=== PATIENT | female | born 1955 | race Caucasian/White ===

== ENCOUNTER → 2018-07-01 14:30 | Outpatient (CLI) | payer MEDICARE, MEDICAID, SELFPAY | PROVIDERS: PCP Nurse Practitioner; Visit Provider Student in an Organized Health Care Education/Training Program | DX: R07.89 Other chest pain (principal); I25.2 Old myocardial infarction; I10 Essential (primary) hypertension; R00.1 Bradycardia, unspecified; J44.9 Chronic obstructive pulmonary disease, unspecified; Z99.81 Dependence on supplemental oxygen; F17.210 Nicotine dependence, cigarettes, uncomplicated | CPT/HCPCS: 99214 ==

== ENCOUNTER → 2018-07-06 00:26 | Outpatient (CLI) | payer MEDICARE, MEDICAID, SELFPAY ==
--- NOTE | 2018-07-06 07:04 | MERGEMPI_ITS ---
*[facility]* *[facility]* [address] [place] [address] Myocardial Perfusion Imaging - SPECT Mathew protocol Date of study: 07/06/2018 *PATIENT PRESENTATION* Height: 154.9cm (61in) Blood Pressure: Weight: 100.5kg (221lb) BSA: 2.14m^2 Ordering physician: Eriberto West Impressions: Normal perfusion by Tc99m Sestamibi Imaging. Summary: 1. Myocardial perfusion imaging: Dense breast shadow on raw imaging; moderate size, moderate intensity anterior defect, predominantly fixed. Resolves with AC. C/w breast shadow. No myocardial perfusion defects noted. 2. The calculated left ventricular ejection fraction after stress: 54%. No left ventricular regional motion abnormality. 3. Stress: The target heart rate was not achieved. The heart rate response to stress is exaggerated. There is a hypertensive response to stress. Indication: R07.9. History: Patient's presenting symptoms: asymptomatic. REASON FOR VISIT: PATIENT REPORTS 5/10 CHEST PAIN FOR THE PAST MONTH. CHEST PAIN IS DULL, STERNAL AND LEFT STERNAL WITH OCCASIONAL RADIATION TO BACK. PAIN LASTS 1-3 MINUTES AND IS NOT RELATED TO EXERTION. PALPITATIONS PRESENT OFF AND ON THROUGHOUT THE DAY. PATIENT DOES NOT HAVE SHORTNESS OF BREATH LONG SHE IS USING HER OXYGEN. PAST MEDICAL HISTORY: HYPOTHYROIDISM, OBESITY, CHRONIC OBSTRUCTIVE PULMONARY DISEASE (OXYGEN DEPENDENT), OBSTRUCTIVE SLEEP APNEA, HYPERLIPIDEMIA, HYPERTENSION, CVA AND CEREBRAL ANEURYSM, MYOCARDIAL INFARCTION. FAMILY HISTORY: MOTHER AND FATHER FROM HEART ATTACK. SMOKING STATUS: CURRENT SMOKER. 54 PACK YEARS. EXERCISE ROUTINE: NONE. PMH: COPD. Risk factors: Family history of coronary artery disease. Current tobacco use. Hypertension. Obesity. Cholesterol: 144mg/dl. HDL: 61mg/dl. LDL: 67mg/dl. Triglycerides: 92mg/dl. ALLERGIES: SULFONAMIDE ANTIBIOTICS. MEDICATIONS: ALBUTEROL SULFATE 2 PUFF, PRN. ALBUTEROL/IPRATROPIUM 3ML INHALATION, PRN. ASPIRIN 325MG, DAILY. ESCITALOPRAM 20MG, DAILY. FLUTICASONE/UMECLIDIN/VILANTER 1 INHALATION, DAILY. GABAPENTIN 300MG, BID. LATANOPROST 1 DROP, HS. LEVOTHYROXINE SODIUM 25MG, DAILY. LORAZEPAM 0.5MG, PRN. MECLIZINE HCL 25MG, PRN. OMEPRAZOLE 20MG, DAILY. PRAVASTATIN SODIUM 20MG, HS. ROFLUMILAST 500MCG, Q48H. TRAZODONE HCL 200MG, HS. Imaging Technique: Protocol: Mathew protocol. Acquisition: Gated SPECT; 1 day - rest/stress. The patient was imaged in the supine position. Attenuation correction used. Isotope administration: - Rest. Tc[99m]-sestamibi. Dose: 9.9mCi. Injection time: 10:30 AM. Injection to stress time: 00:45. - Stress. Tc[99m]-sestamibi. Dose: 32mCi. Injection time: 12:20 PM. 1-2 min before end of exercise Baseline ECG: SINUS BRADYCARDIA WITH INCOMPLETE LEFT BUNDLE BRANCH BLOCK. HEART RATE 46 BPM. Stress protocol: + +---+ + + !Stage !HR !BP (mmHg) !Comments ! + +---+ + + !Baseline supine !46 !128/70 (89) ! ! + +---+ + + !Baseline standing!44 !112/70 (84) ! ! + +---+ + + !Recovery; 1 min !101!165/72 (103)! ! + +---+ + + !1 min !65 !158/68 (98) !Inject Regadenoson.! + +---+ + + !3 min !51 !144/74 (97) ! ! + +---+ + + !6 min !50 !130/78 (95) ! ! + +---+ + + * Stress results: Maximal heart rate during stress was 111bpm (70% of maximal predicted heart rate). The maximal predicted heart rate was 158bpm. The target heart rate was not achieved. The heart rate response to stress is exaggerated. There is a hypertensive response to stress. The rate-pressure product for the peak heart rate and blood pressure was 43005uc Hg/min. Stress ECG: TREADMILL PORTION OF EXERCISE STRESS TEST ENDED IN 2MIN 20SEC DUE TO PATIENT FATIGUE. EXAGGERATED HEART RATE AND BLOOD PRESSURE RESPONSE TO EXERCISE. MAX HEART RATE 111 BPM, 70% OF TARGET HEART RATE. APPROXIMATE METS ACHIEVED 4.64. NO ANGINA REPORTED. BIGEMINY NOTED PRIOR TO CESSATION OF EXERCISE. FREQUENT PVCS DURING RECOVERY PERIOD. NO SIGNIFICANT ST SEGMENT CHANGES. MODERATELY DIMINISHED FUNCTIONAL CAPACITY. EXERCISE STRESS TEST PROTOCOL TRANSITIONED FROM MATHEW TO LEXISCAN. STRESS TEST ENDED IN 6MIN WHEN ALL SYMPTOMS OF REGADENOSON INJECTION SUBSIDED. APPROPRIATE HEART RATE AND BLOOD PRESSURE RESPONSE TO REGADENOSON INJECTION. FREQUENT PVCS NOTED, LESSENING TO OCCASIONAL PVCS TOWARDS END OF REGADENOSON PORTION OF TEST. PALPITATIONS REPORTED AT BEGINNING OF INJECTION BUT RESOLVED WITHIN SECONDS. NO ANGINA REPORTED. Myocardial perfusion: Imaging information: gated. Dense breast shadow on raw imaging; moderate size, moderate intensity anterior defect, predominantly fixed. Resolves with AC. C/w breast shadow. No myocardial perfusion defects noted. Ventricular Function (Wall Motion): The calculated left ventricular ejection fraction after stress: 54%. No left ventricular regional motion abnormality. Study data: Edgardo Boswell MD supervised and was readily available during the procedure. This study was interpreted by [facility]. Study status: Routine. Consent: The risks, benefits, and alternatives to the procedure were explained to the patient and informed consent was obtained. Procedure: Initial setup. A baseline ECG was recorded. Surface ECG leads and manual cuff blood pressure measurements were monitored. Heart sounds: Normal. Lung sounds: Abnormal. Supplemental oxygen. Oxygen, 3L/min was administered throughout the procedure. Treadmill exercise testing was performed using the Mathew protocol. Study completion: All catheters inserted during the procedure were removed. The patient tolerated the procedure well and was discharged from the lab. Discharge: The patient left the laboratory in stable condition. Birthdate: Patient birthdate: 1955. Sex: Gender: female. Study date: Study date: 07/06/2018. Study time: 07:04 AM. Electronically signed by Edgardo Boswell MD 07/06/2018 17:37
[2018-07-06] MEDS: Regadenoson 0.4 MG/5 ML SYR IVP (12:38)
== END ==
PROVIDERS: PCP Nurse Practitioner; Visit Provider Student in an Organized Health Care Education/Training Program
DX: R07.9 Chest pain, unspecified (principal); R00.2 Palpitations; E03.9 Hypothyroidism, unspecified; J44.9 Chronic obstructive pulmonary disease, unspecified; Z99.81 Dependence on supplemental oxygen; I10 Essential (primary) hypertension; E78.5 Hyperlipidemia, unspecified; Z82.49 Family history of ischemic heart disease and other diseases of the circulatory system
CPT/HCPCS: 78452; 93017; J2785; 93016; 93018

== ENCOUNTER → 2018-07-21 02:52 | Outpatient (CLI) | payer MEDICARE, MEDICAID, SELFPAY ==
[2018-07-21 12:14] LABS: Absolute Eosinophil Count 0.01 k/cumm (0.0-0.7); Absolute Lymphocyte Count 0.99 k/cumm (1.2-3.4); Absolute Monocyte Count 0.17 k/cumm (0.11-0.7); Absolute Neutrophil Count 2.48 k/cumm (1.2-6.7); Eosinophils % 0.3; HCT 36.8 % (36.0-46.0); Lymphocytes % 27.1; Mean Corp. HGB Concentration 32.6 g/dL (32.0-36.0); Mean Corpuscular Hemoglobin 31.4 pg (27.0-33.0); Mean Corpuscular Volume 96.3 fL (80-95); Mean Platelet Volume 8.8 fL (8.0-11.0); Monocytes % 4.7; Neutrophils % 67.9; RBC 3.82 m/cumm (4.00-5.20); RBC Distribution Width 12.7 % (11.7-14.6); White Blood Cell Count 3.65 k/cumm (4.4-10.8)
[2018-07-21 12:52] LABS: Platelet Count 70 x1000/uL (130-400)
[2018-07-21 14:23] LABS: ALT 21 U/L (12-78); AST 15 U/L (15-37); Albumin 3.6 g/dL (3.4-5.0); Alkaline Phosphatase 115 U/L (46-116); Anion Gap 9.5 mmol/L (3-11); BUN 10 mg/dL (7-18); Bilirubin, Total 0.2 mg/dL (0.2-1.0); CO2 29.5 mmol/L (21.0-32.0); CREATININE 1.29 mg/dL (0.55-1.02); Calcium 9.1 mg/dL (8.5-10.1); Chloride 105 mmol/L (98-107); Cholesterol 146 mg/dL (50-200); Estimated GFR 41.88 (mL/min/1.73m2); Glucose 97 mg/dL (70-100); HDL Cholesterol 60 mg/dL (40-60); LDL CHOLESTEROL 69 mg/dL (<100); Potassium 4.7 mmol/L (3.5-5.1); Sodium 144 mmol/L (136-145); TSH (W/Ref FT4) 1.47 uIU/mL (0.358-3.74); Triglyceride 95 mg/dL (30-150)
== END ==
PROVIDERS: PCP Nurse Practitioner; Visit Provider Nurse Practitioner
DX: E78.5 Hyperlipidemia, unspecified (principal); I10 Essential (primary) hypertension; J44.9 Chronic obstructive pulmonary disease, unspecified; E03.9 Hypothyroidism, unspecified
CPT/HCPCS: 36415; 80053; 80061; 83721; 84443; 85025

== ENCOUNTER → 2018-07-30 01:36 | Outpatient (CLI) | payer MEDICARE, MEDICAID, SELFPAY ==
--- NOTE | 2018-07-30 12:54 | DI.REPORT_ITS ---
SYMPTOMS/DIAGNOSIS: CHRONIC LT SHOULDER PAIN FOR 5 MONTHS, M25.512 LEFT SHOULDER: The glenohumeral joint is well maintained. There are moderate degenerative changes involving the AC joint. No soft tissue calcifications are seen. 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
== END ==
PROVIDERS: PCP Nurse Practitioner; Visit Provider Nurse Practitioner
DX: M25.512 Pain in left shoulder (principal); M19.012 Primary osteoarthritis, left shoulder; G89.29 Other chronic pain
CPT/HCPCS: 73030

== ENCOUNTER 2018-11-09 13:35 | Outpatient (CLI) | payer MEDICARE, MEDICAID, SELFPAY ==
--- NOTE | 2018-11-09 13:39 | DI.RAD_ITS ---
SYMPTOM/DIAGNOSIS: CHRONIC OBSTRUCTIVE LUNG DISEASE, J44.9, COUGH PA AND LATERAL CHEST: The heart is enlarged, unchanged. There is now noted to be left apical pleural thickening. This was not seen on previous chest CT of 04/08/18 nor on left shoulder films of 07/30/18. The lungs are otherwise clear. IMPRESSION: New left apical pleural thickening. A chest CT could be performed for further evaluation.
== END 2018-11-09 13:55 ==
PROVIDERS: PCP Nurse Practitioner; Visit Provider Internal Medicine
DX: J44.9 Chronic obstructive pulmonary disease, unspecified (principal); R05 Cough; J92.9 Pleural plaque without asbestos; I51.7 Cardiomegaly
CPT/HCPCS: 71046

== ENCOUNTER → 2018-11-19 12:27 | Outpatient (BNVA) | payer MEDICARE, MEDICAID, SELFPAY | PROVIDERS: PCP Nurse Practitioner; Visit Provider Psychiatry & Neurology Neurology | DX: I67.1 Cerebral aneurysm, nonruptured (principal); I63.9 Cerebral infarction, unspecified; G60.9 Hereditary and idiopathic neuropathy, unspecified; I10 Essential (primary) hypertension; J44.9 Chronic obstructive pulmonary disease, unspecified; F17.210 Nicotine dependence, cigarettes, uncomplicated | CPT/HCPCS: 99213 ==

== ENCOUNTER 2018-11-25 00:15 | Outpatient (CLI) | payer MEDICARE, MEDICAID, SELFPAY ==
--- NOTE | 2018-11-25 14:14 | DI.MRI_ITS ---
SYMPTOMS/DIAGNOSIS: CEREBRAL ANEURYSM S/P COILING, I67.1 MR ANGIOGRAM, [place] REGION: MR angiogram of the region of the [place] was performed according to the usual protocol. The findings are of suboptimal technical quality. The patient reportedly has a history of a previously noted cerebral aneurysm treated with intravascular coiling. Intracranial portions of the internal carotid arteries are grossly unremarkable. No aneurysm seen involving the internal carotid arteries, middle cerebral arteries, anterior cerebral arteries or anterior communicating arteries. There is contour deformity of the tip of the basilar artery, artifact versus post embolization changes. Clinical history requested regarding the site of reported embolization. Posterior cerebral arteries are patent bilaterally. CONCLUSION: Indeterminate findings of the distal basilar artery. Clinical correlation requested and previous examinations requested regarding clinical history of embolization at this site. I would note that the posterior cerebral arteries show normal appearance bilaterally with no evidence of aneurysm or stenosis.
== END 2018-11-25 00:35 ==
PROVIDERS: PCP Nurse Practitioner; Visit Provider Psychiatry & Neurology Neurology
DX: I67.1 Cerebral aneurysm, nonruptured (principal)
CPT/HCPCS: 70544

== ENCOUNTER 2018-11-25 11:25 | Outpatient (CLI) | payer MEDICARE, MEDICAID, SELFPAY ==
--- NOTE | 2018-11-25 14:53 | DI.CT_ITS ---
SYMPTOMS/DIAGNOSIS: COPD, J44.9, EVALUATE LEFT APICAL DENSITY ON CXR CHEST CT: Noncontrast CT of the chest was performed. Examination is compared with a previous chest CT of 04/08/18. A recent radiograph showed left apical radiodensity. Previous CT showed unremarkable appearance of the left lung apex. On today's CT, there is an area of apparent posterior apical consolidation in the left upper lobe. This contains air bronchograms. This may represent an infectious process, but the possibility of underlying neoplastic disease is not excluded. No additional new findings in the lungs, 3 mm right middle lobe pulmonary nodule again noted. No gross mediastinal or hilar adenopathy. Tracheobronchial tree appears intact. No pleural effusions seen. Images obtained through the upper abdomen show unremarkable appearance of visualized portions of liver, spleen, pancreas, adrenals and kidneys. Previous cholecystectomy and gas in the biliary tract is noted. CONCLUSION: New area of apparent posterior left apical consolidation as described above. Underlying mass not excluded. Please correlate clinically and appropriate follow-up examinations are requested following treatment to document the resolution of these findings.
== END 2018-11-25 11:45 ==
PROVIDERS: PCP Nurse Practitioner; Visit Provider Internal Medicine
DX: J44.9 Chronic obstructive pulmonary disease, unspecified (principal); R91.1 Solitary pulmonary nodule; R91.8 Other nonspecific abnormal finding of lung field
CPT/HCPCS: 70544; 71250

== ENCOUNTER 2018-12-17 13:41 | Outpatient (CLI) | payer MEDICARE, MEDICAID, SELFPAY ==
--- NOTE | 2018-12-17 13:30 | DI.RAD_ITS ---
SYMPTOMS/DIAGNOSIS: F/U PNEUMONIA CHEST X-RAY, PA AND LATERAL: Comparison chest x-ray is 11/09/18. Comparison CT scan is 11/25/18. There has been significant decrease in size of the left apical opacity with minimal thickening seen in the left apex. The lungs are otherwise clear. The heart size and pulmonary vasculature are stable. No effusions or pneumothoraces are identified. The bones are intact. IMPRESSION: Significant improvement in the left upper lobe infiltrate with possible small residual infiltrate present. A follow-up chest x-ray should be considered in one month to document complete resolution of the infiltrate.
== END 2018-12-17 14:01 ==
PROVIDERS: PCP Nurse Practitioner; Visit Provider Nurse Practitioner
DX: J18.9 Pneumonia, unspecified organism (principal); Z09 Encounter for follow-up examination after completed treatment for conditions other than malignant neoplasm
CPT/HCPCS: 71046

== ENCOUNTER 2019-01-18 00:30 | Outpatient (CLI) | payer MEDICARE, MEDICAID, SELFPAY ==
--- NOTE | 2019-01-18 13:00 | DI.RAD_ITS ---
SYMPTOM/DIAGNOSIS: F/U KELLY PNEUMONIA, J18.1 FRONTAL AND LATERAL CHEST: Comparison is made with 11/09/18 and 12/17/18. Heart size and pulmonary vasculature are stable. The heart appears mildly enlarged. The lungs are clear. There has been resolution of the left upper lobe infiltrates. No effusions or pneumothoraces are identified. Degenerative changes are seen in the spine. IMPRESSION: No acute pulmonary process.
== END 2019-01-18 00:50 ==
PROVIDERS: PCP Nurse Practitioner; Visit Provider Nurse Practitioner
DX: J18.1 Lobar pneumonia, unspecified organism (principal); I51.7 Cardiomegaly
CPT/HCPCS: 71046

== ENCOUNTER 2019-02-12 02:17 | Outpatient (CLI) | payer MEDICARE, MEDICAID, SELFPAY ==
[2019-02-12 18:58] LABS: ALT 16 U/L (12-78); AST 19 U/L (15-37); Albumin 3.7 g/dL (3.4-5.0); Alkaline Phosphatase 137 U/L (46-116); Bilirubin, Direct 0.05 mg/dL (0.00-0.20); Bilirubin, Total 0.2 mg/dL (0.2-1.0); Total Protein 7.1 g/dL (6.4-8.2)
== END 2019-02-12 02:37 ==
PROVIDERS: PCP Nurse Practitioner; Visit Provider Internal Medicine
DX: J44.9 Chronic obstructive pulmonary disease, unspecified (principal)
CPT/HCPCS: 36415; 80076

== ENCOUNTER → 2019-05-26 13:42 | Outpatient (BNVA) | payer MEDICARE, MEDICAID, SELFPAY | PROVIDERS: PCP Nurse Practitioner; Visit Provider Psychiatry & Neurology Neurology | DX: I67.1 Cerebral aneurysm, nonruptured (principal); I63.9 Cerebral infarction, unspecified; G60.9 Hereditary and idiopathic neuropathy, unspecified; I10 Essential (primary) hypertension; J44.9 Chronic obstructive pulmonary disease, unspecified; Z99.81 Dependence on supplemental oxygen; F17.210 Nicotine dependence, cigarettes, uncomplicated | CPT/HCPCS: 99214 ==

== ENCOUNTER 2019-06-02 00:51 | Outpatient (CLI) | payer MEDICARE, MEDICAID, SELFPAY ==
--- NOTE | 2019-06-02 09:43 | DI.MRI_ITS ---
SYMPTOM/DIAGNOSIS: NUMBNESS, TINGLING FACE, LEFT ARM; CEREBRAL ANEURYSM, NONRUPTURED, I67.1, S/P CLAMPING; CEREBRAL INFARCTION, I63.9; H/O CIRCULATORY SYSTEM DISEASES, Z86.79; POSTPROCEDURAL STATES, Z98.890 [place] MRIS: Comparison is made with the prior examination of 11/25/18. The patient reportedly has a history of intravascular coiling of a cerebral aneurysm. The visualized portions of the internal carotid arteries are unremarkable. The anterior, middle and posterior cerebral arteries appear intact and the anterior communicating arteries are well maintained. Again suggested is a contour deformity at the tip of the basilar artery which is of questionable significance. Again requested is clinical history regarding the site of the reported embolization. SUMMARY: No interval change when compared with the 11/25/18 exam. There is again suggested the possibility of a small aneurysm at the tip of the basilar artery. The examination is otherwise unremarkable. BRAIN MRI: Sagittal T2, axial T2, axial diffusion weighted, axial FLAIR, axial GRE and axial T1 pulse sequences were performed. There are several small regions of increased signal in the subcortical frontoparietal white matter bilaterally, consistent with small vessel disease. There is no evidence of a hemorrhage or mass. There are no regions of restricted diffusion and nothing to suggest an infarct. The ventricles are intact. SUMMARY: Unremarkable brain MRI save for findings consistent with small vessel disease.
[2019-06-02 11:10] LABS: HCT 34.4 % (36.0-46.0); HGB 11.1 g/dL (12.0-15.5); Mean Corp. HGB Concentration 32.3 g/dL (32.0-36.0); Mean Corpuscular Hemoglobin 32.5 pg (27.0-33.0); Mean Corpuscular Volume 100.6 fL (80-95); Mean Platelet Volume 8.5 fL (8.0-11.0); RBC 3.42 m/cumm (4.00-5.20); RBC Distribution Width 13.7 % (11.7-14.6); White Blood Cell Count 3.16 k/cumm (4.4-10.8)
[2019-06-02 11:54] LABS: Platelet Count 43 x1000/uL (130-400)
[2019-06-02 12:33] LABS: ALT 17 U/L (12-78); AST 19 U/L (15-37); Albumin 3.7 g/dL (3.4-5.0); Alkaline Phosphatase 131 U/L (46-116); Anion Gap 9.5 mmol/L (3-11); BUN 16 mg/dL (7-18); Bilirubin, Total 0.2 mg/dL (0.2-1.0); CO2 28.5 mmol/L (21.0-32.0); CREATININE 1.13 mg/dL (0.55-1.02); Calcium 9.2 mg/dL (8.5-10.1); Calculated LDL 71 mg/dL; Chloride 106 mmol/L (98-107); Cholesterol 154 mg/dL (50-200); Estimated GFR 48.63 (mL/min/1.73m2); Glucose 103 mg/dL (70-100); HDL Cholesterol 64 mg/dL (40-60); Potassium 4.7 mmol/L (3.5-5.1); Sodium 144 mmol/L (136-145); TSH (W/Ref FT4) 1.32 uIU/mL (0.358-3.74); Total Protein 7.2 g/dL (6.4-8.2); Triglyceride 99 mg/dL (30-150)
== END 2019-06-02 01:11 ==
PROVIDERS: PCP Nurse Practitioner; Referring Provider Internal Medicine; Visit Provider Nurse Practitioner
DX: I63.9 Cerebral infarction, unspecified (principal); I67.1 Cerebral aneurysm, nonruptured; Z86.79 Personal history of other diseases of the circulatory system; Z98.890 Other specified postprocedural states; E03.9 Hypothyroidism, unspecified; E78.5 Hyperlipidemia, unspecified; I10 Essential (primary) hypertension; J44.9 Chronic obstructive pulmonary disease, unspecified; I67.9 Cerebrovascular disease, unspecified
CPT/HCPCS: 36415; 70544; 80053; 80061; 83721; 85027; 70551; 84443

== ENCOUNTER 2019-06-07 00:52 | Outpatient (CLI) | payer MEDICARE, MEDICAID, SELFPAY ==
--- NOTE | 2019-06-07 13:38 | DI.CTLCSR_ITS ---
SYMPTOM/DIAGNOSIS: F17.210, NICOTINE DEPENDENCE, CURRENT SMOKER LUNG SCREENING CHEST CT: CT examination of the chest was performed without contrast material utilizing low dose lung cancer screening protocol. The examination is compared with multiple previous chest CT's. There is an irregular area of increased radiodensity in the left lung apex which is multi focal and predominantly linear but with nodular components measuring up to about 13 by 8 mm. in diameter. The patient had an area of consolidation in this site on previous CT of 11/25/18. Chest CT on 04/08/18 showed this area to be clear. This finding may represent areas of scarring or recurrent pneumonia however the possibility of underlying neoplasm is not excluded. 3-4 mm. right middle lobe nodule again noted as seen on previous examinations. Tracheobronchial tree appears intact. No mediastinal or hilar adenopathy. Images obtained through the upper abdomen show unremarkable appearance of visualized portions of the liver, spleen, pancreas, adrenals and kidneys. CONCLUSION: Findings in left lung apex as described which may represent post infectious scarring. An additional [address] up chest CT is recommended. Alternatively, PET CT could be considered to evaluate the possibility of neoplastic disease. Category 4 A. Lung-RAD Category: Lung RADS Category 4A- Suspicious
[2019-06-07 14:13] LABS: HCT 33.4 % (36.0-46.0); HGB 10.8 g/dL (12.0-15.5); Mean Corp. HGB Concentration 32.3 g/dL (32.0-36.0); Mean Corpuscular Hemoglobin 31.9 pg (27.0-33.0); Mean Corpuscular Volume 98.5 fL (80-95); Mean Platelet Volume 9.2 fL (8.0-11.0); RBC 3.39 m/cumm (4.00-5.20); RBC Distribution Width 13.3 % (11.7-14.6); White Blood Cell Count 3.84 k/cumm (4.4-10.8)
[2019-06-07 14:35] LABS: Platelet Count 56 x1000/uL (130-400)
[2019-06-07 15:49] LABS: Folate 17.6 ng/mL (8.6-20.0); Vitamin B12 506 pg/mL (193-986)
[2019-06-08 11:20] LABS: Hepatitis C Ab w Rflx HCV PCR Negative (NEGAT)
[2019-06-08 11:40] LABS: HIV-1/2 Ag & Ab Screen Negative (NEGAT)
== END 2019-06-07 01:12 ==
PROVIDERS: PCP Nurse Practitioner; Visit Provider Internal Medicine
DX: D69.6 Thrombocytopenia, unspecified (principal); Z11.4 Encounter for screening for human immunodeficiency virus [HIV]; Z11.59 Encounter for screening for other viral diseases; F17.210 Nicotine dependence, cigarettes, uncomplicated; Z12.2 Encounter for screening for malignant neoplasm of respiratory organs; R91.8 Other nonspecific abnormal finding of lung field
CPT/HCPCS: 36415; 85027; 86803; 87389; G0297; 82607; 82746

== ENCOUNTER 2019-06-08 21:45 | Emergency (ER) | payer MEDICARE, MEDICAID, SELFPAY ==
[2019-06-08] VITALS (16 sets, daily range): BP systolic 117–153; BP diastolic 51–66; PULSE 58–82; RESP 15–22; TEMP 37.4; O2SAT 95–99
--- NOTE | 2019-06-08 21:58 | NUR.NOTE ---
over the past 4 days PT has had increasing dispnyia pt believes this to be a result of her COPD
[2019-06-08] MEDS: methylPREDNISolone SUCC 125 MG VIAL IVP (22:00)
[2019-06-08] MEDS: Albuterol/Ipratropium 3 ML UPD VIAL 9 ML UPD (22:00)
--- NOTE | 2019-06-08 22:09 | W.ED.GENAD ---
Discharge Plan Disposition Patient Disposition: HOME Condition: Good Discharge Details Chief Complaint: SOB Clinical Impression: COPD exacerbation, Cough Primary Care Provider: Rebeca Dupree ED Provider: Lukasz Noel Home Meds and New Rx's Prescriptions: New prednisone 50 MG tablet 50 mg PO DAILY Qty: 5 RF: 0 No Action lisinopril 10 mg tablet 10 mg PO DAILY Qty: 90 RF: 3 zolpidem 10 mg tablet 10 mg PO QHS PRN (Reason: sleep) Qty: 30 RF: 3 albuterol sulfate [ProAir HFA] 8.5 GM HFA aerosol inhaler 2 puff Inhalation Q4H PRN Qty: 3 RF: 3 nystatin 15 GM cream 1 gm Topical TID PRNQty: 15 RF: 6 latanoprost 2.5 ML drops 1 drp Ophthalmic HS RF: 0 aspirin 325 MG tablet 325 mg PO DAILY RF: 0 Hospital Bed EACH Miscellaneous ONCE Qty: 1 RF: 0 Fluticasone/Umeclidin/Vilanter [Trelegy Ellipta 100-62.5-25] 1 EACH BLST.W.DEV 1 ea Inhalation DAILY RF: 0 levothyroxine [Synthroid] 25 MCG tablet 25 mcg PO DAILY Qty: 90 RF: 3 omeprazole 20 MG capsule,delayed release(DR/EC) 20 mg PO DAILY Qty: 90 RF: 3 escitalopram oxalate [Lexapro] 20 MG tablet 20 mg PO DAILY Qty: 90 RF: 3 Oxygen EACH continuous Qty: 3 RF: 0 diaper,brief,infant-tulio,disp [Diapers Ultrafits 3] 1 EACH misc 1 ea Miscellaneous Q4H PRN PRNQty: 300 RF: 6 ipratropium-albuterol 0.5 mg-3 mg(2.5 mg base)/3 mL solution for nebulization 3 ml Inhalation Q4H PRN Qty: 180 RF: 6 pravastatin [Pravachol] 20 mg tablet 20 mg PO HS Qty: 90 RF: 3 Daliresp 500 mcg tablet 500 mcg PO DAILY RF: 0 Discharge Instructions Instructions: COPD (Chronic Obstructive Pulmonary Disease) (ED) Additional Instructions: At this time your signs and symptoms appear consistent with a COPD exacerbation. Please take the steroid as directed. Please take your DuoNeb solutions in your nebulizer every 4-6 hours for the next 2 days. If you notice any worsening of your symptoms, or any new symptoms such as vomiting, diarrhea, fever, chills, shortness of breath, chest pain, numbness, weakness, or fainting , please return immediately to the emergency department for reevaluation. Please follow up with your primary care provider as soon as possible for reassessment and reevaluation. As always, it was a pleasure participating in your medical care today. Please follow-up tomorrow for your ultrasound of your leg. He will be contacted for this appointment. Please follow-up in the emergency department after your ultrasound. Referrals: Rebeca Dupree NP [Primary Care Provider] - Medical Decision Making This is a 63-year-old female who presents today for evaluation of shortness of breath for the last 1 to 2 days with associated cough, productive green-yellow sputum, as well as a mild pleuritic chest pain. She is taken her 3 breathing treatments at home but these have not improved her symptoms. Exam demonstrates crackles primarily wheezes in the lower lung cervantes, she does demonstrate a tender right calf, as well as mildly tender superficial varicose veins. Oxygenation appears to be good with oxygen saturations in the high 90s on 4 L. She is normally on 3 L baseline. With the patient's cough, and wheezes I suspect reactive airway disease of her with the pleuritic chest pain, the notable right lower calf tenderness PE is certainly on the differential. We will give duo nebs, steroids, and treat for COPD exacerbation, we will get further imaging based on d-dimer studies. As precaution ACS work-up will also be performed for atypical and less likely cardiac etiology. 12:08 AM Patient's laboratory work-up has returned, no white count, no leukocytosis or bandemia. Hemoglobin is stable. Platelets are 54 but this appears to be her more normal baseline over the last few months. No acute change. Renal function at baseline, troponin less than 0.05, proBNP normal. D-dimer was positive, CT angios demonstrates no acute process, there is minimal atelectasis over the left upper lobe postinflammatory residual changes, but no evidence of pneumonia or significant consolidation. No evidence of significant infectious etiology, PE or dissection per virtual radiology. On reassessment the patient states that she has near complete resolution of her symptoms and feels much better and would like to go home. At this time signs and symptoms appear consistent with a COPD exacerbation. Her lung sounds are notably improved. Will recommend continued steroids at home for the next 5 days, duo nebs every 4 to 6 hours for the next 2 days, and close reassessment with her PCP. Because of the mild swelling and tenderness in her right calf, we will schedule an outpatient ultrasound of the right lower extremity. We did discuss Eliquis versus subcu Lovenox, and the patient is requesting Lovenox at this time. We will give her 1.5 mix per kick for 24-hour treatment while she waits for the ultrasound tomorrow morning. We discussed the importance of close follow-up in the ER after the ultrasound, and red flags which to return. I have extensively reviewed the treatment plan and discharge instructions with the patient. I have addressed all patient concerns at this time. The patient was made aware of what symptoms to monitor for that would warrant a return to the emergency department. Discussed the plan with the patient, they demonstrate verbal understanding and agreement with our assessment and plan at this time. EKG 22: 38 Rate 70, intervals normal, sinus rhythm, no significant ST elevations or depressions, no T wave inversions. No Q waves. EKG on 10/01/2017 demonstrates consistent findings. FINDINGS: Pulmonary arteries: Unremarkable. No obvious pulmonary emboli. Aorta: Unremarkable. No aortic aneurysm. No aortic dissection. Lungs: Small amount of dependent atelectasis. Small amount of postinflammatory change in the left apex. Mild to moderate emphysematous changes. Pleural space: Unremarkable. No pneumothorax. No pleural effusion. Heart: Unremarkable. No pericardial effusion. No obvious heart strain. Lymph nodes: Unremarkable. No enlarged lymph nodes. Bones/joints: Unremarkable. No acute fracture. Soft tissues: Unremarkable. MPRESSION: Minimal dependent atelectasis. Left upper lobe has a small amount of postinflammatory change residual from a consolidation seen in October of last year. Mild to moderate emphysematous changes. Thank you for allowing us to participate in the care of your patient. Dictated and Authenticated by: Arpan Preciado MD [facility] General Date/Time Provider Initiated Documentation: 06/08/19 21:50. HPI Narrative: This is a 63-year-old female with a past medical history of COPD, GERD, cerebral aneurysm x2 with coiling, who is on 3 L of normal saline, who presents today for evaluation of shortness of breath for last 1 to 2 days with associated cough with productive yellow sputum. She denies any fever or chills. She did take 3 breathing treatments earlier today and this is not improved her symptoms. She does admit to a mild pleuritic chest pain but denies any chest heaviness, chest tightness. Denies PE risk factors such as recent long car rides, immobilization, recent surgery, prior history of DVT or PE, family history of PE or DVT, morbid obesity, exogenous estrogen and smoking, hemoptysis, history of cancer. She denies any history of cardiac disease. No other complaints at this time. She does arrive via EMS, per EMS O2 saturations have remained in the high 90s, with no evidence of vital sign abnormality aside from minimal tachypnea 23. Of note the patient also has a history of stroke in the past, for which she has chronic left-sided hemiparesis. She does take a daily aspirin. Related Data Home Medications Medication Instructions Recorded Confirmed albuterol sulfate [ProAir HFA] 2 puff INHALATION Q4H PRN #3 05/30/17 06/08/19 inhaler nystatin 1 gm TOPICAL TID PRN #15 gm 07/01/17 06/08/19 latanoprost 1 drp OPHTHALMIC HS drp 07/08/17 06/08/19 aspirin 325 mg PO DAILY tab-cap 11/06/17 06/08/19 Fluticasone/Umeclidin/Vilanter 1 ea INHALATION DAILY 04/24/18 05/26/19 [Trelegy Ellipta 100-62.5-25] escitalopram oxalate [Lexapro] 20 mg PO DAILY #90 tab-cap 04/28/18 06/08/19 levothyroxine [Synthroid] 25 mcg PO DAILY #90 tab-cap 04/28/18 06/08/19 omeprazole 20 mg PO DAILY #90 cap 04/28/18 06/08/19 Oxygen l continuous #3 07/03/18 05/26/19 diaper,brief,infant-tulio,disp #300 ea 07/29/18 06/08/19 [Diapers] ipratropium-albuterol 0.5 mg-3 3 ml INHALATION Q4H PRN #180 ml 10/07/18 06/08/19 mg(2.5 mg base)/3 mL nebulization soln lisinopril 10 mg tablet 10 mg PO DAILY #90 tab-cap 12/17/18 06/08/19 pravastatin 20 mg tablet 20 mg PO HS #90 tab-cap 05/24/19 06/08/19 roflumilast 500 mcg tablet 500 mcg PO DAILY tab-cap 05/25/19 06/08/19 zolpidem 10 mg tablet 10 mg PO QHS PRN #30 tab 05/25/19 06/08/19 prednisone 50 mg PO DAILY #5 tab 06/08/19 Previous Rx's Medication Instructions Recorded escitalopram oxalate [Lexapro] 20 mg PO DAILY #90 tab-cap 04/28/18 levothyroxine [Synthroid] 25 mcg PO DAILY #90 tab-cap 04/28/18 omeprazole 20 mg PO DAILY #90 cap 04/28/18 ipratropium-albuterol 0.5 mg-3 3 ml INHALATION Q4H PRN #180 ml 10/07/18 mg(2.5 mg base)/3 mL nebulization soln lisinopril 10 mg tablet 10 mg PO DAILY #90 tab-cap 12/17/18 pravastatin 20 mg tablet 20 mg PO HS #90 tab-cap 05/24/19 zolpidem 10 mg tablet 10 mg PO QHS PRN #30 tab 05/25/19 prednisone 50 mg PO DAILY #5 tab 06/08/19 Allergies Allergy/AdvReac Type Severity Reaction Status Date / Time Sulfa (Sulfonamide Allergy Severe Pruritis, Verified 06/08/19 22:03 Antibiotics) rash General Stated Complaint: SOB MARANDA: 3 Review of Systems Review of Systems All systems reviewed & are unremarkable except as noted in HPI and below PFSH Social History Smoking/Tobacco Use Status: Current every day Tobacco Type: cigarettes Years smoked: 55 Alcohol Intake: former Drug use: Never Substance use type: does not use Household members: family Seatbelt use: always Do you feel safe at home: Yes Do you feel safe in your relationship?: Yes Exam Narrative Exam Narrative: 1.Const: Well-nourished, Well-developed, appearing stated age 2.Eyes: PERRL, no conjunctival injection, and symmetrical lids. 3.ENT: Atraumatic external nose and ears. Moist MM. Neck: Symmetric, trachea midline, No thyromegaly. 4.CVS: +S1/S2, No murmurs or gallops. Peripheral pulses 2+ and equal in all extremities. Brisk capillary refill in all extremities. 5.RESP: Decreased breath sounds throughout, wheezes in the bases bilaterally. No significant crackles or rhonchi. 6.GI: Soft, Nontender/Nondistended, No hepatosplenomegaly. No guarding or rebound. 7.MSK: Normocephalic/Atraumatic, Extremities w/o deformity or ttp No cyanosis or clubbing, Normal movement of all extremities. Mild tenderness in the right calf, mild bruising as well with firm superficial veins. No pitting edema. 8.Skin: Warm, Dry. No rashes or lesions. 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 Sensation grossly intact, chronic left-sided hemiparesis. 10.Psych: (AAO) x3. Appropriate mood and affect Course Vital Signs Temperature 37.4 C 06/08/19 22:00 Pulse 58 L 06/08/19 22:00 Respiratory Rate 22 06/08/19 22:00 Blood Pressure 117/65 06/08/19 22:00 Pulse Oximetry 99 06/08/19 22:00 Temperature 37.4 C 06/08/19 22:00 Temperature Source Tympanic 06/08/19 22:00 Pulse 58 L 06/08/19 22:00 Respiratory Rate 22 06/08/19 22:00 Blood Pressure 117/65 06/08/19 22:00 Blood Pressure Position Sitting 06/08/19 22:00 Pulse Oximetry 99 06/08/19 22:00 Oxygen Delivery Method Nasal Cannula 06/08/19 22:00 Oxygen Flow Rate 3 06/08/19 22:00 Pain Level 0 06/08/19 22:00
[2019-06-08 22:38] LABS: Abs Immature Grans 0.01 k/cumm (0.0-0.09); Absolute Eosinophil Count 0.03 k/cumm (0.0-0.7); Absolute Lymphocyte Count 1.44 k/cumm (1.2-3.4); Absolute Monocyte Count 0.29 k/cumm (0.11-0.7); Absolute Neutrophil Count 2.08 k/cumm (1.2-6.7); BE (Venous) 4.1 mmol/L (-3-3); Eosinophils % 0.8; HCO3 (Venous) 29 mmol/L (22-28); HCT 33.8 % (36.0-46.0); HGB 10.9 g/dL (12.0-15.5); Immature Grans % 0.3; Lymphocytes % 37.4; Mean Corp. HGB Concentration 32.2 g/dL (32.0-36.0); Mean Corpuscular Volume 99.1 fL (80-95); Mean Platelet Volume 8.6 fL (8.0-11.0); Monocytes % 7.5; O2 Sat (Venous) 88 % (70-80); RBC 3.41 m/cumm (4.00-5.20); RBC Distribution Width 13.6 % (11.7-14.6); TCO2 (Venous) 28 mmol/L (22-29); White Blood Cell Count 3.85 k/cumm (4.4-10.8); pCO2 (Venous) 51 mm/Hg (34-47); pH (Venous) 7.37 (7.32-7.43); pO2 (Venous) 52 mm/Hg (28-44)
[2019-06-08 22:42] LABS: Platelet Count 54 x1000/uL (130-400)
[2019-06-08 23:12] LABS: ALT 17 U/L (12-78); AST 20 U/L (15-37); Albumin 3.9 g/dL (3.4-5.0); Alkaline Phosphatase 126 U/L (46-116); Anion Gap 9.3 mmol/L (3-11); BUN 16 mg/dL (7-18); Bilirubin, Total 0.2 mg/dL (0.2-1.0); CO2 27.7 mmol/L (21.0-32.0); CREATININE 1.25 mg/dL (0.55-1.02); Calcium 9.4 mg/dL (8.5-10.1); Chloride 105 mmol/L (98-107); Estimated GFR 43.29 (mL/min/1.73m2); Glucose 110 mg/dL (70-100); NT-proBNP 292 pg/mL; Potassium 3.4 mmol/L (3.5-5.1); Sodium 142 mmol/L (136-145); Total Protein 7.8 g/dL (6.4-8.2)
[2019-06-08 23:14] LABS: D-Dimer 712 ng/mlFEU (<500)
[2019-06-08 23:16] LABS: Troponin I < 0.05 ng/mL (0.00-0.06)
--- NOTE | 2019-06-08 23:16 | DI.CT_ITS ---
SYMPTOM/DIAGNOSIS: COUGH, SOB, ELEVATED D DIMER, CHEST PAIN PE CHEST CT: CT angiography of the chest was performed with a bolus infusion of 100 cc's of Omnipaque 350. Images obtained through the upper abdomen show unremarkable appearance of visualized portions of liver and spleen. No mediastinal or hilar adenopathy. Tracheobronchial tree appears intact. There is mild cardiomegaly. There appear to be centrilobular pulmonary emphysematous changes. Previously described irregular lesion of the left lung apex grossly unchanged or slightly more prominent in comparison with previous examination of 06/07. No new intrapulmonary consolidation. No pleural effusion. There is no evidence of pulmonary embolic disease or other major vascular abnormality in the chest. CONCLUSION: No evidence of pulmonary embolic disease. Irregular left apical lung lesion again noted, please see recent CT report and multiple previous CT's, the findings may represent scarring but underlying neoplastic disease is not excluded and a follow up chest CT is recommended in [address] may be considered for further evaluation.
[2019-06-08] MEDS: Omnipaque 350 MG/ML 100 ML BTL IV (23:29)
[2019-06-08 23:44] LABS: INR 0.9 (0.9-1.1); PTT Activated 22.3 sec (21.0-31.4); Prothrombin Time 9.4 sec (9.3-11.0)
[2019-06-09] VITALS: O2SAT 97
--- NOTE | 2019-06-09 | DI.VRAD_ITS ---
EXAM: CT Angiography Chest Without And With Contrast EXAM DATE/TIME: 06/08/2019 11:16 PM CLINICAL HISTORY: 63 years old, female; Other: Cough, SOB, elevated dimer TECHNIQUE: Imaging protocol: Axial computed tomographic angiography images of the chest without and with intravenous contrast using CT angiography protocol. Coronal and sagittal reformatted images were created and reviewed. 3D rendering: MIP reconstructed images were created and reviewed. Radiation optimization: All CT scans at this facility use at least one of these dose optimization techniques: automated exposure control; mA and/or kV adjustment per patient size (includes targeted exams where dose is matched to clinical indication); or iterative reconstruction. Contrast material: OMNIPAQUE 350; Contrast volume: 100 ml; Contrast route: IV; COMPARISON: CT CHEST LUNG CANCER SCREEN 06/07/[address] from 11/25/2018 FINDINGS: Pulmonary arteries: Unremarkable. No obvious pulmonary emboli. Aorta: Unremarkable. No aortic aneurysm. No aortic dissection. Lungs: Small amount of dependent atelectasis. Small amount of postinflammatory change in the left apex. Mild to moderate emphysematous changes. Pleural space: Unremarkable. No pneumothorax. No pleural effusion. Heart: Unremarkable. No pericardial effusion. No obvious heart strain. Lymph nodes: Unremarkable. No enlarged lymph nodes. Bones/joints: Unremarkable. No acute fracture. Soft tissues: Unremarkable. IMPRESSION: Minimal dependent atelectasis. Left upper lobe has a small amount of postinflammatory change residual from a consolidation seen in October of last year. Mild to moderate emphysematous changes. Dictated and Authenticated by: Arpan Preciado MD. Ordering:SU Lal MD
[2019-06-09 00:29] VITALS: BP 126/55; PULSE 77; RESP 16; TEMP 37.4; O2SAT 97
== END 2019-06-09 00:49 | disposition home or self-care (01) ==
PROVIDERS: Emergency Provider Student in an Organized Health Care Education/Training Program; PCP Nurse Practitioner
DX: J44.1 Chronic obstructive pulmonary disease with (acute) exacerbation (principal); I10 Essential (primary) hypertension; F17.210 Nicotine dependence, cigarettes, uncomplicated
CPT/HCPCS: 36415; 71275; 80053; 82805; 93005; 96372; 96374; 99285; 83880; 84484; 85025; 85379; 85610; 85730; 93010; J1650; J2930; J3490; J7620

== ENCOUNTER 2019-06-10 00:52 | Outpatient (CLI) | payer MEDICARE, MEDICAID, SELFPAY ==
--- NOTE | 2019-06-10 10:10 | DI.US_ITS ---
SYMPTOM/DIAGNOSIS: SWELLING AND PAIN OF CALF, R22.42 RIGHT LOWER EXTREMITY ULTRASOUND: The deep veins of the right lower extremity show normal compression, augmentation and color flow. There is no evidence of a deep venous thrombus present. The saphenofemoral junction appears well maintained. There is a heterogeneous subcutaneous area in the right calf anteriorly corresponding to the swelling. The area measures 1.9 by 0.7 by 1.7 cm. No internal blood flow is seen. This may represent a subcutaneous hematoma. IMPRESSION: No evidence of a right lower extremity deep venous thrombus.
== END 2019-06-10 01:12 ==
PROVIDERS: PCP Nurse Practitioner; Visit Provider Student in an Organized Health Care Education/Training Program
DX: R22.42 Localized swelling, mass and lump, left lower limb (principal); M79.661 Pain in right lower leg
CPT/HCPCS: 93971

== ENCOUNTER 2019-07-27 13:41 | Outpatient (CLI) | payer MEDICARE, MEDICAID, SELFPAY ==
--- NOTE | 2019-07-27 13:52 | DI.RAD_ITS ---
SYMPTOM/DIAGNOSIS: 50.9, FEVERS IN EVENING, COUGH, R05 PA AND LATERAL CHEST: Comparison is made with 01/18/19. The heart is enlarged, unchanged. The lungs appear clear. No infiltrate, effusion or mass is seen. IMPRESSION: Cardiomegaly. No acute abnormality.
== END 2019-07-27 14:01 ==
PROVIDERS: PCP Nurse Practitioner; Visit Provider Nurse Practitioner
DX: R05 Cough (principal); R50.9 Fever, unspecified; I51.7 Cardiomegaly
CPT/HCPCS: 71046

== ENCOUNTER 2019-08-04 00:35 | Outpatient (CLI) | payer MEDICARE, MEDICAID, SELFPAY ==
--- NOTE | 2019-08-04 08:25 | DI.US_ITS ---
SYMPTOMS/DIAGNOSIS: ANEMIA, ELEVATED ALK PHOS, D64.9, R74.8 ABDOMEN ULTRASOUND: The liver appears mildly enlarged but shows normal echogenicity. There are no focal liver lesions or biliary dilatation. The patient is status post cholecystectomy. The kidneys, spleen, pancreas and aorta are unremarkable. There is no right upper quadrant fluid. IMPRESSION: Mildly enlarged liver, otherwise negative.
--- NOTE | 2019-08-04 09:03 | DI.CT_ITS ---
SYMPTOMS/DIAGNOSIS: PAIN SACRUM FOR 2 WKS, S/P BONE MARROW BIOPSY, M89.8X9, Z98.890 CT OF THE PELVIS: Images were performed from the iliac crests through the ischial tuberosities without IV or oral contrast. The lower portions of the kidneys are unremarkable. The appendix appears normal. The uterus, ovaries and bladder are unremarkable. The lower abdominal aorta and iliac arteries are normal in diameter. There is no free air or free fluid. The patient has undergone a sacral bone biopsy. No lytic or blastic bony lesion or fracture is seen. There is no hematoma. IMPRESSION: Negative pelvic CT.
== END 2019-08-04 00:55 ==
PROVIDERS: PCP Nurse Practitioner; Visit Provider Nurse Practitioner
DX: M89.8X9 Other specified disorders of bone, unspecified site (principal); Z98.890 Other specified postprocedural states; D64.9 Anemia, unspecified; R74.8 Abnormal levels of other serum enzymes; R16.0 Hepatomegaly, not elsewhere classified
CPT/HCPCS: 72192; 76700

== ENCOUNTER 2019-08-23 12:13 | Outpatient (CLI) | payer MEDICARE, MEDICAID, SELFPAY ==
[2019-08-23 13:25] LABS: HCT 35.4 % (36.0-46.0); HGB 11.5 g/dL (12.0-15.5); Mean Corp. HGB Concentration 32.5 g/dL (32.0-36.0); Mean Corpuscular Hemoglobin 31.7 pg (27.0-33.0); Mean Corpuscular Volume 97.5 fL (80-95); Mean Platelet Volume 9.2 fL (8.0-11.0); RBC 3.63 m/cumm (4.00-5.20); RBC Distribution Width 13.6 % (11.7-14.6); White Blood Cell Count 3.72 k/cumm (4.4-10.8)
[2019-08-23 14:01] LABS: Platelet Count 52 x1000/uL (130-400)
[2019-08-23 14:41] LABS: Anion Gap 10.8 mmol/L (3-11); BUN 17 mg/dL (7-18); CO2 25.2 mmol/L (21.0-32.0); CREATININE 1.13 mg/dL (0.55-1.02); Calcium 8.9 mg/dL (8.5-10.1); Chloride 105 mmol/L (98-107); Estimated GFR 48.63 (mL/min/1.73m2); Glucose 96 mg/dL (70-100); Potassium 4.4 mmol/L (3.5-5.1); Sodium 141 mmol/L (136-145)
== END 2019-08-23 12:33 ==
PROVIDERS: PCP Nurse Practitioner; Visit Provider Nurse Practitioner
DX: D69.6 Thrombocytopenia, unspecified (principal); M25.50 Pain in unspecified joint
CPT/HCPCS: 36415; 80048; 85027

== ENCOUNTER 2019-12-29 00:59 | Outpatient (CLI) | payer MEDICARE, MEDICAID, SELFPAY ==
--- NOTE | 2019-12-29 10:58 | DI.MAMMO_ITS ---
EXAM: MG MAMMO SCREENING CLINICAL HISTORY: screening. TECHNIQUE: Full field digital CC and MLO mammographic images were obtained with 3D tomosynthesis and utilizing computer aided detection (CAD). COMPARISON: . 2012 to 2016. FINDINGS: Breast Density - Category B - Scattered areas of fibroglandular density Masses/Architectural Distortion: None seen. Microcalcifications: No suspicious pleomorphic-type calcifications are seen. Skin Thickening/Nipple Retraction: None. Axilla: Unremarkable. IMPRESSION: 1. BI-RADS category 1, negative. No significant interval change with no specific features of maligna ncy noted. 2. Unless there is more urgent need, screening mammography is recommended, as per [place] [employer] guidelines. A negative radiographic report should not delay biopsy if a dominant or clinically suspicious mass is present. Up to ten percent of cancers are not identified on mammography. A negative report may reinforce clinical impression. Adenosis and dense breasts may obscure an underlying neoplasm. False positive reports average 6 to 10%. Patient will receive a letter notifying them of these results.
[2019-12-29 12:26] LABS: HCT 36.1 % (36.0-46.0); HGB 11.7 g/dL (12.0-15.5); Mean Corp. HGB Concentration 32.4 g/dL (32.0-36.0); Mean Corpuscular Hemoglobin 32.3 pg (27.0-33.0); Mean Corpuscular Volume 99.7 fL (80-95); Mean Platelet Volume 9.9 fL (8.0-11.0); RBC 3.62 m/cumm (4.00-5.20); RBC Distribution Width 13.6 % (11.7-14.6); White Blood Cell Count 3.39 k/cumm (4.4-10.8)
[2019-12-29 13:14] LABS: Platelet Count 57 x1000/uL (130-400)
== END 2019-12-29 01:19 ==
PROVIDERS: PCP Nurse Practitioner; Visit Provider Nurse Practitioner
DX: Z12.31 Encounter for screening mammogram for malignant neoplasm of breast (principal); D61.818 Other pancytopenia; D69.6 Thrombocytopenia, unspecified
CPT/HCPCS: 36415; 77063; 77067; 85027

== ENCOUNTER 2020-06-09 02:23 | Outpatient (CLI) | payer MEDICARE, MEDICAID, SELFPAY ==
--- NOTE | 2020-06-09 13:00 | DI.CTLCSR_ITS ---
EXAM: CT CHEST LUNG CANCER SCREEN CLINICAL HISTORY: The patient reportedly has a History of Smoking 30 pack years and presently smokes or has quit the past 15 years. TECHNIQUE: Imaging Protocol: Axial computed tomography images with coronal and sagittal reformatted images were created and reviewed COMPARISON: CT CHEST FOR PULMONARY EMBOLUS from 08/11/2017 CT CHEST - LUNG CANCER SCREENING from 01/14/2018 CT CHEST WITHOUT CONTRAST from 04/08/[address] CHEST PE CTA from 06/08/2019 FINDINGS: Tracheobronchial tree: Patent where visualized. Mediastinum and Adriana: No dominant adenopathy or fluid collection. Pulmonary parenchyma: No consolidation or dominant measurable mass. Moderate centrilobular emphysema. Scarring in the left upper lobe. Lung Nodules: 3 millimeter right middle lobe nodule, stable. Pleura: No effusion or pneumothorax. Heart: The heart is not dilated. No coronary artery calcifications are seen. Aorta: Thoracic aorta non-dilated. Mild calcification. Upper abdomen: Unremarkable. Status post cholecystectomy. Bones: Within normal limits. Soft Tissues: Unremarkable. IMPRESSION: Lung RADS Cat 2 - Benign Appearance / Behavior: Nodules with a very low likelihood of becoming a clin ically active cancer due to size or lack of growth Lung-RADS 1.0 CATEGORIES: Category 0 - Prior chest CT exam(s) being located for comparison. Category 1 - Annual screening in 12 months. No nodules or definitely benign nodules. Category 2 - Annual screening in 12 months. Benign appearance. Nodules with low likelihood of becomin g active cancer. Category 3 - 6-month follow-up. Probably benign. Short-term follow-up suggested. Nodules with low lik elihood of becoming active cancer. Category 4A - 3-month follow-up and CT/PET if >8 mm in size. Suspicious finding. Findings which requi re additional testing. Category 4B - Findings which require additional testing and tissue sampling. Suspicious finding. C Added to Any of the Above - History of prior lung cancer screening. S Added to Any of the Above - Significant unexpected other finding. RADIATION DOSE DELIVERED: 96.6mGy.cm Total DLP DATA REPOSITORY: All CT scans at this facility are submitted to the National Radiology Data Registry (NRDR) Dose Index Registry (DIR) with the [employer] (A[employer]). RADIATION OPTIMIZATION: All CT scans at this facility use at least one of these dose optimization te chniques: automated exposure control; mA and/or kV adjustment per patient size (includes targeted exa ms where dose is matched to clinical indication); or iterative reconstruction.
== END 2020-06-09 02:43 ==
PROVIDERS: PCP Nurse Practitioner; Visit Provider Internal Medicine
DX: Z12.2 Encounter for screening for malignant neoplasm of respiratory organs (principal); F17.210 Nicotine dependence, cigarettes, uncomplicated; J43.8 Other emphysema; R91.1 Solitary pulmonary nodule
CPT/HCPCS: G0297

== ENCOUNTER 2020-06-09 03:23 | Outpatient (CLI) | payer MEDICARE, MEDICAID, SELFPAY ==
[2020-06-09 12:48] LABS: HCT 33.5 % (36.0-46.0); HGB 10.8 g/dL (12.0-15.5); Mean Corp. HGB Concentration 32.2 g/dL (32.0-36.0); Mean Corpuscular Hemoglobin 32.7 pg (27.0-33.0); Mean Corpuscular Volume 101.5 fL (80-95); Mean Platelet Volume 9.6 fL (8.0-11.0); White Blood Cell Count 3.71 k/cumm (4.4-10.8)
[2020-06-09 13:13] LABS: Platelet Count 40 x1000/uL (130-400)
[2020-06-09 13:51] LABS: ALT 24 U/L (14-59); AST 19 U/L (15-37); Albumin 3.6 g/dL (3.4-5.0); Alkaline Phosphatase 126 U/L (46-116); Anion Gap 7.5 mmol/L (3-11); BUN 16 mg/dL (7-18); Bilirubin, Total 0.3 mg/dL (0.2-1.0); CO2 28.5 mmol/L (21.0-32.0); CREATININE 1.02 mg/dL (0.55-1.02); Calcium 9.2 mg/dL (8.5-10.1); Calculated LDL 72 mg/dL (<100); Chloride 104 mmol/L (98-107); Cholesterol 149 mg/dL (<200); Estimated GFR 54.56 (mL/min/1.73m2); Glucose 106 mg/dL (74-106); HDL Cholesterol 58 mg/dL (40-60); Potassium 4.9 mmol/L (3.5-5.1); Sodium 140 mmol/L (136-145); TSH (W/Ref FT4) 1.37 uIU/mL (0.36-3.74); Total Protein 6.9 g/dL (6.4-8.2); Triglyceride 95 mg/dL (<150)
== END 2020-06-09 03:43 ==
PROVIDERS: PCP Nurse Practitioner; Visit Provider Nurse Practitioner
DX: E03.9 Hypothyroidism, unspecified (principal); E78.5 Hyperlipidemia, unspecified; G47.30 Sleep apnea, unspecified; I10 Essential (primary) hypertension; J44.9 Chronic obstructive pulmonary disease, unspecified; M25.50 Pain in unspecified joint; Z12.2 Encounter for screening for malignant neoplasm of respiratory organs; F17.210 Nicotine dependence, cigarettes, uncomplicated; R91.1 Solitary pulmonary nodule
CPT/HCPCS: 36415; 80053; 80061; 85027; G0297; 84443

== ENCOUNTER 2020-10-22 14:02 | Emergency (ER) | payer MEDICARE, MEDICAID, SELFPAY ==
[2020-10-22 14:12] VITALS: BP 198/59; PULSE 52; RESP 24; TEMP 37.1; O2SAT 98
--- NOTE | 2020-10-22 14:15 | RT.EKG_ITS ---
APPROVED REPORT Exam: Resting ECG Patient Location: E HR:45 bpm ECG Measurements Heart Rate 45 AXIS IA 131 P 49 QRSd 104 QRS 65 QT 454 T 34 QTc 395 Conclusion Bradycardia with irregular rate Similar to 08/06/17
[2020-10-22 14:27] VITALS: BP 198/59; PULSE 45; PULSE 47; RESP 20
[2020-10-22 14:28] VITALS: PULSE 45; RESP 19
[2020-10-22 14:30] VITALS: PULSE 45; RESP 20
--- NOTE | 2020-10-22 14:40 | W.ED.GENAD ---
Discharge Plan Disposition Patient Disposition: HOME Condition: Improving Discharge Details Clinical Impression: Acute viral syndrome Primary Care Provider: Rebeca Dupree ED Provider: Floyd Plunkett Home Meds and New Rx's Prescriptions: Continued aspirin 81 mg tablet,delayed release (DR/EC) 81 mg PO DAILY RF: 0 ipratropium-albuterol 0.5 mg-3 mg(2.5 mg base)/3 mL solution for nebulization 3 ml Inhalation Q4H PRN Qty: 180 RF: 6 Trelegy Ellipta 100-62.5-25 mcg blister with device 1 inh IH DAILY RF: 0 (DME) Oxygen Tank See Rx Instructions .ROUTE .MEDSUPPLY Qty: 1 RF: 0 omeprazole 20 mg capsule,delayed release(DR/EC) 20 mg PO DAILY Qty: 90 RF: 3 eszopiclone [Lunesta] 3 mg tablet 3 mg PO QHS Qty: 90 RF: 1 mupirocin 2 % ointment 1 applic TP BID PRN (Reason: Intermittent skin lesions arms) Qty: 22 RF: 3 albuterol sulfate [ProAir HFA] 8.5 GM HFA aerosol inhaler 2 puff Inhalation Q4H PRN Qty: 3 RF: 3 nystatin 15 GM cream 1 gm Topical TID PRNQty: 15 RF: 6 Hospital Bed EACH Miscellaneous ONCE Qty: 1 RF: 0 (DME) diaper,brief,-tulio,disp [Diapers Ultrafits 3] 1 EACH misc 1 ea Miscellaneous Q4H PRN Qty: 300 RF: 6 Daliresp 500 mcg tablet 500 mcg PO DAILY RF: 0 lisinopril 10 mg tablet 10 mg PO DAILY Qty: 90 RF: 3 escitalopram oxalate [Lexapro] 20 mg tablet 20 mg PO DAILY Qty: 90 RF: 3 levothyroxine [Synthroid] 25 mcg tablet 25 mcg PO DAILY Qty: 90 RF: 3 pravastatin [Pravachol] 20 mg tablet 20 mg PO HS Qty: 90 RF: 3 No Action cephalexin [Keflex] 500 mg capsule 500 mg PO TID Qty: 21 RF: 0 Discharge Instructions Instructions: Viral Syndrome (ED) Additional Instructions: Your COVID-19 test is pending and our charge nurse makes daily phone calls to patients with the results. Home to rest today. Small, frequent sips of fluids to maintain hydration. Continue your prescribed medications. Tylenol and/or ibuprofen as needed for aches, pains, fever. Return if you develop difficulty breathing, vomiting, or any other acute concerns. Your work-up today included laboratory testing, COVID-19 testing, chest x-ray and EKG. Stand Alone Forms: PENDING COVID-19 TESTING Medical Decision Making 64-year-old female presents from home with 2 days of dry cough, fever, chills, body ache, malaise and weakness. She was noted to have temp of 101 at home today and family was worried given sick contacts with her granddaughter and recommended evaluation in the ED. Patient states that she otherwise feels well. She has 2 to 4 L of home oxygen. She has no new dyspnea or shortness of breath. She arrives slightly hypertensive, pulse in the 50s, afebrile with 98% oxygenation on home level of O2. Review of records reveals previous note of asymptomatic bradycardia while on telemetry monitoring, previous documented sinus bradycardia on EKG. Also noted is question of wandering atrial pacemaker and previous atrial fibrillation. Patient does not take AV toby blocking medications. Additionally, she has known chronic thrombocytopenia. Today's presentation is concerning for viral syndrome. Patient states she had her flu shot. COVID-19 test obtained, screening laboratories obtained, patient referred for chest x-ray and was given fluids and acetaminophen. Labs reveal a white count of 3.2, hematocrit 31.7, platelets 38 with most recent comparison 40 in May. Sodium 139, potassium 4.4, chloride 103, bicarb 29, BUN 14, creatinine 1.0. AST 21, ALT 17. Chest x-ray without acute findings. Patient improved following fluids and Tylenol. As above, her bradycardia and thrombocytopenia are known previous issues. We discussed ongoing careful surveillance for new developing symptoms at home, we discussed the approximate timing to result the Covid test, as well as need to return should she develop shortness of breath or any other new discomfort. She is stable and appropriate for discharge home at this time. HPI General Mode of arrival: ambulatory. Date/Time Provider Initiated Documentation: 10/22/20 14:17. Limitations to Documentation: no limitations. Information obtained by: patient. History of Present Illness 64 year old F presents to the emergency department with the chief complaint of Fever to 101, cough, body aches., described as moderate, Quality is described as dull, and is localized to the chest. Patient reports no radiation. Patient started experiencing this day(s) and it has been constant. No exacerbating factors reported . Patient notes cough, fever/chills, headaches, malaise, weakness and other (Loose stool). Patient did receive the following treatments prior to arrival, none Related Data Home Medications Medication Instructions Recorded Confirmed albuterol sulfate [ProAir HFA] 2 puff INHALATION Q4H PRN #3 05/30/17 06/05/20 inhaler nystatin 1 gm TOPICAL TID PRN #15 gm 07/01/17 06/05/20 diaper,brief,-tulio,disp #300 ea 07/29/18 06/05/20 [Diapers Ultrafits 3] roflumilast 500 mcg tablet 500 mcg PO DAILY tab-cap 05/25/19 06/05/20 aspirin 81 mg tablet,delayed 81 mg PO DAILY 08/23/19 06/05/20 release lisinopril 10 mg tablet 10 mg PO DAILY #90 tab-cap 12/20/19 06/05/20 escitalopram oxalate 20 mg tablet 20 mg PO DAILY #90 tab-cap 03/15/20 06/05/20 ipratropium 0.5 mg-albuterol 3 mg 3 ml INHALATION Q4H PRN #180 ml 03/15/20 03/15/20 (2.5 mg base)/3 mL nebulization soln levothyroxine 25 mcg tablet 25 mcg PO DAILY #90 tab-cap 03/15/20 06/05/20 pravastatin 20 mg tablet 20 mg PO HS #90 tab-cap 03/15/20 06/05/20 Oxygen #1 each 06/05/20 06/05/20 cephalexin 500 mg capsule 500 mg PO TID #21 cap 06/05/20 06/05/20 eszopiclone 3 mg tablet 3 mg PO QHS #90 tab 06/05/20 06/05/20 fluticasone fur. 100 mcg-umeclid 1 inh IH DAILY 06/05/20 06/05/20 62.5 mcg-vilant 25 mcg inhalat.powder mupirocin 2 % topical ointment 1 applic TP BID PRN #22 gm 06/05/20 06/05/20 omeprazole 20 mg capsule,delayed 20 mg PO DAILY #90 cap 06/05/20 06/05/20 release Previous Rx's Medication Instructions Recorded lisinopril 10 mg tablet 10 mg PO DAILY #90 tab-cap 12/20/19 escitalopram oxalate 20 mg tablet 20 mg PO DAILY #90 tab-cap 03/15/20 ipratropium 0.5 mg-albuterol 3 mg 3 ml INHALATION Q4H PRN #180 ml 03/15/20 (2.5 mg base)/3 mL nebulization soln levothyroxine 25 mcg tablet 25 mcg PO DAILY #90 tab-cap 03/15/20 pravastatin 20 mg tablet 20 mg PO HS #90 tab-cap 03/15/20 cephalexin 500 mg capsule 500 mg PO TID #21 cap 06/05/20 eszopiclone 3 mg tablet 3 mg PO QHS #90 tab 06/05/20 mupirocin 2 % topical ointment 1 applic TP BID PRN #22 gm 06/05/20 omeprazole 20 mg capsule,delayed 20 mg PO DAILY #90 cap 06/05/20 release Allergies Allergy/AdvReac Type Severity Reaction Status Date / Time Sulfa (Sulfonamide Allergy Severe Pruritis, Verified 06/05/20 14:35 Antibiotics) rash adhesive tape AdvReac Unknown some cause Verified 06/05/20 14:35 Rash General Stated Complaint: RespSymp MARANDA: 3 Review of Systems Narrative: 2 to 4 L home oxygen. Positive sick contacts with her granddaughter. No recent travel. Loose stool. Body aches, joint ache, dry cough. 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 CAD (coronary artery disease) COPD (chronic obstructive pulmonary disease) Father , Heart Attack at age 72. CAD (coronary artery disease) COPD (chronic obstructive pulmonary disease) Brother Neoplasm Cell Sister Neoplasm Ovarain Social History Smoking/Tobacco Use Status: Current every day Tobacco Type: cigarettes Smoking packs per day: 1 Smoking cigarettes per day: 20.0 Years smoked: 55 Smoking pack-years: 55.00 Smoking risk assessment performed?: Yes Alcohol Intake: former Drug use: Never Substance use type: does not use Household members: family Seatbelt use: always Do you feel safe at home: Yes Do you feel safe in your relationship?: Yes Exam Narrative Exam Narrative: GEN: awake, alert, oriented 3. Pleasant, well groomed, interactive. HEAD: Normocephalic, atraumatic ENT: Mucous membranes moist, oropharynx unremarkable, External ear exam unremarkable EYES: PERRL, EOMI NECK: Full ROM, no SUKHI, no menigismus CHEST/RESP: Nontender, clear to auscultation bilateral, no wheeze/rhonchi/rales CARDIOVASCULAR: Regular and bradycardic, no murmur, rub dm. 2+ Rad pulse bilateral ABDOMEN: Soft, nontender, no mass. +Bowel sounds EXT: Full ROM, no edema, no rash Neuro: Grossly normal neurologic exam, conversant, interactive. Psych: Speech fluent, thoughts congruent, affect normal Course Vital Signs Vital signs: Vital Signs Temperature 37.1 C 10/22/20 14:12 Pulse 52 L 10/22/20 14:12 Respiratory Rate 24 10/22/20 14:12 Blood Pressure 198/59 H 10/22/20 14:12 Pulse Oximetry 98 10/22/20 14:12 Temperature 37.1 C 10/22/20 14:12 Temperature Source Temporal Artery Scan 10/22/20 14:12 Pulse 45 L 10/22/20 14:27 Pulse 45 L 10/22/20 14:30 Respiratory Rate 20 10/22/20 14:30 Blood Pressure 198/59 H 10/22/20 14:27 Blood Pressure Mean 94 10/22/20 14:27 Blood Pressure Position Supine 10/22/20 14:12 Pulse Oximetry 98 10/22/20 14:12 Oxygen Delivery Method Nasal Cannula 10/22/20 14:12 Oxygen Flow Rate 2 10/22/20 14:12 Pain Level 0 10/22/20 14:12
[2020-10-22 14:49] LABS: Abs Immature Grans 0.01 10^3/uL (0.0-0.06); Absolute Basophil Count 0.01 10^3/uL (0.0-0.2); Absolute Eosinophil Count 0.06 10^3/uL (0.0-0.7); Absolute Lymphocyte Count 0.98 10^3/uL (1.2-3.4); Absolute Monocyte Count 0.21 10^3/uL (0.1-0.8); Absolute Neutrophil Count 2.01 10^3/uL (1.2-6.7); Basophils % 0.3; Eosinophils % 1.8; HCT 31.7 % (36.0-46.0); HGB 10.4 g/dL (11.2-15.7); Immature Grans % 0.3; Lymphocytes % 29.9; MCH 33.8 pg (27.0-33.0); MCHC 32.8 % (32.0-36.0); MCV 102.9 fL (80-95); MPV 9.6 fL (8.0-11.0); Monocytes % 6.4; Neutrophils % 61.3; Nucleated RBC 0 %; RBC 3.08 10^6/uL (3.93-5.22); RDW 13.2 % (11.7-14.6); RDW-SD 49.3 fL; WBC 3.28 10^3/uL (4.4-10.8)
[2020-10-22 15:03] LABS: Platelet Count 38 10^3/uL (130-400)
[2020-10-22 15:04] LABS: Diff Comment PLT Morph Reviewed; Macrocytosis 1+
[2020-10-22] MEDS: Acetaminophen 500 MG TAB 1000 MG PO (15:04)
[2020-10-22] MEDS: Normal Saline 1,000 ML 1000 ML IV (15:04)
[2020-10-22 15:07] VITALS: BP 193/59; PULSE 44; RESP 18
[2020-10-22 15:08] LABS: ALT 17 U/L (14-59); AST 21 U/L (15-37); Albumin 3.6 g/dL (3.4-5.0); Alkaline Phosphatase 113 U/L (46-116); Anion Gap 6.4 mmol/L (3-11); BUN 14 mg/dL (7-18); Bilirubin, Total 0.2 mg/dL (0.2-1.0); CO2 29.6 mmol/L (21.0-32.0); CREATININE 1.08 mg/dL (0.55-1.02); Calcium 9.2 mg/dL (8.5-10.1); Chloride 103 mmol/L (98-107); Estimated GFR 51.08 (mL/min/1.73m2); Glucose 92 mg/dL (74-106); Potassium 4.4 mmol/L (3.5-5.1); Sodium 139 mmol/L (136-145); Total Protein 7.6 g/dL (6.4-8.2)
--- NOTE | 2020-10-22 15:18 | DI.RAD_ITS ---
EXAM: XR PORTABLE CHEST AP CLINICAL HISTORY: Cough, fever TECHNIQUE: 2D digital imaging was performed. COMPARISON: CR XR CHEST 2V PA LATERAL from 07/27/[address] CHEST LUNG CANCER SCREEN from 06/09/2020 FINDINGS: LUNGS: Clear. No pleural abnormality seen. HEART: The heart is enlarged, unchanged. MEDIASTINUM: Aorta mildly ectatic. OTHER FINDINGS: Leads overlie the chest. IMPRESSION: Cardiomegaly. No acute pulmonary findings. DATA REPOSITORY: RADIATION DOSE DELIVERED:
--- NOTE | 2020-10-22 15:27 | DI.VRAD_ITS ---
PROCEDURE INFORMATION: Exam: XR Chest, 1 View Exam date and time: 10/22/2020 2:40 PM Age: 64 years old Clinical indication: Other: Cough and fever TECHNIQUE: Imaging protocol: XR of the chest Views: 1 view. COMPARISON: CT CHEST LUNG CANCER SCREEN 06/09/2020 1:18 PM FINDINGS: Lungs: Unremarkable. No consolidation. Pleural space: Unremarkable. No pleural effusion. No pneumothorax. Heart/Mediastinum: Unremarkable. No cardiomegaly. Bones/joints: Unremarkable. IMPRESSION: No acute findings. Dictated and Authenticated by: Shemar Quiroga MD. Ordering:JAN Barrientos MD
--- NOTE | 2020-10-22 16:12 | NUR.NOTE ---
Referral faxed to [facility], Rebeca Dupree.Nursing Note:
[2020-10-22 16:31] VITALS: BP 168/58; PULSE 53; RESP 16; O2SAT 100
[2020-10-24 20:28] LABS: SARS-CoV-2 RNA Undetected (Undetected); SARS-CoV-2 Specimen Source Nasopharynx
--- NOTE | 2020-10-25 08:21 | NUR.NOTE ---
@ 814 - left message to return call to ed for test results.
--- NOTE | 2020-10-27 08:45 | NUR.NOTE ---
Nursing Note: Attempted to contact patient via phone number on file to notify of negative covid results. Received answering machine- message left that results would be mailed to pt. Results letter and results mailed to address on file.
== END 2020-10-22 17:10 | disposition home or self-care (01) ==
PROVIDERS: Emergency Provider Emergency Medicine; PCP Nurse Practitioner
DX: R05 Cough (principal); R50.9 Fever, unspecified; M79.10 Myalgia, unspecified site; R53.81 Other malaise; B34.9 Viral infection, unspecified; Z11.59 Encounter for screening for other viral diseases; R00.1 Bradycardia, unspecified
CPT/HCPCS: 36415; 80053; 93005; 96360; 99285; U0003; 71045; 85025; 93010

== ENCOUNTER 2021-01-09 01:05 | Outpatient (CLI) | payer MEDICARE, MEDICAID, SELFPAY ==
--- NOTE | 2021-01-09 | DI.US_ITS ---
EXAM: US ABDOMEN CLINICAL HISTORY: PANCYTOPENIA, D61.818,EVALUATE FOR CIRRHOSIS AND SPLENOMEGALY TECHNIQUE: Ultrasound abdomen performed using standard protocol. COMPARISON: CT CHEST FOR PULMONARY EMBOLUS from 08/11/[address] CHEST PE CTA from 06/08/2019 US US ABDOMEN from 08/04/2019 FINDINGS: ABDOMINAL AORTA AND IVC: Visualized portions normal caliber. PANCREAS: Normal where visualized. LIVER: Diffuse increased echogenicity of the liver consistent with fatty infiltration. Hepatopedal f low in the Portal Vein. The liver measures 17 cm in length. GALLBLADDER: Status post cholecystectomy. BILIARY SYSTEM: Common bile duct measures < 7 mm. No intrahepatic biliary ductal dilation. KIDNEYS: Kidneys are symmetric in size. No evidence of renal calculi. No evidence of hydronephrosis. There is a 0.6 x 0.6 x 0.9 cm simple cyst in the midpole of the right kidney. SPLEEN: The liver measures 9.8 cm in length. ASCITES: None seen. IMPRESSION: 1. Hepatic steatosis and mild hepatomegaly. 2. No evidence of splenomegaly. 3. Status post cholecystectomy. DATA REPOSITORY:
== END 2021-01-09 01:06 ==
LOC: DI 01:05
PROVIDERS: PCP Nurse Practitioner; Visit Provider Internal Medicine Hematology
DX: K76.0 Fatty (change of) liver, not elsewhere classified (principal); D61.818 Other pancytopenia; Z90.49 Acquired absence of other specified parts of digestive tract
CPT/HCPCS: 76700

== ENCOUNTER → 2021-02-02 11:37 | Outpatient (BNVA) | payer MEDICARE, MEDICAID, SELFPAY ==
--- NOTE | 2021-02-22 09:13 | W.ZIOMONITOR ---
Date of service: 02/22/21 Time of Service: 09:13 14 Day Relocation Director Referring Provider:: wilmer Indications:: bradycardia Note: This is a 14-day monitor order for indication of bradycardia. ?Patient was in sinus bradycardia for the majority of the recording with an average heart rate of 39 bpm (28 bpm - 137 bpm). As expected the patient's heart rate was most active during daytime hours. ?There were 33 episodes of supraventricular tachycardia with the longest lasting 11 beats. ?There were rare PACs and rare PVCs. ?There were no episodes of atrial fibrillation, no pauses greater than 3 seconds and no evidence of high degree heart block. ?There were no patient triggered events.
== END ==
PROVIDERS: PCP Nurse Practitioner; Referring Provider Nurse Practitioner; Visit Provider Internal Medicine Cardiovascular Disease
DX: R00.1 Bradycardia, unspecified (principal); F41.9 Anxiety disorder, unspecified; I48.0 Paroxysmal atrial fibrillation; R06.00 Dyspnea, unspecified; J44.9 Chronic obstructive pulmonary disease, unspecified; R60.9 Edema, unspecified; Z99.81 Dependence on supplemental oxygen; F17.210 Nicotine dependence, cigarettes, uncomplicated
CPT/HCPCS: 93246; 99204; 99213

== ENCOUNTER 2021-02-02 12:45 | Outpatient (CLI) | payer MEDICARE, MEDICAID, SELFPAY | END 2021-02-02 12:46 | disposition home or self-care (01) | LOC: RT 12:48 | PROVIDERS: PCP Nurse Practitioner; Visit Provider Internal Medicine Cardiovascular Disease | DX: R00.1 Bradycardia, unspecified (principal) | CPT/HCPCS: 93246 ==

== ENCOUNTER 2021-02-22 09:13 | Outpatient (CLI) | payer MEDICARE, MEDICAID, SELFPAY | END 2021-02-22 09:14 | LOC: CARDO 03-07 15:33 | PROVIDERS: PCP Nurse Practitioner; Referring Provider Internal Medicine Cardiovascular Disease; Visit Provider Internal Medicine Cardiovascular Disease | DX: R00.1 Bradycardia, unspecified (principal); I47.1 Supraventricular tachycardia | CPT/HCPCS: 93248 ==

== ENCOUNTER 2021-02-28 01:29 | Outpatient (CLI) | payer MEDICARE, MEDICAID, SELFPAY ==
--- NOTE | 2021-02-28 10:14 | DI.US_ITS ---
APPROVED REPORT EXAM: Comprehensive 2D, Doppler, and color-flow Echocardiogram Patient Location: Out-Patient Feather Boner: Shweta Greco RDCS (AE) Indications: SOB,CURRAN Other Information Study Quality: Fair. Technically limited study due to body habitus. Conclusion This is a technically limited study. Left Ventricle : The left ventricle is normal size. The left ventricular systolic function is normal. The left ventricular ejection fraction is within the normal range. There is normal left ventricular wall thickness. There is normal LV segmental wall motion. The left ventricular diastolic function is normal. LVEF is 60%. Right Ventricle : The right ventricle is normal size. The right ventricular systolic function is norm al. The RVSP is 29.5mmHg. Atria : The left atrium size is normal. The right atrium size is normal. Mitral Valve : The mitral valve is normal in structure. Mild mitral regurgitation. No evidence of mandeep ral valve stenosis. Great Vessels : The aortic root is normal in size. The ascending aorta is mildly dilated (3.7cm). Aor tic arch is not well visualized. IVC is normal in size and collapses >50% with inspiration. Wall motion Left Ventricle The left ventricle is normal size. The left ventricular systolic function is normal. The left ventric ular ejection fraction is within the normal range. There is normal left ventricular wall thickness. T here is normal LV segmental wall motion. The left ventricular diastolic function is normal. There is no ventricular septal defect visualized. LVEF is 60%. Right Ventricle The right ventricle is normal size. The right ventricular systolic function is normal. The RVSP is 29 .5mmHg. Atria The left atrium size is normal. The right atrium size is normal. The interatrial septum is intact wit h no evidence for an atrial septal defect. Aortic Valve The aortic valve is normal in structure. Aortic valve is trileaflet. No hemodynamically significant v alvular aortic stenosis. No aortic regurgitation is present. Mitral Valve The mitral valve is normal in structure. No evidence of mitral valve stenosis. Mild mitral regurgitat ion. Tricuspid Valve The tricuspid valve is normal in structure. There is no tricuspid valve stenosis. Trace tricuspid reg urgitation. Pulmonic Valve The pulmonary valve is normal in structure. There is no pulmonic valvular stenosis. Trace pulmonic re gurgitation. Great Vessels The aortic root is normal in size. The ascending aorta is mildly dilated (3.7cm). Aortic arch is not well visualized. IVC is normal in size and collapses >50% with inspiration. Pericardium There is no pericardial effusion. 2D Dimensions IVSD d PLAX 1.00 cm F: 0.6-1.0 LV Vol A2C d MOD 87.9 mL LVPW d PLAX 1.02 cm F: 0.6 - 1.0 LV Vol A4C d MOD 116.4 mL LVID d PLAX 4.90 cm F: 3.8 - 5.2 LA vol/ BSA A4C s A-L 29.0 mL/m2 LVDs 3.25 cm F: 2.2 - 3.5 LA Area A4C s MOD 19.42 cm2 Ao Root d 2.68 cm F: 2.7 - 3.3 LV EF A4C MOD 63.0 % RA Area A4C 17.05 cm2 LV EF A2C MOD 58.1 % RA Vol/ BSA A4C s A-L 25.9 mL/m2 LV EF Biplane MOD 60.8 % Ao Asc Diam d 3.73 cm F: 2.3 - 3.1 SV 61.68 mL LV EF Teichholz 61.0 % SV Index 32.77 mL/m2 LVEF (Brenner's) 60.76 % F: 54 - 74 LV Volume 77.72 mL F: 46 - 106 LV Volume Index 41.34 mL/m2 F: 29 - 61 LV Vol Biplane MOD 101.5 mL FS 32.70 % M-Mode TAPSE 3.50 cm (M/F) >1.7 LV Diastology MV E' medial 0.143 (>0.07 m/s) E/A Ratio 1.1 LV E/e MED 5.75 (<14) MV E Vmax 0.82 (0.4-1.3 m/s) MV E' lateral 0.121 (>0.1 m/s) MV A Vmax 0.75 (0.4-1.3 m/s) LV E/e LAT 6.75 (<14) MV E/A Ratio 1.04 MV E/E' medial 5.76 MV E/E' lateral 6.78 Aortic Valve LVOT Area 2.88 cm2 AoV Area Vmax 2.35 cm2 LVOT Vmax 1.69 m/s AoV Area/ BSA (Vmax) 1.25 cm2/m2 LVOT Mean Jamarcus. 1.06 m/s KYLER Mean Jamarcus. 2.34 cm2 LVOT Peak Grad 11.4 mmHg KYLER Mean Jamarcus. Index 1.24 cm2/m2 LVOT Mean Grad 5.3 mmHg LVOT VTI 0.387 m LVOT Diam s 1.90 cm AoV Vmax 2.07 m/s Velocity Ratio 0.81 AoV Mean Jamarcus. 1.30 m/s AoV Peak Grad 17.2 mmHg LVOT SV 111.45 mL AoV Mean Grad 8.1 mmHg AoV VTI 0.470 m AoV Area VTI 2.37 cm2 AoV Area/ BSA (VTI) 1.26 cm/m2 Mitral Valve MV DT 176 (160-240 msec) MR Vmax 4.94 m/s MV PHT 51 msec MR VTI 2.060 m MV Area PHT 4.31 cm2 MR Peak Grad 97.5 mmHg MV VTI 0.218 m MR Mean Grad 70.9 mmHg MV VTI Annulus 0.211 m MV Area VTI 4.96 (4.0-6.0 cm2) Pulmonary Valve PV Vmax 1.19 (0.5-1.5 m/s) RVOT Peak Gr. 3.77 mmHg PV Peak Grad 5.7 mmHg RVOT Mean Gr. 2.65 mmHg PV Mean Grad 3.6 mmHg RVOT VTI 0.280 m PV VTI 0.331 m RVOT Vmax 0.97 m/s Tricuspid Valve TR Peak Grad 26.5 mmHg TR Vmax 2.57 m/s RA Pressure 3.00 mmHg RVSP (TR) 29.5 mmHg
== END 2021-02-28 01:49 ==
PROVIDERS: PCP Nurse Practitioner; Visit Provider Internal Medicine Cardiovascular Disease
DX: R06.00 Dyspnea, unspecified (principal); R06.02 Shortness of breath; R93.9 Diagnostic imaging inconclusive due to excess body fat of patient; I34.0 Nonrheumatic mitral (valve) insufficiency; I77.810 Thoracic aortic ectasia
CPT/HCPCS: 36415; 80053; 82306; 85027; 93306; 82607; 82728; 83036; 83550; 83880; 84443

== ENCOUNTER 2021-02-28 10:21 | Outpatient (CLI) | payer MEDICARE, MEDICAID, SELFPAY ==
[2021-02-28 10:33] LABS: HCT 32.4 % (36.0-46.0); HGB 10.5 g/dL (11.2-15.7); MCH 33.1 pg (27.0-33.0); MCHC 32.4 % (32.0-36.0); MCV 102.2 fL (80-95); MPV 8.8 fL (8.0-11.0); RBC 3.17 10^6/uL (3.93-5.22); RDW 12.5 % (11.7-14.6); RDW-SD 47.2 fL; WBC 3.32 10^3/uL (4.4-10.8)
[2021-02-28 10:49] LABS: Hemoglobin A1C 5.5 % (<5.7)
[2021-02-28 11:23] LABS: Platelet Count 47 10^3/uL (130-400)
[2021-02-28 12:02] LABS: Total Iron Binding Capacity 317 ug/dL (250-450)
[2021-02-28 12:14] LABS: Ferritin 93 ng/mL (8-252)
[2021-02-28 12:28] LABS: ALT 18 U/L (14-59); AST 18 U/L (15-37); Albumin 3.6 g/dL (3.4-5.0); Alkaline Phosphatase 111 U/L (46-116); Anion Gap 1.1 mmol/L (3-11); BUN 14 mg/dL (7-18); Bilirubin, Total 0.3 mg/dL (0.2-1.0); CO2 31.9 mmol/L (21.0-32.0); CREATININE 1.2 mg/dL (0.55-1.02); Chloride 104 mmol/L (98-107); Estimated GFR 45.09 (mL/min/1.73m2); Glucose 80 mg/dL (74-106); Potassium 4.1 mmol/L (3.5-5.1); Sodium 137 mmol/L (136-145); TSH (W/Ref FT4) 3.63 uIU/mL (0.36-3.74); Total Protein 6.9 g/dL (6.4-8.2); Vitamin B12 604 pg/mL (193-986)
[2021-02-28 12:34] LABS: NT-proBNP 179 pg/mL (<300)
[2021-03-01 04:41] LABS: Vitamin D 25 Total 17.7 ng/mL (30-100)
== END 2021-02-28 10:22 | disposition home or self-care (01) ==
LOC: LBO 03-01 10:26
PROVIDERS: PCP Nurse Practitioner; Visit Provider Internal Medicine Cardiovascular Disease
DX: E11.9 Type 2 diabetes mellitus without complications (principal); E03.9 Hypothyroidism, unspecified; E55.9 Vitamin D deficiency, unspecified; I10 Essential (primary) hypertension; R06.09 Other forms of dyspnea; D61.818 Other pancytopenia; F41.9 Anxiety disorder, unspecified; E66.9 Obesity, unspecified; R06.02 Shortness of breath; R93.9 Diagnostic imaging inconclusive due to excess body fat of patient; I34.0 Nonrheumatic mitral (valve) insufficiency; I77.810 Thoracic aortic ectasia
CPT/HCPCS: 36415; 80053; 82306; 85027; 93306; 82607; 82728; 83036; 83550; 83880; 84443

== ENCOUNTER 2021-03-01 17:51 | Emergency (ER) | payer MEDICARE, MEDICAID, SELFPAY ==
[2021-03-01] VITALS (22 sets, daily range): BP systolic 151–186; BP diastolic 42–68; PULSE 32–65; RESP 13–22; TEMP 36.5; O2SAT 98–100
--- NOTE | 2021-03-01 17:54 | W.ED.GENAD ---
Discharge Plan Disposition Patient Disposition: HOME Condition: Stable Discharge Details Clinical Impression: Dizziness, Bradycardia, Frequent falls, Memory changes Primary Care Provider: Rebeca Dupree ED Provider: Gayle Cabrera Home Meds and New Rx's Prescriptions: Continued ipratropium-albuterol 0.5 mg-3 mg(2.5 mg base)/3 mL solution for nebulization 3 ml Inhalation Q4H PRN Qty: 180 RF: 6 Trelegy Ellipta 100-62.5-25 mcg blister with device 1 inh IH DAILY RF: 0 (DME) Oxygen Tank See Rx Instructions .ROUTE .MEDSUPPLY Qty: 1 RF: 0 omeprazole 20 mg capsule,delayed release(DR/EC) 20 mg PO DAILY Qty: 90 RF: 3 mupirocin 2 % ointment 1 applic TP BID PRN (Reason: Intermittent skin lesions arms) Qty: 22 RF: 3 lisinopril 40 mg tablet 40 mg PO DAILY Qty: 90 RF: 3 alprazolam 1 mg tablet 1 mg PO BID PRN (Reason: anxiety) Qty: 60 RF: 3 albuterol sulfate [ProAir HFA] 8.5 GM HFA aerosol inhaler 2 puff Inhalation Q4H PRN Qty: 3 RF: 3 nystatin 15 GM cream 1 gm Topical TID PRNQty: 15 RF: 6 Hospital Bed EACH Miscellaneous ONCE Qty: 1 RF: 0 (DME) diaper,brief,infant-tulio,disp [Diapers Ultrafits 3] 1 EACH misc 1 ea Miscellaneous Q4H PRN Qty: 300 RF: 6 Daliresp 500 mcg tablet 500 mcg PO DAILY RF: 0 escitalopram oxalate [Lexapro] 20 mg tablet 20 mg PO DAILY Qty: 90 RF: 3 levothyroxine [Synthroid] 25 mcg tablet 25 mcg PO DAILY Qty: 90 RF: 3 pravastatin [Pravachol] 20 mg tablet 20 mg PO HS Qty: 90 RF: 3 aspirin 81 mg tablet,delayed release (DR/EC) 81 mg PO DAILY RF: 0 Promacta 25 mg tablet 25 mg PO DAILY RF: 0 Discharge Instructions Instructions: Bradycardia (ED), Dizziness (ED), Fall Prevention (ED) Additional Instructions: Continue to take your regular medications as directed. Drink plenty of fluids and get plenty of rest. Call your biochemist and motor generator set operator tomorrow to schedule a follow-up appointment for reevaluation. Return immediately to the emergency department if you develop any worsening or new concerning symptoms. Discharge Data Discharge Physician: Gayle Cabrera Medical Decision Making 65-year-old female with with a history of COPD chronically on 2 L nasal cannula oxygen and chronic pancytopenia and thrombocytopenia presents for frequent falls, dizziness and difficulty with her memory over the past month. Heart rate on arrival 42. Heart rate dropped to as low as 36. Review of records note that patient's heart rate has been as low as 43 over the past 4 years. Blood pressure 152/68. She is afebrile. She denies dizziness, chest pain at present. EKG on arrival noted a rate of 40, sinus, non-STEMI. Pacer pads placed. She has no obvious focal deficits. No orthopedic deformities. As patient has no signs of shock, will hold on atropine at this time. Case discussed with [facility] cardiology who agreed with plan for continued cardiac monitoring, zio patch placement and f/u with cardiology. Will check screening labs, CTA head and neck considering patient's history of brain aneurysm and chest x-ray. Will give IV fluids and continue to monitor. Review of records note that patient has been seen by [facility] cardiology Dr. Arce earlier last month for her bradycardia. His note indicates that she has had ongoing bradycardia for some time. He referred her for a 14-day Zio patch which noted an average heart rate of 39 with a range of 28-137. She also had an echocardiogram yesterday which noted normal LV systolic wall motion and an EF of 60%. She also had a normal BNP and TSH. 02/22/21 Zio patch monitor noted: ?Patient was in sinus bradycardia for the majority of the recording with an average heart rate of 39 bpm (28 bpm - 137 bpm). As expected the patient's heart rate was most active during daytime hours. ?There were 33 episodes of supraventricular tachycardia with the longest lasting 11 beats. ?There were rare PACs and rare PVCs. ?There were no episodes of atrial fibrillation, no pauses greater than 3 seconds and no evidence of high degree heart block. ?There were no patient triggered events. Discussed with [facility] hematology and they do not feel that her symptoms of memory issues, dizziness and falls are related to her Promacta and recommend that she continue this as directed. Patient is agreeable with this plan. Discussed again with [facility] cardiology and they do not see indication for admission as she has had ongoing bradycardia without any other acute complaints. They do not see an indication for repeat rn cardiac at this time. Advised that patient follow-up with [facility] cardiology for reevaluation. Urinalysis notes 3-5 WBCs but negative nitrate and leukocyte esterase. Patient states she would rather hold for urine culture results rather than start antibiotics at this time. She denies any urinary symptoms. Medical Records Medical records reviewed: Yes I reviewed the patient's medical records. Imaging Data Radiologic Study: Radiologist's impression: XR Chest Exam date and time: 03/01/2021 8:02 PM Age: 65 years old Clinical indication: Other: Bradycardia TECHNIQUE: Imaging protocol: XR of the chest Views: 2 views. COMPARISON: CR XR PORTABLE CHEST AP 10/22/2020 3:02 PM FINDINGS: Lungs: Unremarkable. No consolidation. Pleural spaces: Unremarkable. No pleural effusion. No pneumothorax. Heart/Mediastinum: Moderate cardiomegaly. Bones/joints: [id number] bilateral acromioclavicular joint degenerative disease. Soft tissues: Defibrillation pads superimposed on the left hemithorax. IMPRESSION: 1. No acute abnormality. 2. Moderate cardiomegaly. CT Angiography Head With Contrast, Arteries Exam date and time: 03/01/2021 6:49 PM Age: 65 years old Clinical indication: Dizziness and giddiness and weakness TECHNIQUE: Imaging protocol: Computed tomography angiography of the head with intravenous contrast. 3D rendering (Not supervised by radiologist): MIP and/or 3D reconstructed images were created by the technologist. Contrast material: OMNIPAQUE 350; Contrast volume: 85 ml; Contrast route: INTRAVENOUS (IV); COMPARISON: No relevant prior studies available. FINDINGS: ANTERIOR CIRCULATION: Right internal carotid artery: Unremarkable. Intracranial segment is patent with no significant stenosis. No aneurysm. Right middle cerebral artery: Embolization material near the origin of the right MCA and along the course of the right MIXER SLAGMAN. Right anterior cerebral artery: Unremarkable. No occlusion or significant stenosis. No aneurysm. Left internal carotid artery: Unremarkable. Intracranial segment is patent with no significant stenosis. No aneurysm. Left middle cerebral artery: Unremarkable. No occlusion or significant stenosis. No aneurysm. Left anterior cerebral artery: Unremarkable. No occlusion or significant stenosis. No aneurysm. POSTERIOR CIRCULATION: Right vertebral artery: Unremarkable. No occlusion or significant stenosis. No aneurysm. Left vertebral artery: Unremarkable. No occlusion or significant stenosis. No aneurysm. Basilar artery: Unremarkable. No occlusion or significant stenosis. No aneurysm. Right posterior cerebral artery: Unremarkable. No occlusion or significant stenosis. No aneurysm. Left posterior cerebral artery: Unremarkable. No occlusion or significant stenosis. No aneurysm. Brain: Right-sided suprasellar embolization coil. A 2nd similar structure in the right ambient cistern. No intracranial hemorrhage, midline shift, or mass effect. Cerebral ventricles: No ventriculomegaly. Bones/joints: Unremarkable. No acute fracture. Soft tissues: Unremarkable. IMPRESSION: 1. No significant stenosis or aneurysm. 2. 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 CT Angiography Neck With Contrast Exam date and time: 03/01/2021 6:49 PM Age: 65 years old Clinical indication: Dizziness and giddiness and weakness TECHNIQUE: Imaging protocol: Computed tomography angiography of the neck with intravenous contrast. 3D rendering (Not supervised by radiologist): MIP and/or 3D reconstructed images were created by the technologist. Contrast material: OMNIPAQUE 350; Contrast volume: 85 ml; Contrast route: INTRAVENOUS (IV); COMPARISON: No relevant prior studies available. FINDINGS: Right common carotid artery: No stenosis. No dissection or occlusion. Right internal carotid artery: Mild calcified atherosclerotic disease at the origin of the right internal carotid artery, resulting in mild stenosis. Right external carotid artery: No occlusion or stenosis of the origin. Right vertebral artery: No stenosis. No dissection or occlusion. Left common carotid artery: No stenosis. No dissection or occlusion. Left internal carotid artery: Mild calcified atherosclerotic disease at the origin of the left internal carotid artery, resulting in mild stenosis. Left external carotid artery: No occlusion or stenosis of the origin. Left vertebral artery: No stenosis. No dissection or occlusion. Bones/joints: [id number] degenerative disc disease at C3-C4 and C6-C7. Soft tissues: Normal. No significant soft tissue swelling. Lungs: Moderate centrilobular and paraseptal emphysema changes. IMPRESSION: 1. Mild calcified atherosclerotic disease resulting in mild stenosis of the right and left internal carotid artery origins. 2. Moderate emphysematous change in the upper lobes. Lab Data Lab results reviewed: Yes I reviewed the patient's lab results. Labs: Laboratory Tests Range/Units 03/01/21 03/01/21 03/01/21 18:20 18:20 20:15 WBC (4.4-10.8) 10^3/uL 3.13 L RBC (3.93-5.22) 10^6/uL 3.16 L Hgb (11.2-15.7) g/dL 10.3 L Hct (36.0-46.0) % 32.4 L MCV (80-95) fL 102.5 H MCH (27.0-33.0) pg 32.6 MCHC (32.0-36.0) % 31.8 L RDW (11.7-14.6) % 12.6 Plt Count (130-400) 10^3/uL 46 L MPV (8.0-11.0) fL 10.2 Immature Gran % 0.0 Neutrophils % 58.8 Lymphocytes % 33.9 Monocytes % 5.1 Eosinophils % 1.9 Basophils % 0.3 Nucleated RBC % % 0 Absolute Neutrophils (1.2-6.7) 10^3/uL 1.84 Absolute Lymphocytes (1.2-3.4) 10^3/uL 1.06 L Absolute Monocytes (0.1-0.8) 10^3/uL 0.16 Absolute Eosinophils (0.0-0.7) 10^3/uL 0.06 Absolute Basophils (0.0-0.2) 10^3/uL 0.01 RBC Morphology See below Macrocytosis 2+ Sodium (136-145) mmol/L 140 Potassium (3.5-5.1) mmol/L 4.4 Chloride (98-107) mmol/L 103 Carbon Dioxide (21.0-32.0) mmol/L 30.9 Anion Gap (3-11) mmol/L 6.1 BUN (7-18) mg/dL 13 Creatinine (0.55-1.02) mg/dL 1.1 H Estimated GFR/1.73 m2 (mL/min/1.73m2) 49.85 Glucose (74-106) mg/dL 80 Calcium (8.5-10.1) mg/dL 9.1 Magnesium (1.8-2.4) mg/dL 2.0 Total Bilirubin (0.2-1.0) mg/dL 0.4 AST (15-37) U/L 18 ALT (14-59) U/L 18 Alkaline Phosphatase (46-116) U/L 107 Troponin I (<0.06) ng/mL < 0.05 Total Protein (6.4-8.2) g/dL 7.4 Albumin (3.4-5.0) g/dL 3.4 Urine Color (Yellow) Yellow Urine Clarity (Clear) Clear Urine pH (5-8) 6.0 Ur Specific [place] (1.005-1.025) 1.010 Urine Protein (Negative) mg/dL 30 H Urine Ketones (Negative) mg/dL Negative Urine Blood (Negative) Negative Urine Nitrite (Negative) Negative Urine Bilirubin (Negative) Negative Urine Urobilinogen (Up TO 0.2) EU/dL 0.2 Ur Leukocyte Esterase (Negative) Negative Urine Glucose (Negative) mg/dL Negative ECG Data Attestation: I personally reviewed and interpreted this ECG (s) as follows: Interpretation: rate of 40, sinus, no acute ST elevation or depression. OR 151. QRS 104. QTc 388. HPI General Mode of arrival: ambulatory. Date/Time Provider Initiated Documentation: 03/01/21 17:52. Limitations to Documentation: no limitations. Information obtained by: patient. HPI Narrative: Patient is a 60-year-old female with a history of COPD chronically on 2 L of nasal cannula oxygen, pancytopenia, thrombocytopenia followed by hematology at [facility] and recently started on a medication for thrombocytopenia called Promacta just over 1 month ago presents for dizziness, off balance, falls and memory problems for the past month. Patient states her daughter called her biochemist at [facility] regarding the symptoms today and she advised her to come to the ER for further evaluation. Patient denies any headache, blurry vision, chest pain, shortness of breath, abdominal pain, vomiting, diarrhea. She states that she has fallen on both of her shoulders during these falls but denies any significant pain in these areas. Related Data Home Medications Medication Instructions Recorded Confirmed albuterol sulfate [ProAir HFA] 2 puff INHALATION Q4H PRN #3 05/30/17 03/01/21 inhaler nystatin 1 gm TOPICAL TID PRN #15 gm 07/01/17 03/01/21 diaper,brief,infant-tulio,disp #300 ea 07/29/18 02/14/21 [Diapers Ultrafits 3] roflumilast 500 mcg tablet 500 mcg PO DAILY tab-cap 05/25/19 03/01/21 escitalopram oxalate 20 mg tablet 20 mg PO DAILY #90 tab-cap 03/15/20 03/01/21 ipratropium 0.5 mg-albuterol 3 mg 3 ml INHALATION Q4H PRN #180 ml 03/15/20 03/01/21 (2.5 mg base)/3 mL nebulization soln levothyroxine 25 mcg tablet 25 mcg PO DAILY #90 tab-cap 03/15/20 03/01/21 pravastatin 20 mg tablet 20 mg PO HS #90 tab-cap 03/15/20 03/01/21 Oxygen #1 each 06/05/20 02/14/21 fluticasone fur. 100 mcg-umeclid 1 inh IH DAILY 06/05/20 03/01/21 62.5 mcg-vilant 25 mcg inhalat.powder mupirocin 2 % topical ointment 1 applic TP BID PRN #22 gm 06/05/20 03/01/21 omeprazole 20 mg capsule,delayed 20 mg PO DAILY #90 cap 06/05/20 03/01/21 release aspirin 81 mg tablet,delayed 81 mg PO DAILY 01/31/21 02/14/21 release alprazolam 1 mg tablet 1 mg PO BID PRN #60 tab 02/08/21 03/01/21 lisinopril 40 mg tablet 40 mg PO DAILY #90 tab 02/08/21 03/01/21 eltrombopag 25 mg tablet 25 mg PO DAILY 02/14/21 03/01/21 Previous Rx's Medication Instructions Recorded escitalopram oxalate 20 mg tablet 20 mg PO DAILY #90 tab-cap 03/15/20 ipratropium 0.5 mg-albuterol 3 mg 3 ml INHALATION Q4H PRN #180 ml 03/15/20 (2.5 mg base)/3 mL nebulization soln levothyroxine 25 mcg tablet 25 mcg PO DAILY #90 tab-cap 03/15/20 pravastatin 20 mg tablet 20 mg PO HS #90 tab-cap 03/15/20 mupirocin 2 % topical ointment 1 applic TP BID PRN #22 gm 06/05/20 omeprazole 20 mg capsule,delayed 20 mg PO DAILY #90 cap 06/05/20 release alprazolam 1 mg tablet 1 mg PO BID PRN #60 tab 02/08/21 lisinopril 40 mg tablet 40 mg PO DAILY #90 tab 02/08/21 Allergies Allergy/AdvReac Type Severity Reaction Status Date / Time Sulfa (Sulfonamide Allergy Severe Pruritis, Verified 03/01/21 18:10 Antibiotics) rash adhesive tape AdvReac Unknown some cause Verified 03/01/21 18:10 Rash General MARANDA: 3 Review of Systems All systems reviewed & are unremarkable except as noted in HPI and below Constitutional Constitutional: Reports as per HPI, Denies chills and Denies fever(s) Eyes Eyes: Denies blurry vision ENT Ears, Nose, Mouth, and Throat: Reports dizziness, Denies sore throat and Denies throat swelling Cardiovascular Cardiovascular: Denies chest pain and Denies dyspnea Respiratory Respiratory: Denies cough and Denies dyspnea Gastrointestinal Gastrointestinal: Denies abdominal pain, Denies diarrhea and Denies vomiting Genitourinary Genitourinary: Denies hematuria and Denies dysuria Musculoskeletal Musculoskeletal: Denies back pain and Denies numbness Integumentary/Breasts Skin/Breast: Denies lesions and Denies rash Neurologic Neurologic: Reports dizziness, Denies localized weakness and Denies numbness Allergic/Immunologic Allergic/Immunologic: Denies throat swelling [facility] Medical History BP (high blood pressure) (05/08/17) w/o Hypertension Bradycardia Cataract Cellulitis and abscess of trunk (05/08/17) Pancytopenia Thrombocytopenia Surgical History Cerebral angiogram (11/03/17) Cholecystectomy (~1979) 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 CAD (coronary artery disease) COPD (chronic obstructive pulmonary disease) Father , Heart Attack at age 72. CAD (coronary artery disease) COPD (chronic obstructive pulmonary disease) Brother Neoplasm Cell Sister Neoplasm Ovarain Social History Smoking/Tobacco Use Status: Current every day Tobacco Type: cigarettes Smoking packs per day: 1 Smoking cigarettes per day: 20.0 Years smoked: 55 Smoking pack-years: 55.00 Smoking risk assessment performed?: Yes Alcohol Intake: former Drug use: Never Substance use type: does not use Household members: family Seatbelt use: always Do you feel safe at home: Yes Do you feel safe in your relationship?: Yes Exam Const General: cooperative and no acute distress Nutritional Appearance: obese centrally obese HENMT Head: normal to inspection Face and sinus: normal facial exam Eyes General: appearance normal, both eyes and all related structures EOM: EOM intact bilaterally Neck Neck: normal visual inspection and No submandibular swelling Lymphatic: no lymphadenopathy noted Chest Chest: normal inspection of the chest and no tenderness Resp Effort & Inspection: normal respiratory effort and able to speak in complete sentences Auscultation: clear to auscultation bilaterally Cardio Rate: bradycardic Rhythm: regular rhythm GI Inspection: normal to inspection Palpation: soft, not firm, not rigid and nontender Auscultation: normal bowel sounds Back/Spine/Pelvis Pelvis: no pain with anterior-posterior compression Skin General skin exam: no rashes or lesions noted Neuro General: patient alert, patient awake and patient oriented x3 Cognition: normal cognition Speech: speech normal Motor: muscle tone normal throughout Sensory Exam: no sensory deficits noted Extrem General: normal to inspection, full ROM, capillary refill normal, no calf tenderness bilaterally and no edema Other: Ecchymosis noted to right posterior shoulder. No pain with range of motion of bilateral shoulders. No deformity. Distal pulses intact. Psych Appearance: grossly normal Mental Status: mental status grossly normal Speech and Movement: speech and movement normal Affect: normal affect
--- NOTE | 2021-03-01 18:00 | RT.EKG_ITS ---
APPROVED REPORT Exam: Resting ECG Patient Location: E HR:40 bpm ECG Measurements Heart Rate 40 AXIS HI 151 P 48 QRSd 104 QRS 66 QT 485 T 31 QTc 388 Conclusion Sinus bradycardia...rate< 60 Atrial premature complex...SV complex w/ short R-R interval Low voltage, precordial leads...precordial leads <1.0mV I have reviewed and interpreted ECG and agree with software generated interpretation.
[2021-03-01 18:36] LABS: Absolute Basophil Count 0.01 10^3/uL (0.0-0.2); Absolute Eosinophil Count 0.06 10^3/uL (0.0-0.7); Absolute Lymphocyte Count 1.06 10^3/uL (1.2-3.4); Absolute Monocyte Count 0.16 10^3/uL (0.1-0.8); Absolute Neutrophil Count 1.84 10^3/uL (1.2-6.7); Basophils % 0.3; Eosinophils % 1.9; HCT 32.4 % (36.0-46.0); HGB 10.3 g/dL (11.2-15.7); Lymphocytes % 33.9; MCH 32.6 pg (27.0-33.0); MCHC 31.8 % (32.0-36.0); MCV 102.5 fL (80-95); MPV 10.2 fL (8.0-11.0); Monocytes % 5.1; Neutrophils % 58.8; Nucleated RBC 0 %; RBC 3.16 10^6/uL (3.93-5.22); RDW 12.6 % (11.7-14.6); RDW-SD 46.9 fL; WBC 3.13 10^3/uL (4.4-10.8)
--- NOTE | 2021-03-01 18:45 | DI.CT_ITS ---
EXAM: CT BRAIN NECK CTA CLINICAL HISTORY: dizziness, frequent falls, r/o acute cva. TECHNIQUE: Imaging Protocol: Axial CT angiography was performed with multi-slice acquisition and mu lti-planar and/or 3D reconstructions. CONTRAST MATERIAL: Intravenous: Omnipaque 350 Contrast volume:structured data in ml COMPARISON: No exams were available for comparison FINDINGS: CT angiography of the cervical cranial region was performed according to the usual protocol with intr avenous infusion of 85 cc of Omnipaque 350. Initial noncontrast scanning of the head is unremarkable. Visualized lung apices are clear except for mild predominantly pleural based scarring. There are emp hysematous changes.. Visualized portions of thoracic aorta and pulmonary arterial circulation are un remarkable. There is no evidence of a cervical mass or adenopathy. The tracheal laryngeal structures appear intact. The common carotid arteries appear intact bilaterally with no evidence of aneurysm, stenosis, or diss ection. There is mild luminal narrowing of the proximal internal carotid arteries bilaterally, less than 50 percent luminal diameter stenosis, secondary to calcified atheromatous plaque. The vertebral arteries are unremarkable in appearance in the cervical region with no evidence of aneu rysm, stenosis, or dissection. Intracranial portions of the internal carotid arteries appear normal with no evidence of aneurysm, st enosis, or dissection. Intracranial vertebral arteries and basilar artery appear normal with no evidence of aneurysm, stenos is or dissection. No aneurysm identified in the region of the [id number]. There is evidence of prior aneurysm cl ip and/or embolic material adjacent to proximal right middle cerebral artery and right posterior cere bral artery period no evidence of recurrent aneurysm, dissection, or stenosis. No evidence enhancing lesion on 5 minutes delayed images.. IMPRESSION: No evidence of hemodynamically significant carotid stenosis or other significant vascular lesion.. P rior embolic material noted, please correlate with clinical history. RADIATION DOSE DELIVERED: 2,029.22mGy.cmTotal DLP 2,029.22mGy.cm Total DLP DATA REPOSITORY: All CT scans at this facility are submitted to the National Radiology Data Registry (NRDR) Dose Index Registry (DIR) with the [employer] ([employer]). RADIATION OPTIMIZATION: All CT scans at this facility use at least one of these dose optimization te chniques: automated exposure control; mA and/or kV adjustment per patient size (includes targeted exa ms where dose is matched to clinical indication); or iterative reconstruction.
--- NOTE | 2021-03-01 18:45 | DI.RAD_ITS ---
EXAM: XR CHEST 2V PA LATERAL CLINICAL HISTORY: bradycardia, dizziness, r/o acute disease TECHNIQUE: COMPARISON: CR,XR XR PORTABLE CHEST AP from 10/22/2020 FINDINGS: The heart is enlarged. Lungs are clear and well expanded. No pleural effusion seen. IMPRESSION: Cardiomegaly with no evidence of acute change. RADIATION DOSE DELIVERED: Total DLP
[2021-03-01 18:54] LABS: ALT 18 U/L (14-59); AST 18 U/L (15-37); Albumin 3.4 g/dL (3.4-5.0); Alkaline Phosphatase 107 U/L (46-116); Anion Gap 6.1 mmol/L (3-11); BUN 13 mg/dL (7-18); Bilirubin, Total 0.4 mg/dL (0.2-1.0); CO2 30.9 mmol/L (21.0-32.0); CREATININE 1.1 mg/dL (0.55-1.02); Calcium 9.1 mg/dL (8.5-10.1); Chloride 103 mmol/L (98-107); Estimated GFR 49.85 (mL/min/1.73m2); Glucose 80 mg/dL (74-106); Potassium 4.4 mmol/L (3.5-5.1); Sodium 140 mmol/L (136-145); Total Protein 7.4 g/dL (6.4-8.2)
[2021-03-01 18:55] LABS: Troponin I < 0.05 ng/mL (<0.06)
[2021-03-01 19:31] LABS: Diff Comment PLT Morph Reviewed; Platelet Count 46 10^3/uL (130-400)
[2021-03-01 19:32] LABS: Macrocytosis 2+
[2021-03-01] MEDS: Omnipaque 350 MG/ML 100 ML BTL IJ (19:55)
[2021-03-01] MEDS: Normal Saline Flush 10 ML SYR IVP (19:56)
[2021-03-01] MEDS: Normal Saline - Diluent 50 ML VIAL IV (19:56)
--- NOTE | 2021-03-01 20:15 | DI.VRAD_ITS ---
PROCEDURE INFORMATION: Exam: CT Angiography Head With Contrast, Arteries Exam date and time: 03/01/2021 6:49 PM Age: 65 years old Clinical indication: Dizziness and giddiness and weakness TECHNIQUE: Imaging protocol: Computed tomography angiography of the head with intravenous contrast. 3D rendering (Not supervised by radiologist): MIP and/or 3D reconstructed images were created by the technologist. Contrast material: OMNIPAQUE 350; Contrast volume: 85 ml; Contrast route: INTRAVENOUS (IV); COMPARISON: No relevant prior studies available. FINDINGS: ANTERIOR CIRCULATION: Right internal carotid artery: Unremarkable. Intracranial segment is patent with no significant stenosis. No aneurysm. Right middle cerebral artery: Embolization material near the origin of the right MCA and along the course of the right AUTOCUTTER. Right anterior cerebral artery: Unremarkable. No occlusion or significant stenosis. No aneurysm. Left internal carotid artery: Unremarkable. Intracranial segment is patent with no significant stenosis. No aneurysm. Left middle cerebral artery: Unremarkable. No occlusion or significant stenosis. No aneurysm. Left anterior cerebral artery: Unremarkable. No occlusion or significant stenosis. No aneurysm. POSTERIOR CIRCULATION: Right vertebral artery: Unremarkable. No occlusion or significant stenosis. No aneurysm. Left vertebral artery: Unremarkable. No occlusion or significant stenosis. No aneurysm. Basilar artery: Unremarkable. No occlusion or significant stenosis. No aneurysm. Right posterior cerebral artery: Unremarkable. No occlusion or significant stenosis. No aneurysm. Left posterior cerebral artery: Unremarkable. No occlusion or significant stenosis. No aneurysm. Brain: Right-sided suprasellar embolization coil. A 2nd similar structure in the right ambient cistern. No intracranial hemorrhage, midline shift, or mass effect. Cerebral ventricles: No ventriculomegaly. Bones/joints: Unremarkable. No acute fracture. Soft tissues: Unremarkable. IMPRESSION: 1. No significant stenosis or aneurysm. 2. Prior right MCA and AUTOCUTTER aneurysm embolization. PROCEDURE INFORMATION: Exam: CT Angiography Neck With Contrast Exam date and time: 03/01/2021 6:49 PM Age: 65 years old Clinical indication: Dizziness and giddiness and weakness TECHNIQUE: Imaging protocol: Computed tomography angiography of the neck with intravenous contrast. 3D rendering (Not supervised by radiologist): MIP and/or 3D reconstructed images were created by the technologist. Contrast material: OMNIPAQUE 350; Contrast volume: 85 ml; Contrast route: INTRAVENOUS (IV); COMPARISON: No relevant prior studies available. FINDINGS: Right common carotid artery: No stenosis. No dissection or occlusion. Right internal carotid artery: Mild calcified atherosclerotic disease at the origin of the right internal carotid artery, resulting in mild stenosis. Right external carotid artery: No occlusion or stenosis of the origin. Right vertebral artery: No stenosis. No dissection or occlusion. Left common carotid artery: No stenosis. No dissection or occlusion. Left internal carotid artery: Mild calcified atherosclerotic disease at the origin of the left internal carotid artery, resulting in mild stenosis. Left external carotid artery: No occlusion or stenosis of the origin. Left vertebral artery: No stenosis. No dissection or occlusion. Bones/joints: [id number] degenerative disc disease at C3-C4 and C6-C7. Soft tissues: Normal. No significant soft tissue swelling. Lungs: Moderate centrilobular and paraseptal emphysema changes. IMPRESSION: 1. Mild calcified atherosclerotic disease resulting in mild stenosis of the right and left internal carotid artery origins. 2. Moderate emphysematous change in the upper lobes. REFERENCES: NASCET CRITERIA. The degree of internal carotid artery stenosis is based on NASCET criteria. Normal is no stenosis. Mild is less than 50% stenosis. Moderate is 50-69% stenosis. Severe is 70% to 99% stenosis. Total occlusion is no detectable patent lumen. Dictated and Authenticated by: Shemar Church MD. Ordering:LYN Araujo MD
--- NOTE | 2021-03-01 20:16 | DI.VRAD_ITS ---
PROCEDURE INFORMATION: Exam: XR Chest Exam date and time: 03/01/2021 8:02 PM Age: 65 years old Clinical indication: Other: Bradycardia TECHNIQUE: Imaging protocol: XR of the chest Views: 2 views. COMPARISON: CR XR PORTABLE CHEST AP 10/22/2020 3:02 PM FINDINGS: Lungs: Unremarkable. No consolidation. Pleural spaces: Unremarkable. No pleural effusion. No pneumothorax. Heart/Mediastinum: Moderate cardiomegaly. Bones/joints: [id number] bilateral acromioclavicular joint degenerative disease. Soft tissues: Defibrillation pads superimposed on the left hemithorax. IMPRESSION: 1. No acute abnormality. 2. Moderate cardiomegaly. Dictated and Authenticated by: Shemar Church MD. Ordering:LYN Araujo MD
[2021-03-01 20:23] LABS: Bilirubin Negative (Negative); Blood Negative (Negative); Clarity Clear (Clear); Glucose Negative (Negative); Ketones Negative (Negative); Leukocyte Esterase Negative (Negative); Nitrite Negative (Negative); Urobilinogen 0.2 EU/dL (Up TO 0.2)
[2021-03-01 20:55] LABS: Bacteria Many HPF (Negative); C & S Indicated? Yes; Casts Negative LPF (Negative); Crystals Negative HPF (Negative); Epithelial Cells Negative HPF (Negative); Mucus Negative (Negative); Other Cells Negative (Negative); RBC Negative HPF (0-2)
== END 2021-03-01 21:29 | disposition home or self-care (01) ==
PROVIDERS: Emergency Provider Physician Assistant; PCP Nurse Practitioner
DX: R00.1 Bradycardia, unspecified (principal); R42 Dizziness and giddiness; R41.3 Other amnesia; R29.6 Repeated falls
CPT/HCPCS: 36415; 70496; 70498; 80053; 93005; 99285; 71046; 81003; 81015; 83735; 84484; 85025; 87086; 93010; J3490

== ENCOUNTER 2021-03-22 04:06 | Outpatient (CLI) | payer MEDICARE, MEDICAID, SELFPAY ==
[2021-03-22 15:02] LABS: Abs Immature Grans 0.01 10^3/uL (0.0-0.06); Absolute Basophil Count 0.01 10^3/uL (0.0-0.2); Absolute Eosinophil Count 0.06 10^3/uL (0.0-0.7); Absolute Lymphocyte Count 0.72 10^3/uL (1.2-3.4); Absolute Monocyte Count 0.17 10^3/uL (0.1-0.8); Absolute Neutrophil Count 1.42 10^3/uL (1.2-6.7); Basophils % 0.4; Eosinophils % 2.5; HCT 32.2 % (36.0-46.0); HGB 10.3 g/dL (11.2-15.7); Immature Grans % 0.4; Lymphocytes % 30.1; MCH 32.8 pg (27.0-33.0); MCV 102.5 fL (80-95); MPV 10.7 fL (8.0-11.0); Monocytes % 7.1; Neutrophils % 59.5; Nucleated RBC 0 %; RBC 3.14 10^6/uL (3.93-5.22); RDW 12.7 % (11.7-14.6); RDW-SD 47.3 fL; WBC 2.39 10^3/uL (4.4-10.8)
[2021-03-22 15:21] LABS: Platelet Count 46 10^3/uL (130-400)
[2021-03-22 16:15] LABS: ALT 19 U/L (14-59); AST 20 U/L (15-37); Albumin 3.7 g/dL (3.4-5.0); Alkaline Phosphatase 109 U/L (46-116); Anion Gap 5.3 mmol/L (3-11); BUN 11 mg/dL (7-18); Bilirubin, Total 0.4 mg/dL (0.2-1.0); CO2 31.7 mmol/L (21.0-32.0); CREATININE 1.1 mg/dL (0.55-1.02); Chloride 104 mmol/L (98-107); Estimated GFR 49.85 (mL/min/1.73m2); Glucose 83 mg/dL (74-106); Potassium 4.2 mmol/L (3.5-5.1); Sodium 141 mmol/L (136-145)
== END 2021-03-22 04:07 | disposition home or self-care (01) ==
PROVIDERS: PCP Nurse Practitioner; Visit Provider Internal Medicine Hematology
DX: D61.818 Other pancytopenia (principal)
CPT/HCPCS: 36415; 80053; 85025

== ENCOUNTER 2021-04-05 03:32 | Outpatient (CLI) | payer MEDICARE, MEDICAID, SELFPAY ==
[2021-04-05 10:55] LABS: Abs Immature Grans 0.01 10^3/uL (0.0-0.06); Absolute Basophil Count 0.01 10^3/uL (0.0-0.2); Absolute Eosinophil Count 0.07 10^3/uL (0.0-0.7); Absolute Lymphocyte Count 1.11 10^3/uL (1.2-3.4); Absolute Monocyte Count 0.22 10^3/uL (0.1-0.8); Absolute Neutrophil Count 1.65 10^3/uL (1.2-6.7); Basophils % 0.3; Eosinophils % 2.3; HCT 30.4 % (36.0-46.0); HGB 9.6 g/dL (11.2-15.7); Immature Grans % 0.3; Lymphocytes % 36.2; MCH 32.8 pg (27.0-33.0); MCHC 31.6 % (32.0-36.0); MCV 103.8 fL (80-95); Monocytes % 7.2; Neutrophils % 53.7; Nucleated RBC 0 %; Platelet Count 40 10^3/uL (130-400); RBC 2.93 10^6/uL (3.93-5.22); RDW 12.7 % (11.7-14.6); RDW-SD 48.5 fL; WBC 3.07 10^3/uL (4.4-10.8)
[2021-04-05 11:55] LABS: ALT 21 U/L (14-59); AST 18 U/L (15-37); Albumin 3.5 g/dL (3.4-5.0); Alkaline Phosphatase 110 U/L (46-116); Anion Gap 6.1 mmol/L (3-11); BUN 12 mg/dL (7-18); Bilirubin, Total 0.4 mg/dL (0.2-1.0); CO2 32.9 mmol/L (21.0-32.0); CREATININE 1.1 mg/dL (0.55-1.02); Calcium 8.9 mg/dL (8.5-10.1); Chloride 104 mmol/L (98-107); Estimated GFR 49.85 (mL/min/1.73m2); Glucose 87 mg/dL (74-106); Potassium 4.1 mmol/L (3.5-5.1); Sodium 143 mmol/L (136-145); Total Protein 6.8 g/dL (6.4-8.2)
[2021-04-05 12:13] LABS: Vitamin D 25 Total 36.1 ng/mL (30-100)
[2021-04-05 15:01] LABS: Calculated LDL 90 mg/dL (<100); Cholesterol 172 mg/dL (<200); HDL Cholesterol 59 mg/dL (40-60); Triglyceride 119 mg/dL (<150)
== END 2021-04-05 03:33 | disposition home or self-care (01) ==
LOC: LBO 03:33
PROVIDERS: PCP Nurse Practitioner; Visit Provider Internal Medicine Hematology
DX: E78.5 Hyperlipidemia, unspecified (principal); E55.9 Vitamin D deficiency, unspecified; D61.818 Other pancytopenia
CPT/HCPCS: 36415; 80053; 80061; 82306; 85025

== ENCOUNTER → 2021-04-16 10:53 | Outpatient (BNVA) | payer MEDICARE, MEDICAID, SELFPAY | PROVIDERS: PCP Nurse Practitioner; Referring Provider Nurse Practitioner; Visit Provider Internal Medicine Cardiovascular Disease | DX: R00.1 Bradycardia, unspecified (principal); R29.6 Repeated falls; I25.2 Old myocardial infarction; J44.9 Chronic obstructive pulmonary disease, unspecified; Z99.81 Dependence on supplemental oxygen | CPT/HCPCS: 99214; 99213 ==

== ENCOUNTER 2021-05-04 01:09 | Outpatient (CLI) | payer MEDICARE, MEDICAID, SELFPAY ==
[2021-05-04 11:58] LABS: Abs Immature Grans 0.01 10^3/uL (0.0-0.06); Absolute Basophil Count 0.01 10^3/uL (0.0-0.2); Absolute Eosinophil Count 0.09 10^3/uL (0.0-0.7); Absolute Lymphocyte Count 0.85 10^3/uL (1.2-3.4); Absolute Monocyte Count 0.16 10^3/uL (0.1-0.8); Absolute Neutrophil Count 1.41 10^3/uL (1.2-6.7); Basophils % 0.4; Eosinophils % 3.6; Immature Grans % 0.4; Lymphocytes % 33.6; MCH 32.6 pg (27.0-33.0); MCHC 32.3 % (32.0-36.0); Monocytes % 6.3; Neutrophils % 55.7; Nucleated RBC 0 %; RBC 3.07 10^6/uL (3.93-5.22); RDW 12.7 % (11.7-14.6); WBC 2.53 10^3/uL (4.4-10.8)
[2021-05-04 12:10] LABS: ALT 20 U/L (14-59); AST 19 U/L (15-37); Albumin 3.5 g/dL (3.4-5.0); Alkaline Phosphatase 109 U/L (46-116); Anion Gap 5.6 mmol/L (3-11); BUN 14 mg/dL (7-18); Bilirubin, Total 0.4 mg/dL (0.2-1.0); CO2 33.4 mmol/L (21.0-32.0); CREATININE 1.1 mg/dL (0.55-1.02); Calcium 9.9 mg/dL (8.5-10.1); Chloride 102 mmol/L (98-107); Estimated GFR 49.85 (mL/min/1.73m2); Glucose 105 mg/dL (74-106); Potassium 4.5 mmol/L (3.5-5.1); Sodium 141 mmol/L (136-145); Total Protein 7.3 g/dL (6.4-8.2)
[2021-05-04 12:19] LABS: Platelet Count 48 10^3/uL (130-400)
[2021-05-04 12:20] LABS: Basophilic Stippling Present; Diff Comment Diff Reviewed; Polychromasia Present
== END 2021-05-04 01:10 | disposition home or self-care (01) ==
PROVIDERS: PCP Nurse Practitioner; Visit Provider Internal Medicine Hematology
DX: D61.818 Other pancytopenia (principal)
CPT/HCPCS: 36415; 80053; 85025

== ENCOUNTER 2021-05-16 19:33 | Outpatient (CLI) | payer MEDICARE, MEDICAID, SELFPAY ==
[2021-05-16 14:36] LABS: TSH (W/Ref FT4) 1.26 uIU/mL (0.36-3.74)
[2021-05-17 14:00] LABS: ANA Interpretation Positive (Negative); ANA Titer Pattern 1:320 Homogeneous
== END 2021-05-16 19:34 | disposition home or self-care (01) ==
LOC: LBO 19:34
PROVIDERS: PCP Nurse Practitioner; Visit Provider Nurse Practitioner
DX: E03.9 Hypothyroidism, unspecified (principal); I10 Essential (primary) hypertension; R76.0 Raised antibody titer
CPT/HCPCS: 36415; 84443; 86038

== ENCOUNTER 2021-05-30 12:01 | Emergency (ER) | payer MEDICARE, MEDICAID, SELFPAY ==
[2021-05-30 12:09] VITALS: BP 131/64; PULSE 41; RESP 18; TEMP 37.4; O2SAT 97
--- NOTE | 2021-05-30 12:17 | ED.GENADUL_ITS ---
Discharge Plan Disposition Patient Disposition: HOME Condition: Stable Discharge Details Clinical Impression: Right wrist sprain Primary Care Provider: Rebeca Dupree ED Provider: Agnes Lundberg Home Meds and New Rx's Prescriptions: No Action ipratropium-albuterol 0.5 mg-3 mg(2.5 mg base)/3 mL solution for nebulization 3 ml Inhalation Q4H PRN Qty: 180 RF: 6 (DME) Oxygen Tank See Rx Instructions .ROUTE .MEDSUPPLY Qty: 1 RF: 0 mupirocin 2 % ointment 1 applic TP BID PRN (Reason: Intermittent skin lesions arms) Qty: 22 RF: 3 lisinopril 40 mg tablet 40 mg PO DAILY Qty: 90 RF: 3 alprazolam 1 mg tablet 1 mg PO BID PRN (Reason: anxiety) Qty: 60 RF: 3 albuterol sulfate [ProAir HFA] 90 mcg/actuation HFA aerosol inhaler 2 puff Inhalation Q4H PRN Qty: 8.5 RF: 12 cholecalciferol (vitamin D3) [D3-50 Cholecalciferol] 1,250 mcg (50,000 unit) capsule 1,250 mcg PO QWEEK Qty: 4 RF: 6 nystatin 15 GM cream 1 gm Topical TID PRNQty: 15 RF: 6 Hospital Bed EACH Miscellaneous ONCE Qty: 1 RF: 0 (DME) diaper,brief,-tulio,disp [Diapers Ultrafits 3] 1 EACH misc 1 ea Miscellaneous Q4H PRN Qty: 300 RF: 6 Daliresp 500 mcg tablet 500 mcg PO DAILY RF: 0 eltrombopag 75 mg tablet 75 mg PO DAILY RF: 0 escitalopram oxalate [Lexapro] 20 mg tablet 20 mg PO DAILY Qty: 90 RF: 3 Trelegy Ellipta 100-62.5-25 mcg blister with device 1 inh IH DAILY Qty: 60 RF: 6 levothyroxine [Synthroid] 25 mcg tablet 25 mcg PO DAILY Qty: 90 RF: 3 omeprazole 20 mg capsule,delayed release(DR/EC) 20 mg PO DAILY Qty: 90 RF: 3 pravastatin 20 mg tablet 20 mg PO HS Qty: 90 RF: 3 aspirin 81 mg tablet,delayed release (DR/EC) 81 mg PO DAILY RF: 0 Discharge Instructions Instructions: Wrist Sprain (ED) Additional Instructions: X-rays that show no evidence for fracture. Rest, ice, compression, elevation. Wear splint as needed for comfort. Please take Tylenol or Ibuprofen with food every 4-6 hours as needed for pain and swelling. Referrals: Rebeca Dupree NP [Primary Care Provider] - Discharge Data Discharge Date/Time-TO BE ENTERED AT DEPARTURE: 05/30/21 13:25 Medical Decision Making 65-year-old female presents to the ER with chief complaint of right wrist pain and swelling status post mechanical fall after stepping into a hole. FOOSH type injury. Denies hitting her head no loss consciousness denies any neck or back pain. No other injuries noted. There is some swelling noted to the wrist, no obvious deformity, distal CMS intact no tenderness deformity to the elbow or shoulder. Patient has been taking Tylenol and ibuprofen and icing it with little to no relief. She has a past medical history of hypothyroidism hyperlipidemia COPD she is on oxygen which she wears continuously at home, cerebral aneurysm, sleep apnea, hypertension. EXAM: XR WRIST RT COMPLETE CLINICAL HISTORY: Fall, R/O Fracture. TECHNIQUE: 2D digital imaging was performed. COMPARISON: No exams were available for comparison FINDINGS: There is no fracture or dislocation. No significant ulnar variance. Bone density is. No osseous lesions. No erosions. IMPRESSION: No fracture evident Discussed x-ray results with patient was given a universal wrist splint instruct ed on RICE procedures, verbalized understanding. HPI General Mode of arrival: ambulatory . Date/Time Provider Initiated Documentation: 05/30/21 12:16 . Limitations to Documentation: no limitations . Information obtained by: patient and RN notes reviewed . HPI Narrative: 65-year-old female presents to the ER with chief complaint of right wrist pain and swelling status post mechanical fall after stepping into a hole. FOOSH type injury. Denies hitting her head no loss consciousness denies any neck or back pain. No other injuries noted. There is some swelling noted to the wrist, no obvious deformity, distal CMS intact no tenderness deformity to the elbow or shoulder. Patient has been taking Tylenol and ibuprofen and icing it with little to no relief. She has a past medical history of hypothyroidism hyperlipidemia COPD she is on oxygen which she wears continuously at home, cerebral aneurysm, sleep apnea, hypertension. Related Data Home Medications Medication Instructions Recorded Confirmed nystatin 1 gm TOPICAL TID PRN #15 gm 07/01/17 05/30/21 diaper,brief,-tulio,disp #300 ea 07/29/18 04/04/21 [Diapers Ultrafits 3] roflumilast 500 mcg tablet 500 mcg PO DAILY tab-cap 05/25/19 05/30/21 ipratropium 0.5 mg-albuterol 3 mg 3 ml INHALATION Q4H PRN #180 ml 03/15/20 05/30/21 (2.5 mg base)/3 mL nebulization soln Oxygen #1 each 06/05/20 04/04/21 mupirocin 2 % topical ointment 1 applic TP BID PRN #22 gm 06/05/20 05/30/21 alprazolam 1 mg tablet 1 mg PO BID PRN #60 tab 02/08/21 05/30/21 lisinopril 40 mg tablet 40 mg PO DAILY #90 tab 02/08/21 05/30/21 cholecalciferol (vitamin D3) 1,250 1,250 mcg PO QWEEK #4 cap 03/08/21 05/30/21 mcg (50,000 unit) capsule eltrombopag 75 mg tablet 75 mg PO DAILY 04/11/21 05/30/21 albuterol sulfate 90 mcg/actuation 2 puff INHALATION Q4H PRN #8.5 g 04/18/21 05/30/21 aerosol inhaler escitalopram oxalate 20 mg tablet 20 mg PO DAILY #90 tab-cap 05/07/21 05/30/21 fluticasone fur. 100 mcg-umeclid 1 inh IH DAILY #60 ea 05/07/21 05/30/21 62.5 mcg-vilant 25 mcg inhalat.powder levothyroxine 25 mcg tablet 25 mcg PO DAILY #90 tab-cap 05/07/21 05/30/21 omeprazole 20 mg capsule,delayed 20 mg PO DAILY #90 cap 05/07/21 05/30/21 release pravastatin 20 mg tablet 20 mg PO HS #90 tab-cap 05/07/21 05/30/21 aspirin 81 mg tablet,delayed 81 mg PO DAILY 05/18/21 05/30/21 release Previous Rx's Medication Instructions Recorded ipratropium 0.5 mg-albuterol 3 mg 3 ml INHALATION Q4H PRN #180 ml 03/15/20 (2.5 mg base)/3 mL nebulization soln mupirocin 2 % topical ointment 1 applic TP BID PRN #22 gm 06/05/20 alprazolam 1 mg tablet 1 mg PO BID PRN #60 tab 02/08/21 lisinopril 40 mg tablet 40 mg PO DAILY #90 tab 02/08/21 cholecalciferol (vitamin D3) 1,250 1,250 mcg PO QWEEK #4 cap 03/08/21 mcg (50,000 unit) capsule albuterol sulfate 90 mcg/actuation 2 puff INHALATION Q4H PRN #8.5 g 04/18/21 aerosol inhaler escitalopram oxalate 20 mg tablet 20 mg PO DAILY #90 tab-cap 05/07/21 fluticasone fur. 100 mcg-umeclid 1 inh IH DAILY #60 ea 05/07/21 62.5 mcg-vilant 25 mcg inhalat.powder levothyroxine 25 mcg tablet 25 mcg PO DAILY #90 tab-cap 05/07/21 omeprazole 20 mg capsule,delayed 20 mg PO DAILY #90 cap 05/07/21 release pravastatin 20 mg tablet 20 mg PO HS #90 tab-cap 05/07/21 Allergies Allergy/AdvReac Type Severity Reaction Status Date / Time Sulfa (Sulfonamide Allergy Severe Pruritis, Verified 05/30/21 12:15 Antibiotics) rash adhesive tape AdvReac Unknown some cause Verified 05/30/21 12:15 Rash General Stated Complaint: Orthopedic MARANDA: 3 Review of Systems All systems reviewed & are unremarkable except as noted in HPI and below Musculoskeletal Musculoskeletal: Reports arthralgias (Right wrist) and Reports joint swelling [facility] Medical History BP (high blood pressure) (05/08/17) w/o Hypertension Bradycardia Cataract Cellulitis and abscess of trunk (05/08/17) Pancytopenia Thrombocytopenia Vitamin D deficiency Surgical History Cerebral angiogram (11/03/17) Cholecystectomy (~1979) Coiling [employer] aneurysm (11/03/17) History of bone marrow biopsy Family History Mother , Heart Attack at age 83. CAD (coronary artery disease) COPD (chronic obstructive pulmonary disease) Father , Heart Attack at age 72. CAD (coronary artery disease) COPD (chronic obstructive pulmonary disease) Brother Neoplasm Cell Sister Neoplasm Ovarain Social History Smoking/Tobacco Use Status: Current every day Tobacco Type: cigarettes Smoking packs per day: 1 Smoking cigarettes per day: 20.0 Years smoked: 55 Smoking pack- years: 55.00 Smoking risk assessment performed?: Yes Alcohol Intake: former Drug use: Never Substance use type: does not use Household members: family Seatbelt use: always Do you feel safe at home: Yes Do you feel safe in your relationship?: Yes Exam Extrem Right upper extremity: normal capillary refill and wrist Details: tenderness Location: of the distal radius and of the distal ulna, swelling Location: of the dorsal wrist and deformity; no lacerations Course Vital Signs Vital signs: Vital Signs Temperature 37.4 C 05/30/21 12:09 Pulse 41 L 05/30/21 12:09 Respiratory Rate 18 05/30/21 12:09 Blood Pressure 131/64 05/30/21 12:09 Pulse Oximetry 97 05/30/21 12:09 Temperature 37.4 C 05/30/21 12:09 Temperature Source Tympanic 05/30/21 12:09 Pulse 41 L 05/30/21 12:09 Respiratory Rate 18 05/30/21 12:09 Respiratory Effort Non-Labored 05/30/21 12:14 Blood Pressure 131/64 05/30/21 12:09 Blood Pressure Position Sitting 05/30/21 12:09 Pulse Oximetry 97 05/30/21 12:09 Oxygen Delivery Method Nasal Cannula 05/30/21 12:09 Oxygen Flow Rate 2 05/30/21 12:09 Pain Level 9 05/30/21 12:09
--- NOTE | 2021-05-30 12:49 | DI.RAD_ITS ---
Exam(s) XR WRIST RT COMPLETE EXAM: XR WRIST RT COMPLETE CLINICAL HISTORY: Fall, R/O Fracture. TECHNIQUE: 2D digital imaging was performed. COMPARISON: No exams were available for comparison FINDINGS: There is no fracture or dislocation. No significant ulnar variance. Bone density is. No osseous le sions. No erosions. IMPRESSION: No fracture evident DATA REPOSITORY: RADIATION DOSE DELIVERED:
== END 2021-05-30 13:25 | disposition home or self-care (01) ==
LOC: ER 13:09
PROVIDERS: Emergency Provider Registered Nurse Emergency; PCP Nurse Practitioner
DX: S63.591A Other specified sprain of right wrist, initial encounter (principal); W01.0XXA Fall on same level from slipping, tripping and stumbling without subsequent striking against object, initial encounter
CPT/HCPCS: 29125; 99283; 73110

== ENCOUNTER 2021-06-07 03:00 | Outpatient (CLI) | payer MEDICARE, MEDICAID, SELFPAY ==
[2021-06-07 10:25] LABS: Abs Immature Grans 0.01 10^3/uL (0.0-0.06); Absolute Basophil Count 0.01 10^3/uL (0.0-0.2); Absolute Eosinophil Count 0.08 10^3/uL (0.0-0.7); Absolute Lymphocyte Count 0.82 10^3/uL (1.2-3.4); Absolute Monocyte Count 0.24 10^3/uL (0.1-0.8); Absolute Neutrophil Count 1.63 10^3/uL (1.2-6.7); Basophils % 0.4; Eosinophils % 2.9; HCT 30.8 % (36.0-46.0); HGB 9.9 g/dL (11.2-15.7); Immature Grans % 0.4; Lymphocytes % 29.4; MCH 33.3 pg (27.0-33.0); MCHC 32.1 % (32.0-36.0); MCV 103.7 fL (80-95); MPV 9.9 fL (8.0-11.0); Monocytes % 8.6; Neutrophils % 58.3; Nucleated RBC 0 %; RBC 2.97 10^6/uL (3.93-5.22); RDW 12.8 % (11.7-14.6); RDW-SD 48.5 fL; WBC 2.79 10^3/uL (4.4-10.8)
[2021-06-07 10:45] LABS: Diff Comment Diff Reviewed; Platelet Count 52 10^3/uL (130-400); RBC Morphology Normal
== END 2021-06-07 03:01 | disposition home or self-care (01) ==
LOC: LBO 03:00
PROVIDERS: PCP Nurse Practitioner; Visit Provider Internal Medicine Hematology
DX: D61.818 Other pancytopenia (principal)
CPT/HCPCS: 36415; 85025

== ENCOUNTER 2021-06-22 04:47 | Outpatient (CLI) | payer MEDICARE, MEDICAID, SELFPAY ==
--- NOTE | 2021-06-22 07:00 | DI.CTLCSR_ITS ---
Exam(s) CT CHEST LUNG CANCER SCREEN EXAM: CT CHEST LUNG CANCER SCREEN CLINICAL HISTORY: Screening for lung cancer,CURRENT SMOKER, F17.210 TECHNIQUE: Imaging Protocol: Axial computed tomography images with coronal and sagittal reformatted images were created and reviewed COMPARISON: CT CT CHEST LUNG CANCER SCREEN from 06/09/2020 FINDINGS: Tracheobronchial tree: Patent where visualized. Mediastinum and Adriana: No dominant adenopathy or fluid collection. Pulmonary parenchyma: No consolidation or dominant measurable mass. Emphysematous changes, mild-to-mo derate both upper and lower lobes. Lung Nodules: Stable 3 millimeter right middle lobe nodule. No new nodules. Pleura: No effusion or pneumothorax. Heart: The heart is mildly dilated. Minimal coronary artery calcifications are seen. Aorta: Thoracic aorta non-dilated. Upper abdomen: Status post cholecystectomy. Bones: Degenerative disc changes. Soft Tissues: Unremarkable. IMPRESSION: Stable 3 millimeter nodule right middle lobe. No new nodules. Lung RADS Cat 2 - Benign Appearance / Behavior: Nodules with a very low likelihood of becoming a clin ically active cancer due to size or lack of growth Lung-RADS 1.0 CATEGORIES: Category 0 - Prior chest CT exam(s) being located for comparison. Category 1 - Annual screening in 12 months. No nodules or definitely benign nodules. Category 2 - Annual screening in 12 months. Benign appearance. Nodules with low likelihood of becomin g active cancer. Category 3 - 6-month follow-up. Probably benign. Short-term follow-up suggested. Nodules with low lik elihood of becoming active cancer. Category 4A - 3-month follow-up and CT/PET if >8 mm in size. Suspicious finding. Findings which requi re additional testing. Category 4B - Findings which require additional testing and tissue sampling. Modifier S- Potentially clinically significant findings (non lung cancer) RADIATION DOSE DELIVERED: 91.47mGy.cm Total DLP 2.21mGy CTDIvol DATA REPOSITORY: All CT scans at this facility are submitted to the National Radiology Data Registry (NRDR) Dose Index Registry (DIR) with the [employer] ([employer]). RADIATION OPTIMIZATION: All CT scans at this facility use at least one of these dose optimization te chniques: automated exposure control; mA and/or kV adjustment per patient size (includes targeted exa ms where dose is matched to clinical indication); or iterative reconstruction.
== END 2021-06-22 05:07 ==
PROVIDERS: PCP Nurse Practitioner; Visit Provider Student in an Organized Health Care Education/Training Program
DX: Z12.2 Encounter for screening for malignant neoplasm of respiratory organs (principal); F17.210 Nicotine dependence, cigarettes, uncomplicated; R91.1 Solitary pulmonary nodule; F41.9 Anxiety disorder, unspecified
CPT/HCPCS: 71271

== ENCOUNTER 2021-09-05 02:53 | Outpatient (CLI) | payer MEDICARE, MEDICAID, SELFPAY ==
[2021-09-05 12:04] LABS: Abs Immature Grans 0.01 10^3/uL (0.0-0.06); Absolute Basophil Count 0.01 10^3/uL (0.0-0.2); Absolute Eosinophil Count 0.08 10^3/uL (0.0-0.7); Absolute Lymphocyte Count 1.05 10^3/uL (1.2-3.4); Absolute Monocyte Count 0.31 10^3/uL (0.1-0.8); Absolute Neutrophil Count 2.06 10^3/uL (1.2-6.7); Basophils % 0.3; Eosinophils % 2.3; HCT 34.7 % (36.0-46.0); HGB 10.8 g/dL (11.2-15.7); Immature Grans % 0.3; Lymphocytes % 29.8; MCH 32.5 pg (27.0-33.0); MCHC 31.1 % (32.0-36.0); MCV 104.5 fL (80-95); MPV 10.2 fL (8.0-11.0); Monocytes % 8.8; Neutrophils % 58.5; Nucleated RBC 0 %; Platelet Count 76 10^3/uL (130-400); RBC 3.32 10^6/uL (3.93-5.22); RDW 12.8 % (11.7-14.6); RDW-SD 49.4 fL; WBC 3.52 10^3/uL (4.4-10.8)
[2021-09-06 01:28] LABS: Vitamin D 25 Total 94.3 ng/mL (30-100)
== END 2021-09-05 02:54 | disposition home or self-care (01) ==
PROVIDERS: PCP Nurse Practitioner; Visit Provider Internal Medicine Hematology
DX: D61.818 Other pancytopenia (principal); E55.9 Vitamin D deficiency, unspecified
CPT/HCPCS: 36415; 82306; 85025

== ENCOUNTER 2021-12-28 04:28 | Outpatient (CLI) | payer MEDICARE, MEDICAID, SELFPAY ==
[2021-12-28 11:26] LABS: HCT 34.6 % (36.0-46.0); HGB 11.1 g/dL (11.2-15.7); MCH 32.6 pg (27.0-33.0); MCHC 32.1 % (32.0-36.0); MCV 101.5 fL (80-95); MPV 9.3 fL (8.0-11.0); RBC 3.41 10^6/uL (3.93-5.22); RDW 12.7 % (11.7-14.6); RDW-SD 47.7 fL
[2021-12-28 11:39] LABS: Platelet Count 90 10^3/uL (130-400)
[2021-12-28 12:57] LABS: ALT 19 U/L (14-59); AST 14 U/L (15-37); Albumin 3.5 g/dL (3.4-5.0); Alkaline Phosphatase 99 U/L (46-116); Anion Gap 9.7 mmol/L (3-11); BUN 12 mg/dL (7-18); Bilirubin, Total 0.4 mg/dL (0.2-1.0); CO2 28.3 mmol/L (21.0-32.0); CREATININE 1.6 mg/dL (0.55-1.02); Calcium 8.7 mg/dL (8.5-10.1); Calculated LDL 80 mg/dL (<100); Chloride 105 mmol/L (98-107); Cholesterol 166 mg/dL (<200); Estimated GFR 32.25 (mL/min/1.73m2); Glucose 137 mg/dL (74-106); HDL Cholesterol 63 mg/dL (40-60); Potassium 3.8 mmol/L (3.5-5.1); Sodium 143 mmol/L (136-145); Triglyceride 118 mg/dL (<150)
[2021-12-31 01:38] LABS: Vitamin D 25 Total 70.7 ng/mL (30-100)
== END 2021-12-28 04:29 | disposition home or self-care (01) ==
LOC: LBO 04:28
PROVIDERS: PCP Nurse Practitioner; Visit Provider Nurse Practitioner
DX: D53.9 Nutritional anemia, unspecified (principal); E03.9 Hypothyroidism, unspecified; E78.5 Hyperlipidemia, unspecified; I10 Essential (primary) hypertension; J44.9 Chronic obstructive pulmonary disease, unspecified; Z68.42 Body mass index [BMI] 45.0-49.9, adult; M25.59 Pain in other specified joint
CPT/HCPCS: 36415; 80053; 80061; 82306; 85027; 84443

== ENCOUNTER 2022-01-04 01:49 | Outpatient (CLI) | payer MEDICARE, MEDICAID, SELFPAY ==
[2022-01-04 15:18] LABS: Anion Gap 7.5 mmol/L (3-11); BUN 19 mg/dL (7-18); CO2 29.5 mmol/L (21.0-32.0); CREATININE 1.2 mg/dL (0.55-1.02); Calcium 9.2 mg/dL (8.5-10.1); Chloride 104 mmol/L (98-107); Estimated GFR 44.95 (mL/min/1.73m2); Glucose 93 mg/dL (74-106); Potassium 4.3 mmol/L (3.5-5.1); Sodium 141 mmol/L (136-145)
== END 2022-01-04 01:50 | disposition home or self-care (01) ==
LOC: LBO 01:50
PROVIDERS: PCP Nurse Practitioner; Visit Provider Nurse Practitioner
DX: R79.9 Abnormal finding of blood chemistry, unspecified (principal)
CPT/HCPCS: 36415; 80048

== ENCOUNTER 2022-01-17 14:19 | Outpatient (REF) | payer MEDICARE, MEDICAID, SELFPAY ==
[2022-01-17 21:05] LABS: C Diff PCR Negative (Negative)
[2022-01-18 21:17] LABS: Campylobacter PCR Negative (Negative); Salmonella PCR Negative (Negative); Shiga Toxin PCR Negative (Negative); Shigella/Enteroinvasive Ecoli Negative (Negative)
== END 2022-01-17 14:20 | disposition home or self-care (01) ==
LOC: LBN 14:19
PROVIDERS: PCP Nurse Practitioner; Visit Provider Nurse Practitioner
DX: R19.7 Diarrhea, unspecified (principal)
CPT/HCPCS: 87493; 87505; 87177

== ENCOUNTER 2022-01-25 15:17 | Inpatient (IN) | payer MEDICARE, MEDICAID, SELFPAY ==
[2022-01-25] VITALS (38 sets, daily range): BP systolic 76–100; BP diastolic 46–59; PULSE 53–101; RESP 4–27; TEMP 36.6–36.8; O2SAT 93–100
--- NOTE | 2022-01-25 15:15 | RT.EKG_ITS ---
APPROVED REPORT Exam: Resting ECG Reason for Exam: SOB Patient Location: E HR:92 bpm ECG Measurements Heart Rate 92 AXIS CA 135 P 54 QRSd 90 QRS 70 QT 356 T 54 QTc 440 Conclusion Sinus rhythm...normal P axis, V-rate 60- 99. Sinus. Normal axis. No STEMI. I have reviewed and interpreted ECG and agree with software generated interpretation.
--- NOTE | 2022-01-25 15:16 | W.ED.GENAD ---
Discharge Plan Disposition Patient Disposition: [facility] INPATIENT Condition: Stable Discharge Details Clinical Impression: Pneumonia, Sepsis, Acute exacerbation of chronic obstructive pulmonary disease, Acute kidney injury superimposed on chronic kidney disease Admit Date/Time: 01/25/22 18:07 Admit Provider: Jim Kiran Attending Provider: Jim Kiran Primary Care Provider: Rebeca Dupree ED Provider: Gayle Cabrera Discharge Data Discharge Date/Time-TO BE ENTERED AT DEPARTURE: 01/25/22 19:42 Medical Decision Making 66-year-old female with a history of COPD chronically on 3 L nasal cannula oxygen, obstructive sleep apnea, chronic smoker, chronic thrombocytopenia, GERD, hypertension, hyperlipidemia presents from home for cough with chest congestion, chest tightness, shortness of breath, fever, body aches and diarrhea for the past week. Oxygen saturation 92% on 3 L, she states she is normally at 98% on 3 L. Blood pressure 99/52. Heart rate within normal limits. She is speaking in full sentences, mostly with expiratory wheezing and diminished breath sounds throughout. No lower extremity edema. She has a junky cough on exam. Differential diagnosis includes COVID, COPD exacerbation, pneumonia, URI, etc. Will place an IV, bolus IV fluids, screening labs, portable chest x-ray, albuterol, Solu-Medrol and reassess. EKG notes a rate of 92, sinus, normal axis, no STEMI nondiagnostic. Labs and imaging reviewed. White blood cell 19. Creatinine 1.8, elevated compared to recent baseline of 1.2. Troponin negative. TSH within normal limits. Covid/flu/RSV negative. Chest x-ray notes bilateral lower lobe infiltrates. She presents from home and denies any recent hospitalizations so presentation appears consistent with community-acquired pneumonia and will treat with Rocephin and doxycycline IV. Patient reassessed and her oxygen saturation is 97% on 3 L. She states she feels that she is breathing better and overall feels better. Patient states he does not feel comfortable going home as she feels very weak. Case discussed with hospitalist who accepts patient for admission. Patient has had a few soft blood pressures, mostly 80s/50s. This has been fluid responsive and BP now 100/56. Medical Records Medical records reviewed: Yes I reviewed the patient's medical records. Imaging Data Radiologic Study: Radiologist's impression: ?XR PORTABLE CHEST AP CLINICAL HISTORY: ? cough, sob, r/o pneumonia. ? TECHNIQUE:? 2D digital imaging was performed. COMPARISON:? CR,XR XR CHEST 2V PA ? LATERAL from 03/01/2021 FINDINGS: Heart size is upper normal.? The mediastinum is not widened. There is infiltrate in both lung bases.? No obvious pleural effusions. IMPRESSION: Bi lateral lower lobe infiltrates.? This involves the posterior basal segments of both lower lobes. Lab Data Lab results reviewed: Yes I reviewed the patient's lab results. Labs: Laboratory Tests Range/Units 01/25/22 01/25/22 01/25/22 15:35 15:35 15:35 WBC (4.4-10.8) 10^3/uL 19.37 H RBC (3.93-5.22) 10^6/uL 3.73 L Hgb (11.2-15.7) g/dL 11.8 Hct (36.0-46.0) % 37.3 MCV (80-95) fL 100.0 H MCH (27.0-33.0) pg 31.6 MCHC (32.0-36.0) % 31.6 L RDW (11.7-14.6) % 12.6 Plt Count (130-400) 10^3/uL 103 L MPV (8.0-11.0) fL 9.9 Immature Gran % 1.5 Neutrophils % 89.9 Lymphocytes % 4.3 Monocytes % 2.7 Eosinophils % 1.4 Basophils % 0.2 Nucleated RBC % % 0 Absolute Neutrophils (1.2-6.7) 10^3/uL 17.41 H Absolute Lymphocytes (1.2-3.4) 10^3/uL 0.83 L Absolute Monocytes (0.1-0.8) 10^3/uL 0.52 Absolute Eosinophils (0.0-0.7) 10^3/uL 0.27 Absolute Basophils (0.0-0.2) 10^3/uL 0.04 Sodium (136-145) mmol/L 135 L Potassium (3.5-5.1) mmol/L 3.7 Chloride (98-107) mmol/L 98 Carbon Dioxide (21.0-32.0) mmol/L 26.1 Anion Gap (3-11) mmol/L 10.9 BUN (7-18) mg/dL 20 H Creatinine (0.55-1.02) mg/dL 1.8 H Estimated GFR/1.73 m2 (mL/min/1.73m2) 28.15 Glucose (74-106) mg/dL 129 H Calcium (8.5-10.1) mg/dL 9.5 Magnesium (1.8-2.4) mg/dL 1.9 Total Bilirubin (0.2-1.0) mg/dL 0.6 AST (15-37) U/L 16 ALT (14-59) U/L 12 L Alkaline Phosphatase (46-116) U/L 99 Troponin I (<or=60) ng/L < 50 Total Protein (6.4-8.2) g/dL 7.9 Albumin (3.4-5.0) g/dL 2.9 L Procalcitonin ng/mL TSH (0.36-3.74) uIU/mL 0.59 COVID-19 Source SARS-CoV-2 (PCR) (Negative) Influenza Type A (PCR) (Negative) Influenza Type B (PCR) (Negative) RSV (PCR) (Negative) Range/Units 01/25/22 01/25/22 15:35 15:45 WBC (4.4-10.8) 10^3/uL RBC (3.93-5.22) 10^6/uL Hgb (11.2-15.7) g/dL Hct (36.0-46.0) % MCV (80-95) fL MCH (27.0-33.0) pg MCHC (32.0-36.0) % RDW (11.7-14.6) % Plt Count (130-400) 10^3/uL MPV (8.0-11.0) fL Immature Gran % Neutrophils % Lymphocytes % Monocytes % Eosinophils % Basophils % Nucleated RBC % % Absolute Neutrophils (1.2-6.7) 10^3/uL Absolute Lymphocytes (1.2-3.4) 10^3/uL Absolute Monocytes (0.1-0.8) 10^3/uL Absolute Eosinophils (0.0-0.7) 10^3/uL Absolute Basophils (0.0-0.2) 10^3/uL Sodium (136-145) mmol/L Potassium (3.5-5.1) mmol/L Chloride (98-107) mmol/L Carbon Dioxide (21.0-32.0) mmol/L Anion Gap (3-11) mmol/L BUN (7-18) mg/dL Creatinine (0.55-1.02) mg/dL Estimated GFR/1.73 m2 (mL/min/1.73m2) Glucose (74-106) mg/dL Calcium (8.5-10.1) mg/dL Magnesium (1.8-2.4) mg/dL Total Bilirubin (0.2-1.0) mg/dL AST (15-37) U/L ALT (14-59) U/L Alkaline Phosphatase (46-116) U/L Troponin I (<or=60) ng/L Total Protein (6.4-8.2) g/dL Albumin (3.4-5.0) g/dL Procalcitonin ng/mL 4.3 TSH (0.36-3.74) uIU/mL COVID-19 Source Not Applicable SARS-CoV-2 (PCR) (Negative) Negative Influenza Type A (PCR) (Negative) Negative Influenza Type B (PCR) (Negative) Negative RSV (PCR) (Negative) Negative ECG Data Attestation: I personally reviewed and interpreted this ECG (s) as follows: Interpretation: Rate of 92, sinus, normal axis, no STEMI. HPI General Mode of arrival: EMS. Date/Time Provider Initiated Documentation: 01/25/22 15:25. Limitations to Documentation: no limitations. Information obtained by: patient. HPI Narrative: Patient is a 66-year-old female with a history of COPD chronically on 3 L nasal cannula oxygen, obstructive sleep apnea, current smoker, hypertension, hyperlipidemia, GERD, thrombocytopenia presents from home for cough with chest congestion chest tightness, shortness of breath, diarrhea, body aches and fever the past week. Patient states her cough is junky but mainly congested in her chest and she is not producing much sputum. She states she saw her PCP on Friday for the symptoms and diagnosed with URI and has prescriptions for doxycycline and steroids called into her pharmacy but states the pharmacy was closed and she was unable to start these. She states since then her symptoms have worsened and she feels more chest tightness, fatigue and fever. She states her temperature today was 101 and associated with hot and cold chills. She states she has been on 3 L nasal cannula oxygen for several years and her normal oxygen saturation on supplemental oxygen is 98%. She states she is fully vaccinated for COVID including a booster and denies any known exposure to coronavirus. Related Data Home Medications Medication Instructions Recorded Confirmed roflumilast 500 mcg tablet 500 mcg PO DAILY tab-cap 05/25/19 01/25/22 (Daliresp) lisinopril 40 mg tablet 40 mg PO DAILY #90 tab 02/08/21 01/25/22 eltrombopag 75 mg tablet 75 mg PO DAILY 04/11/21 01/25/22 albuterol sulfate 90 mcg/actuation 2 puff INHALATION Q4H PRN #8.5 g 04/18/21 01/25/22 aerosol inhaler (ProAir HFA) escitalopram oxalate 20 mg tablet 20 mg PO DAILY #90 tab-cap 05/07/21 01/25/22 (Lexapro) levothyroxine 25 mcg tablet 25 mcg PO DAILY #90 tab-cap 05/07/21 01/25/22 (Synthroid) pravastatin 20 mg tablet 20 mg PO HS #90 tab-cap 05/07/21 01/25/22 aspirin 81 mg tablet,delayed 81 mg PO DAILY 05/18/21 01/25/22 release Oxygen #1 ea 06/07/21 01/24/22 fluticasone fur. 100 mcg-umeclid 1 inh IH DAILY #60 ea 11/05/21 01/25/22 62.5 mcg-vilant 25 mcg inhalat.powder (Trelegy Ellipta) omeprazole 20 mg capsule,delayed 20 mg PO DAILY #90 cap 01/17/22 01/25/22 release ipratropium 0.5 mg-albuterol 3 mg 3 ml INHALATION BID #180 ml 01/23/22 01/25/22 (2.5 mg base)/3 mL nebulization soln Previous Rx's Medication Instructions Recorded lisinopril 40 mg tablet 40 mg PO DAILY #90 tab 02/08/21 albuterol sulfate 90 mcg/actuation 2 puff INHALATION Q4H PRN #8.5 g 04/18/21 aerosol inhaler (ProAir HFA) escitalopram oxalate 20 mg tablet 20 mg PO DAILY #90 tab-cap 05/07/21 (Lexapro) levothyroxine 25 mcg tablet 25 mcg PO DAILY #90 tab-cap 05/07/21 (Synthroid) pravastatin 20 mg tablet 20 mg PO HS #90 tab-cap 05/07/21 fluticasone fur. 100 mcg-umeclid 1 inh IH DAILY #60 ea 11/05/21 62.5 mcg-vilant 25 mcg inhalat.powder (Trelegy Ellipta) omeprazole 20 mg capsule,delayed 20 mg PO DAILY #90 cap 01/17/22 release ipratropium 0.5 mg-albuterol 3 mg 3 ml INHALATION BID #180 ml 01/23/22 (2.5 mg base)/3 mL nebulization soln Allergies Allergy/AdvReac Type Severity Reaction Status Date / Time Sulfa (Sulfonamide Allergy Severe Pruritis, Verified 01/25/22 15:22 Antibiotics) rash adhesive tape AdvReac Unknown some cause Verified 01/25/22 15:22 Rash mirtazapine AdvReac Diarrhea Verified 01/25/22 15:22 General Stated Complaint: GenMedical MARANDA: 3 Review of Systems All systems reviewed & are unremarkable except as noted in HPI and below Constitutional Constitutional: Reports as per HPI, Denies chills and Denies fever(s) Eyes Eyes: Denies blurry vision ENT Ears, Nose, Mouth, and Throat: Denies dizziness, Denies sore throat and Denies throat swelling Cardiovascular Cardiovascular: Denies chest pain and Reports dyspnea Respiratory Respiratory: Reports cough and Reports dyspnea Gastrointestinal Gastrointestinal: Denies abdominal pain, Reports diarrhea and Denies vomiting Genitourinary Genitourinary: Denies hematuria and Denies dysuria Musculoskeletal Musculoskeletal: Denies back pain and Denies numbness Integumentary/Breasts Skin/Breast: Denies lesions and Denies rash Neurologic Neurologic: Denies dizziness, Denies localized weakness and Denies numbness Allergic/Immunologic Allergic/Immunologic: Denies throat swelling PFSH All Active Problems (Updated 01/27/22 @ 09:20 by Gayle Cabrera DO) Acute exacerbation of chronic obstructive pulmonary disease (Acute) Pneumonia (Acute) Acute kidney injury superimposed on chronic kidney disease (Acute) Sepsis (Acute) Sepsis (Acute) Community acquired pneumonia (Acute) Anemia, macrocytic (Chronic) If hgb <9.5 consistently, discuss Erythropoietin stimulalting agents to avoid RBC tranfusions [place] [facility] [place] Cigarette nicotine dependence (Acute) Chronic obstructive pulmonary disease (Chronic 05/08/17) O2 Dependent, Emphysematous per CT Chest (2018). New development of nodules noted on CT (01/2018) Right wrist sprain (Acute) Vitamin D deficiency (Acute) Frequent falls (Acute) Memory changes (Acute) Leukopenia (Acute) mild with normal ANC per Dr. Lopez Bradycardia (Acute) declined pacer Hypertension (Chronic) Cellulitis of toe of left foot (Acute) Cataract (Chronic) Otitis media (Acute) Pancytopenia (Acute) Thrombocytopenia (Chronic) Anemia (Chronic) Bone pain (Acute) Atypical chest pain (Acute 05/08/17) Idiopathic peripheral neuropathy (Acute) Thrombotic stroke (Acute) Cerebral aneurysm (Acute) Urinary incontinence (Acute 05/08/17) Sleep apnea (Chronic 05/08/17) Bi-PAP w/02 Situational depression (Acute 05/08/17) Positive CÉSAR (antinuclear antibody) (Acute 05/08/17) Supplemental oxygen dependent (Acute 05/30/17) Osteopenia (Acute 05/08/17) Insomnia (Acute 05/08/17) Idiopathic neuropathy (Acute 08/18/17) Hypothyroidism (Acute 05/08/17) Hyperlipidemia (Acute 05/08/17) Gastroesophageal reflux disease (Acute 05/08/17) Episodic atrial fibrillation (Acute 05/08/17) Adult BMI 45.0-49.9 kg/sq m (Acute 11/06/17) Arthralgia (Acute 05/08/17) Anxiety (Acute 05/08/17) Medical History (Updated 01/27/22 @ 09:20 by Gayle Cabrera DO) BP (high blood pressure) (05/08/17) w/o Hypertension Cellulitis and abscess of trunk (05/08/17) History of rheumatic fever (05/08/17) Surgical History (Updated 01/25/22 @ 21:22 by Jim Kiran) Cerebral angiogram (11/03/17) Cholecystectomy (~1979) Coiling [employer] aneurysm (11/03/17) History of bone marrow biopsy Family History Mother , Heart Attack at age 83. CAD (coronary artery disease) COPD (chronic obstructive pulmonary disease) Father , Heart Attack at age 72. CAD (coronary artery disease) COPD (chronic obstructive pulmonary disease) Brother Neoplasm Cell Sister Neoplasm Ovarain Social History Smoking/Tobacco Use Status: Current every day Tobacco Type: cigarettes Smoking packs per day: 1 Smoking cigarettes per day: 20.0 Years smoked: 55 Smoking pack-years: 55.00 Smoking risk assessment performed?: Yes Alcohol Intake: former Drug use: Never Substance use type: does not use Household members: family Communication Needs: Corrective Lenses Pets and animals: Yes (3 cats and 4 dogs) Seatbelt use: always Do you feel safe at home: Yes Do you feel safe in your relationship?: Yes Exam Const General: cooperative and ill appearing chronically Orientation: alert, awake and oriented x3 HENMT Head: normal to inspection Mouth: mucous membranes dry Eyes General: appearance normal, both eyes and all related structures Neck Neck: normal visual inspection Resp Effort & Inspection: normal respiratory effort and able to speak in complete sentences Auscultation: diminished lung sounds bilaterally throughout and wheezes expiratory wheezes Cardio Rate: regular rate Rhythm: regular rhythm GI Palpation: soft, not firm, no guarding, not rigid and nontender Skin General skin exam: no rashes or lesions noted Neuro General: patient alert, patient awake and patient oriented x3 Motor: muscle tone normal throughout Extrem General: normal to inspection, full ROM and no edema Psych Appearance: grossly normal Affect: normal affect
--- NOTE | 2022-01-25 15:30 | DI.RAD_ITS ---
Exam(s) XR PORTABLE CHEST AP EXAM: XR PORTABLE CHEST AP CLINICAL HISTORY: cough, sob, r/o pneumonia. TECHNIQUE: 2D digital imaging was performed. COMPARISON: CR,XR XR CHEST 2V PA LATERAL from 03/01/2021 FINDINGS: Heart size is upper normal. The mediastinum is not widened. There is infiltrate in both lung bases. No obvious pleural effusions. IMPRESSION: Bi lateral lower lobe infiltrates. This involves the posterior basal segments of both lower lobes. DATA REPOSITORY: RADIATION DOSE DELIVERED: All CT scans at this facility use at least one of these dose optimization techniques: automated exposure control; mA and/or kV adjustment per patient size (includes targeted e xams where dose is matched to clinical indication); or iterative reconstruction.
[2022-01-25 15:44] LABS: Abs Immature Grans 0.29 10^3/uL (0.0-0.06); Absolute Eosinophil Count 0.27 10^3/uL (0.0-0.7); Absolute Monocyte Count 0.52 10^3/uL (0.1-0.8); Basophils % 0.2; Eosinophils % 1.4; HCT 37.3 % (36.0-46.0); HGB 11.8 g/dL (11.2-15.7); Immature Grans % 1.5; Lymphocytes % 4.3; MCH 31.6 pg (27.0-33.0); MCHC 31.6 % (32.0-36.0); MPV 9.9 fL (8.0-11.0); Monocytes % 2.7; Neutrophils % 89.9; Nucleated RBC 0 %; Platelet Count 103 10^3/uL (130-400); RBC 3.73 10^6/uL (3.93-5.22); RDW 12.6 % (11.7-14.6); RDW-SD 46.8 fL; WBC 19.37 10^3/uL (4.4-10.8)
[2022-01-25 15:46] LABS: Absolute Basophil Count 0.04 10^3/uL (0.0-0.2); Absolute Lymphocyte Count 0.83 10^3/uL (1.2-3.4); Absolute Neutrophil Count 17.41 10^3/uL (1.2-6.7)
[2022-01-25] MEDS: Albuterol/Ipratropium 3 ML UPD VIAL UPD ×2 (15:53→21:20)
[2022-01-25] MEDS: Normal Saline 500 ML IV ×2 (15:57→17:26)
[2022-01-25] MEDS: methylPREDNISolone SUCC 125 MG VIAL IVP (16:04)
[2022-01-25] MEDS: Ketorolac 30 MG/ML VIAL IVP (16:08)
[2022-01-25 16:09] LABS: ALT 12 U/L (14-59); AST 16 U/L (15-37); Albumin 2.9 g/dL (3.4-5.0); Alkaline Phosphatase 99 U/L (46-116); Anion Gap 10.9 mmol/L (3-11); BUN 20 mg/dL (7-18); Bilirubin, Total 0.6 mg/dL (0.2-1.0); CO2 26.1 mmol/L (21.0-32.0); CREATININE 1.8 mg/dL (0.55-1.02); Calcium 9.5 mg/dL (8.5-10.1); Chloride 98 mmol/L (98-107); Estimated GFR 28.15 (mL/min/1.73m2); Glucose 129 mg/dL (74-106); Magnesium 1.9 mg/dL (1.8-2.4); Potassium 3.7 mmol/L (3.5-5.1); Sodium 135 mmol/L (136-145); Total Protein 7.9 g/dL (6.4-8.2); Troponin I < 50 ng/L (<or=60)
[2022-01-25 16:19] LABS: TSH (W/Ref FT4) 0.59 uIU/mL (0.36-3.74)
[2022-01-25 16:34] LABS: COVID-19 PCR Negative (Negative); Influenza A PCR Negative (Negative); Influenza B PCR Negative (Negative); RSV PCR Negative (Negative)
[2022-01-25] MEDS: cefTRIAXone 1 GM/50 ML BAG IVPB (17:31)
[2022-01-25] MEDS: DOXYCYCLINE 100 MG in Normal Saline 100 ML IVPB (18:18)
[2022-01-25 18:49] LABS: Procalcitonin 4.3 ng/mL
[2022-01-25] MEDS: Normal Saline 1,000 ML 1000 ML IV (18:53)
--- NOTE | 2022-01-25 20:38 | HPE_ITS ---
Date of service: 01/25/22 Time of Service: 20:39 Assessment and Plan Assessment and plan (1) Community acquired pneumonia: Status: Acute Assessment and plan: Rocephin 2 gm daily, doxycycline 100 mg q12h, IS, acapella, aerosolized bronchodilators, check sputum cultures, blood cultures (unfortunately blood cultures were not obtained in the ER) (2) Sepsis: Status: Deleted Assessment and plan: cont. Rocephin but increase the dose to 2 gm daily, cont. doxycycline 100 mg iv q12h; encourage cough and deep breathing and use of I.S. and acapella; attempt to get sputum cultures, check urine for Strep antigen and Legionella and obtain mycoplasma studies but suspect this is a Strep pneumonia. She reportedly was vaccinated w/ pneumovax as well as her influenza vaccine as well as for COVID. (3) Chronic obstructive pulmonary disease: Status: Chronic Assessment and plan: as above. (4) Hyperlipidemia: Status: Acute Assessment and plan: cont. home dose of pravastatin (5) Hypertension: Status: Chronic Assessment and plan: hold her lisinopril. continue iv fluids overnight; closely monitor her vitals for any deterioration from sepsis (6) Hypothyroidism: Status: Acute Assessment and plan: cont. home dose of levothyroxine (7) Cigarette nicotine dependence: Status: Acute Assessment and plan: nicotine patch (8) Sleep apnea: Status: Chronic Assessment and plan: she did not bring in her BIPAP from home. However, will have family bring in tomorrow or have RT set her up tomorrow. If she deteriorates tonight then she will go to ICU and be put on NIPPV tonight. History of Present Illness History of Present Illness Chief Complaint: cough, fever, chest congestion Narrative: 66-year-old female with a history of COPD maintained on oxygen at 3 L/min at home and has MARCIA and wears BiPAP at night presented to the emergency department with progressive shortness of breath, cough, fevers and rigors (reportedly fever 101 at home) and is found to have pneumonia with bilateral lower lobe infiltrates on chest x-ray and an elevated white count of 19,000. Patient started out with URI symptoms with nasal congestion and drainage that began about a week ago. She saw her PCP via telehealth on 01/24/2022 and was pr escribed prednisone and doxycycline. 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 2 days ago she began having fever and chills including rigors. Her other comorbidities include essential hypertension, hyperlipidemia, hypothyroidism, peripheral neuropathy and pancytopenia, chronic bradycardia, GERD,, posterior cerebral artery aneurysm, chronic tobacco dependence for which she still smokes 6 to 8 cigarettes/day. Patient is being admitted for parenteral antibiotics, bronchodilators, pulmonary toiletry for community-acquired pneumonia, r/o early sepsis. She has had no recent hospitalizations. She is fully vaccinated and boosted against COVID-19 and tested negative for SARS-CoV-2 via nasal PCR swab in the emergency department. Note while in the emergency dept. she had some hypotension and was bolused w/ iv fluids. Given her hx of pneumonia, rigors, fever and elevated procalcitonin 4.3, she likely has early sepsis. she is stable now. she was admitted to med/surg floor but will have staff keep close eye on her vital signs. Review of Systems All systems reviewed & are unremarkable except as noted in HPI and below Cardiovascular Comments: Negative for chest pain palpitations or syncope or peripheral edema. Negative for orthopnea. Positive for exertional dyspnea cough. Respiratory Comments: See HPI. Gastrointestinal Comments: Positive for loose stools no melena or hematochezia PFSH All Active Problems Palliative care encounter (Acute) DNR (do not resuscitate) (Acute) Respiratory failure with hypoxia (Acute) Acute exacerbation of chronic obstructive pulmonary disease (Acute) Acute kidney injury superimposed on chronic kidney disease (Acute) Sepsis (Acute) Community acquired pneumonia (Acute) Anemia, macrocytic (Chronic) If hgb <9.5 consistently, discuss Erythropoietin stimulalting agents to avoid RBC tranfusions per note [facility] [place] 10/19/22 Cigarette nicotine dependence (Acute) Chronic obstructive pulmonary disease (Chronic 05/08/17) O2 Dependent, Emphysematous per CT Chest (2018). New development of nodules noted on CT (01/2018) Right wrist sprain (Acute) Vitamin D deficiency (Acute) Frequent falls (Acute) Memory changes (Acute) Leukopenia (Acute) mild with normal ANC per Dr. Lopez Bradycardia (Acute) declined pacer Hypertension (Chronic) Cellulitis of toe of left foot (Acute) Cataract (Chronic) Otitis media (Acute) Pancytopenia (Acute) Thrombocytopenia (Chronic) Anemia (Chronic) Bone pain (Acute) Atypical chest pain (Acute 05/08/17) Idiopathic peripheral neuropathy (Acute) Thrombotic stroke (Acute) Cerebral aneurysm (Acute) Urinary incontinence (Acute 05/08/17) Sleep apnea (Chronic 05/08/17) Bi-PAP w/02 Situational depression (Acute 05/08/17) Positive CÉSAR (antinuclear antibody) (Acute 05/08/17) Supplemental oxygen dependent (Acute 05/30/17) Osteopenia (Acute 05/08/17) Insomnia (Acute 05/08/17) Idiopathic neuropathy (Acute 08/18/17) Hypothyroidism (Acute 05/08/17) Hyperlipidemia (Acute 05/08/17) Gastroesophageal reflux disease (Acute 05/08/17) Episodic atrial fibrillation (Acute 05/08/17) Adult BMI 45.0-49.9 kg/sq m (Acute 11/06/17) Arthralgia (Acute 05/08/17) Anxiety (Acute 05/08/17) Medical History BP (high blood pressure) (05/08/17) w/o Hypertension Cellulitis and abscess of trunk (05/08/17) History of rheumatic fever (05/08/17) Surgical History Cerebral angiogram (11/03/17) Cholecystectomy (~1979) 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 CAD (coronary artery disease) COPD (chronic obstructive pulmonary disease) Father , Heart Attack at age 72. CAD (coronary artery disease) COPD (chronic obstructive pulmonary disease) Brother Neoplasm Cell Sister Neoplasm Ovarain Social History Smoking/Tobacco Use Status: Current every day Tobacco Type: cigarettes Smoking packs per day: 1 Smoking cigarettes per day: 20.0 Years smoked: 55 Smoking pack- years: 55.00 Smoking risk assessment performed?: Yes Alcohol Intake: former Drug use: Never Substance use type: does not use Household members: family Communication Needs: Corrective Lenses Pets and animals: Yes (3 cats and 4 dogs) Seatbelt use: always Do you feel safe at home: Yes Do you feel safe in your relationship?: Yes Meds Allergies and Home Medications Allergies Allergy/AdvReac Type Severity Reaction Status Date / Time Sulfa (Sulfonamide Allergy Severe Pruritis, Verified 01/25/22 15:22 Antibiotics) rash adhesive tape AdvReac Unknown some cause Verified 01/25/22 15:22 Rash mirtazapine AdvReac Diarrhea Verified 01/25/22 15:22 Home Medications Medication Instructions Recorded Confirmed Type Hospital Bed ea MISCELLANEOUS ONCE #1 02/19/18 07/27/19 Clinic roflumilast 500 mcg tablet 500 mcg PO DAILY tab-cap 05/25/19 01/25/22 History (Daliresp) lisinopril 40 mg tablet 40 mg PO DAILY #90 tab 02/08/21 01/25/22 Rx eltrombopag 75 mg tablet 75 mg PO DAILY 04/11/21 01/25/22 History albuterol sulfate 90 mcg/actuation 2 puff INHALATION Q4H PRN #8.5 g 04/18/21 01/25/22 Rx aerosol inhaler (ProAir HFA) escitalopram oxalate 20 mg tablet 20 mg PO DAILY #90 tab-cap 05/07/21 01/25/22 Rx (Lexapro) levothyroxine 25 mcg tablet 25 mcg PO DAILY #90 tab-cap 05/07/21 01/25/22 Rx (Synthroid) pravastatin 20 mg tablet 20 mg PO HS #90 tab-cap 05/07/21 01/25/22 Rx aspirin 81 mg tablet,delayed 81 mg PO DAILY 05/18/21 01/25/22 History release Oxygen #1 ea 06/07/21 01/24/22 History omeprazole 20 mg capsule,delayed 20 mg PO DAILY #90 cap 01/17/22 01/25/22 Rx release ipratropium 0.5 mg-albuterol 3 mg 3 ml INHALATION BID #180 ml 01/23/22 01/25/22 Rx (2.5 mg base)/3 mL nebulization soln fluticasone fur. 100 mcg-umeclid 1 inh IH DAILY #60 ea 01/28/22 01/28/22 Rx 62.5 mcg-vilant 25 mcg inhalat.powder (Trelegy Ellipta) Patient's Own Medication 0 ea INHALATION DAILY #0 01/29/22 Rx guaifenesin 400 mg tablet (Tussin) 400 mg PO QID #30 tab 01/29/22 Rx levofloxacin 500 mg tablet 500 mg PO HS #6 tab 01/29/22 Rx loperamide 2 mg capsule 2 mg PO Q4H PRN PRN #0 cap 01/29/22 Rx prednisone 10 mg tablet 30 mg PO DAILY #9 tab 01/29/22 Rx psyllium husk (aspartame) 3.4 1 ea PO BID #0 g 01/29/22 Rx gram/5.8 gram oral powder (Metamucil Sugar-Free (aspartame)) sodium chloride 0.65 % nasal spray 0 ml NS QID PRN PRN #0 ml 01/29/22 Rx aerosol (Deep Sea Nasal) Exam Narrative Exam Narrative: Patient is alert/oriented x 3, no acute respiratory distress, not using accessory respiratory muscles. HEENT: EOMI, PERRLA, nares moist boggy small amount of blood left nares, oropharynx noninjected, upper denture in place, no exudate, TMs intact without erythema or bulging Neck supple no JVD normal carotid pulses no bruits Lungs scattered diffuse expiratory wheezes bibasilar rales Heart regular rhythm slightly bradycardic without murmur rub or gallop Abdomen obese soft and nontender Extremities without peripheral edema or cyanosis, intact pedal pulses, skin is cool and not diaphoretic Neuro exam grossly intact no focal motor or sensory deficits. Results Labs Result diagrams: 01/29/22 06:23 01/29/22 06:23 Labs: Laboratory Results - last 24 hr 01/25/22 01/25/22 01/25/22 15:35 15:35 15:35 WBC 19.37 H RBC 3.73 L Hgb 11.8 Hct 37.3 MCV 100.0 H MCH 31.6 MCHC 31.6 L RDW 12.6 Plt Count 103 L MPV 9.9 Immature Gran % 1.5 Neutrophils % 89.9 Lymphocytes % 4.3 Monocytes % 2.7 Eosinophils % 1.4 Basophils % 0.2 Nucleated RBC % 0 Absolute Neutrophils 17.41 H Absolute Lymphocytes 0.83 L Absolute Monocytes 0.52 Absolute Eosinophils 0.27 Absolute Basophils 0.04 Sodium 135 L Potassium 3.7 Chloride 98 Carbon Dioxide 26.1 Anion Gap 10.9 BUN 20 H Creatinine 1.8 H Estimated GFR/1.73 m2 28.15 Glucose 129 H Calcium 9.5 Magnesium 1.9 Total Bilirubin 0.6 AST 16 ALT 12 L Alkaline Phosphatase 99 Troponin I < 50 Total Protein 7.9 Albumin 2.9 L Procalcitonin TSH 0.59 COVID-19 Source SARS-CoV-2 (PCR) Influenza Type A (PCR) Influenza Type B (PCR) RSV (PCR) 01/25/22 01/25/22 15:35 15:45 WBC RBC Hgb Hct MCV MCH MCHC RDW Plt Count MPV Immature Gran % Neutrophils % Lymphocytes % Monocytes % Eosinophils % Basophils % Nucleated RBC % Absolute Neutrophils Absolute Lymphocytes Absolute Monocytes Absolute Eosinophils Absolute Basophils Sodium Potassium Chloride Carbon Dioxide Anion Gap BUN Creatinine Estimated GFR/1.73 m2 Glucose Calcium Magnesium Total Bilirubin AST ALT Alkaline Phosphatase Troponin I Total Protein Albumin Procalcitonin 4.3 TSH COVID-19 Source Not Applicable SARS-CoV-2 (PCR) Negative Influenza Type A (PCR) Negative Influenza Type B (PCR) Negative RSV (PCR) Negative Last Vital Signs Temp 36.8 C 01/25/22 20:00 Pulse 77 01/25/22 20:00 Resp 18 01/25/22 20:00 BP 93/59 L 01/25/22 20:00 Pulse Ox 99 01/25/22 20:00
[2022-01-25] MEDS: Pravastatin 20 MG TAB PO (21:20)
[2022-01-25] MEDS: Lactated Ringers 1,000 ML 85 ML IV (21:21)
[2022-01-25] MEDS: cefTRIAXone 1,000 MG in Normal Saline 50 ML 100 MG IVPB (21:39)
[2022-01-25] MEDS: guaiFENesin 600 MG TABCR PO (22:21)
[2022-01-25] MEDS: Normal Saline Flush 10 ML SYR (22:43)
[2022-01-25 23:49] LABS: C Diff PCR Negative (Negative)
[2022-01-26] VITALS (15 sets, daily range): BP systolic 95–175; BP diastolic 57–78; PULSE 51–104; RESP 2–18; TEMP 35.6–36.6; O2SAT 90–99
--- NOTE | 2022-01-26 | DI.CT_ITS ---
Exam(s) CT CHEST PE CTA EXAM: CT CHEST PE CTA CLINICAL HISTORY: hemoptysis. TECHNIQUE: Imaging Protocol: Axial CT angiography was performed with multi-slice acquisition and mu lti-planar and/or 3D reconstructions. CONTRAST MATERIAL: Intravenous: Omnipaque 350 Contrast volume:75 mL COMPARISON: CT CT CHEST WO from 01/26/2022 FINDINGS: The examination is limited due to patient motion artifact. Tracheobronchial tree: Patent where visualized. Pulmonary parenchyma: There are stable bilateral lower lobe areas of consolidation. Moderate emphyse matous changes are again seen. The right upper lobe and right middle lobe pulmonary nodules appears stable. Pulmonary Arteries: No evidence of filling defect to suggest pulmonary emboli. Mediastinum and Adriana: No dominant adenopathy or fluid collection. The esophagus is unremarkable. Visualized thyroid gland: Unremarkable. Pleura: No effusion or pneumothorax. Heart: Mild cardiomegaly. Coronary artery calcifications are present. No pericardial effusion. Aorta: Thoracic aorta non-dilated. No evidence of dissection. Atherosclerosis is present. Upper abdomen: Status post cholecystectomy. Soft tissues: Unremarkable. Bones: Within normal limits for the patient's age. IMPRESSION: 1. No evidence of pulmonary embolism, thoracic aortic dissection or aneurysm. 2. Bilateral lower lobe consolidations which would be consistent with pneumonia. Please correlate cl inically. RADIATION DOSE DELIVERED: 512.75mGy.cm Total DLP DATA REPOSITORY: All CT scans at this facility are submitted to the National Radiology Data Registry (NRDR) Dose Index Registry (DIR) with the [employer] (ACR). RADIATION OPTIMIZATION: All CT scans at this facility use at least one of these dose optimization te chniques: automated exposure control; mA and/or kV adjustment per patient size (includes targeted exa ms where dose is matched to clinical indication); or iterative reconstruction.
--- NOTE | 2022-01-26 | DI.CT_ITS ---
Exam(s) CT CHEST WO EXAM: CT CHEST WO CLINICAL HISTORY: hemoptysis. TECHNIQUE: Imaging protocol: Axial computed tomography images were obtained and coronal and sagittal reformatted images were created and reviewed. COMPARISON: CT CT CHEST LUNG CANCER SCREEN from 06/22/2021 FINDINGS: The examination is limited due to patient motion artifact. Tracheobronchial tree: Patent where visualized. Pulmonary parenchyma: There are areas of consolidation in the lower lobes bilaterally. Bronchiectati c changes are seen in the lower lobes bilaterally. There is a stable 3 mm nodule associated with the right minor fissure. There is a stable 3 mm nodule in the posterior aspect of the right upper lobe. Moderate emphysematous changes are present in the lungs. Mediastinum and Adriana: No dominant adenopathy or fluid collection. The esophagus is unremarkable. Thyroid gland: Unremarkable. Pleura: No effusion or pneumothorax. Heart: The heart is not dilated. Coronary artery calcifications are present. No pericardial effusion . Aorta: Thoracic aorta non-dilated. Atherosclerosis. Upper abdomen: Status post cholecystectomy. Lymph nodes: Within normal limits. Soft tissues: Unremarkable. Bones:Within normal limits for the patient's age. IMPRESSION: Bilateral lower lobe infiltrate suspicious for pneumonia. RADIATION DOSE DELIVERED: 662.52mGy.cm Total DLP 662.52mGy.cm Total DLP DATA REPOSITORY: All CT scans at this facility are submitted to the National Radiology Data Registry (NRDR) Dose Index Registry (DIR) with the [employer] (ACR). RADIATION OPTIMIZATION: All CT scans at this facility use at least one of these dose optimization te chniques: automated exposure control; mA and/or kV adjustment per patient size (includes targeted exa ms where dose is matched to clinical indication); or iterative reconstruction.
[2022-01-26 00:43] LABS: HCT 32.5 % (36.0-46.0); HGB 10.2 g/dL (11.2-15.7); MCH 32.1 pg (27.0-33.0); MCHC 31.4 % (32.0-36.0); MCV 102.2 fL (80-95); MPV 9.9 fL (8.0-11.0); RBC 3.18 10^6/uL (3.93-5.22); RDW 12.6 % (11.7-14.6); RDW-SD 47.1 fL; WBC 19.45 10^3/uL (4.4-10.8)
[2022-01-26 00:54] LABS: Platelet Count 94 10^3/uL (130-400)
[2022-01-26] MEDS: DOXYCYCLINE 100 MG in Normal Saline 100 ML IVPB ×2 (04:45→15:57)
[2022-01-26] MEDS: Levothyroxine 25 MCG TAB PO (06:25)
[2022-01-26 07:58] LABS: Abs Immature Grans 0.14 10^3/uL (0.0-0.06); Absolute Lymphocyte Count 0.97 10^3/uL (1.2-3.4); Absolute Monocyte Count 0.38 10^3/uL (0.1-0.8); Basophils % 0.1; HCT 33.1 % (36.0-46.0); HGB 10.5 g/dL (11.2-15.7); Immature Grans % 0.7; Lymphocytes % 4.6; MCH 31.9 pg (27.0-33.0); MCHC 31.7 % (32.0-36.0); MCV 100.6 fL (80-95); MPV 10.4 fL (8.0-11.0); Monocytes % 1.8; Neutrophils % 92.8; Nucleated RBC 0 %; Platelet Count 101 10^3/uL (130-400); RBC 3.29 10^6/uL (3.93-5.22); RDW 12.8 % (11.7-14.6); RDW-SD 47.8 fL
[2022-01-26 08:01] LABS: Absolute Basophil Count 0.02 10^3/uL (0.0-0.2); Absolute Neutrophil Count 19.49 10^3/uL (1.2-6.7)
[2022-01-26] MEDS: Albuterol/Ipratropium 3 ML UPD VIAL UPD ×3 (08:01→20:39)
--- NOTE | 2022-01-26 08:05 | RESPIRATORY ---
Addendum entered by Dank Acosta 01/27/22 07:42: Pt's own [employer] [id number] BiPAP IPAP: 17 cmH2O EPEP: 13 cmH2O 3L O2 bleed in. Face Mask: Small DME: [employer] Original Note: Pt stated that her baseline O2 use is 3 Lpm 24/7 at home via nasal cannula. DME: [employer].
[2022-01-26 08:19] LABS: ALT 11 U/L (14-59); AST 16 U/L (15-37); Albumin 2.5 g/dL (3.4-5.0); Alkaline Phosphatase 95 U/L (46-116); Anion Gap 10.7 mmol/L (3-11); BUN 31 mg/dL (7-18); Bilirubin, Total 0.3 mg/dL (0.2-1.0); CO2 23.3 mmol/L (21.0-32.0); CREATININE 1.9 mg/dL (0.55-1.02); Calcium 8.9 mg/dL (8.5-10.1); Chloride 104 mmol/L (98-107); Estimated GFR 26.45 (mL/min/1.73m2); Glucose 146 mg/dL (74-106); Potassium 3.4 mmol/L (3.5-5.1); Sodium 138 mmol/L (136-145); Total Protein 7.4 g/dL (6.4-8.2)
[2022-01-26] MEDS: Aspirin E.C. 81 MG TABEC PO (08:22)
[2022-01-26] MEDS: guaiFENesin 600 MG TABCR PO ×2 (08:23→20:38)
[2022-01-26] MEDS: Escitalopram 20 MG TAB PO (08:23)
[2022-01-26] MEDS: Enoxaparin 30 MG/0.3 ML SYR SC (08:23)
[2022-01-26] MEDS: Omeprazole 20 MG CAPCR PO (08:23)
[2022-01-26] MEDS: Roflumilast 500 MCG TAB PO (08:24)
[2022-01-26] MEDS: Psyllium PKT 1 EACH PO ×2 (08:24→21:26)
[2022-01-26] MEDS: predniSONE 20 MG TAB 60 MG PO (08:24)
[2022-01-26] MEDS: Loperamide 2 MG CAP PO ×2 (08:25→13:35)
--- NOTE | 2022-01-26 08:59 | PDOC.CMIN ---
- If Service Date Differs Date of service: 01/26/22 Time of Service: 08:59 Care Management Initial Assess REASON FOR HOSPITALIZATION:: Community acquired pneumonia PAST MEDICAL HISTORY/PAST SURGICAL HISTORY:: All Active Problems (Updated 01/25/22 @ 21:22 by Jim Kiran). Sepsis (Acute). Community acquired pneumonia (Acute). Anemia, macrocytic (Chronic). If hgb <9.5 consistently, discuss Erythropoietin stimulalting agents to avoid RBC tranfusions [place] [facility] [place] Cigarette nicotine dependence (Acute). Chronic obstructive pulmonary disease (Chronic 05/08/17). O2 Dependent, Emphysematous per CT Chest (2018). New development of nodules noted on CT (01/2018). Right wrist sprain (Acute). Vitamin D deficiency (Acute). Frequent falls (Acute). Memory changes (Acute). Leukopenia (Acute). mild with normal ANC per Dr. Lopez. Bradycardia (Acute). declined pacer. Hypertension (Chronic). Cellulitis of toe of left foot (Acute). Cataract (Chronic). Otitis media (Acute). Pancytopenia (Acute). Thrombocytopenia (Chronic). Anemia (Chronic). Bone pain (Acute). Atypical chest pain (Acute 05/08/17). Idiopathic peripheral neuropathy (Acute). Thrombotic stroke (Acute). Cerebral aneurysm (Acute). Urinary incontinence (Acute 05/08/17). Sleep apnea (Chronic 05/08/17). Bi-PAP w/02. Situational depression (Acute 05/08/17). Positive CÉSAR (antinuclear antibody) (Acute 05/08/17). Supplemental oxygen dependent (Acute 05/30/17). Osteopenia (Acute 05/08/17). Insomnia (Acute 05/08/17). Idiopathic neuropathy (Acute 08/18/17). Hypothyroidism (Acute 05/08/17). Hyperlipidemia (Acute 05/08/17). Gastroesophageal reflux disease (Acute 05/08/17). Episodic atrial fibrillation (Acute 05/08/17). Adult BMI 45.0-49.9 kg/sq m (Acute 11/06/17). Arthralgia (Acute 05/08/17). Anxiety (Acute 05/08/17). Medical History (Updated 01/25/22 @ 21:22 by Jim Kiran). BP (high blood pressure) (05/08/17). w/o Hypertension. Cellulitis and abscess of trunk (05/08/17). History of rheumatic fever (05/08/17). Surgical History (Updated 01/25/22 @ 21:22 by Jim Kiran). Cerebral angiogram (11/03/17). Cholecystectomy (~1979). 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 History of bone marrow biopsy PREVIOUS FUNCTIONAL STATUS/SOCIAL/FAMILY SUPPORTS:: Marissa lives in a single family home in [facility] with her daughter Britni and her . Marissa also has a son who lives in [place] and one grandchild. 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 Marissa uses a walkker and cane at times for ambulatory assistance. She is independent with ADLs and receives no services except for home oxygen. CURRENT FUNCTIONAL STATUS:: Marissa was sitting up in bed when CM met with her. She was agreeable to conversation and engaged easily with CM. Marissa shared that she has been really sick for some time. She has had diarrhea for months and now has pneumonia. She is unable to do much she stated due to difficulty breathing. ADVANCE DIRECTIVES:: none on file. Marissa was provided with a blank copy by CM who offered to assist with completion if marissa so chooses. Has patient been provided with info about the portal/API?: Yes Did the patient sign up for the portal?: Yes (previously) CODE STATUS:: Full Code INSURANCE COVERAGE / FINANCIAL ISSUES:: [employer] medicare Advantage CURRENT HOME/COMMUNITY SERVICES/EQUIPMENT:: home oxygen at 3L continuous provided by [facility] PH[facility]IAN:: Rebeca Dupree POTENTIAL DISCHARGE NEEDS:: follow up with PCP and plan of care PATIENT/FAMILY EDUCATION NEEDS:: Review of discharge instructions, medications, limitations, activity, follow up plan and discuss [employer] TRANSPORTATION:: via private vehicle with daughter PLAN:: Marissa will likely be discharged home, possibly with new home health services if indicated. She will follow up with her PCP and plan of care and transport with family. CM will continue to support Marissa and her discharge planning needs.
--- NOTE | 2022-01-26 11:16 | W.PM.PROGNOT ---
Date of Service Date of service: 01/26/22 Time of Service: 11:16 Assessment and Plan Assessment and plan (1) Community acquired pneumonia: Status: Acute Assessment and plan: Rocephin 2 gm daily, doxycycline 100 mg q12h, IS, acapella, aerosolized bronchodilators. Sputum culture pending; gram stain with many WBCs and moderate gram + cocci and gram - cocci. blood cultures pending; drawn after initial antibiotic doses. Procal 4.3 on day of admission; recheck tomorrow. (2) Sepsis: Status: Acute Assessment and plan: Cont Rocephin: 2 gm daily, cont. doxycycline 100 mg iv q12h; encourage cough and deep breathing and use of I.S. and acapella. Urine Strep antigen and Legionella ag, mycoplasma studies pending. She reportedly was vaccinated w/ pneumovax as well as her influenza vaccine and for COVID. Afebraile. WBC count not necessarily indicative of infectious statis d/t steroids being administered. (3) Chronic obstructive pulmonary disease: Status: Chronic Assessment and plan: as above. (4) Hyperlipidemia: Status: Acute Assessment and plan: cont. home dose of pravastatin (5) Hypertension: Status: Chronic Assessment and plan: hold her lisinopril. continue iv fluids; closely monitor her vitals for any deterioration from sepsis (6) Hypothyroidism: Status: Acute Assessment and plan: cont. home dose of levothyroxine (7) Cigarette nicotine dependence: Status: Acute Assessment and plan: nicotine patch (8) Sleep apnea: Status: Chronic Assessment and plan: she did not bring in her BIPAP from home. She has called family to bring it in. (9) Thrombocytopenia: Status: Chronic Assessment and plan: Pt having family bringing in her home medication eltrombopag. Subjective Subjective Patient reports: no new complaints, tolerating a regular diet (appetite has improved ), shortness of breath and afebrile; denies nausea or vomiting Exam Const General: cooperative and no acute distress Nutritional Appearance: obese Orientation: alert and oriented x3 Neck Neck: normal visual inspection and no JVD Resp Effort & Inspection: normal respiratory effort Auscultation: clear to auscultation bilaterally and diminished lung sounds Cardio Rate: regular rate Rhythm: regular rhythm Heart Sounds: S1 normal and S2 normal GI Palpation: soft and nontender Extrem General: no pedal edema and no calf tenderness Psych Appearance: grossly normal Mental Status: mental status grossly normal Affect: blunted Objective Last Vital Signs Temp 35.9 C L 01/26/22 07:00 Pulse 104 H 01/26/22 08:04 Resp 18 01/26/22 08:04 BP 95/60 L 01/26/22 07:00 Pulse Ox 93 01/26/22 08:06 Laboratory Results - last 24 hr 01/25/22 01/25/22 01/25/22 15:35 15:35 15:35 WBC 19.37 H RBC 3.73 L Hgb 11.8 Hct 37.3 MCV 100.0 H MCH 31.6 MCHC 31.6 L RDW 12.6 Plt Count 103 L MPV 9.9 Immature Gran % 1.5 Neutrophils % 89.9 Lymphocytes % 4.3 Monocytes % 2.7 Eosinophils % 1.4 Basophils % 0.2 Nucleated RBC % 0 Absolute Neutrophils 17.41 H Absolute Lymphocytes 0.83 L Absolute Monocytes 0.52 Absolute Eosinophils 0.27 Absolute Basophils 0.04 Sodium 135 L Potassium 3.7 Chloride 98 Carbon Dioxide 26.1 Anion Gap 10.9 BUN 20 H Creatinine 1.8 H Estimated GFR/1.73 m2 28.15 Glucose 129 H Calcium 9.5 Magnesium 1.9 Total Bilirubin 0.6 AST 16 ALT 12 L Alkaline Phosphatase 99 Troponin I < 50 Total Protein 7.9 Albumin 2.9 L Procalcitonin TSH 0.59 Stl C.difficile Tox PCR COVID-19 Source SARS-CoV-2 (PCR) Influenza Type A (PCR) Influenza Type B (PCR) RSV (PCR) 01/25/22 01/25/22 01/25/22 15:35 15:45 21:57 WBC RBC Hgb Hct MCV MCH MCHC RDW Plt Count MPV Immature Gran % Neutrophils % Lymphocytes % Monocytes % Eosinophils % Basophils % Nucleated RBC % Absolute Neutrophils Absolute Lymphocytes Absolute Monocytes Absolute Eosinophils Absolute Basophils Sodium Potassium Chloride Carbon Dioxide Anion Gap BUN Creatinine Estimated GFR/1.73 m2 Glucose Calcium Magnesium Total Bilirubin AST ALT Alkaline Phosphatase Troponin I Total Protein Albumin Procalcitonin 4.3 TSH Stl C.difficile Tox PCR Negative COVID-19 Source Not Applicable SARS-CoV-2 (PCR) Negative Influenza Type A (PCR) Negative Influenza Type B (PCR) Negative RSV (PCR) Negative 01/26/22 01/26/22 01/26/22 00:30 07:15 07:15 WBC 19.45 H 21.00 H RBC 3.18 L 3.29 L Hgb 10.2 L 10.5 L Hct 32.5 L 33.1 L MCV 102.2 H 100.6 H MCH 32.1 31.9 MCHC 31.4 L 31.7 L RDW 12.6 12.8 Plt Count 94 L 101 L MPV 9.9 10.4 Immature Gran % 0.7 Neutrophils % 92.8 Lymphocytes % 4.6 Monocytes % 1.8 Eosinophils % 0.0 Basophils % 0.1 Nucleated RBC % 0 Absolute Neutrophils 19.49 H Absolute Lymphocytes 0.97 L Absolute Monocytes 0.38 Absolute Eosinophils 0.00 Absolute Basophils 0.02 Sodium 138 Potassium 3.4 L Chloride 104 Carbon Dioxide 23.3 Anion Gap 10.7 BUN 31 H D Creatinine 1.9 H Estimated GFR/1.73 m2 26.45 Glucose 146 H Calcium 8.9 Magnesium Total Bilirubin 0.3 AST 16 ALT 11 L Alkaline Phosphatase 95 Troponin I Total Protein 7.4 Albumin 2.5 L Procalcitonin TSH Stl C.difficile Tox PCR COVID-19 Source SARS-CoV-2 (PCR) Influenza Type A (PCR) Influenza Type B (PCR) RSV (PCR)
[2022-01-26] MEDS: Normal Saline Flush 10 ML SYR IVP (15:57)
[2022-01-26] MEDS: cefTRIAXone 2 GM/50 ML BAG IVPB (18:38)
--- NOTE | 2022-01-26 19:50 | SUR.PHASEI ---
On change of shift, Pt noted to be coughing up more bloody sputum. Pt has coughed up about 3 quarter sized sputum. The sputum was red and mucous in texture. VSS. Charge nurse and Dr Kerns made aware. Plan for a stat non contrast Chest CT scan. Stat Coag studies ordered and obtained. Lovenox discontinued. Aspirin on hold. Nasal spray ordered for nasal dryness.
[2022-01-26 20:46] LABS: D-Dimer 987 ng/mlFEU (<500)
[2022-01-26] MEDS: Acetaminophen 325 MG TAB PO (20:48)
--- NOTE | 2022-01-26 20:48 | DI.VRAD_ITS ---
PROCEDURE INFORMATION: Exam: CT Chest Without Contrast; Diagnostic Exam date and time: 01/26/2022 7:39 PM Age: 66 years old Clinical indication: Other: Hemoptysis TECHNIQUE: Imaging protocol: Diagnostic computed tomography of the chest without contrast. 3D rendering (Not supervised by radiologist): MIP and/or 3D reconstructed images were created by the technologist. COMPARISON: CT CHEST LUNG CANCER SCREEN 06/22/2021 8:57 AM FINDINGS: Lungs: Bilateral lower lobe posterior segmental airspace consolidation consistent with infiltrate. These features were not present 06/22/2021. Findings are consistent with a bilateral lower lobe pneumonia. Severe bilateral emphysema. Pleural spaces: Unremarkable. No pneumothorax. No pleural effusion. Heart: Moderate cardiac enlargement. No pericardial effusion. Aorta: Thoracic aortic atherosclerosis. No aneurysmal features. Lymph nodes: Unremarkable. No enlarged lymph nodes. Gallbladder and bile ducts: Previous cholecystectomy. Bones/joints: Unremarkable. No acute fracture. Soft tissues: Unremarkable. IMPRESSION: 1. Severe emphysema. 2. Bilateral posterior lower lobe infiltrates, slightly greater on left than right. Dictated and Authenticated by: Suman Alexander MD. Ordering:GARRETT So MD
[2022-01-26 21:19] LABS: Lab Add On Test DONE
[2022-01-26] MEDS: Pravastatin 20 MG TAB PO (21:25)
[2022-01-26 21:38] LABS: NT-proBNP 1916 pg/mL (<300)
[2022-01-26] MEDS: Omnipaque 350 MG/ML 100 ML BTL IJ (21:53)
--- NOTE | 2022-01-26 22:05 | DI.VRAD_ITS ---
PROCEDURE INFORMATION: Exam: CTA Chest With Contrast Exam date and time: 01/26/2022 9:05 PM Age: 66 years old Clinical indication: Other: Hemoptysis TECHNIQUE: Imaging protocol: Computed tomographic angiography of the chest with contrast. 3D rendering (Not supervised by radiologist): MIP and/or 3D reconstructed images were created by the technologist. Contrast material: 350; Contrast volume: 75 ml; Contrast route: INTRAVENOUS (IV); COMPARISON: CT CHEST PE CTA 06/08/2019 11:30 PM FINDINGS: Pulmonary arteries: Pulmonary arteries well opacified. No embolism. Aorta: Thoracic aorta is normal in course and caliber. Lungs: Emphysematous lung disease of moderate to severe nature. Bilateral posterior lower lobe segmental consolidation which may represent infiltrates or atelectasis. Tracheobronchial tree is unremarkable. No focal lesions or intrinsic debris evident. Pleural spaces: Unremarkable. No pneumothorax. No pleural effusion. Heart: Moderate cardiac enlargement. No pericardial effusion. Lymph nodes: Unremarkable. No enlarged lymph nodes. Gallbladder and bile ducts: Previous cholecystectomy. Bones/joints: Unremarkable. No acute fracture. Soft tissues: Unremarkable. IMPRESSION: 1. No pulmonary arterial embolism. 2. Emphysematous lung disease. 3. Posterior bilateral lung base segmental airspace consolidation suggesting infiltrates or atelectasis. 4. Moderate cardiac enlargement. No acute findings. Dictated and Authenticated by: Suman Alexander MD. Ordering:GARRETT So MD
[2022-01-27] VITALS (15 sets, daily range): BP systolic 120–165; BP diastolic 73–86; PULSE 50–73; RESP 4–18; TEMP 35.7–36.6; O2SAT 90–98
[2022-01-27] MEDS: DOXYCYCLINE 100 MG in Normal Saline 100 ML IVPB ×2 (04:16→16:27)
[2022-01-27] MEDS: Levothyroxine 25 MCG TAB PO (05:38)
[2022-01-27 06:55] LABS: Legionella Ag Detection Urine Negative (Negative)
[2022-01-27] MEDS: Albuterol/Ipratropium 3 ML UPD VIAL UPD ×4 (07:33→21:48)
[2022-01-27 07:48] LABS: Abs Immature Grans 0.24 10^3/uL (0.0-0.06); Absolute Basophil Count 0.02 10^3/uL (0.0-0.2); Absolute Lymphocyte Count 0.78 10^3/uL (1.2-3.4); Basophils % 0.1; Immature Grans % 1.3; Lymphocytes % 4.1; MCH 32.5 pg (27.0-33.0); MCHC 32.1 % (32.0-36.0); MCV 101.1 fL (80-95); Neutrophils % 91.5; Nucleated RBC 0 %; Platelet Count 108 10^3/uL (130-400); RBC 2.77 10^6/uL (3.93-5.22); RDW 12.8 % (11.7-14.6); RDW-SD 47.6 fL; WBC 18.93 10^3/uL (4.4-10.8)
[2022-01-27 07:51] LABS: Absolute Monocyte Count 0.57 10^3/uL (0.1-0.8)
[2022-01-27 07:52] LABS: Absolute Neutrophil Count 17.32 10^3/uL (1.2-6.7)
[2022-01-27 08:10] LABS: PTT Activated 28.5 sec (21.0-27.5); Prothrombin Time 9.6 sec (9.3-11.0)
[2022-01-27 08:12] LABS: ALT 19 U/L (14-59); AST 29 U/L (15-37); Albumin 2.4 g/dL (3.4-5.0); Alkaline Phosphatase 87 U/L (46-116); Bilirubin, Total 0.2 mg/dL (0.2-1.0); Total Protein 6.8 g/dL (6.4-8.2)
[2022-01-27 08:16] LABS: Anion Gap 11.6 mmol/L (3-11); BUN 42 mg/dL (7-18); Bilirubin, Direct < 0.1 mg/dL (0.0-0.2); CO2 21.4 mmol/L (21.0-32.0); CREATININE 1.8 mg/dL (0.55-1.02); Chloride 104 mmol/L (98-107); Estimated GFR 28.15 (mL/min/1.73m2); Glucose 134 mg/dL (74-106); NT-proBNP 1069 pg/mL (<300); Sodium 137 mmol/L (136-145)
[2022-01-27] MEDS: predniSONE 20 MG TAB 60 MG PO (08:27)
[2022-01-27] MEDS: Roflumilast 500 MCG TAB PO (08:27)
[2022-01-27] MEDS: guaiFENesin 600 MG TABCR PO ×2 (08:27→21:48)
[2022-01-27] MEDS: Escitalopram 20 MG TAB PO (08:27)
[2022-01-27] MEDS: Omeprazole 20 MG CAPCR PO (08:27)
[2022-01-27 08:29] LABS: Procalcitonin 4.2 ng/mL
[2022-01-27] MEDS: Fluticasone-Umeclidin-Vilanter [Trelegy Ellipta] IH (10:21)
--- NOTE | 2022-01-27 11:06 | W.PM.PROGNOT ---
Date of Service Date of service: 01/27/22 Time of Service: 11:07 Assessment and Plan Assessment and plan (1) Community acquired pneumonia: Status: Acute Assessment and plan: WBC count 18.93; was 20 yeserday. Procal 4.3 on 01/25, now 4.2. Elevation likely effected by her CKD. Cont. Rocephin 2 gm daily, doxycycline 100 mg q12h, IS, acapella, Trelegy, Daliresp, aerosolized bronchodilators. Sputum culture preliminary results; strep PNeumoniae and galo albicans growing. blood cultures w/o growth in 24 hours; drawn after initial antibiotic doses. Add oral diflucan. Consult pulmonary medicine, Dr Alex in the AM. Blood sputum likely from epistaxis but not clear. Aspirin held. Eltrombopag hold placed last PM. Monitor platelets (2) Sepsis: Status: Acute Assessment and plan: See above. . (3) Chronic obstructive pulmonary disease: Status: Chronic Assessment and plan: as above. (4) Hyperlipidemia: Status: Acute Assessment and plan: cont. home dose of pravastatin (5) Hypertension: Status: Chronic Assessment and plan: hold her lisinopril. continue iv fluids; closely monitor her vitals for any deterioration from sepsis (6) Hypothyroidism: Status: Acute Assessment and plan: cont. home dose of levothyroxine (7) Cigarette nicotine dependence: Status: Acute Assessment and plan: nicotine patch (8) Sleep apnea: Status: Chronic Assessment and plan: she did not bring in her BIPAP from home. She has called family to bring it in. (9) Thrombocytopenia: Status: Chronic Assessment and plan: Pt having family bringing in her home medication eltrombopag. Subjective Subjective Patient reports: no new complaints, feels better, tolerating a regular diet (Appetite still not to baseline but better.) and afebrile; denies diarrhea, nausea, vomiting or shortness of breath Interval history since last seen: Blood in sputum last PM. Also, later, noted blood in nasal drainage. Exam Narrative Exam Narrative: A quarter sized area of bright red blood in sputum that is in a tissue is noted. Const General: cooperative and no acute distress Nutritional Appearance: obese Orientation: alert and oriented x3 Neck Neck: normal visual inspection and no JVD Resp Effort & Inspection: normal respiratory effort Auscultation: diminished lung sounds and rhonchi lower bilaterally Cardio Rate: regular rate Rhythm: regular rhythm Heart Sounds: S1 normal and S2 normal GI Palpation: soft and nontender Extrem General: no pedal edema and no calf tenderness Psych Appearance: grossly normal Mental Status: mental status grossly normal Affect: blunted Objective Last Vital Signs Temp 36.1 C L 01/27/22 07:40 Pulse 50 L 01/27/22 07:40 Resp 17 01/27/22 07:40 BP 149/78 H 01/27/22 07:40 Pulse Ox 97 01/27/22 07:40 Laboratory Results - last 24 hr 01/26/22 01/26/22 01/26/22 07:15 19:55 Unknown WBC RBC Hgb Hct MCV MCH MCHC RDW Plt Count MPV Immature Gran % Neutrophils % Lymphocytes % Monocytes % Eosinophils % Basophils % Nucleated RBC % Absolute Neutrophils Absolute Lymphocytes Absolute Monocytes Absolute Eosinophils Absolute Basophils PT INR APTT D-Dimer 987 H Sodium Potassium Chloride Carbon Dioxide Anion Gap BUN Creatinine Estimated GFR/1.73 m2 Glucose Calcium Total Bilirubin Conjugated Bilirubin AST ALT Alkaline Phosphatase NT-Pro-B Natriuret Pep 1916 H Total Protein Albumin Procalcitonin Add-On Test Request DONE 01/27/22 01/27/22 01/27/22 07:15 07:15 07:15 WBC 18.93 H RBC 2.77 L Hgb 9.0 L Hct 28.0 L MCV 101.1 H MCH 32.5 MCHC 32.1 RDW 12.8 Plt Count 108 L MPV 10.0 Immature Gran % 1.3 Neutrophils % 91.5 Lymphocytes % 4.1 Monocytes % 3.0 Eosinophils % 0.0 Basophils % 0.1 Nucleated RBC % 0 Absolute Neutrophils 17.32 H Absolute Lymphocytes 0.78 L Absolute Monocytes 0.57 Absolute Eosinophils 0.00 Absolute Basophils 0.02 PT INR APTT D-Dimer Sodium 137 Potassium 4.0 Chloride 104 Carbon Dioxide 21.4 Anion Gap 11.6 H BUN 42 H D Creatinine 1.8 H Estimated GFR/1.73 m2 28.15 Glucose 134 H Calcium 9.0 Total Bilirubin Conjugated Bilirubin AST ALT Alkaline Phosphatase NT-Pro-B Natriuret Pep 1069 H Total Protein Albumin Procalcitonin 4.2 Add-On Test Request 01/27/22 01/27/22 07:15 07:15 WBC RBC Hgb Hct MCV MCH MCHC RDW Plt Count MPV Immature Gran % Neutrophils % Lymphocytes % Monocytes % Eosinophils % Basophils % Nucleated RBC % Absolute Neutrophils Absolute Lymphocytes Absolute Monocytes Absolute Eosinophils Absolute Basophils PT 9.6 INR 1.0 APTT 28.5 H D-Dimer Sodium Potassium Chloride Carbon Dioxide Anion Gap BUN Creatinine Estimated GFR/1.73 m2 Glucose Calcium Total Bilirubin 0.2 Conjugated Bilirubin < 0.1 AST 29 ALT 19 Alkaline Phosphatase 87 NT-Pro-B Natriuret Pep Total Protein 6.8 Albumin 2.4 L Procalcitonin Add-On Test Request
[2022-01-27 14:26] LABS: Campylobacter PCR Negative (Negative); Salmonella PCR Negative (Negative); Shiga Toxin PCR Negative (Negative); Shigella/Enteroinvasive Ecoli Negative (Negative)
[2022-01-27] MEDS: Normal Saline Flush 10 ML SYR IVP ×2 (16:27→17:41)
[2022-01-27] MEDS: Acetaminophen 325 MG TAB PO (16:58)
[2022-01-27] MEDS: cefTRIAXone 2 GM/50 ML BAG IVPB (17:41)
[2022-01-27] MEDS: Pravastatin 20 MG TAB PO (22:22)
[2022-01-28] VITALS (9 sets, daily range): BP systolic 158–188; BP diastolic 72–91; PULSE 56–72; RESP 4–18; TEMP 36.3–36.7; O2SAT 96–98
[2022-01-28] MEDS: DOXYCYCLINE 100 MG in Normal Saline 100 ML IVPB ×2 (04:16→16:30)
[2022-01-28] MEDS: Levothyroxine 25 MCG TAB PO (06:17)
[2022-01-28] MEDS: Albuterol/Ipratropium 3 ML UPD VIAL UPD (07:51)
--- NOTE | 2022-01-28 07:59 | W.PALLCONSUL ---
Date of service: 01/28/22 Time of Service: 08:00 History of Present Illness History of Present Illness Chief Complaint: SOB Narrative: I came in to see Marissa. She agrees to a visit from me/Palliative care later today. PFSH All Active Problems (Updated 01/27/22 @ 09:20 by Gayle Cabrera DO) Acute exacerbation of chronic obstructive pulmonary disease (Acute) Pneumonia (Acute) Acute kidney injury superimposed on chronic kidney disease (Acute) Sepsis (Acute) Sepsis (Acute) Community acquired pneumonia (Acute) Anemia, macrocytic (Chronic) If hgb <9.5 consistently, discuss Erythropoietin stimulalting agents to avoid RBC tranfusions per note [facility] [place] 10/19/22 Cigarette nicotine dependence (Acute) Chronic obstructive pulmonary disease (Chronic 05/08/17) O2 Dependent, Emphysematous per CT Chest (2018). New development of nodules noted on CT (01/2018) Right wrist sprain (Acute) Vitamin D deficiency (Acute) Frequent falls (Acute) Memory changes (Acute) Leukopenia (Acute) mild with normal ANC per Dr. Lopez Bradycardia (Acute) declined pacer Hypertension (Chronic) Cellulitis of toe of left foot (Acute) Cataract (Chronic) Otitis media (Acute) Pancytopenia (Acute) Thrombocytopenia (Chronic) Anemia (Chronic) Bone pain (Acute) Atypical chest pain (Acute 05/08/17) Idiopathic peripheral neuropathy (Acute) Thrombotic stroke (Acute) Cerebral aneurysm (Acute) Urinary incontinence (Acute 05/08/17) Sleep apnea (Chronic 05/08/17) Bi-PAP Situational depression (Acute 05/08/17) Positive CÉSAR (antinuclear antibody) (Acute 05/08/17) Supplemental oxygen dependent (Acute 05/30/17) Osteopenia (Acute 05/08/17) Insomnia (Acute 05/08/17) Idiopathic neuropathy (Acute 08/18/17) Hypothyroidism (Acute 05/08/17) Hyperlipidemia (Acute 05/08/17) Gastroesophageal reflux disease (Acute 05/08/17) Episodic atrial fibrillation (Acute 05/08/17) Adult BMI 45.0-49.9 kg/sq m (Acute 11/06/17) Arthralgia (Acute 05/08/17) Anxiety (Acute 05/08/17) Medical History (Updated 01/27/22 @ 09:20 by Gayle Cabrera DO) BP (high blood pressure) (05/08/17) w/o Hypertension Cellulitis and abscess of trunk (05/08/17) History of rheumatic fever (05/08/17) Surgical History (Updated 01/25/22 @ 21:22 by Jim Kiran) Cerebral angiogram (11/03/17) Cholecystectomy (~1979) 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 CAD (coronary artery disease) COPD (chronic obstructive pulmonary disease) Father , Heart Attack at age 72. CAD (coronary artery disease) COPD (chronic obstructive pulmonary disease) Brother Neoplasm Cell Sister Neoplasm Ovarain Social History Smoking/Tobacco Use Status: Current every day Tobacco Type: cigarettes Smoking packs per day: 1 Smoking cigarettes per day: 20.0 Years smoked: 55 Smoking pack-years: 55.00 Smoking risk assessment performed?: Yes Alcohol Intake: former Drug use: Never Substance use type: does not use Household members: family Communication Needs: Corrective Lenses Pets and animals: Yes (3 cats and 4 dogs) Seatbelt use: always Do you feel safe at home: Yes Do you feel safe in your relationship?: Yes Results Last Vital Signs Temp 97.3 F L 01/28/22 07:46 Pulse 59 L 01/28/22 07:46 Resp 14 01/28/22 07:51 BP 158/88 H 01/28/22 07:46 Pulse Ox 96 01/28/22 07:51 Labs Result diagrams: 01/27/22 07:15 01/27/22 07:15 Labs: Laboratory Results - last 24 hr 01/25/22 01/26/22 01/27/22 21:57 07:00 07:15 PT INR APTT Sodium 137 Potassium 4.0 Chloride 104 Carbon Dioxide 21.4 Anion Gap 11.6 H BUN 42 H D Creatinine 1.8 H Estimated GFR/1.73 m2 28.15 Glucose 134 H Calcium 9.0 Total Bilirubin Conjugated Bilirubin AST ALT Alkaline Phosphatase NT-Pro-B Natriuret Pep 1069 H Total Protein Albumin Procalcitonin Stool Campylobacter PCR Negative Stool Salmonella PCR Negative Stool Shigella PCR Negative Urine Legionella Ag Negative Shiga Toxin (PCR) Negative 01/27/22 01/27/22 01/27/22 07:15 07:15 07:15 PT 9.6 INR 1.0 APTT 28.5 H Sodium Potassium Chloride Carbon Dioxide Anion Gap BUN Creatinine Estimated GFR/1.73 m2 Glucose Calcium Total Bilirubin 0.2 Conjugated Bilirubin < 0.1 AST 29 ALT 19 Alkaline Phosphatase 87 NT-Pro-B Natriuret Pep Total Protein 6.8 Albumin 2.4 L Procalcitonin 4.2 Stool Campylobacter PCR Stool Salmonella PCR Stool Shigella PCR Urine Legionella Ag Shiga Toxin (PCR)
[2022-01-28] MEDS: Budesonide/Formoterol 80/4.5 6.9 GM 60 PUFF INH IH (08:24)
--- NOTE | 2022-01-28 08:25 | RESPIRATORY ---
HOME CPAP/BIPAP PT STATES SHE WORE IT LAST NIGHT
--- NOTE | 2022-01-28 08:40 | PUCON_ITS ---
General Date Of Service Date of service: 01/28/22 Time of Service: 08:41 Reason for Consult: Pneumonia Assessment and Plan Assessment and plan (1) Acute exacerbation of chronic obstructive pulmonary disease: Status: Acute (2) Community acquired pneumonia: Status: Acute (3) Sepsis: Status: Acute (4) Sleep apnea: Status: Chronic (5) Respiratory failure with hypoxia: Status: Acute Assessment and plan: This is a 66 yo female with advanced COPD, who continues to smoke and is oxygen dependant (3LPM). She was admitted for respiratory failure and found to have Streptococcus pneumoniae bibasilar pneumonia. She is on ceftriaxone and doxycycline for this and clinically improving. Her strep is sensitive to penicillin, so I do not have concerns about resistances. I think she will benefit from one more night in the hospital but then is likely safe for discharge tomorrow. Although she has been fully vaccinated for pneumonia, her Pn eumovax shot was 10 years ago and so it is reasonable to give her a booster for this now. Strep Pneumoniae Multilobar Pneumonia - continue ceftriaxone and doxycycline while admitted - can discharge on Levaquin to have a total 10 days of antibiotics - I will perform follow up imaging as an outpatient - I will give a Pneumovax booster as an outpatient - I have an appointment set up to see her on 02/05/22 already Advanced COPD with exacerbation - Duonebs and albuterol HFA prn - I adjusted orders - continue home Trelegy - continue roflumilast - antibiotics as above - prednisone 40mg for 7 days total - I decreased from 60mg Hypoxic respiratory failure - continue home O2 of 2-3 LPM MARCIA - continue home BiPAP History of Present Illness Narrative: This is a 66 yo woman with COPD (GOLD 3, category D) who I have seen in clinic once, but who cancelled our appointment for December. She is maintained on Trelegy, roflumilast, albuterol and Duonebs at home. She began feeling ill last week and was prescribed prednisone and doxycycline but due to hours of operation issues at [facility] she was unable to get this Rx. She then reported to the ED. She had a chest CT done which found a bibasilar pneumonia. She was started on ceftriaxone and doxycycline. Her sputum culture has returned positive for Strep pneumoniae. She is up to date on her pneumonia vaccinations, but her last Pneumovax was 10 years ago so should get a booster of this. Today, she feels as though she is doing better, although not to her baseline. She is on her home O2 at the moment but still feels quite weak and more dyspneic than usual. Review of Systems All systems reviewed & are unremarkable except as noted in HPI and below PFSH All Active Problems (Updated 01/28/22 @ 11:34 by Susan Alex MD) Respiratory failure with hypoxia (Acute) Acute exacerbation of chronic obstructive pulmonary disease (Acute) Acute kidney injury superimposed on chronic kidney disease (Acute) Sepsis (Acute) Sepsis (Acute) Community acquired pneumonia (Acute) Anemia, macrocytic (Chronic) If hgb <9.5 consistently, discuss Erythropoietin stimulalting agents to avoid RBC tranfusions per note [facility] [place] Cigarette nicotine dependence (Acute) Chronic obstructive pulmonary disease (Chronic 05/08/17) O2 Dependent, Emphysematous per CT Chest (2018). New development of nodules noted on CT (01/2018) Right wrist sprain (Acute) Vitamin D deficiency (Acute) Frequent falls (Acute) Memory changes (Acute) Leukopenia (Acute) mild with normal ANC per Dr. Lopez Bradycardia (Acute) declined pacer Hypertension (Chronic) Cellulitis of toe of left foot (Acute) Cataract (Chronic) Otitis media (Acute) Pancytopenia (Acute) Thrombocytopenia (Chronic) Anemia (Chronic) Bone pain (Acute) Atypical chest pain (Acute 05/08/17) Idiopathic peripheral neuropathy (Acute) Thrombotic stroke (Acute) Cerebral aneurysm (Acute) Urinary incontinence (Acute 05/08/17) Sleep apnea (Chronic 05/08/17) Bi-PAP w/ Situational depression (Acute 05/08/17) Positive CÉSAR (antinuclear antibody) (Acute 05/08/17) Supplemental oxygen dependent (Acute 05/30/17) Osteopenia (Acute 05/08/17) Insomnia (Acute 05/08/17) Idiopathic neuropathy (Acute 08/18/17) Hypothyroidism (Acute 05/08/17) Hyperlipidemia (Acute 05/08/17) Gastroesophageal reflux disease (Acute 05/08/17) Episodic atrial fibrillation (Acute 05/08/17) Adult BMI 45.0-49.9 kg/sq m (Acute 11/06/17) Arthralgia (Acute 05/08/17) Anxiety (Acute 05/08/17) Medical History (Updated 01/28/22 @ 11:34 by Susan Alex MD) BP (high blood pressure) (05/08/17) w/o Hypertension Cellulitis and abscess of trunk (05/08/17) History of rheumatic fever (05/08/17) Surgical History (Updated 01/25/22 @ 21:22 by Jim Kiran) Cerebral angiogram (11/03/17) Cholecystectomy (~1979) 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 CAD (coronary artery disease) COPD (chronic obstructive pulmonary disease) Father , Heart Attack at age 72. CAD (coronary artery disease) COPD (chronic obstructive pulmonary disease) Brother Neoplasm Cell Sister Neoplasm Ovarain Social History Smoking/Tobacco Use Status: Current every day Tobacco Type: cigarettes Smoking packs per day: 1 Smoking cigarettes per day: 20.0 Years smoked: 55 Smoking pack- years: 55.00 Smoking risk assessment performed?: Yes Alcohol Intake: former Drug use: Never Substance use type: does not use Household members: family Communication Needs: Corrective Lenses Pets and animals: Yes (3 cats and 4 dogs) Seatbelt use: always Do you feel safe at home: Yes Do you feel safe in your relationship?: Yes Visit Medication and Allergies Active Medications Generic Name Dose Route Start Last Admin Trade Name Freq PRN Reason Stop Dose Admin Acetaminophen 0 mg 01/25/22 18:55 01/27/22 16:58 Acetaminophen 325 Mg Tab PO 650 mg Q4H PRN PRN Administration Al Hydrox/Mg Hydrox/Simethicone 30 ml 01/25/22 18:55 Mylanta Suspension 30 Ml Cup PO Q2H PRN PRN Albuterol Sulfate 2.5 mg 01/25/22 18:49 Albuterol 2.5 Mg/3 Ml Inh Soln Vial UPD Q2H PRN PRN Albuterol/Ipratropium 3 ml 01/25/22 20:00 01/28/22 07:51 Albuterol/Ipratropium 3 Ml Upd Vial UPD 3 ml QID PAVAN Administration Aspirin 81 mg 01/26/22 08:30 01/26/22 08:22 Aspirin E.C. 81 Mg Tabec PO 81 mg DAILY PAVAN Administration Budesonide/Formoterol Fumarate 2 puff 01/28/22 08:30 01/28/22 08:24 Budesonide/Formoterol 80/4.5 6.9 Gm 60 Puff Inh IH 1 puff BID PAVAN Administration Device 1 each 01/28/22 08:00 Inhaler, Assist Device DIRECTED [facility] Dimethicone/Zinc Oxide 0 gm 01/25/22 18:49 Hunter Protect Cream 142 Gm Tube TP PRN PRN Docusate Sodium 100 mg 01/25/22 20:57 Docusate Sodium 100 Mg Cap PO BID PRN Constipation Escitalopram Oxalate 20 mg 01/26/22 08:30 01/27/22 08:27 Escitalopram 20 Mg Tab PO 20 mg DAILY [facility] Administration Guaifenesin 600 mg 01/25/22 21:40 01/27/22 21:48 Guaifenesin 600 Mg Tabcr PO 600 mg BID [facility] Administration Doxycycline Hyclate 100 mg/ 100 mls @ 100 mls/hr 01/26/22 04:00 01/28/22 04:16 Sodium Chloride IVPB 100 mls/hr Q12H [facility] Administration Ceftriaxone Sodium/Dextrose 1 gm in 50 mls @ 100 mls/hr 01/28/22 18:00 Rocephin IVPB Q24H [facility] Levothyroxine Sodium 25 mcg 01/26/22 06:00 01/28/22 06:17 Levothyroxine 25 Mcg Tab PO 25 mcg 0600 [facility] Administration Loperamide HCl 2 mg 01/26/22 07:11 01/26/22 13:35 Loperamide 2 Mg Cap PO 2 mg Q4H PRN PRN Administration Magnesium Hydroxide 30 ml 01/25/22 18:55 Milk Of Magnesia 30 Ml Cup PO DAILY PRN PRN Omeprazole 20 mg 01/26/22 08:30 01/27/22 08:27 Omeprazole 20 Mg Capcr PO 20 mg DAILY [facility] Administration Fluticasone- 0 each 01/27/22 08:30 01/27/22 10:21 Umeclidin-Vilanter [ IH 1 each Trelegy Ellipta] DAILY [facility] Administration Polyethylene Glycol 17 gm 01/25/22 18:55 Polyethylene Glycol 3350 17 Gm Packet PO DAILY PRN PRN Constipation Pravastatin Sodium 20 mg 01/25/22 22:00 01/27/22 22:22 Pravastatin 20 Mg Tab PO 20 mg HS PAVAN Administration Prednisone 40 mg 01/28/22 08:30 Prednisone 20 Mg Tab PO DAILY PAVAN Psyllium Hydrophilic Mucilloid 1 each 01/26/22 08:30 01/27/22 21:49 Psyllium Pkt PO Not Given BID PAVAN Roflumilast 500 mcg 01/26/22 08:30 01/27/22 08:27 Roflumilast 500 Mcg Tab PO 500 mcg DAILY PAVAN Administration Sodium Chloride 0 ml 01/26/22 15:46 01/27/22 17:41 Normal Saline Flush 10 Ml Syr IVP 10 ml PRN PRN Administration Sodium Chloride 0 ml 01/27/22 06:45 Sodium Chloride-Nasal [place]-Pedi 30ml Btl NS QID PRN PRN Tiotropium [place] 2 puff 01/28/22 08:30 Tiotropium [place]-Respimat 10 Puff Inh IH DAILY PAVAN Allergies Sulfa (Sulfonamide Antibiotics) Allergy (Severe, Verified 01/25/22 15:22) Pruritis, rash adhesive tape Adverse Reaction (Unknown, Verified 01/25/22 15:22) some cause Rash mirtazapine Adverse Reaction (Verified 01/25/22 15:22) Diarrhea Exam Narrative Exam Narrative: Gen: NAD, normal respiratory effort, well-nourished HENT: PERRL, nasal turbinates normal without erythema or inflammation, moist oral mucosa, Mallampati 2, No LAD or JVD Chest: No respiratory distress, normal appearance of chest, clear to auscultation bilaterally, bibasilar crackles, normal inspiratory effort Heart: regular rate and rhythym, no murmurs, rubs or gallops Abdomen: Non-distended, soft, non tender Extremities: No clubbing, edema, cyanosis, rashes Neuro: AAOx3 , non focal Psych: cooperative, appropriate mental affect Results Last Vital Signs Temp 36.3 C L 01/28/22 07:46 Pulse 59 L 01/28/22 07:46 Resp 14 01/28/22 07:51 BP 158/88 H 01/28/22 07:46 Pulse Ox 96 01/28/22 08:25 Labs Result diagrams: 01/27/22 07:15 01/27/22 07:15 Labs: Laboratory Results - last 24 hr 01/25/22 01/26/22 21:57 07:00 Stool Campylobacter PCR Negative Stool Salmonella PCR Negative Stool Shigella PCR Negative Urine Legionella Ag Negative Shiga Toxin (PCR) Negative
[2022-01-28] MEDS: guaiFENesin 600 MG TABCR PO ×2 (08:53→19:42)
[2022-01-28] MEDS: Escitalopram 20 MG TAB PO (08:53)
[2022-01-28] MEDS: Roflumilast 500 MCG TAB PO (08:54)
[2022-01-28] MEDS: Omeprazole 20 MG CAPCR PO (08:54)
[2022-01-28] MEDS: Psyllium PKT 1 EACH PO ×2 (08:54→19:42)
[2022-01-28] MEDS: predniSONE 20 MG TAB 40 MG PO (08:54)
--- NOTE | 2022-01-28 09:02 | PDOC.CMPRO ---
- If Service Date Differs Date of service: 01/28/22 Time of Service: 09:02 Care Management Progress Note S/O:Marissa was sitting up in bed when CM met with her. She appeared to be in good spirits and engaged easily with CM. Marissa shared that she feels that she is getting better but that she is concerned that her blood pressure is so high. She has been taking Lisinopril 40 mg daily at home but has not been getting it here because her blood pressure was low when she was admitted. She stated that her nurse was aware and would discuss it with the provider. Marissa had a Palliative Care consult today and it went well. She had already determined her code status however a COLST form was also completed today. A PT consult has also been requested. A: Marissa is a 66 year old woman admitted on 01/25/22 with pneumonia P:Marissa will likely be discharged home, possibly with new home health services if indicated. She will follow up with her PCP and plan of care and transport with family. CM will continue to support Marissa and her discharge planning needs.
--- NOTE | 2022-01-28 09:20 | W.NUTRFU ---
Date of service: 01/28/22 Time of Service: 09:20 Nutrition Note NOTE: Marissa was admitted with COPD, PNA with hx of class 2 obesity. Following regular meal plan with meeting macronutrient needs at this time. Will continue to follow and support. Time Spent in Nutritional Counseling and Treatment: 0
[2022-01-28] MEDS: Tiotropium Bromide-Respimat 10 PUFF INH 2 PUFF IH (11:23)
--- NOTE | 2022-01-28 12:30 | W.PALLCONSUL ---
Date of service: 01/28/22 Time of Service: 11:00 History of Present Illness Narrative: Ms. Ann is a 66 y/o new [facility] pt currently inpatient at [facility] 01/02 PNA: [facility] dx of COPD; PMHx sig for COPD, lung nodules, positive CÉSAR, h/o CVA, MD 2013, MARCIA, episodic A fib, hypothyroid, HTN, anxiety, depression; - presented to ED 01/25/22 w/ cough w/chest congestion/tightness, SOB, fever, body aches and diarrhea x1 wk; CXR notes bilateral lower lobe infiltrates, elevated white count of 19,000; started on Rocephin and doxycycline IV; hypotension improved w/hydration, oxygen saturation improved to 97%; discharge scheduled for tomorrow pt reports feeling general better compared to ED presentation, however yesterday afternoon and a bit this morning did feel worse, w/blah feeling, denies SOB, fever, dyspnea, pain; reports does continue to have a productive wet cough w/new coughing up blood which had never experienced before, staff aware and monitoring; endorses some cramping a/w breathing, occassionaly, Dr. Alex aware; reports is comfortable remaining in hospital at the moment while not feeling completely back to baseline, but would like to return home as soon as possible; uses 3L continuous O2 at home, typically fairs well, uses all meds as Rx'd; needs RF on [facility], f/b Dr. 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; denies need for home health services at this time; other supports: Didi (2nd granddaughter) and her daughter Kathy (great grand, 7 mo); has son whom lives in [place], w/AUD which increases pts stress, has been able to set boundaries to limit stress; prior to hospitalization had several issues w/pharmacy and med bulk picker, is now transferring all meds to [facility] 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 Alex; has upcoming cardiology apt in March to consider pacemaker 2/2 bradycardia Assessment and Plan Assessment and plan (1) Respiratory failure with hypoxia: Status: Acute Assessment and plan: hypoxemia improved, O2 typically greater than 95%, continue continuous 3L (2) Acute exacerbation of chronic obstructive pulmonary disease: Status: Acute Assessment and plan: needs RF of Trelegy, preferred pharmacy [facility], managed by Dr. Alex per pulmonology: - Duonebs and albuterol HFA prn - I adjusted orders - continue home Trelegy - continue roflumilast - antibiotics as above - prednisone 40mg for 7 days total - I decreased from 60mg (3) Community acquired pneumonia: Status: Acute Assessment and plan: per pulmonology - continue ceftriaxone and doxycycline while admitted - can discharge on Levaquin to? have a total 10 days of antibiotics - I will perform follow up imaging as an outpatient - I will give a Pneumovax booster as an outpatient f/u 02/05/22 w/pulm (4) Bradycardia: Status: Acute Assessment and plan: f/u w/cardiology in March (5) Hypertension: Status: Chronic Assessment and plan: lisinopril on hold 2/2 hypotensive episodes, will continue IVF, monintor vitals; (6) DNR (do not resuscitate): Status: Acute (7) Palliative care encounter: Status: Acute Assessment and plan: continue to follow outpatient, f/u 1 mo, OV COLST completed today, pt given original, HCA on file Britni (daughter) Review of Systems Constitutional Constitutional: Reports as per HPI, Denies fever(s) and Denies poor appetite ENT Ears, Nose, Mouth, and Throat: Denies dysphagia Cardiovascular Cardiovascular: Denies chest pain and Denies syncope Respiratory Respiratory: Reports as per HPI Gastrointestinal Gastrointestinal: Denies dysphagia, Denies nausea and Denies vomiting Neurologic Neurologic: Denies syncope Psychiatric Psychiatric: Denies depression, Denies hopelessness and Denies irritability PFSH All Active Problems (Updated 01/28/22 @ 12:50 by Jaclyn Frank NP) Palliative care encounter (Acute) DNR (do not resuscitate) (Acute) Respiratory failure with hypoxia (Acute) Acute exacerbation of chronic obstructive pulmonary disease (Acute) Acute kidney injury superimposed on chronic kidney disease (Acute) Sepsis (Acute) Community acquired pneumonia (Acute) Anemia, macrocytic (Chronic) If hgb <9.5 consistently, discuss Erythropoietin stimulalting agents to avoid RBC tranfusions per note [facility] [place] 10/19/22 Cigarette nicotine dependence (Acute) Chronic obstructive pulmonary disease (Chronic 05/08/17) O2 Dependent, Emphysematous per CT Chest (2018). New development of nodules noted on CT (01/2018) Right wrist sprain (Acute) Vitamin D deficiency (Acute) Frequent falls (Acute) Memory changes (Acute) Leukopenia (Acute) mild with normal ANC per Dr. Lopez Bradycardia (Acute) declined pacer Hypertension (Chronic) Cellulitis of toe of left foot (Acute) Cataract (Chronic) Otitis media (Acute) Pancytopenia (Acute) Thrombocytopenia (Chronic) Anemia (Chronic) Bone pain (Acute) Atypical chest pain (Acute 05/08/17) Idiopathic peripheral neuropathy (Acute) Thrombotic stroke (Acute) Cerebral aneurysm (Acute) Urinary incontinence (Acute 05/08/17) Sleep apnea (Chronic 05/08/17) Bi-PAP w/02 Situational depression (Acute 05/08/17) Positive CÉSAR (antinuclear antibody) (Acute 05/08/17) Supplemental oxygen dependent (Acute 05/30/17) Osteopenia (Acute 05/08/17) Insomnia (Acute 05/08/17) Idiopathic neuropathy (Acute 08/18/17) Hypothyroidism (Acute 05/08/17) Hyperlipidemia (Acute 05/08/17) Gastroesophageal reflux disease (Acute 05/08/17) Episodic atrial fibrillation (Acute 05/08/17) Adult BMI 45.0-49.9 kg/sq m (Acute 11/06/17) Arthralgia (Acute 05/08/17) Anxiety (Acute 05/08/17) Medical History BP (high blood pressure) (05/08/17) w/o Hypertension Cellulitis and abscess of trunk (05/08/17) History of rheumatic fever (05/08/17) Surgical History Cerebral angiogram (11/03/17) Cholecystectomy (~1979) 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 CAD (coronary artery disease) COPD (chronic obstructive pulmonary disease) Father , Heart Attack at age 72. CAD (coronary artery disease) COPD (chronic obstructive pulmonary disease) Brother Neoplasm Cell Sister Neoplasm Ovarain Social History Smoking/Tobacco Use Status: Current every day Tobacco Type: cigarettes Smoking packs per day: 1 Smoking cigarettes per day: 20.0 Years smoked: 55 Smoking pack-years: 55.00 Smoking risk assessment performed?: Yes Alcohol Intake: former Drug use: Never Substance use type: does not use Household members: family Communication Needs: Corrective Lenses Pets and animals: Yes (3 cats and 4 dogs) Seatbelt use: always Do you feel safe at home: Yes Do you feel safe in your relationship?: Yes Exam Narrative Exam Narrative: pt awake, sitting upright in bed upon arrival Const General: cooperative, comfortable and no acute distress Nutritional Appearance: overweight Orientation: alert, awake and oriented x3 HENMT Head: normocephalic and atraumatic Ears: hearing grossly normal bilaterally Resp Effort & Inspection: normal respiratory effort, able to speak in complete sentences and cough Quality of cough: productive Skin General skin exam: no rashes or lesions noted Psych Mental Status: mental status grossly normal Speech and Movement: speech clear Mood: congruent mood Affect: normal affect Attitude: cooperative Thought Process: normal Thought Content: normal Insight: insight good Judgment: judgment good Results Last Vital Signs Temp 97.9 F 01/28/22 11:08 Pulse 59 L 01/28/22 11:08 Resp 18 01/28/22 11:08 BP 170/91 H 01/28/22 11:08 Pulse Ox 98 01/28/22 11:08 Labs Result diagrams: 01/27/22 07:15 01/27/22 07:15 Labs: Laboratory Results - last 24 hr 01/25/22 21:57 Stool Campylobacter PCR Negative Stool Salmonella PCR Negative Stool Shigella PCR Negative Shiga Toxin (PCR) Negative
--- NOTE | 2022-01-28 14:12 | PGE_ITS ---
Date of Service Date of service: 01/28/22 Time of Service: 14:31 Assessment and Plan Assessment and plan (1) Community acquired pneumonia: Status: Acute Assessment and plan: + strep pneumoniae WBC count 18.93; was 20 yeserday. Procal 4.3 on 01/25, now 4.2. Elevation likely effected by her CKD. Cont. Rocephin 2 gm daily, doxycycline 100 mg q12h, IS, acapella, Trelegy, Kalpana resp, aerosolized bronchodilators. Sputum culture preliminary results; strep PNeumoniae and galo albicans growing. blood cultures w/o growth date Pulmonary consult appreciated. Planning d/c on Levaquin for 10 day total antibiotics. Blood sputum likely from epistaxis but not clear. Aspirin held. Eltrombopag hold placed last PM. Monitor platelets (2) Chronic obstructive pulmonary disease: Status: Chronic Assessment and plan: as above. Now on prednisone 40mg daily for 7 days total. (3) Hyperlipidemia: Status: Acute Assessment and plan: cont. home dose of pravastatin (4) Hypertension: Status: Chronic Assessment and plan: hold her lisinopril. continue iv fluids; closely monitor her vitals for any deterioration from sepsis (5) Hypothyroidism: Status: Acute Assessment and plan: cont. home dose of levothyroxine (6) Cigarette nicotine dependence: Status: Acute Assessment and plan: nicotine patch (7) Sleep apnea: Status: Chronic Assessment and plan: she did not bring in her BIPAP from home. She has called family to bring it in. (8) Thrombocytopenia: Status: Chronic Assessment and plan: Pt having family bringing in her home medication eltrombopag. Subjective Subjective Patient reports: no new complaints, feels better, tolerating a regular diet (Appetite still not to baseline but better.) and afebrile; denies diarrhea, nausea, vomiting or shortness of breath Exam Narrative Exam Narrative: A quarter sized area of bright red blood in sputum that is in a tissue is noted. Const General: cooperative and no acute distress Nutritional Appearance: obese Orientation: alert and oriented x3 Neck Neck: normal visual inspection and no JVD Resp Effort & Inspection: normal respiratory effort Auscultation: clear to auscultation bilaterally, crackles and diminished lung sounds Cardio Rate: regular rate Rhythm: regular rhythm Heart Sounds: S1 normal and S2 normal GI Palpation: soft and nontender Extrem General: no pedal edema and no calf tenderness Psych Appearance: grossly normal Mental Status: mental status grossly normal Affect: blunted Objective Last Vital Signs Temp 36.6 C 01/28/22 11:08 Pulse 59 L 01/28/22 11:08 Resp 18 01/28/22 11:08 BP 170/91 H 01/28/22 11:08 Pulse Ox 98 01/28/22 11:08 Laboratory Results - last 24 hr 01/25/22 21:57 Stool Campylobacter PCR Negative Stool Salmonella PCR Negative Stool Shigella PCR Negative Shiga Toxin (PCR) Negative
--- NOTE | 2022-01-28 15:55 | PT.INIE ---
Date of service: 01/28/22 Time of Service: 15:55 PT Notes Visit Reasons: Pneumonia Physical Therapy Inpatient Initial Evaluation Date: 01/28/2022 Referring Doctor: Christopher Plunkett MD PT Orders: PT CONSULT: Eval/treat Precautions: Standard. Activity as tolerated. Patient Profile/Admitting Diagnosis: Marissa is a 66-year-old female who presented to the ED on 01/25/2022 due to a week long worsening of cough with chest congestion, chest tightness, shortness of breath, fever, body aches, and diarrhea. Patient is diagnosed with community-acquired pneumonia, chronic obstructive pulmonary disease exacerbation, hyperlipidemia, hypertension, hypothyroidism and cigarette nicotine dependence. PMHX: All Active Problems?(Updated 01/25/22 @ 21:22 by Jim Kiran) Sepsis (Acute) Community acquired pneumonia (Acute) Anemia, macrocytic (Chronic) If hgb <9.5 consistently, discuss Erythropoietin stimulalting agents to avoid RBC tranfusions per note [facility] 10/19/22Cigarette nicotine dependence (Acute) Chronic obstructive pulmonary disease (Chronic 05/08/17) O2 Dependent, Emphysematous per CT Chest (2018). New development of nodules noted on CT (01/2018) Right wrist sprain (Acute) Vitamin D deficiency (Acute) Frequent falls (Acute) Memory changes (Acute) Leukopenia (Acute) mild with normal ANC per Dr. LopezBradycardia (Acute) declined pacerHypertension (Chronic) Cellulitis of toe of left foot (Acute) Cataract (Chronic) Otitis media (Acute) Pancytopenia (Acute) Thrombocytopenia (Chronic) Anemia (Chronic) Bone pain (Acute) Atypical chest pain (Acute 05/08/17) Idiopathic peripheral neuropathy (Acute) Thrombotic stroke (Acute) Cerebral aneurysm (Acute) Urinary incontinence (Acute 05/08/17) Sleep apnea (Chronic 05/08/17) Bi-PAP w/02Situational depression (Acute 05/08/17) Positive CÉSAR (antinuclear antibody) (Acute 05/08/17) Supplemental oxygen dependent (Acute 05/30/17) Osteopenia (Acute 05/08/17) Insomnia (Acute 05/08/17) Idiopathic neuropathy (Acute 08/18/17) Hypothyroidism (Acute 05/08/17) Hyperlipidemia (Acute 05/08/17) Gastroesophageal reflux disease (Acute 05/08/17) Episodic atrial fibrillation (Acute 05/08/17) Adult BMI 45.0-49.9 kg/sq m (Acute 11/06/17) Arthralgia (Acute 05/08/17) Anxiety (Acute 05/08/17) Medical History?(Updated 01/25/22 @ 21:22 by Jim Kiran) BP (high blood pressure) (05/08/17) w/o Hypertension Cellulitis and abscess of trunk (05/08/17) History of rheumatic fever (05/08/17) Surgical History?(Updated 01/25/22 @ 21:22 by Jim Kiran) Cerebral angiogram (11/03/17) Cholecystectomy (~1979) 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 States that she is working with a community coin dealer regarding having a bathroom in her own room with a walk-in shower. Equipment Owned/DME: [facility], [facility] Subjective: Agreeable to PT consult. Reports that her blood pressure medication has not been ordered back by MD but she is hoping that her blood pressure can hopefully go down within normal by tomorrow morning. Agreeable to PT suggestion about assessing long distance ambulation skills once blood pressure stabilizes. Objective: General Observation: Seated at edge of chair. IV access in left UE. Mental Status: Alert and oriented as to person, place, time, and purpose. Able to pay attention, focus, and respond appropriately. Pain: Denies Vital Signs: Per patient and nurse, blood pressure has been 189/79 mmHg ROM: Right Upper Extremity: Shoulder Flexion WFL. Shoulder abduction WFL. Elbow flexion WFL. Wrist flexion WFL. Functional opening and closing of hand WFL. Left Upper Extremity: Shoulder Flexion WFL. Shoulder abduction WFL. Elbow flexion WFL. Wrist flexion WFL. Functional opening and closing of hand WFL. Right Lower Extremity: Hip flexion WFL. Hip abduction WFL. Knee flexion WFL. Ankle dorsiflexion WFL. Ankle plantarflexion WFL. Left Lower Extremity: Hip flexion WFL. Hip abduction WFL. Knee flexion WFL. Ankle dorsiflexion WFL. Ankle plantarflexion WFL. Strength: Right Upper Extremity: Shoulder flexors 4/5. Shoulder abductors 45. Elbow flexors 5/5. Elbow extensors 4/5. Paddock Judge strong. Left Upper Extremity: Shoulder flexors 4/5. Shoulder abductors 4/5. Elbow flexors 5/5. Elbow extensors 4/5. Paddock Judge strong. Right Lower Extremity: Hip flexors 4/5. Hip abductors 5/5. Knee flexors 5/5. Knee extensors 4/5. Ankle dorsiflexors 4-/5. Ankle plantarflexors 4/5. Left Lower Extremity: Hip flexors 4/5. Hip abductors 5/5. Knee flexors 5/5. Knee extensors 4/5. Ankle dorsiflexors 4-/5. Ankle plantarflexors 4/5. Bed Mobility/Transfers: Rolling independent Supine to sit independent Sit to supine independent Sit to stand independent Stand to sit independent Bed to reclining chair independent Gait: Instructed patient with level surface ambulation of 10feet requiring standby assist. Gait pattern unremarkable. Denies chest tightness and shortness of breath throughout session. Balance: Static Sitting: Normal Dynamic Sitting: Normal Static Standing: Normal Dynamic Standing: Good Special Tests: Mobility Limitations Standardized Measure [facility] AM-PAC 6 clicks Basic Mobility Inpatient Short Form: Raw Score: 23 CMS Score: 11% deficit Informed Consent/Education: Patient was instructed in purpose of PT consult and plan of care. Agreeable to proceed with established PT POC to achieve personal goals. Assessment: Deferred long distance ambulation assessment today due to high systolic blood pressure. Hospitalist updated about plan to reassess tomorrow morning once blood pressure is much more stabilized. Patient presents with clinical signs and symptoms consistent with current/admitting diagnoses that have resulted to mobility limitations, gait instability, generalized weakness, and overall ADL decline as demonstrated by the following impairment level findings: 1. Impaired activity tolerance Impairments are contributing to the following functional limitations: 1. Increased completion time for mobility ADL performance Patient is assessed as a 65279 moderate complexity based on the following: History: 66-year-old female with past medical history as indicated above Examination: Demonstrable impairment in strength, balance, and mobility level with underlying impairments and functional limitations as exhibited above as well as deficit score of 11% utilizing the [facility] Mobility Inpatient Short Form Presentation: Evolving Decision Makin moderate complexity Goals: Goals X1 week 1. Supine-Sit independent 2. Sit-Supine independent 3. Sit-Stand independent 4. Stand-Sit independent with no AD 5. Bed-Chair independent with no AD 6. Chair-Bed independent with no AD 7. Independent gait on level surface with use of no AD for at least 300feet without report of pain nor dyspnea 8. Independent stair negotiation while holding onto B rails for at least 5 steps without report of pain nor dyspnea 9. Independent with home exercise program 10. Good static and dynamic standing balance/tolerance Plan of Care/Treatment Plan: 1-2x/day, 7 days/week x 1 week. Plan of care has been reviewed with the PLANT AND EQUIPMENT WORKER providing the service under Physical Therapy direction. Initiate Physical Therapy intervention for pain management as needed, strengthening, bed mobility, transfers, gait, stairs, balance training, and use of assistive device. DISCHARGE RECOMMENDATIONS: [] Home with no services [] [X] Home with services. Home when medically cleared by hospitalist. Will await results off long distance ambulation assessment tomorrow morning once blood pressure stabilizes with her home health PT will benefit patient. [] Home with outpatient PT [] [] SNF for continued rehabilitation [] [] [facility] [] [] SNF versus LTC based on ability to participate and progress [] TREATMENT CODE/TIME: 35440 x 21 minutes beginning at 15:55 PM. Thank you for the opportunity to participate in the care of this patient. Helen Ellis PT, DPT, CLT [facility] [place], [place]
[2022-01-28] MEDS: amLODIPine 5 MG TAB PO (16:30)
[2022-01-28] MEDS: Normal Saline Flush 10 ML SYR IVP (16:54)
[2022-01-28] MEDS: hydrALAZINE 25 MG TAB PO (17:24)
[2022-01-28] MEDS: cefTRIAXone 1 GM/50 ML BAG IVPB (18:11)
[2022-01-28] MEDS: Normal Saline 1,000 ML 80 ML IV (19:44)
--- NOTE | 2022-01-28 20:00 | INDS_ITS ---
Date of service: 01/28/22 PT Notes Visit Reasons: Pneumonia Physical Therapy Inpatient Discharge Summary Date: 01/28/2022 Date of service: 01/28/2022 only This is a clinical summary of care provided for the duration of dates listed above. No charge was made in the completion of this documentation. Referring Doctor: Christopher Plunkett MD PT Orders: PT CONSULT: Eval/treat Precautions: Standard. Activity as tolerated. Subjective: NT. See most recent MIDWIFE notes. Objective: General Observation: NT. See most recent MIDWIFE notes. Mental Status: NT. See most recent MIDWIFE notes. Pain: NT. See most recent MIDWIFE notes. Vital Signs: NT. See most recent MIDWIFE notes. ROM: Right Upper Extremity: ? Shoulder Flexion WFL. Shoulder abduction WFL. Elbow flexion WFL. Wrist flexion WFL. Functional opening and closing of hand WFL. Left Upper Extremity:? Shoulder Flexion WFL. Shoulder abduction WFL. Elbow flexion WFL. Wrist flexion WFL. Functional opening and closing of hand WFL. Right Lower Extremity: Hip flexion WFL. Hip abduction WFL. Knee flexion WFL. Ankle dorsiflexion WFL. Ankle plantarflexion WFL. Left Lower Extremity: Hip flexion WFL. Hip abduction WFL. Knee flexion WFL. Ankle dorsiflexion WFL. Ankle plantarflexion WFL. Strength: Right Upper Extremity: Shoulder flexors 4/5. Shoulder abductors 45. Elbow flexors 5/5. Elbow extensors 4/5. Multi Operation Machine Operator strong. Left Upper Extremity: Shoulder flexors 4/5. Shoulder abductors 4/5. Elbow flexors 5/5. Elbow extensors 4/5. Multi Operation Machine Operator strong. Right Lower Extremity: Hip flexors 4/5. Hip abductors 5/5. Knee flexors 5/5. Knee extensors 4/5. Ankle dorsiflexors 4-/5. Ankle plantarflexors 4/5. Left Lower Extremity: Hip flexors 4/5. Hip abductors 5/5. Knee flexors 5/5. Knee extensors 4/5. Ankle dorsiflexors 4-/5. Ankle plantarflexors 4/5. Bed Mobility/Transfers: Rolling independent Supine to sit independent Sit to supine independent Sit to stand independent Stand to sit independent Bed to reclining chair independent Gait: Instructed patient with level surface ambulation of 10feet requiring standby assist.? Gait pattern unremarkable.? Denies chest tightness and shortness of breath throughout session. Balance: Static Sitting: Normal Dynamic Sitting: Normal Static Standing: Normal Dynamic Standing: Good Assessment: ? Deferred long distance ambulation assessment today due to high systolic blood pressure.? Hospitalist updated about plan to reassess tomorrow morning once blood pressure is much more stabilized. Patient presents with clinical signs and symptoms consistent with current/admitting diagnoses that have resulted to mobility limitations, gait instability, generalized weakness, and overall ADL decline as demonstrated by the following impairment level findings: 1.? Impaired activity tolerance Impairments are contributing to the following functional limitations: 1.? Increased completion time for mobility ADL performance Goals: Goals X1 week 1. Supine-Sit independent MET 2. Sit-Supine independent MET 3. Sit-Stand independent MET 4. Stand-Sit independent with no AD MET 5. Bed-Chair independent with no AD MET 6. Chair-Bed independent with no AD MET 7. Independent gait on level surface with use of no AD for at least 300feet without report of pain nor dyspnea NOT MET 8. Independent stair negotiation while holding onto B rails for at least? 5 steps without report of pain nor dyspnea NOT MET 9. Independent with home exercise program NOT MET 10. Good static and dynamic standing balance/tolerance NOT MET DISCHARGE RECOMMENDATIONS: [] ? Home with no services [] [X] ? Home with services.? Home when medically cleared by hospitalist.? Will await results off long distance ambulation assessment tomorrow morning once blood pressure stabilizes with her home health PT will benefit patient. [] ? Home with outpatient PT [] [] ? SNF for continued rehabilitation [] [] ? [facility] [] [] ? SNF versus LTC based on ability to participate and progress [] TREATMENT CODE/TIME: NC Thank you for the opportunity to participate in the care of this patient. Helen Ellis PT, DPT, CLT [facility] [place], [place]
[2022-01-28] MEDS: Pravastatin 20 MG TAB PO (22:07)
[2022-01-29] VITALS (7 sets, daily range): BP systolic 162–181; BP diastolic 75–99; PULSE 41–52; RESP 16; TEMP 35.8–36.3; O2SAT 96–99
[2022-01-29] MEDS: DOXYCYCLINE 100 MG in Normal Saline 100 ML IVPB (04:48)
[2022-01-29] MEDS: Levothyroxine 25 MCG TAB PO (06:09)
--- NOTE | 2022-01-29 06:56 | PGE_ITS ---
Assessment and Plan Assessment and plan (1) Acute exacerbation of chronic obstructive pulmonary disease: Status: Acute (2) Community acquired pneumonia: Status: Acute (3) Sleep apnea: Status: Chronic (4) Respiratory failure with hypoxia: Status: Acute Assessment and plan: This is a 66 yo female with advanced COPD, who continues to smoke and is oxygen dependant (3LPM). She was admitted for respiratory failure and found to have Streptococcus pneumoniae bibasilar pneumonia. She is on ceftriaxone and doxycycline for this and clinically improving. Her strep is sensitive to penicillin, so I do not have concerns about resistances. Although she has been fully vaccinated for pneumonia, her Pneumovax shot was 10 years ago and so it is reasonable to give her a booster for this at our next visit. Strep Pneumoniae Multilobar Pneumonia - can discharge on Levaquin to have a total 10 days of antibiotics - I will perform follow up imaging as an outpatient - I will give a Pneumovax booster as an outpatient - I have an appointment set up to see her on 02/05/22 already Advanced COPD with exacerbation - Duonebs and albuterol HFA prn - I adjusted orders - continue home Trelegy - continue roflumilast - antibiotics as above - prednisone 40mg for 7 days total Hypoxic respiratory failure - continue home O2 of 2-3 LPM MARCIA - continue home BiPAP General Date Of Service Date of service: 01/29/22 Time of Service: 06:56 Reason for Consult: COPD Exacerbation Pneumonia Subjective Note Note: Marissa is feeling much better today. Her breathing is much improved and she feels as though she is close to her baseline. Exam Narrative Exam Narrative: Gen: NAD, normal respiratory effort, well-nourished HENT: PERRL, nasal turbinates normal without erythema or inflammation, moist oral mucosa, Mallampati 2, No LAD or JVD Chest: No respiratory distress, normal appearance of chest, clear to auscultation bilaterally, no crackles or wheezes, normal inspiratory effort Heart: regular rate and rhythym, no murmurs, rubs or gallops Abdomen: Non-distended, soft, non tender Extremities: No clubbing, edema, cyanosis, rashes Neuro: AAOx3 , non focal Psych: cooperative, appropriate mental affect Objective Last Vital Signs Temp 36.3 C L 01/29/22 06:36 Pulse 50 L 01/29/22 06:36 Resp 16 01/29/22 06:36 BP 181/95 H 01/29/22 06:36 Pulse Ox 96 01/29/22 06:36 Results Medications Medications: Active Medications Generic Name Dose Route Start Last Admin Trade Name Freq PRN Reason Stop Dose Admin Acetaminophen 0 mg 01/25/22 18:55 01/27/22 16:58 Acetaminophen 325 Mg Tab PO 650 mg Q4H PRN PRN Administration Al Hydrox/Mg Hydrox/Simethicone 30 ml 01/25/22 18:55 Mylanta Suspension 30 Ml Cup PO Q2H PRN PRN Albuterol Sulfate 2 puff 01/28/22 11:29 Albuterol Hfa 8 Gm 60 Puff Inh IH Q4H PRN PRN Albuterol/Ipratropium 3 ml 01/28/22 11:29 Albuterol/Ipratropium 3 Ml Upd Vial UPD Q4H PRN PRN Amlodipine Besylate 5 mg 01/28/22 15:45 01/28/22 16:30 Amlodipine 5 Mg Tab PO 5 mg DAILY PAVAN Administration Aspirin 81 mg 01/26/22 08:30 01/26/22 08:22 Aspirin E.C. 81 Mg Tabec PO 81 mg DAILY PAVAN Administration Device 1 each 01/28/22 12:00 Inhaler, Assist Device MC DIRECTED PAVAN Dimethicone/Zinc Oxide 0 gm 01/25/22 18:49 Hunter Protect Cream 142 Gm Tube TP PRN PRN Docusate Sodium 100 mg 01/28/22 10:06 Docusate Sodium 100 Mg Cap PO BID PRN PRN Constipation Escitalopram Oxalate 20 mg 01/26/22 08:30 01/28/22 08:53 Escitalopram 20 Mg Tab PO 20 mg DAILY PAVAN Administration Guaifenesin 600 mg 01/25/22 21:40 01/28/22 19:42 Guaifenesin 600 Mg Tabcr PO 600 mg BID PAVAN Administration Doxycycline Hyclate 100 mg/ 100 mls @ 100 mls/hr 01/26/22 04:00 01/29/22 04:48 Sodium Chloride IVPB 100 mls/hr Q12H PAVAN Administration Ceftriaxone Sodium/Dextrose 1 gm in 50 mls @ 100 mls/hr 01/28/22 18:00 01/28/22 18:11 Rocephin IVPB 100 mls/hr Q24H PAVAN Administration Levothyroxine Sodium 25 mcg 01/26/22 06:00 01/29/22 06:09 Levothyroxine 25 Mcg Tab PO 25 mcg 0600 PAVAN Administration Loperamide HCl 2 mg 01/26/22 07:11 01/26/22 13:35 Loperamide 2 Mg Cap PO 2 mg Q4H PRN PRN Administration Magnesium Hydroxide 30 ml 01/25/22 18:55 Milk Of Magnesia 30 Ml Cup PO DAILY PRN PRN Omeprazole 20 mg 01/29/22 07:30 Omeprazole 20 Mg Capcr PO DAILY@0730 [facility] Fluticasone- 0 each 01/27/22 08:30 01/28/22 11:22 Umeclidin-Vilanter [ IH Not Given Trelegy Ellipta] DAILY [facility] Polyethylene Glycol 17 gm 01/25/22 18:55 Polyethylene Glycol 3350 17 Gm Packet PO DAILY PRN PRN Constipation Pravastatin Sodium 20 mg 01/25/22 22:00 01/28/22 22:07 Pravastatin 20 Mg Tab PO 20 mg HS PAVAN Administration Prednisone 40 mg 01/28/22 08:30 01/28/22 08:54 Prednisone 20 Mg Tab PO 40 mg DAILY PAVAN Administration Psyllium Hydrophilic Mucilloid 1 each 01/26/22 08:30 01/28/22 19:42 Psyllium Pkt PO 1 each BID PAVAN Administration Roflumilast 500 mcg 01/26/22 08:30 01/28/22 08:54 Roflumilast 500 Mcg Tab PO 500 mcg DAILY PAVAN Administration Sodium Chloride 0 ml 01/26/22 15:46 01/28/22 16:54 Normal Saline Flush 10 Ml Syr IVP 10 ml PRN PRN Administration Sodium Chloride 0 ml 01/27/22 06:45 Sodium Chloride-Nasal Concord-Pedi 30ml Btl NS QID PRN PRN Sodium Chloride 0 ml 01/28/22 10:32 Sodium Chloride-Nasal Concord-Adult 44 Ml Btl NS QID PRN PRN Allergies Sulfa (Sulfonamide Antibiotics) Allergy (Severe, Verified 01/25/22 15:22) Pruritis, rash adhesive tape Adverse Reaction (Unknown, Verified 01/25/22 15:22) some cause Rash mirtazapine Adverse Reaction (Verified 01/25/22 15:22) Diarrhea Labs Result Diagrams: 01/29/22 06:23 01/29/22 06:23 Labs: 01/25/22 22:35 Blood Blood Culture - Preliminary NO GROWTH 72 HOURS 01/25/22 22:30 Blood Blood Culture - Preliminary NO GROWTH 72 HOURS 01/25/22 21:57 Sputum Sputum Culture - Final Streptococcus Pneumoniae Normal Rin Belén Albicans 01/25/22 21:57 Sputum Gram Stain - Final 01/25/22 21:57 Stool Lactoferrin Latex Agglutination - Final Laboratory Tests Range/Units 01/25/22 01/25/22 01/25/22 15:35 15:35 15:35 WBC (4.4-10.8) 10^3/uL 19.37 H RBC (3.93-5.22) 10^6/uL 3.73 L Hgb (11.2-15.7) g/dL 11.8 Hct (36.0-46.0) % 37.3 MCV (80-95) fL 100.0 H MCH (27.0-33.0) pg 31.6 MCHC (32.0-36.0) % 31.6 L RDW (11.7-14.6) % 12.6 Plt Count (130-400) 10^3/uL 103 L MPV (8.0-11.0) fL 9.9 Immature Gran % 1.5 Neutrophils % 89.9 Lymphocytes % 4.3 Monocytes % 2.7 Eosinophils % 1.4 Basophils % 0.2 Nucleated RBC % % 0 Absolute Neutrophils (1.2-6.7) 10^3/uL 17.41 H Absolute Lymphocytes (1.2-3.4) 10^3/uL 0.83 L Absolute Monocytes (0.1-0.8) 10^3/uL 0.52 Absolute Eosinophils (0.0-0.7) 10^3/uL 0.27 Absolute Basophils (0.0-0.2) 10^3/uL 0.04 PT (9.3-11.0) sec INR (0.9-1.1) APTT (21.0-27.5) sec D-Dimer (<500) ng/mlFEU Sodium (136-145) mmol/L 135 L Potassium (3.5-5.1) mmol/L 3.7 Chloride (98-107) mmol/L 98 Carbon Dioxide (21.0-32.0) mmol/L 26.1 Anion Gap (3-11) mmol/L 10.9 BUN (7-18) mg/dL 20 H Creatinine (0.55-1.02) mg/dL 1.8 H Estimated GFR/1.73 m2 (mL/min/1.73m2) 28.15 Glucose (74-106) mg/dL 129 H Calcium (8.5-10.1) mg/dL 9.5 Magnesium (1.8-2.4) mg/dL 1.9 Total Bilirubin (0.2-1.0) mg/dL 0.6 Conjugated Bilirubin (0.0-0.2) mg/dL AST (15-37) U/L 16 ALT (14-59) U/L 12 L Alkaline Phosphatase (46-116) U/L 99 Troponin I (<or=60) ng/L < 50 NT-Pro-B Natriuret Pep (<300) pg/mL Total Protein (6.4-8.2) g/dL 7.9 Albumin (3.4-5.0) g/dL 2.9 L Procalcitonin ng/mL TSH (0.36-3.74) uIU/mL 0.59 Stool Campylobacter PCR (Negative) Stl C.difficile Tox PCR (Negative) Stool Salmonella PCR (Negative) Stool Shigella PCR (Negative) COVID-19 Source SARS-CoV-2 (PCR) (Negative) Influenza Type A (PCR) (Negative) Influenza Type B (PCR) (Negative) Urine Legionella Ag (Negative) RSV (PCR) (Negative) Shiga Toxin (PCR) (Negative) Add-On Test Request Range/Units 01/25/22 01/25/22 01/25/22 15:35 15:45 21:57 WBC (4.4-10.8) 10^3/uL RBC (3.93-5.22) 10^6/uL Hgb (11.2-15.7) g/dL Hct (36.0-46.0) % MCV (80-95) fL MCH (27.0-33.0) pg MCHC (32.0-36.0) % RDW (11.7-14.6) % Plt Count (130-400) 10^3/uL MPV (8.0-11.0) fL Immature Gran % Neutrophils % Lymphocytes % Monocytes % Eosinophils % Basophils % Nucleated RBC % % Absolute Neutrophils (1.2-6.7) 10^3/uL Absolute Lymphocytes (1.2-3.4) 10^3/uL Absolute Monocytes (0.1-0.8) 10^3/uL Absolute Eosinophils (0.0-0.7) 10^3/uL Absolute Basophils (0.0-0.2) 10^3/uL PT (9.3-11.0) sec INR (0.9-1.1) APTT (21.0-27.5) sec D-Dimer (<500) ng/mlFEU Sodium (136-145) mmol/L Potassium (3.5-5.1) mmol/L Chloride (98-107) mmol/L Carbon Dioxide (21.0-32.0) mmol/L Anion Gap (3-11) mmol/L BUN (7-18) mg/dL Creatinine (0.55-1.02) mg/dL Estimated GFR/1.73 m2 (mL/min/1.73m2) Glucose (74-106) mg/dL Calcium (8.5-10.1) mg/dL Magnesium (1.8-2.4) mg/dL Total Bilirubin (0.2-1.0) mg/dL Conjugated Bilirubin (0.0-0.2) mg/dL AST (15-37) U/L ALT (14-59) U/L Alkaline Phosphatase (46-116) U/L Troponin I (<or=60) ng/L NT-Pro-B Natriuret Pep (<300) pg/mL Total Protein (6.4-8.2) g/dL Albumin (3.4-5.0) g/dL Procalcitonin ng/mL 4.3 TSH (0.36-3.74) uIU/mL Stool Campylobacter PCR (Negative) Stl C.difficile Tox PCR (Negative) Negative Stool Salmonella PCR (Negative) Stool Shigella PCR (Negative) COVID-19 Source Not Applicable SARS-CoV-2 (PCR) (Negative) Negative Influenza Type A (PCR) (Negative) Negative Influenza Type B (PCR) (Negative) Negative Urine Legionella Ag (Negative) RSV (PCR) (Negative) Negative Shiga Toxin (PCR) (Negative) Add-On Test Request Range/Units 01/25/22 01/26/22 01/26/22 21:57 00:30 07:00 WBC (4.4-10.8) 10^3/uL 19.45 H RBC (3.93-5.22) 10^6/uL 3.18 L Hgb (11.2-15.7) g/dL 10.2 L Hct (36.0-46.0) % 32.5 L MCV (80-95) fL 102.2 H MCH (27.0-33.0) pg 32.1 MCHC (32.0-36.0) % 31.4 L RDW (11.7-14.6) % 12.6 Plt Count (130-400) 10^3/uL 94 L MPV (8.0-11.0) fL 9.9 Immature Gran % Neutrophils % Lymphocytes % Monocytes % Eosinophils % Basophils % Nucleated RBC % % Absolute Neutrophils (1.2-6.7) 10^3/uL Absolute Lymphocytes (1.2-3.4) 10^3/uL Absolute Monocytes (0.1-0.8) 10^3/uL Absolute Eosinophils (0.0-0.7) 10^3/uL Absolute Basophils (0.0-0.2) 10^3/uL PT (9.3-11.0) sec INR (0.9-1.1) APTT (21.0-27.5) sec D-Dimer (<500) ng/mlFEU Sodium (136-145) mmol/L Potassium (3.5-5.1) mmol/L Chloride (98-107) mmol/L Carbon Dioxide (21.0-32.0) mmol/L Anion Gap (3-11) mmol/L BUN (7-18) mg/dL Creatinine (0.55-1.02) mg/dL Estimated GFR/1.73 m2 (mL/min/1.73m2) Glucose (74-106) mg/dL Calcium (8.5-10.1) mg/dL Magnesium (1.8-2.4) mg/dL Total Bilirubin (0.2-1.0) mg/dL Conjugated Bilirubin (0.0-0.2) mg/dL AST (15-37) U/L ALT (14-59) U/L Alkaline Phosphatase (46-116) U/L Troponin I (<or=60) ng/L NT-Pro-B Natriuret Pep (<300) pg/mL Total Protein (6.4-8.2) g/dL Albumin (3.4-5.0) g/dL Procalcitonin ng/mL TSH (0.36-3.74) uIU/mL Stool Campylobacter PCR (Negative) Negative Stl C.difficile Tox PCR (Negative) Stool Salmonella PCR (Negative) Negative Stool Shigella PCR (Negative) Negative COVID-19 Source SARS-CoV-2 (PCR) (Negative) Influenza Type A (PCR) (Negative) Influenza Type B (PCR) (Negative) Urine Legionella Ag (Negative) Negative RSV (PCR) (Negative) Shiga Toxin (PCR) (Negative) Negative Add-On Test Request Range/Units 01/26/22 01/26/22 01/26/22 07:15 07:15 07:15 WBC (4.4-10.8) 10^3/uL 21.00 H RBC (3.93-5.22) 10^6/uL 3.29 L Hgb (11.2-15.7) g/dL 10.5 L Hct (36.0-46.0) % 33.1 L MCV (80-95) fL 100.6 H MCH (27.0-33.0) pg 31.9 MCHC (32.0-36.0) % 31.7 L RDW (11.7-14.6) % 12.8 Plt Count (130-400) 10^3/uL 101 L MPV (8.0-11.0) fL 10.4 Immature Gran % 0.7 Neutrophils % 92.8 Lymphocytes % 4.6 Monocytes % 1.8 Eosinophils % 0.0 Basophils % 0.1 Nucleated RBC % % 0 Absolute Neutrophils (1.2-6.7) 10^3/uL 19.49 H Absolute Lymphocytes (1.2-3.4) 10^3/uL 0.97 L Absolute Monocytes (0.1-0.8) 10^3/uL 0.38 Absolute Eosinophils (0.0-0.7) 10^3/uL 0.00 Absolute Basophils (0.0-0.2) 10^3/uL 0.02 PT (9.3-11.0) sec INR (0.9-1.1) APTT (21.0-27.5) sec D-Dimer (<500) ng/mlFEU Sodium (136-145) mmol/L 138 Potassium (3.5-5.1) mmol/L 3.4 L Chloride (98-107) mmol/L 104 Carbon Dioxide (21.0-32.0) mmol/L 23.3 Anion Gap (3-11) mmol/L 10.7 BUN (7-18) mg/dL 31 H D Creatinine (0.55-1.02) mg/dL 1.9 H Estimated GFR/1.73 m2 (mL/min/1.73m2) 26.45 Glucose (74-106) mg/dL 146 H Calcium (8.5-10.1) mg/dL 8.9 Magnesium (1.8-2.4) mg/dL Total Bilirubin (0.2-1.0) mg/dL 0.3 Conjugated Bilirubin (0.0-0.2) mg/dL AST (15-37) U/L 16 ALT (14-59) U/L 11 L Alkaline Phosphatase (46-116) U/L 95 Troponin I (<or=60) ng/L NT-Pro-B Natriuret Pep (<300) pg/mL 1916 H Total Protein (6.4-8.2) g/dL 7.4 Albumin (3.4-5.0) g/dL 2.5 L Procalcitonin ng/mL TSH (0.36-3.74) uIU/mL Stool Campylobacter PCR (Negative) Stl C.difficile Tox PCR (Negative) Stool Salmonella PCR (Negative) Stool Shigella PCR (Negative) COVID-19 Source SARS-CoV-2 (PCR) (Negative) Influenza Type A (PCR) (Negative) Influenza Type B (PCR) (Negative) Urine Legionella Ag (Negative) RSV (PCR) (Negative) Shiga Toxin (PCR) (Negative) Add-On Test Request Range/Units 01/26/22 01/26/22 01/27/22 19:55 Unknown 07:15 WBC (4.4-10.8) 10^3/uL RBC (3.93-5.22) 10^6/uL Hgb (11.2-15.7) g/dL Hct (36.0-46.0) % MCV (80-95) fL MCH (27.0-33.0) pg MCHC (32.0-36.0) % RDW (11.7-14.6) % Plt Count (130-400) 10^3/uL MPV (8.0-11.0) fL Immature Gran % Neutrophils % Lymphocytes % Monocytes % Eosinophils % Basophils % Nucleated RBC % % Absolute Neutrophils (1.2-6.7) 10^3/uL Absolute Lymphocytes (1.2-3.4) 10^3/uL Absolute Monocytes (0.1-0.8) 10^3/uL Absolute Eosinophils (0.0-0.7) 10^3/uL Absolute Basophils (0.0-0.2) 10^3/uL PT (9.3-11.0) sec INR (0.9-1.1) APTT (21.0-27.5) sec D-Dimer (<500) ng/mlFEU 987 H Sodium (136-145) mmol/L 137 Potassium (3.5-5.1) mmol/L 4.0 Chloride (98-107) mmol/L 104 Carbon Dioxide (21.0-32.0) mmol/L 21.4 Anion Gap (3-11) mmol/L 11.6 H BUN (7-18) mg/dL 42 H D Creatinine (0.55-1.02) mg/dL 1.8 H Estimated GFR/1.73 m2 (mL/min/1.73m2) 28.15 Glucose (74-106) mg/dL 134 H Calcium (8.5-10.1) mg/dL 9.0 Magnesium (1.8-2.4) mg/dL Total Bilirubin (0.2-1.0) mg/dL Conjugated Bilirubin (0.0-0.2) mg/dL AST (15-37) U/L ALT (14-59) U/L Alkaline Phosphatase (46-116) U/L Troponin I (<or=60) ng/L NT-Pro-B Natriuret Pep (<300) pg/mL 1069 H Total Protein (6.4-8.2) g/dL Albumin (3.4-5.0) g/dL Procalcitonin ng/mL TSH (0.36-3.74) uIU/mL Stool Campylobacter PCR (Negative) Stl C.difficile Tox PCR (Negative) Stool Salmonella PCR (Negative) Stool Shigella PCR (Negative) COVID-19 Source SARS-CoV-2 (PCR) (Negative) Influenza Type A (PCR) (Negative) Influenza Type B (PCR) (Negative) Urine Legionella Ag (Negative) RSV (PCR) (Negative) Shiga Toxin (PCR) (Negative) Add-On Test Request DONE Range/Units 01/27/22 01/27/22 01/27/22 07:15 07:15 07:15 WBC (4.4-10.8) 10^3/uL 18.93 H RBC (3.93-5.22) 10^6/uL 2.77 L Hgb (11.2-15.7) g/dL 9.0 L Hct (36.0-46.0) % 28.0 L MCV (80-95) fL 101.1 H MCH (27.0-33.0) pg 32.5 MCHC (32.0-36.0) % 32.1 RDW (11.7-14.6) % 12.8 Plt Count (130-400) 10^3/uL 108 L MPV (8.0-11.0) fL 10.0 Immature Gran % 1.3 Neutrophils % 91.5 Lymphocytes % 4.1 Monocytes % 3.0 Eosinophils % 0.0 Basophils % 0.1 Nucleated RBC % % 0 Absolute Neutrophils (1.2-6.7) 10^3/uL 17.32 H Absolute Lymphocytes (1.2-3.4) 10^3/uL 0.78 L Absolute Monocytes (0.1-0.8) 10^3/uL 0.57 Absolute Eosinophils (0.0-0.7) 10^3/uL 0.00 Absolute Basophils (0.0-0.2) 10^3/uL 0.02 PT (9.3-11.0) sec INR (0.9-1.1) APTT (21.0-27.5) sec D-Dimer (<500) ng/mlFEU Sodium (136-145) mmol/L Potassium (3.5-5.1) mmol/L Chloride (98-107) mmol/L Carbon Dioxide (21.0-32.0) mmol/L Anion Gap (3-11) mmol/L BUN (7-18) mg/dL Creatinine (0.55-1.02) mg/dL Estimated GFR/1.73 m2 (mL/min/1.73m2) Glucose (74-106) mg/dL Calcium (8.5-10.1) mg/dL Magnesium (1.8-2.4) mg/dL Total Bilirubin (0.2-1.0) mg/dL 0.2 Conjugated Bilirubin (0.0-0.2) mg/dL < 0.1 AST (15-37) U/L 29 ALT (14-59) U/L 19 Alkaline Phosphatase (46-116) U/L 87 Troponin I (<or=60) ng/L NT-Pro-B Natriuret Pep (<300) pg/mL Total Protein (6.4-8.2) g/dL 6.8 Albumin (3.4-5.0) g/dL 2.4 L Procalcitonin ng/mL 4.2 TSH (0.36-3.74) uIU/mL Stool Campylobacter PCR (Negative) Stl C.difficile Tox PCR (Negative) Stool Salmonella PCR (Negative) Stool Shigella PCR (Negative) COVID-19 Source SARS-CoV-2 (PCR) (Negative) Influenza Type A (PCR) (Negative) Influenza Type B (PCR) (Negative) Urine Legionella Ag (Negative) RSV (PCR) (Negative) Shiga Toxin (PCR) (Negative) Add-On Test Request Range/Units 01/27/22 07:15 WBC (4.4-10.8) 10^3/uL RBC (3.93-5.22) 10^6/uL Hgb (11.2-15.7) g/dL Hct (36.0-46.0) % MCV (80-95) fL MCH (27.0-33.0) pg MCHC (32.0-36.0) % RDW (11.7-14.6) % Plt Count (130-400) 10^3/uL MPV (8.0-11.0) fL Immature Gran % Neutrophils % Lymphocytes % Monocytes % Eosinophils % Basophils % Nucleated RBC % % Absolute Neutrophils (1.2-6.7) 10^3/uL Absolute Lymphocytes (1.2-3.4) 10^3/uL Absolute Monocytes (0.1-0.8) 10^3/uL Absolute Eosinophils (0.0-0.7) 10^3/uL Absolute Basophils (0.0-0.2) 10^3/uL PT (9.3-11.0) sec 9.6 INR (0.9-1.1) 1.0 APTT (21.0-27.5) sec 28.5 H D-Dimer (<500) ng/mlFEU Sodium (136-145) mmol/L Potassium (3.5-5.1) mmol/L Chloride (98-107) mmol/L Carbon Dioxide (21.0-32.0) mmol/L Anion Gap (3-11) mmol/L BUN (7-18) mg/dL Creatinine (0.55-1.02) mg/dL Estimated GFR/1.73 m2 (mL/min/1.73m2) Glucose (74-106) mg/dL Calcium (8.5-10.1) mg/dL Magnesium (1.8-2.4) mg/dL Total Bilirubin (0.2-1.0) mg/dL Conjugated Bilirubin (0.0-0.2) mg/dL AST (15-37) U/L ALT (14-59) U/L Alkaline Phosphatase (46-116) U/L Troponin I (<or=60) ng/L NT-Pro-B Natriuret Pep (<300) pg/mL Total Protein (6.4-8.2) g/dL Albumin (3.4-5.0) g/dL Procalcitonin ng/mL TSH (0.36-3.74) uIU/mL Stool Campylobacter PCR (Negative) Stl C.difficile Tox PCR (Negative) Stool Salmonella PCR (Negative) Stool Shigella PCR (Negative) COVID-19 Source SARS-CoV-2 (PCR) (Negative) Influenza Type A (PCR) (Negative) Influenza Type B (PCR) (Negative) Urine Legionella Ag (Negative) RSV (PCR) (Negative) Shiga Toxin (PCR) (Negative) Add-On Test Request Imaging Chest x-ray: report reviewed and image reviewed CT scan - chest: report reviewed and image reviewed
[2022-01-29 06:59] LABS: Abs Immature Grans 0.67 10^3/uL (0.0-0.06); Absolute Basophil Count 0.05 10^3/uL (0.0-0.2); Absolute Eosinophil Count 0.14 10^3/uL (0.0-0.7); Absolute Lymphocyte Count 1.82 10^3/uL (1.2-3.4); Absolute Monocyte Count 0.65 10^3/uL (0.1-0.8); Absolute Neutrophil Count 7.62 10^3/uL (1.2-6.7); Basophils % 0.5; Eosinophils % 1.3; HCT 30.4 % (36.0-46.0); HGB 9.5 g/dL (11.2-15.7); Immature Grans % 6.1; Lymphocytes % 16.6; MCH 31.6 pg (27.0-33.0); MCHC 31.3 % (32.0-36.0); Monocytes % 5.9; Neutrophils % 69.6; Nucleated RBC 0 %; Platelet Count 111 10^3/uL (130-400); RBC 3.01 10^6/uL (3.93-5.22); RDW 12.8 % (11.7-14.6); RDW-SD 47.7 fL; WBC 10.95 10^3/uL (4.4-10.8)
[2022-01-29 07:11] LABS: BUN 39 mg/dL (7-18); CREATININE 1.3 mg/dL (0.55-1.02); Calcium 9.6 mg/dL (8.5-10.1); Chloride 106 mmol/L (98-107); Estimated GFR 40.98 (mL/min/1.73m2); Glucose 86 mg/dL (74-106); Potassium 4.4 mmol/L (3.5-5.1); Sodium 140 mmol/L (136-145)
[2022-01-29 07:31] LABS: Diff Comment Diff Reviewed; RBC Morphology Normal
[2022-01-29] MEDS: Roflumilast 500 MCG TAB PO (07:55)
[2022-01-29] MEDS: guaiFENesin 600 MG TABCR PO (07:56)
[2022-01-29] MEDS: Escitalopram 20 MG TAB PO (07:56)
[2022-01-29] MEDS: amLODIPine 5 MG TAB PO (07:56)
[2022-01-29] MEDS: Omeprazole 20 MG CAPCR PO (07:56)
[2022-01-29] MEDS: predniSONE 20 MG TAB 40 MG PO (07:57)
[2022-01-29] MEDS: Psyllium PKT 1 EACH PO (07:57)
--- NOTE | 2022-01-29 09:54 | DSE_ITS ---
Date of service: 01/29/22 Time of Service: 09:55 DS: Diagnosis Discharge Diagnosis (1) Acute exacerbation of chronic obstructive pulmonary disease: Status: Acute Asessment and Plan: Continue Duonebs and albuterol HFA prn Cont Trelegy. Prednisone 40mg po for 3 more days as outpt. F/U with Dr. Alex, Pulmonary Medicine. (2) Community acquired pneumonia: Status: Acute Asessment and Plan: She will complete a 10 day course of antibiotics with Levaquin 500 mg po daily. Pneumovax booster planned as outpt. (3) Sleep apnea: Status: Chronic Asessment and Plan: Cont BiPAP (4) Respiratory failure with hypoxia: Status: Acute Asessment and Plan: Cont on 2-3 LPM per NC. (5) Hypertension: Status: Chronic Asessment and Plan: Cont Lisinopril; this was held temporarily during this hospitalization due to AMBROCIO. Amlodipine given in its place. AMBROCIO resolved and lisinopril restarted, amlodipine stopped. Low NA diet. (6) Thrombocytopenia: Status: Chronic Asessment and Plan: Cont Eltrombopag. Discharge Plan Disposition Patient Disposition: HOME Condition: Improving Discharge Details Reason For Visit: Pneumonia Admit Date/Time: 01/25/22 21:39 Admit Provider: Jim Kiran Attending Provider: Jim Kiran Primary Care Provider: Rebeca Dupree Hospital Course Hospital Course: This is a 66-year-old female with a history of COPD maintained on oxygen at 3 L/min at home. MARCIA and wears BiPAP at night presented to the emergency department with progressive shortness of breath, cough, fevers and rigors (reportedly fever 101 at home) and was found to have pneumonia with bilateral lower lobe infiltrates on chest x-ray and an elevated white count of 19,000.? Patient started out with URI symptoms with nasal congestion and drainage that began about a week prior to admission.? She saw her PCP via telehealth on 01/24/2022 and was prescribed prednisone and doxycycline.? Patient states she never picked it up because it went to [facility] and reported the medication was locked up and they were closed when she went to picker packer the prescription.? 2 days before presentation to the ED she began having fever and chills including rigors.? Her other comorbidities include essential hypertension, hyperlipidemia, hypothyroidism, peripheral neuropathy and pancytopenia, chronic bradycardia, GERD,, posterior cerebral artery aneurysm, chronic tobacco dependence for which she still smokes 6 to 8 cigarettes/day.? She was admitted for parenteral antibiotics, bronchodilators, pulmonary toiletry for community-acquired pneumon ia, r/o early sepsis.? She has had no recent hospitalizations.? She is fully vaccinated and boosted against COVID-19 and tested negative for SARS-CoV-2 via nasal PCR swab in the emergency department. Noted that while in the emergency dept. she had some hypotension and was bolused w/ iv fluids. Given her hx of pneumonia, rigors, fever and elevated procalcitonin 4.3. See hospital Diagnosis list. She has an appt with Dr Alex, pulmonary medicine, scheduled. F/U with PCP in 1-2 weeks. Home Meds and New Rx's Prescriptions: New Patient's Own Medication 0 ea inhalation DAILY Qty: 0 0RF guaifenesin [Tussin] 400 mg tablet 400 mg PO QID Qty: 30 0RF loperamide 2 mg Capsule 2 mg PO Q4H PRN PRNQty: 0 0RF Metamucil Sugar-Free (aspart) 3.4 gram/5.8 gram Powder 1 ea PO BID Qty: 0 0RF Deep Sea Nasal 0.65 % Aerosol,Scurry 0 ml NS QID PRN PRNQty: 0 0RF levofloxacin 500 mg tablet 500 mg PO HS Qty: 6 0RF prednisone 10 mg tablet 30 mg PO DAILY Qty: 9 0RF Rx Instructions: First dose on 01/30/22 Continued lisinopril 40 mg tablet 40 mg PO DAILY Qty: 90 3RF albuterol sulfate [ProAir HFA] 90 mcg/actuation HFA aerosol inhaler 2 puff Inhalation Q4H PRN Qty: 8.5 12RF omeprazole 20 mg capsule,delayed release(DR/EC) 20 mg PO DAILY Qty: 90 3RF Trelegy Ellipta 100-62.5-25 mcg blister with device 1 inh IH DAILY Qty: 60 6RF Hospital Bed EACH Miscellaneous ONCE Qty: 1 0RF Rx Instructions: Maintain head elevation to breathing comfort, @ 40-45' as discussed Daliresp 500 mcg tablet 500 mcg PO DAILY 0RF Label Comments: 05/25/19-per pt,states changed by Dr Plascencia- Rx Instructions: Dr Thais carlisletrombopag 75 mg tablet 75 mg PO DAILY 0RF Rx Instructions: administer on an empty stomach, at least 1 hour before or 2 hours after food/meal(s) per [facility] [place] increased 04/04/21 JWO escitalopram oxalate [Lexapro] 20 mg tablet 20 mg PO DAILY Qty: 90 3RF levothyroxine [Synthroid] 25 mcg tablet 25 mcg PO DAILY Qty: 90 3RF pravastatin 20 mg tablet 20 mg PO HS Qty: 90 3RF aspirin 81 mg tablet,delayed release (DR/EC) 81 mg PO DAILY 0RF Rx Instructions: 05/11/21-[facility] [place] hem onc; OK to continue ASA 81mg daily as long as platelet count is >25K. Channing Lopez MD ipratropium-albuterol 0.5 mg-3 mg(2.5 mg base)/3 mL solution for nebulization 3 ml inhalation BID Qty: 180 12RF No Action (DME) Oxygen Tank See Rx Instructions .ROUTE .MEDSUPPLY Qty: 1 0RF Rx Instructions: use 3L per minute continuously, including bled into her BiPAP. Discharge Instructions Activity:: Activity as Tolerated Equipment/Supplies:: No Equipment Needed Diet:: Resume usual home diet. DS: Summary Time Spent with Patient providing and/or coordinating discharge services: Greater than 30 minutes Status at Discharge Functional status at discharge: independent ambulation Overall status at discharge: patient is progressing back to baseline Mental Status: mental status grossly normal Speech and Movement: speech and movement normal Mood: congruent mood Affect: normal affect Exam Narrative Exam Narrative: A quarter sized area of bright red blood in sputum that is in a tissue is noted. Const General: cooperative and no acute distress Nutritional Appearance: obese Orientation: alert and oriented x3 Neck Neck: normal visual inspection and no JVD Resp Effort & Inspection: normal respiratory effort Auscultation: clear to auscultation bilaterally, crackles, diminished lung sounds and rhonchi lower bilaterally Cardio Rate: regular rate Rhythm: regular rhythm Heart Sounds: S1 normal and S2 normal GI Palpation: soft and nontender Extrem General: no pedal edema and no calf tenderness Psych Appearance: grossly normal Mental Status: mental status grossly normal Speech and Movement: speech and movement normal Mood: congruent mood Affect: normal affect DS: Data Vitals/I&O Vitals and I&O: Vital Signs Temperature 35.8 C L 01/29/22 08:03 Temperature Source Tympanic 01/29/22 08:03 Pulse 51 L 01/29/22 08:03 Pulse Rhythm Regular 01/28/22 18:51 Pulse 66 01/25/22 19:31 Respiratory Rate 16 01/29/22 08:03 Respiratory Effort Non-Labored 01/29/22 08:04 Respiratory Depth Normal 01/29/22 08:04 Respiratory Pattern Normal 01/29/22 08:04 Blood Pressure 169/99 H 01/29/22 08:03 Blood Pressure Mean 67 01/25/22 19:31 Blood Pressure Position Sitting 01/25/22 15:17 Pulse Oximetry 97 01/29/22 08:48 Oxygen Delivery Method Nasal Cannula 01/29/22 08:48 Oxygen Flow Rate 3 01/29/22 08:48 Pain Level 0 01/29/22 08:03 Comment 01/27/22 19:15 Intake & Output 01/28/22 01/28/22 01/29/22 11:59 23:59 11:59 Intake Total 440 / 1260 820 / 1260 1810 / 1810 Output Total 201 / 201 Balance 440 / 1059 619 / 1059 1810 / 1810 Weight 88.9 kg 90.1 kg Intake: IV 200 / 300 100 / 300 1150 / 1150 Oral 240 / 960 720 / 960 660 / 660 Output: Urine 201 / 201 Other: Urine Color Yellow Urine Appearance Clear Clear Clear Urine Odor Normal Comment pT voids independently unmeasured urine occurance Voiding Methods Toilet Toilet Data Completed and Pending Labs on day of discharge: Labs from last 24 hours 01/29/22 01/29/22 06:23 06:23 WBC 10.95 H RBC 3.01 L Hgb 9.5 L Hct 30.4 L MCV 101.0 H MCH 31.6 MCHC 31.3 L RDW 12.8 Plt Count 111 L MPV 10.0 Immature Gran % 6.1 Neutrophils % 69.6 Lymphocytes % 16.6 Monocytes % 5.9 Eosinophils % 1.3 Basophils % 0.5 Nucleated RBC % 0 Absolute Neutrophils 7.62 H Absolute Lymphocytes 1.82 Absolute Monocytes 0.65 Absolute Eosinophils 0.14 Absolute Basophils 0.05 RBC Morphology Normal Sodium 140 Potassium 4.4 Chloride 106 Carbon Dioxide 25.0 Anion Gap 9.0 BUN 39 H Creatinine 1.3 H D Estimated GFR/1.73 m2 40.98 Glucose 86 Calcium 9.6 Preliminary micro results at discharge 01/25/22 22:35 Blood Culture - Preliminary Blood NO GROWTH 72 HOURS 01/25/22 22:30 Blood Culture - Preliminary Blood NO GROWTH 72 HOURS PFSH All Active Problems Palliative care encounter (Acute) DNR (do not resuscitate) (Acute) Respiratory failure with hypoxia (Acute) Acute exacerbation of chronic obstructive pulmonary disease (Acute) Acute kidney injury superimposed on chronic kidney disease (Acute) Sepsis (Acute) Community acquired pneumonia (Acute) Anemia, macrocytic (Chronic) If hgb <9.5 consistently, discuss Erythropoietin stimulalting agents to avoid RBC tranfusions per note [facility] [place] 10/19/22 Cigarette nicotine dependence (Acute) Chronic obstructive pulmonary disease (Chronic 05/08/17) O2 Dependent, Emphysematous per CT Chest (2018). New development of nodules noted on CT (01/2018) Right wrist sprain (Acute) Vitamin D deficiency (Acute) Frequent falls (Acute) Memory changes (Acute) Leukopenia (Acute) mild with normal ANC per Dr. Lopez Bradycardia (Acute) declined pacer Hypertension (Chronic) Cellulitis of toe of left foot (Acute) Cataract (Chronic) Otitis media (Acute) Pancytopenia (Acute) Thrombocytopenia (Chronic) Anemia (Chronic) Bone pain (Acute) Atypical chest pain (Acute 05/08/17) Idiopathic peripheral neuropathy (Acute) Thrombotic stroke (Acute) Cerebral aneurysm (Acute) Urinary incontinence (Acute 05/08/17) Sleep apnea (Chronic 05/08/17) Bi-PAP w/ Situational depression (Acute 05/08/17) Positive CÉSAR (antinuclear antibody) (Acute 05/08/17) Supplemental oxygen dependent (Acute 05/30/17) Osteopenia (Acute 05/08/17) Insomnia (Acute 05/08/17) Idiopathic neuropathy (Acute 08/18/17) Hypothyroidism (Acute 05/08/17) Hyperlipidemia (Acute 05/08/17) Gastroesophageal reflux disease (Acute 05/08/17) Episodic atrial fibrillation (Acute 05/08/17) Adult BMI 45.0-49.9 kg/sq m (Acute 11/06/17) Arthralgia (Acute 05/08/17) Anxiety (Acute 05/08/17) Medical History BP (high blood pressure) (05/08/17) w/o Hypertension Cellulitis and abscess of trunk (05/08/17) History of rheumatic fever (05/08/17) Surgical History Cerebral angiogram (11/03/17) Cholecystectomy (~1979) Coiling [employer] aneurysm (11/03/17) History of bone marrow biopsy Family History Mother , Heart Attack at age 83. CAD (coronary artery disease) COPD (chronic obstructive pulmonary disease) Father , Heart Attack at age 72. CAD (coronary artery disease) COPD (chronic obstructive pulmonary disease) Brother Neoplasm Cell Sister Neoplasm Ovarain Social History Smoking/Tobacco Use Status: Current every day Tobacco Type: cigarettes Smoking packs per day: 1 Smoking cigarettes per day: 20.0 Years smoked: 55 Smoking pack- years: 55.00 Smoking risk assessment performed?: Yes Alcohol Intake: former Drug use: Never Substance use type: does not use Household members: family Communication Needs: Corrective Lenses Pets and animals: Yes (3 cats and 4 dogs) Seatbelt use: always Do you feel safe at home: Yes Do you feel safe in your relationship?: Yes
--- NOTE | 2022-01-29 11:03 | PDOC.CMDIS ---
- If Service Date Differs Date of service: 01/29/22 Time of Service: 11:03 LACE Index Scoring Tool - Questions: Length of Stay (in days): 4 - 6 Acuity (Admit via E.D.?): Yes Comorbidities: Chronic Pulmonary Disease E.D. Visits: 3 - Answers: Total Score: 12 Risk of Readmission: High Risk Care Management Discharge Reason for Hospitalization: Community acquired pneumonia Discharge Plan: Discharge home with no new [facility] services via private vehicle with family. Follow up with Pulmonology on 02/05/22 and PCP in 1-2 weeks. Patient/Family Education Needs: Review discharge instructions, limitations, medications and plan to follow up with community providers. Ask me three.
[2022-01-29 14:43] LABS: Streptococcus Pneumoniae Ag, U Negative (Negative)
[2022-01-30 01:20] LABS: Mycoplasma Pneumoniae PCR Negative; Specimen source SPUTUM
== END 2022-01-29 17:34 | disposition home or self-care (01) | DRG 871 ==
LOC: ER 18:17 → MS 20:00
PROVIDERS: Family Medicine; Internal Medicine; Admitting Provider Internal Medicine; Emergency Provider Physician Assistant; PCP Nurse Practitioner; Visit Provider Internal Medicine
DX: A41.9 Sepsis, unspecified organism (principal); J96.01 Acute respiratory failure with hypoxia; J13 Pneumonia due to Streptococcus pneumoniae; J44.0 Chronic obstructive pulmonary disease with (acute) lower respiratory infection; D61.818 Other pancytopenia; J44.1 Chronic obstructive pulmonary disease with (acute) exacerbation; E78.5 Hyperlipidemia, unspecified; I10 Essential (primary) hypertension; E03.9 Hypothyroidism, unspecified; F17.210 Nicotine dependence, cigarettes, uncomplicated; G47.33 Obstructive sleep apnea (adult) (pediatric); Z99.81 Dependence on supplemental oxygen; G62.9 Polyneuropathy, unspecified; R00.1 Bradycardia, unspecified; K21.9 Gastro-esophageal reflux disease without esophagitis; Z66 Do not resuscitate; D53.9 Nutritional anemia, unspecified; E55.9 Vitamin D deficiency, unspecified; D69.6 Thrombocytopenia, unspecified; Z86.73 Personal history of transient ischemic attack (TIA), and cerebral infarction without residual deficits
CPT/HCPCS: 36415; 71250; 71275; 80048; 80053; 80076; 84145; 85027; 87040; 87077; 87449; 87493; 87505; 87637; 93005; 94640; 96361; 96365; 96367; 96375; 97162; 99285; 71045; 83630; 83735; 83880; 84443; 84484; 85025; 85379; 85610; 85730; 87070; 87186; 87205; 87581; 87899; 93010; 94667; 99222; 99223; 99232; 99233; 99239; J0696; J1650; J1885; J2930; J3490; J7512; J7620

== ENCOUNTER → 2022-02-07 01:11 | Outpatient (CLI) | payer MEDICARE, MEDICAID, SELFPAY ==
--- NOTE | 2022-02-07 | DI.US_ITS ---
Exam(s) US BREAST LT COMPLETE MAMMO DIAGNOSTIC BI EXAM: MAMMO DIAGNOSTIC BI CLINICAL HISTORY: LT BREAST MASS TECHNIQUE: Mammograms were interpreted according to the usual protocol including computer analysis w [facility] CAD system, tomosynthesis and C-view imaging. COMPARISON: FINDINGS: The breasts are of moderate density with fairly symmetrical distribution of fibroglandular tissue. I n comparison with prior examination of December 2019, there is a new mass of the central portion of th e left breast approximately 6 cm behind the nipple on the CC view. The mass measures roughly 3 cm to 3.5 cm in diameter. Spot compression views confirm the presence of this mass. The borders are most ly well-defined but in part indistinct. Breast ultrasound was performed and shows predominantly cysts solid mass corresponding to the mammogr aphically identified mass, the mass measures about 3.8 x 4.1 x 1.5 cm in diameter and is wider than t all. There is peripheral rind of isoechoic to hypoechoic tissue with internal hypoechoic and cystic regions. There is increased vascularity of the borders of the mass. The findings as described could be consistent with intramammary abscess, however the possibility of m alignancy is raised. Tissue sampling is recommended. No additional breast mass or suspicious clumped microcalcification is seen. IMPRESSION: Suspicious left breast mass as described above. Biopsy recommended. BI-RADS Category 4 - Suspicious Abnormality: Biopsy should be considered Breast Density - Category B - Scattered areas of fibroglandular density
--- NOTE | 2022-02-07 07:45 | DI.MAMMO_ITS ---
Exam(s) US BREAST LT COMPLETE MAMMO DIAGNOSTIC BI EXAM: MAMMO DIAGNOSTIC BI CLINICAL HISTORY: LT BREAST MASS TECHNIQUE: Mammograms were interpreted according to the usual protocol including computer analysis w [facility] CAD system, tomosynthesis and C-view imaging. COMPARISON: FINDINGS: The breasts are of moderate density with fairly symmetrical distribution of fibroglandular tissue. I n comparison with prior examination of December 2019, there is a new mass of the central portion of th e left breast approximately 6 cm behind the nipple on the CC view. The mass measures roughly 3 cm to 3.5 cm in diameter. Spot compression views confirm the presence of this mass. The borders are most ly well-defined but in part indistinct. Breast ultrasound was performed and shows predominantly cysts solid mass corresponding to the mammogr aphically identified mass, the mass measures about 3.8 x 4.1 x 1.5 cm in diameter and is wider than t all. There is peripheral rind of isoechoic to hypoechoic tissue with internal hypoechoic and cystic regions. There is increased vascularity of the borders of the mass. The findings as described could be consistent with intramammary abscess, however the possibility of m alignancy is raised. Tissue sampling is recommended. No additional breast mass or suspicious clumped microcalcification is seen. IMPRESSION: Suspicious left breast mass as described above. Biopsy recommended. BI-RADS Category 4 - Suspicious Abnormality: Biopsy should be considered Breast Density - Category B - Scattered areas of fibroglandular density
== END ==
PROVIDERS: PCP Nurse Practitioner; Visit Provider Nurse Practitioner
DX: R92.8 Other abnormal and inconclusive findings on diagnostic imaging of breast (principal); Z12.31 Encounter for screening mammogram for malignant neoplasm of breast
CPT/HCPCS: 76642; 77062; 77066; G0279

== ENCOUNTER → 2022-02-12 00:20 | Outpatient (CLI) | payer MEDICARE, MEDICAID, SELFPAY ==
--- NOTE | 2022-02-12 12:45 | DI.MRI_ITS ---
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 CHANGE. TECHNIQUE: Multiplanar multisequence MRA of the brain was performed. IV Contrast: mL of Magnevist contrast administered. COMPARISON: None. FINDINGS: Carotid Arteries: Petrous: Normal. Cavernous: Normal. Cerebral: Right: Small focal area of signal void adjacent to the distal right internal carotid artery consistent with aneurysm coil is seen on previous exams. Left: Normal. Middle Cerebral Arteries: Right: No aneurysm or significant stenosis. Left: No aneurysm or significant stenosis. Anterior Cerebral Arteries: Right: No aneurysm or significant stenosis. Left: No aneurysm or significant stenosis. Posterior cerebral arteries: Right: Focal area of signal void adjacent to the proximal posterior cerebral artery, consistent with aneurysm coil. No recurrence of aneurysm. No change in vessel diameter. Left: No aneurysm or significant stenosis. Vertebral Arteries: Right: No aneurysm or significant stenosis. Left: No aneurysm or significant stenosis. . Basilar Artery: No aneurysm or significant stenosis. Small Vessels: No evidence of beading. Limited MRI brain: Scattered high signal foci in the white matter consistent with microvascular disea se. Mild atrophy consistent with the patient's age. IMPRESSION: No evidence new or recurrent aneurysm. DATA REPOSITORY:
== END ==
PROVIDERS: PCP Nurse Practitioner; Visit Provider Occupational Therapist
DX: I67.1 Cerebral aneurysm, nonruptured (principal); G31.89 Other specified degenerative diseases of nervous system; I67.89 Other cerebrovascular disease
CPT/HCPCS: 70544

== ENCOUNTER → 2022-02-18 01:59 | Outpatient (CLI) | payer MEDICARE, MEDICAID, SELFPAY ==
--- NOTE | 2022-02-18 07:00 | DI.RAD_ITS ---
Exam(s) XR CHEST 2V PA LATERAL EXAM: XR CHEST 2V PA LATERAL CLINICAL HISTORY: assess for infiltrate resolution,j18.9. TECHNIQUE: 2D digital imaging was performed. COMPARISON: CR,XR XR CHEST 2V PA LATERAL from 03/01/2021 CR XR PORTABLE CHEST AP from 01/25/2022 FINDINGS: 2 views: Cardiomegaly again noted. The mediastinum is not widened. Left lung is clear. The previously present left lower lobe infiltrate has resolved. There is platel jose angel atelectasis in the right lung base noted No evidence of pulmonary edema. No pneumothorax. IMPRESSION: Cardiomegaly. No pulmonary edema. Platelike atelectasis in the right lung base. Previously present left lower lobe infiltrate has reso lved. No new confluent infiltrates and no pleural effusions evident. DATA REPOSITORY: RADIATION DOSE DELIVERED:
== END ==
PROVIDERS: PCP Nurse Practitioner; Visit Provider Student in an Organized Health Care Education/Training Program
DX: J18.9 Pneumonia, unspecified organism (principal); J98.11 Atelectasis; I51.7 Cardiomegaly
CPT/HCPCS: 71046

== ENCOUNTER → 2022-04-16 09:50 | Outpatient (BNVA) | payer MEDICARE, MEDICAID, SELFPAY | PROVIDERS: PCP Nurse Practitioner; Referring Provider Nurse Practitioner; Visit Provider Internal Medicine Cardiovascular Disease | DX: R00.1 Bradycardia, unspecified (principal); J44.9 Chronic obstructive pulmonary disease, unspecified; I10 Essential (primary) hypertension; G47.30 Sleep apnea, unspecified | CPT/HCPCS: 99214; 99213 ==

== ENCOUNTER 2022-04-19 02:27 | Outpatient (CLI) | payer MEDICARE, MEDICAID, SELFPAY ==
--- NOTE | 2022-05-20 08:51 | W.ZIOMONITOR ---
Date of service: 05/20/22 Time of Service: 08:51 14 Day Senior Oracle Database Administrator Referring Provider:: ron Indications:: Bradycardia Note: There is a 14-day monitor ordered indication of bradycardia. ? The patient was in normal sinus rhythm for the majority the recording with an average heart rate of 44 bpm (28?147) ? There were occasional (1%) PACs and rare PVCs. ? There were 50 episodes of supraventricular tachycardia the longest lasting 50 beats. ? There were no episodes of atrial fibrillation, no pauses greater than 3 seconds no evidence of high degree heart block. ? There were 3 patient triggered events 2 of which were associated with PACs and 1 of which was associated with sinus rhythm.
== END 2022-04-19 02:28 | disposition home or self-care (01) ==
LOC: RT 02:27
PROVIDERS: PCP Nurse Practitioner; Visit Provider Internal Medicine Cardiovascular Disease
DX: R00.1 Bradycardia, unspecified (principal)
CPT/HCPCS: 93246

== ENCOUNTER 2022-05-20 08:51 | Outpatient (CLI) | payer MEDICARE, MEDICAID, SELFPAY | END 2022-05-20 08:52 | LOC: CARDO 06-17 14:24 | PROVIDERS: PCP Nurse Practitioner; Referring Provider Internal Medicine Cardiovascular Disease; Visit Provider Internal Medicine Cardiovascular Disease | DX: R00.1 Bradycardia, unspecified (principal); I47.1 Supraventricular tachycardia | CPT/HCPCS: 93248 ==

== ENCOUNTER → 2022-06-05 01:28 | Outpatient (CLI) | payer MEDICARE, MEDICAID, SELFPAY ==
--- NOTE | 2022-06-05 09:00 | DI.CTLCSR_ITS ---
Exam(s) CT CHEST LUNG CANCER SCREEN EXAM: CT CHEST LUNG CANCER SCREEN CLINICAL HISTORY: Screening for lung cancer,FORMER SMOKER, Z87.891 TECHNIQUE: Imaging Protocol: Axial computed tomography images with coronal and sagittal reformatted images were created and reviewed. Low dose screening protocol. COMPARISON: CT CT CHEST LUNG CANCER SCREEN from 06/22/[address] CHEST PE CTA from 01/26/2022 CR XR CHEST 2V PA LATERAL from 02/18/2022 FINDINGS: Tracheobronchial tree: No bronchiectasis or mucus plugging.. Mediastinum and Adriana: No dominant adenopathy or fluid collection. Pulmonary parenchyma: No consolidation or dominant measurable mass. Moderate emphysematous changes gr eater in the upper lobes. Scarring or atelectasis at the lung bases and posterior left upper lobe. Lung Nodules: Stable 3 millimeter right middle lobe nodule. 2-3 millimeter posterior right upper lob e nodule, unchanged. Stable 2-3 millimeter nodule medial anteromedial l left upper lobe. Pleura: No effusion. No pneumothorax. Heart: The heart is moderately dilated. Mild coronary artery calcifications are seen. Aorta: Thoracic aorta non-dilated. Mild atherosclerotic changes. Upper abdomen: Status post cholecystectomy. Unremarkable. Bones: Unremarkable for age. Soft Tissues: Unremarkable. IMPRESSION: Stable tiny bilateral nodules. No suspicious pulmonary nodules. Lung RADS Cat 2 - Benign Appearance / Behavior: Nodules with a very low likelihood of becoming a clin ically active cancer due to size or lack of growth Lung-RADS 1.0 CATEGORIES: Category 0 - Prior chest CT exam(s) being located for comparison. Category 1 - Annual screening in 12 months. No nodules or definitely benign nodules. Category 2 - Annual screening in 12 months. Benign appearance. Nodules with low likelihood of becomin g active cancer. Category 3 - 6-month follow-up. Probably benign. Short-term follow-up suggested. Nodules with low lik elihood of becoming active cancer. Category 4A - 3-month follow-up and CT/PET if >8 mm in size. Suspicious finding. Findings which requi re additional testing. Category 4B - Findings which require additional testing and tissue sampling. Category 4X - Category 3 or 4 nodules with additional features or imaging findings that increases the suspicion of malignancy. Modifier S- Potentially clinically significant findings (non lung cancer) RADIATION DOSE DELIVERED: 73.83mGy.cm Total DLP 1.84mGy CTDIvol DATA REPOSITORY: All CT scans at this facility are submitted to the National Radiology Data Registry (NRDR) Dose Index Registry (DIR) with the [employer] (ACR). RADIATION OPTIMIZATION: All CT scans at this facility use at least one of these dose optimization te chniques: automated exposure control; mA and/or kV adjustment per patient size (includes targeted exa ms where dose is matched to clinical indication); or iterative reconstruction.
== END ==
PROVIDERS: PCP Nurse Practitioner; Visit Provider Student in an Organized Health Care Education/Training Program
DX: Z12.2 Encounter for screening for malignant neoplasm of respiratory organs (principal); Z87.891 Personal history of nicotine dependence; R91.8 Other nonspecific abnormal finding of lung field
CPT/HCPCS: 71271

== ENCOUNTER → 2022-07-22 02:51 | Outpatient (CLI) | payer MEDICARE, MEDICAID, SELFPAY ==
--- NOTE | 2022-07-22 07:30 | DI.US_ITS ---
Exam(s) US RENAL EXAM: US RENAL CLINICAL HISTORY: abnormal GFR,n28.9,abnl kidney function. TECHNIQUE: Reza scale, color and spectral Doppler were used. COMPARISON: No exams were available for comparison FINDINGS: Renal size in cm: Right: 10.2. Left: 9.8. Echogenicity: Normal. Hydronephrosis: No. Cyst or mass: No. Nephrolithiasis: No. Other findings: None. Bladder:Normal. Ureteral jets: Right: Visualized and unremarkable. Left: Visualized and unremarkable. Prevoid vol:243 cc Postvoid vol:15 cc Renal color flow: Symmetric and within normal limits. IMPRESSION: Unremarkable examination. DATA REPOSITORY:
== END ==
PROVIDERS: PCP Nurse Practitioner; Visit Provider Nurse Practitioner
DX: N28.9 Disorder of kidney and ureter, unspecified (principal)
CPT/HCPCS: 76770

== ENCOUNTER 2022-07-22 03:41 | Outpatient (CLI) | payer MEDICARE, MEDICAID, SELFPAY ==
[2022-07-22 11:35] LABS: Bilirubin Negative (Negative); Blood Negative (Negative); Clarity Clear (Clear); Glucose Negative (Negative); Ketones Negative (Negative); Leukocyte Esterase Negative (Negative); Nitrite Negative (Negative); Specific Gravity 1.015 (1.005-1.025); Urobilinogen 0.2 EU/dL (Up TO 0.2); pH 5.5 (5-8)
[2022-07-22 11:43] LABS: Bacteria Few HPF (Negative); C & S Indicated? No/Sq. Contamination; Casts Negative LPF (Negative); Crystals Negative HPF (Negative); Epithelial Cells Many HPF (Negative); Mucus Trace (Negative); RBC 0-2 HPF (0-2); WBC 0-2 HPF (0-5)
[2022-07-22 11:56] LABS: BUN 17 mg/dL (7-18); CREATININE 1.2 mg/dL (0.55-1.02); Calcium 9.2 mg/dL (8.5-10.1); Chloride 104 mmol/L (98-107); Estimated GFR 44.95 (mL/min/1.73m2); Glucose 93 mg/dL (74-106); Potassium 4.2 mmol/L (3.5-5.1); Sodium 142 mmol/L (136-145)
== END 2022-07-22 03:42 | disposition home or self-care (01) ==
LOC: LBO 03:43
PROVIDERS: Absent Provider Nurse Practitioner; PCP Nurse Practitioner; Referring Provider Nurse Practitioner; Visit Provider Nurse Practitioner
DX: N28.9 Disorder of kidney and ureter, unspecified (principal)
CPT/HCPCS: 36415; 80048; 81003; 81015

== ENCOUNTER → 2022-10-07 01:39 | Outpatient (CLI) | payer MEDICARE, MEDICAID, SELFPAY ==
--- NOTE | 2022-10-07 09:00 | DI.RAD_ITS ---
Exam(s) XR LUMBAR SPINE COMPLETE EXAM: XR LUMBAR SPINE COMPLETE CLINICAL HISTORY: chronic LBP, M54.9, G89.29. TECHNIQUE: 2D digital imaging was performed. COMPARISON: No exams were available for comparison FINDINGS: Five views: There is no evidence fracture. There is very mild anterolisthesis L4 upon L5 due to facet arthropath y. No pars defects at this level. L4-5 disc space exhibits normal height as do the other disc space s in the lumbosacral spine with the exception mild narrowing at L1-2 level and anterior osseous lippi ng. Bone density normal. Facet joint degenerative change noted lower 2 levels. Sacroiliac joints u nremarkable. IMPRESSION: Subtle findings as above.. DATA REPOSITORY: RADIATION DOSE DELIVERED:
--- NOTE | 2022-10-07 09:00 | DI.RAD_ITS ---
Exam(s) XR SHOULDER RT COMPLETE 2+V EXAM: XR SHOULDER RT COMPLETE 2+V CLINICAL HISTORY: chronic shoulder pain, G89.29, M25.519. TECHNIQUE: 2D digital imaging was performed. COMPARISON: No exams were available for comparison FINDINGS: Five views: No evidence fracture nor dislocation nor diminution of the subacromial space. There are no soft tiss ue calcifications evident in the non diminished subacromial space. There are some degenerative manzo es in the AC joint and there is an osteophytic ridge on the undersurface of the acromion evident. Bone density normal. No osseous lesions. IMPRESSION: DATA REPOSITORY: RADIATION DOSE DELIVERED:
--- NOTE | 2022-10-07 09:00 | DI.RAD_ITS ---
Exam(s) XR SHOULDER LT COMPLETE 2+V EXAM: XR SHOULDER LT COMPLETE 2+V CLINICAL HISTORY: chronic shoulder pain, G89.29, M25.519. TECHNIQUE: 2D digital imaging was performed. COMPARISON: CR XR SHOULDER RT COMPLETE 2+V from 10/07/2022 FINDINGS: Five views: There is no evidence of fracture or dislocation nor significant degenerative changes in the glenohume ral joint and there no calcifications within the subacromial space. There are degenerative cysts in the greater tuberosity noted on the lateral half of the humeral head. No degenerative cysts noted in the osseous glenoid. There are moderate degenerative changes in the ipsilateral AC joint. Osteophytic ridge is seen on th e undersurface of the acromion. This may be resulting in impingement upon the rotator cuff mechanism IMPRESSION: DATA REPOSITORY: RADIATION DOSE DELIVERED:
== END ==
PROVIDERS: PCP Nurse Practitioner; Visit Provider Nurse Practitioner
DX: G89.29 Other chronic pain (principal); M19.012 Primary osteoarthritis, left shoulder; M54.9 Dorsalgia, unspecified
CPT/HCPCS: 72110; 73030

== ENCOUNTER 2022-11-06 08:09 | Outpatient (CLI) | payer MEDICARE, MEDICAID, SELFPAY ==
--- NOTE | 2022-11-06 08:00 | RT.EKG_ITS ---
APPROVED REPORT Exam: Resting ECG Reason for Exam: bradycardia Patient Location: O HR:44 bpm ECG Measurements Heart Rate 44 AXIS KS 114 P 25 QRSd 108 QRS 71 QT 471 T 38 QTc 403 Conclusion Sinus bradycardia...rate< 50 Borderline short KS interval...KS int <120mS
== END 2022-11-06 08:10 | disposition home or self-care (01) ==
LOC: DI.CARD 08:10
PROVIDERS: PCP Nurse Practitioner; Visit Provider Internal Medicine Cardiovascular Disease
DX: R00.1 Bradycardia, unspecified (principal)
CPT/HCPCS: 93010

== ENCOUNTER → 2022-11-06 08:38 | Outpatient (BNVA) | payer MEDICARE, MEDICAID, SELFPAY | PROVIDERS: PCP Nurse Practitioner; Referring Provider Nurse Practitioner; Visit Provider Internal Medicine Cardiovascular Disease | DX: J44.9 Chronic obstructive pulmonary disease, unspecified (principal); Z99.89 Dependence on other enabling machines and devices; R00.1 Bradycardia, unspecified | CPT/HCPCS: 93005; 99214 ==

== ENCOUNTER 2022-12-10 15:43 | Outpatient (REF) | payer MEDICARE, MEDICAID, SELFPAY ==
[2022-12-11 22:36] LABS: Influenza A RNA Result Negative (Negative); Influenza B RNA Result Negative (Negative); RSV RNA Result Negative (Negative)
[2022-12-11 22:41] LABS: COVID-19 RT-PCR UVMMC Result Negative (Negative)
== END 2022-12-10 15:44 | disposition home or self-care (01) ==
LOC: LBN 15:43
PROVIDERS: PCP Nurse Practitioner; Visit Provider Nurse Practitioner
DX: R05.9 Cough, unspecified (principal); R06.02 Shortness of breath; Z20.822 Contact with and (suspected) exposure to COVID-19
CPT/HCPCS: 87631; U0003

== ENCOUNTER 2023-02-10 14:26 | Outpatient (REF) | payer MEDICARE, MEDICAID, SELFPAY ==
[2023-02-10 15:51] LABS: Abs Immature Grans 0.01 10^3/uL (0.0-0.06); Absolute Basophil Count 0.01 10^3/uL (0.0-0.2); Absolute Lymphocyte Count 0.96 10^3/uL (1.2-3.4); Basophils % 0.3; Eosinophils % 2.7; HCT 34.7 % (36.0-46.0); HGB 11.2 g/dL (11.2-15.7); Immature Grans % 0.3; Lymphocytes % 25.5; MCH 31.5 pg (27.0-33.0); MCHC 32.3 % (32.0-36.0); MCV 98 fL (80-95); MPV 9.3 fL (8.0-11.0); Monocytes % 5.3; Neutrophils % 65.9; Platelet Count 127 10^3/uL (130-400); RBC 3.56 10^6/uL (3.93-5.22); RDW 13.9 % (11.7-14.6); RDW-SD 50.4 fL; WBC 3.77 10^3/uL (4.4-10.8)
[2023-02-10 16:02] LABS: Absolute Neutrophil Count 2.48 10^3/uL (1.2-6.7)
[2023-02-10 16:58] LABS: ALT 25 U/L (14-59); AST 25 U/L (15-37); Albumin 3.7 g/dL (3.4-5.0); Alkaline Phosphatase 108 U/L (46-116); Anion Gap 8.9 mmol/L (3-11); BUN 19 mg/dL (7-18); Bilirubin, Total 0.2 mg/dL (0.2-1.0); CO2 27.1 mmol/L (21.0-32.0); CREATININE 1.4 mg/dL (0.55-1.02); Calculated LDL 76 mg/dL (<100); Chloride 105 mmol/L (98-107); Cholesterol 166 mg/dL (<200); Estimated GFR 41.24 (mL/min/1.73m2); Glucose 104 mg/dL (74-106); HDL Cholesterol 63 mg/dL (40-60); Potassium 4.5 mmol/L (3.5-5.1); Sodium 141 mmol/L (136-145); TSH (W/Ref FT4) 0.52 uIU/mL (0.36-3.74); Total Protein 7.6 g/dL (6.4-8.2); Triglyceride 139 mg/dL (<150)
== END 2023-02-10 14:27 | disposition home or self-care (01) ==
LOC: LBN 14:26
PROVIDERS: PCP Nurse Practitioner; Referring Provider Nurse Practitioner; Visit Provider Nurse Practitioner
DX: I10 Essential (primary) hypertension (principal); E78.5 Hyperlipidemia, unspecified; E03.9 Hypothyroidism, unspecified; D64.9 Anemia, unspecified; D61.818 Other pancytopenia
CPT/HCPCS: 80053; 80061; 84443; 85025

== ENCOUNTER 2023-02-27 02:31 | Outpatient (CLI) | payer MEDICARE, MEDICAID, SELFPAY ==
[2023-02-27 13:08] LABS: Abs Immature Grans 0.02 10^3/uL (0.0-0.06); Absolute Basophil Count 0.01 10^3/uL (0.0-0.2); Absolute Eosinophil Count 0.06 10^3/uL (0.0-0.7); Absolute Lymphocyte Count 0.98 10^3/uL (1.2-3.4); Absolute Monocyte Count 0.27 10^3/uL (0.1-0.8); Absolute Neutrophil Count 2.94 10^3/uL (1.2-6.7); Basophils % 0.2; Eosinophils % 1.4; HCT 33.4 % (36.0-46.0); HGB 10.9 g/dL (11.2-15.7); Immature Grans % 0.5; Lymphocytes % 22.9; MCH 31.3 pg (27.0-33.0); MCHC 32.6 % (32.0-36.0); MCV 96 fL (80-95); MPV 8.9 fL (8.0-11.0); Monocytes % 6.3; Neutrophils % 68.7; Platelet Count 108 10^3/uL (130-400); RBC 3.48 10^6/uL (3.93-5.22); RDW 13.4 % (11.7-14.6); RDW-SD 47.4 fL; WBC 4.28 10^3/uL (4.4-10.8)
== END 2023-02-27 02:32 | disposition home or self-care (01) ==
PROVIDERS: PCP Nurse Practitioner; Visit Provider Internal Medicine Hematology
DX: D61.818 Other pancytopenia (principal)
CPT/HCPCS: 36415; 85025

== ENCOUNTER 2023-05-07 04:07 | Outpatient (CLI) | payer MEDICARE, MEDICAID, SELFPAY ==
[2023-05-07 12:52] LABS: Abs Immature Grans 0.01 10^3/uL (0.0-0.06); Absolute Basophil Count 0.01 10^3/uL (0.0-0.2); Absolute Eosinophil Count 0.03 10^3/uL (0.0-0.7); Absolute Lymphocyte Count 0.94 10^3/uL (1.2-3.4); Absolute Monocyte Count 0.25 10^3/uL (0.1-0.8); Absolute Neutrophil Count 2.17 10^3/uL (1.2-6.7); Basophils % 0.3; Eosinophils % 0.9; HCT 31.4 % (36.0-46.0); HGB 10.3 g/dL (11.2-15.7); Immature Grans % 0.3; Lymphocytes % 27.6; MCH 31.3 pg (27.0-33.0); MCHC 32.8 % (32.0-36.0); MCV 95 fL (80-95); MPV 8.7 fL (8.0-11.0); Monocytes % 7.3; Neutrophils % 63.6; Platelet Count 105 10^3/uL (130-400); RBC 3.29 10^6/uL (3.93-5.22); RDW 12.8 % (11.7-14.6); RDW-SD 44.1 fL; WBC 3.41 10^3/uL (4.4-10.8)
== END 2023-05-07 04:08 | disposition home or self-care (01) ==
PROVIDERS: PCP Nurse Practitioner; Visit Provider Internal Medicine Hematology
DX: D69.6 Thrombocytopenia, unspecified (principal); D53.9 Nutritional anemia, unspecified
CPT/HCPCS: 36415; 85025

== ENCOUNTER 2023-05-21 08:13 | Outpatient (CLI) | payer MEDICARE, MEDICAID, SELFPAY | END 2023-05-21 08:14 | disposition home or self-care (01) | LOC: LBO 08:15 | PROVIDERS: PCP Nurse Practitioner; Visit Provider Internal Medicine Hematology | DX: Z45.010 Encounter for checking and testing of cardiac pacemaker pulse generator [battery] (principal); R00.1 Bradycardia, unspecified | CPT/HCPCS: 93280 ==

== ENCOUNTER 2023-06-10 01:00 | Outpatient (CLI) | payer OTHER, MEDICAID, SELFPAY ==
--- NOTE | 2023-06-10 08:15 | DI.CTLCSR_ITS ---
Exam(s) CT CHEST LUNG CANCER SCREEN EXAM: CT CHEST LUNG CANCER SCREEN CLINICAL HISTORY: Screening for lung cancer, current smoker, f17.210. TECHNIQUE: Imaging Protocol: Low Dose Technique CONTRAST MATERIAL: None COMPARISON: CT CT CHEST PE CTA from 06/08/[address] CHEST LUNG CANCER SCREEN from 06/05/2022 FINDINGS: CHEST: LUNGS: There is a stable appearing pleural based infiltrate in the sub apical aspect of the left uppe r lobe, unchanged from May 2022 and relatively stable when compared to CT scan of May 2019.. Small nodular density in the right middle lobe remains unchanged. Small nodule in the posterior aspect of the right upper lobe is also unchanged. Small nodule in the anterior medial aspect of the left uppe r lobe is also unchanged. Scarring in the anterior right lung base is unchanged as are some increase d markings in the inferior lingular segment of the left lung and posterior basal segment of the left lower lobe. No pleural effusions. MEDIASTINUM: There is no obvious hilar nor mediastinal adenopathy. CARDIAC: Heart size upper normal. Cardiac pacemaker wires noted. There is a pericardial effusion no w evident. Maximum thickness is 9 mm.Caliber of the thoracic aorta is within normal limits. OTHER: Gallbladder surgically absent. OSSEOUS: No significant osseous lesions.No fractures.. IMPRESSION: 1. Continued stable appearance of the previously described small bilateral lung nodules. Also contin ued stable appearance of pleural based left upper lobe small sub apical infiltrate. 2. There is a pericardial effusion now evident exhibiting maximum thickness 9 mm, not previously pres ent. Cardiac pacemaker wires are also new since the prior study of May 2022. 3. Lung RADS Cat 2S - Benign Appearance / Behavior: Nodules with a very low likelihood of becoming a clinically active cancer due to size or lack of growth S: SIGNIFICANT NEW PERICARDIAL EFFUSION DESCRIBED ABOVE. Lung-RADS 1.0 CATEGORIES: Category 0 - Prior chest CT exam(s) being located for comparison. Category 1 - Annual screening in 12 months. No nodules or definitely benign nodules. Category 2 - Annual screening in 12 months. Benign appearance. Nodules with low likelihood of becomin g active cancer. Category 3 - 6-month follow-up. Probably benign. Short-term follow-up suggested. Nodules with low lik elihood of becoming active cancer. Category 4A - 3-month follow-up and CT/PET if >8 mm in size. Suspicious finding. Findings which requi re additional testing. Category 4B - Findings which require additional testing and tissue sampling. Category 4X - Category 3 or 4 nodules with additional features or imaging findings that increases the suspicion of malignancy. Modifier S- Potentially clinically significant findings (non lung cancer) RADIATION DOSE DELIVERED: 73.91mGy.cm Total DLP DATA REPOSITORY: All CT scans at this facility are submitted to the National Radiology Data Registry (NRDR) Dose Index Registry (DIR) with the [employer] (ACR). RADIATION OPTIMIZATION: All CT scans at this facility use at least one of these dose optimization te chniques: automated exposure control; mA and/or kV adjustment per patient size (includes targeted exa ms where dose is matched to clinical indication); or iterative reconstruction.
== END 2023-06-10 01:20 ==
PROVIDERS: PCP Nurse Practitioner; Visit Provider Physician Assistant Surgical
DX: Z12.2 Encounter for screening for malignant neoplasm of respiratory organs (principal); F17.210 Nicotine dependence, cigarettes, uncomplicated; R91.8 Other nonspecific abnormal finding of lung field; J98.4 Other disorders of lung; Z95.0 Presence of cardiac pacemaker; I31.39 Other pericardial effusion (noninflammatory)
CPT/HCPCS: 71271

== ENCOUNTER 2023-06-17 11:19 | Outpatient (REF) | payer OTHER, MEDICAID, SELFPAY ==
[2023-06-17 16:29] LABS: ALT 17 U/L (14-59); AST 18 U/L (15-37); Albumin 3.6 g/dL (3.4-5.0); Alkaline Phosphatase 81 U/L (46-116); Anion Gap 8.1 mmol/L (3-11); BUN 15 mg/dL (7-18); Bilirubin, Total 0.2 mg/dL (0.2-1.0); CO2 29.9 mmol/L (21.0-32.0); CREATININE 1.2 mg/dL (0.55-1.02); Calcium 9.5 mg/dL (8.5-10.1); Chloride 105 mmol/L (98-107); Estimated GFR 49.61 (mL/min/1.73m2); Glucose 100 mg/dL (74-106); Potassium 4.2 mmol/L (3.5-5.1); Sodium 143 mmol/L (136-145); Total Protein 7.1 g/dL (6.4-8.2)
== END 2023-06-17 11:20 | disposition home or self-care (01) ==
LOC: LBN 11:19
PROVIDERS: PCP Nurse Practitioner; Visit Provider Nurse Practitioner
DX: M25.471 Effusion, right ankle (principal)
CPT/HCPCS: 80053

== ENCOUNTER 2023-06-27 00:30 | Outpatient (CLI) | payer OTHER, MEDICAID, SELFPAY ==
--- NOTE | 2023-06-27 11:30 | DI.US_ITS ---
APPROVED REPORT EXAM: Comprehensive 2D, Doppler, and color-flow Echocardiogram Patient Location: Out-Patient Senior Clinical Research Scientist: Hemal Cunningham RDCS Indications: assess pericardial effusion seen on CT Other Information Study Quality: Poor. Technically limited study due to body habitus. Conclusion Normal left ventricular wall thickness and chamber size. Overall left ventricular systolic function appears normal without segmental wall motion abnormalities Normal right ventricular size and systolic function Both atria are normal in size Pacemaker lead noted in the right heart There is no structural or hemodynamically significant valvular disease Right ventricular systolic pressure could not be estimated Small pericardial effusion, no findings of tamponade Wall motion Left Ventricle The left ventricle appears grossly normal size. Technically limited imaging of parasternal views due to body habitus. Left ventricular systolic function is normal There are no segmental wall motion abno rmalities There is no ventricular septal defect visualized. LVEF is 52% by biplane. Visually appears greater than 60% Right Ventricle The right ventricle is normal size. Right ventricular systolic function is grossly normal. Unable to assess PA pressure. Pacemaker lead is present in the right ventricle. Atria The left atrium size is normal. The right atrium size is normal. The interatrial septum is intact wit h no evidence for an atrial septal defect. Aortic Valve The aortic valve is normal in structure. Aortic valve is trileaflet. There is no aortic valvular sten osis. No aortic regurgitation is present. Mitral Valve The mitral valve is normal in structure. No evidence of mitral valve stenosis. There is no mitral briseida ve regurgitation noted. Tricuspid Valve The tricuspid valve is normal in structure. There is no tricuspid valve stenosis. Trace tricuspid reg urgitation. Pulmonic Valve The pulmonary valve is normal in structure. There is no pulmonic valvular stenosis. Trivial pulmonic regurgitation. Great Vessels The aortic root is normal in size. Ascending aorta is not well visualized. Aortic arch is not well vi sualized. IVC is normal in size and collapses >50% with inspiration. Pericardium Small pericardial effusion. 2D Dimensions Ao Root d 2.86 cm F: 2.7 - 3.3 LV Vol A2C d MOD 54.9 mL LVEF (B[facility]ner's) 51.96 % F: 54 - 74 LV Vol A4C d MOD 47.3 mL LV Volume 40.55 mL F: 46 - 106 LA vol/ BSA A4C s A-L 20.1 mL/m2 LV Volume Index 22.65 mL/m2 F: 29 - 61 LA Area A4C s MOD 14.96 cm2 LV Vol Biplane MOD 52.1 mL LV EF A4C MOD 52.6 % LV EF A2C MOD 51.2 % LV EF Biplane MOD 52.0 % SV 27.06 mL SV Index 15.09 mL/m2 M-Mode TAPSE 1.72 cm (M/F) >1.7 LV Diastology MV E' medial 0.147 (>0.07 m/s) E/A Ratio 0.9 LV E/e MED 4.00 (<14) MV E Vmax 0.59 (0.4-1.3 m/s) MV E' lateral 0.109 (>0.1 m/s) MV A Vmax 0.65 (0.4-1.3 m/s) LV E/e LAT 5.40 (<14) MV E/A Ratio 0.86 MV E/E' medial 4.00 MV E/E' lateral 5.41 Aortic Valve LVOT Area 2.82 cm2 AoV Area Vmax 3.06 cm2 LVOT Vmax 1.31 m/s AoV Area/ BSA (Vmax) 1.70 cm2/m2 LVOT Mean Jamarcus. 0.79 m/s KYLER Mean Jamarcus. 2.49 cm2 LVOT Peak Grad 6.8 mmHg KYLER Mean Jamarcus. Index 1.39 cm2/m2 LVOT Mean Grad 3.0 mmHg LVOT VTI 0.245 m LVOT Diam s 1.85 cm AoV Vmax 1.21 m/s Velocity Ratio 1.08 AoV Mean Jamarcus. 0.90 m/s AoV Peak Grad 5.8 mmHg LVOT SV 69.12 mL AoV Mean Grad 3.6 mmHg AoV VTI 0.244 m AoV Area VTI 2.83 cm2 AoV Area/ BSA (VTI) 1.58 cm/m2 Mitral Valve MV DT 211 (160-240 msec) MV PHT 61 msec MV Area PHT 3.59 cm2 Pulmonary Valve PV Vmax 1.21 (0.5-1.5 m/s) RVOT Peak Gr. 3.31 mmHg PV Peak Grad 5.8 mmHg RVOT Mean Gr. 1.70 mmHg PV Mean Grad 3.3 mmHg RVOT VTI 0.183 m PV VTI 0.246 m RVOT Vmax 0.91 m/s Tricuspid Valve RA Pressure 3.00 mmHg
== END 2023-06-27 00:50 ==
LOC: DI 00:30
PROVIDERS: PCP Nurse Practitioner; Visit Provider Student in an Organized Health Care Education/Training Program
DX: I31.39 Other pericardial effusion (noninflammatory) (principal); R00.1 Bradycardia, unspecified
CPT/HCPCS: 93306

== ENCOUNTER 2023-07-04 00:04 | Outpatient (CLI) | payer OTHER, MEDICAID, SELFPAY ==
--- NOTE | 2023-07-04 08:30 | DI.MAMMO_ITS ---
Exam(s) MAMMO SCREENING EXAM: MAMMO SCREENING CLINICAL HISTORY: screening, z12.39. TECHNIQUE: Bilateral full field digital CC and MLO mammographic images were obtained with 3D tomosyn thesis and utilizing computer aided detection (CAD). COMPARISON: Prior mammograms were reviewed. Most recent mammogram January 2021 and there has been interval left breast biopsy. FINDINGS: There are no new radiograph findings in the right breast. Area of asymmetric tissue in the anterior medial right breast is unchanged from prior mammograms. In the left breast there has been interval percutaneous biopsy previously described prominent nodule. There is a biopsy marker clip at this level now evident and the size of this finding has significan tly decreased. This density presently seen at this level is either some remnant nodule, post biopsy hematoma, or a combination thereof. There mint no malignant-appearing microcalcification groups in t his region nor elsewhere in either breast. There is an additional noncalcified well-defined new small nodule in the left breast which is located slightly lateral to the above described biopsy site and probably corresponds to a similar appearing nodule which was evident on mammogram of December 2019. Is probably benign intramammary lymph node. There is no new significant architectural distortion nor skin thickening-retraction. IMPRESSION: 1. No radiographic evidence of malignancy in the right breast. 2. Benign-appearing post biopsy findings in the left breast as described above. Please correlate wit h pathology report from biopsy. Biopsy report is not in the PACS system. BI-RADS Category 2 - Benign Findings Breast Density - Category B - Scattered areas of fibroglandular density Breast density Category C or D implies that the patient has dense breast tissue. Dense breast tissue can make it harder to find cancer on a mammogram. Dense breast tissue is also associated with an incr eased risk of breast cancer. This information about the result of the mammogram report was provided to the patient to raise their awareness. Use this report when you speak with the patient about their risks for breast cancer, which includes their family history. At that time, you may recommend additional screening tests (Ultrasoun d or MRI) as these tests may add significant information. A negative radiographic report should not delay biopsy if a dominant or clinically suspicious mass is present. Up to ten percent of cancers are not identified on mammography. A negative report may reinforce clinical impression. Adenosis and dense breasts may obscure an underlying neoplasm. False positive reports average 6 to 10%. Patient will receive a letter notifying them of these results.
--- NOTE | 2023-07-04 15:55 | DI.DEXA_ITS ---
Exam(s) XR DEXA BONE DENSITY W/WO THEA EXAM: XR DEXA BONE DENSITY W/WO THEA CLINICAL HISTORY: screen osteoporosis, ASYMPTOMATIC MENOPAUSAL STATE, Z78.0 TECHNIQUE: Routine DEXA evaluation of the lumbar spine, hip, or forearm. COMPARISON: No exams were available for comparison FINDINGS: Performed on a Hologic unit. Lateral image: No compression fracture evident. Lumbar Spine total T-score: -1.5. Hip total T-score:-0.9 Independent reading at the level of the femoral neck yields T-score of -1.5 Forearm total T-score: -1.7 IMPRESSION: Bone mineral density measures in the osteopenia range. Fracture risk is moderate. Note: Any spine fracture indicates 5x risk for subsequent spine fracture and 2x risk for subsequent h ip fracture. World Health Organization criteria for BMD interpretation classify patients: Normal...... T- Score at or above -1.0 Osteopenic... T- Score between -1.0 and -2.5 Osteoporosis... T-Score at or below -2.5
== END 2023-07-04 00:24 ==
LOC: DI 00:14
PROVIDERS: PCP Nurse Practitioner; Visit Provider Nurse Practitioner
DX: Z12.39 Encounter for other screening for malignant neoplasm of breast (principal); Z78.0 Asymptomatic menopausal state; Z13.820 Encounter for screening for osteoporosis; M81.0 Age-related osteoporosis without current pathological fracture; C50.112 Malignant neoplasm of central portion of left female breast
CPT/HCPCS: 77063; 77067; 77080

== ENCOUNTER → 2023-09-23 13:50 | Outpatient (BNVA) | payer OTHER, MEDICAID, SELFPAY | PROVIDERS: PCP Nurse Practitioner; Referring Provider Nurse Practitioner; Visit Provider Student in an Organized Health Care Education/Training Program | DX: J44.9 Chronic obstructive pulmonary disease, unspecified (principal); Z79.899 Other long term (current) drug therapy; Z79.51 Long term (current) use of inhaled steroids; Z99.81 Dependence on supplemental oxygen; F17.210 Nicotine dependence, cigarettes, uncomplicated; G47.30 Sleep apnea, unspecified; I31.39 Other pericardial effusion (noninflammatory); Z23 Encounter for immunization | CPT/HCPCS: 90694R; 99214; G0008 ==

== ENCOUNTER 2023-10-03 01:52 | Outpatient (CLI) | payer OTHER, MEDICAID, SELFPAY ==
[2023-10-03 12:17] LABS: Abs Immature Grans 0.02 10^3/uL (0.0-0.06); Absolute Basophil Count 0.01 10^3/uL (0.0-0.2); Absolute Eosinophil Count 0.03 10^3/uL (0.0-0.7); Absolute Lymphocyte Count 0.85 10^3/uL (1.2-3.4); Absolute Monocyte Count 0.23 10^3/uL (0.1-0.8); Absolute Neutrophil Count 2.38 10^3/uL (1.2-6.7); Basophils % 0.3; Eosinophils % 0.9; HCT 28.8 % (36.0-46.0); HGB 9.3 g/dL (11.2-15.7); Immature Grans % 0.6; Lymphocytes % 24.1; MCH 31.3 pg (27.0-33.0); MCHC 32.3 % (32.0-36.0); MCV 97 fL (80-95); MPV 8.9 fL (8.0-11.0); Monocytes % 6.5; Neutrophils % 67.6; Platelet Count 120 10^3/uL (130-400); RBC 2.97 10^6/uL (3.93-5.22); RDW 12.9 % (11.7-14.6); RDW-SD 45.6 fL; WBC 3.52 10^3/uL (4.4-10.8)
[2023-10-03 13:12] LABS: Vitamin D 25 Total 34.2 ng/mL (30-100)
== END 2023-10-03 01:53 | disposition home or self-care (01) ==
PROVIDERS: PCP Nurse Practitioner; Visit Provider Internal Medicine Hematology
DX: D69.9 Hemorrhagic condition, unspecified; D53.9 Nutritional anemia, unspecified
CPT/HCPCS: 36415; 82306; 85025

== ENCOUNTER → 2023-11-19 14:02 | Outpatient (BNVA) | payer OTHER, MEDICAID, SELFPAY | PROVIDERS: PCP Nurse Practitioner; Visit Provider Physician Assistant | DX: Z95.0 Presence of cardiac pacemaker (principal); R00.1 Bradycardia, unspecified | CPT/HCPCS: 93280 ==

== ENCOUNTER 2024-01-01 04:18 | Outpatient (CLI) | payer OTHER, MEDICAID, SELFPAY ==
[2024-01-01 11:47] LABS: Absolute Basophil Count 0.01 10^3/uL (0.0-0.2); Absolute Eosinophil Count 0.02 10^3/uL (0.0-0.7); Absolute Lymphocyte Count 0.75 10^3/uL (1.2-3.4); Absolute Neutrophil Count 1.96 10^3/uL (1.2-6.7); Basophils % 0.3; Eosinophils % 0.7; HCT 30.9 % (36.0-46.0); HGB 9.7 g/dL (11.2-15.7); Lymphocytes % 25.5; MCH 29.8 pg (27.0-33.0); MCHC 31.4 % (32.0-36.0); MCV 95 fL (80-95); MPV 8.9 fL (8.0-11.0); Monocytes % 6.8; Neutrophils % 66.7; Platelet Count 107 10^3/uL (130-400); RBC 3.25 10^6/uL (3.93-5.22); RDW 13.3 % (11.7-14.6); Reticulocyte 1.5 % (0.5-2.4); WBC 2.94 10^3/uL (4.4-10.8)
[2024-01-01 12:23] LABS: Iron 87 ug/dL (50-170); Total Iron Binding Capacity 324 ug/dL (250-450); Transferrin Sat 27 % (15-50)
[2024-01-01 12:39] LABS: ALT 22 U/L (14-59); AST 17 U/L (15-37); Albumin 3.6 g/dL (3.4-5.0); Alkaline Phosphatase 94 U/L (46-116); Anion Gap 4.5 mmol/L (3-11); BUN 22 mg/dL (7-18); Bilirubin, Total 0.2 mg/dL (0.2-1.0); CO2 32.5 mmol/L (21.0-32.0); CREATININE 1.2 mg/dL (0.55-1.02); Calcium 9.6 mg/dL (8.5-10.1); Chloride 105 mmol/L (98-107); Estimated GFR 49.31 (mL/min/1.73m2); Ferritin 174 ng/mL (8-252); Glucose 90 mg/dL (74-106); Potassium 4.6 mmol/L (3.5-5.1); Sodium 142 mmol/L (136-145); Total Protein 7.4 g/dL (6.4-8.2)
== END 2024-01-01 04:19 | disposition home or self-care (01) ==
PROVIDERS: PCP Nurse Practitioner; Visit Provider Nurse Practitioner Adult Health
DX: D53.9 Nutritional anemia, unspecified (principal)
CPT/HCPCS: 36415; 80053; 82728; 83540; 83550; 85025; 85045

== ENCOUNTER → 2024-03-22 12:36 | Outpatient (BNVA) | payer OTHER, MEDICAID, SELFPAY | PROVIDERS: PCP Nurse Practitioner Family; Referring Provider Nurse Practitioner; Visit Provider Physician Assistant Surgical | DX: F17.210 Nicotine dependence, cigarettes, uncomplicated (principal); J44.9 Chronic obstructive pulmonary disease, unspecified; Z99.81 Dependence on supplemental oxygen; G47.30 Sleep apnea, unspecified; I31.39 Other pericardial effusion (noninflammatory) | CPT/HCPCS: 99214 ==

== ENCOUNTER 2024-05-06 11:54 | Outpatient (REF) | payer OTHER, MEDICAID, SELFPAY ==
[2024-05-06 20:57] LABS: Abs Immature Grans 0.08 10^3/uL (0.0-0.06); Absolute Basophil Count 0.02 10^3/uL (0.0-0.2); Absolute Eosinophil Count 0.02 10^3/uL (0.0-0.7); Absolute Lymphocyte Count 1.02 10^3/uL (1.2-3.4); Absolute Monocyte Count 0.39 10^3/uL (0.1-0.8); Absolute Neutrophil Count 3.96 10^3/uL (1.2-6.7); Basophils % 0.4 %; Eosinophils % 0.4 %; HCT 31.3 % (36.0-46.0); HGB 10.1 g/dL (11.2-15.7); Immature Grans % 1.5 %; Lymphocytes % 18.6 %; MCH 30.5 pg (27.0-33.0); MCHC 32.3 % (32.0-36.0); MCV 95 fL (80-95); MPV 9.2 fL (8.0-11.0); Monocytes % 7.1 %; Platelet Count 151 10^3/uL (130-400); RBC 3.31 10^6/uL (3.93-5.22); RDW 12.1 % (11.7-14.6); RDW-SD 42.3 fL; WBC 5.49 10^3/uL (4.4-10.8)
[2024-05-06 21:04] LABS: Iron 87 ug/dL (50-170); Total Iron Binding Capacity 259 ug/dL (250-450); Transferrin Sat 34 % (15-50)
[2024-05-06 21:19] LABS: ALT 17 U/L (14-59); AST 13 U/L (15-37); Albumin 3.2 g/dL (3.4-5.0); Alkaline Phosphatase 108 U/L (46-116); Anion Gap 4.7 mmol/L (3-11); BUN 19 mg/dL (7-18); Bilirubin, Total 0.1 mg/dL (0.2-1.0); CO2 32.3 mmol/L (21.0-32.0); CREATININE 1.4 mg/dL (0.55-1.02); Calcium 9.3 mg/dL (8.5-10.1); Calculated LDL 69 mg/dL (<100); Chloride 103 mmol/L (98-107); Cholesterol 147 mg/dL (<200); Estimated GFR 40.98 (mL/min/1.73m2); Ferritin 125 ng/mL (8-252); Folate 4.8 ng/mL (8.6-20.0); Glucose 105 mg/dL (74-106); HDL Cholesterol 58 mg/dL (40-60); Potassium 4.7 mmol/L (3.5-5.1); Sodium 140 mmol/L (136-145); Triglyceride 103 mg/dL (<150)
== END 2024-05-06 11:55 | disposition home or self-care (01) ==
LOC: LBN 11:54
PROVIDERS: PCP Nurse Practitioner Family; Visit Provider Nurse Practitioner Family
DX: J44.1 Chronic obstructive pulmonary disease with (acute) exacerbation (principal); N18.9 Chronic kidney disease, unspecified; E03.9 Hypothyroidism, unspecified; D69.6 Thrombocytopenia, unspecified; E78.5 Hyperlipidemia, unspecified; I10 Essential (primary) hypertension
CPT/HCPCS: 80053; 80061; 82728; 82746; 83540; 83550; 84443; 85025

== ENCOUNTER → 2024-05-06 14:43 | Outpatient (CLI) | payer OTHER, MEDICAID, SELFPAY ==
--- NOTE | 2024-05-06 12:15 | DI.RAD_ITS ---
Exam(s) XR CHEST 2V PA LATERAL EXAM: XR CHEST 2V PA LATERAL CLINICAL HISTORY: continued cough, acute exacerbation COPD, J44.1, R05.9. TECHNIQUE: 2D digital imaging was performed. COMPARISON: CR XR CHEST 2V PA LATERAL from 02/18/2022 FINDINGS: 2 views: There has been interval placement of a bipolar left subclavian pacemaker with lead tips in are in RV. Heart size is unchanged the mediastinum is not widened. There is platelike atelectasis in the right lung base unchanged. No new infiltrates nor pleural effu sions. No pulmonary edema. IMPRESSION: No acute pulmonary findings.Scarring or platelike atelectasis again noted in the right lung base. There has been interval placement of a bipolar left subclavian pacemaker. There is no evidence of pu lmonary edema. DATA REPOSITORY: RADIATION DOSE DELIVERED:
== END ==
PROVIDERS: PCP Nurse Practitioner Family; Visit Provider Nurse Practitioner Family
DX: J44.1 Chronic obstructive pulmonary disease with (acute) exacerbation (principal)
CPT/HCPCS: 71046

== ENCOUNTER → 2024-06-11 00:19 | Outpatient (CLI) | payer OTHER, MEDICAID, SELFPAY ==
--- NOTE | 2024-06-11 08:00 | DI.CTLCSR_ITS ---
Exam(s) CT CHEST LUNG CANCER SCREEN EXAM: CT CHEST LUNG CANCER SCREEN CLINICAL HISTORY: Screening for lung cancer,current smoker, f17.210 TECHNIQUE: Imaging Protocol: Axial computed tomography images with coronal and sagittal reformatted images were created and reviewed. Low dose screening protocol. COMPARISON: CT CT CHEST LUNG CANCER SCREEN from 06/10/2023 CR XR CHEST 2V PA LATERAL from 05/06/2024 FINDINGS: Tracheobronchial tree: No bronchiectasis or mucus plugging. Mediastinum and Adriana: No dominant adenopathy or fluid collection. Pulmonary parenchyma: No consolidation or dominant measurable mass. Moderate emphysematous changes. S table area of scarring left upper lobe. Lung Nodules: Stable nodules posterior right upper lobe. Stable tiny nodule right middle lobe. Stable tiny nodule anterior medial left upper lobe. Pleura: No effusion. No pneumothorax. Heart: The heart is mildly dilated. Mild coronary artery calcifications are seen. Trace pericardia l effusion, decreased from prior. Aorta: Thoracic aorta non-dilated. None Pulmonary arteries: Prominent, main pulmonary artery measures 3.9 cm. Upper abdomen: Status post cholecystectomy. Bones: Unremarkable for age. Soft Tissues: Pacemaker over left upper chest. IMPRESSION: No suspicious pulmonary nodules. Lung RADS Cat 2 - Benign Appearance / Behavior: Nodules with a very low likelihood of becoming a clin ically active cancer due to size or lack of growth Lung-RADS 1.0 CATEGORIES: Category 0 - Prior chest CT exam(s) being located for comparison. Category 1 - Annual screening in 12 months. No nodules or definitely benign nodules. Category 2 - Annual screening in 12 months. Benign appearance. Nodules with low likelihood of becomin g active cancer. Category 3 - 6-month follow-up. Probably benign. Short-term follow-up suggested. Nodules with low lik elihood of becoming active cancer. Category 4A - 3-month follow-up and CT/PET if >8 mm in size. Suspicious finding. Findings which requi re additional testing. Category 4B - Findings which require additional testing and tissue sampling. Category 4X - Category 3 or 4 nodules with additional features or imaging findings that increases the suspicion of malignancy. Modifier S- Potentially clinically significant findings (non lung cancer) RADIATION DOSE DELIVERED: 96.16mGy.cm Total DLP DATA REPOSITORY: All CT scans at this facility are submitted to the National Radiology Data Registry (NRDR) Dose Index Registry (DIR) with the [employer] (ACR). RADIATION OPTIMIZATION: All CT scans at this facility use at least one of these dose optimization te chniques: automated exposure control; mA and/or kV adjustment per patient size (includes targeted exa ms where dose is matched to clinical indication); or iterative reconstruction.
== END ==
PROVIDERS: PCP Nurse Practitioner Family; Visit Provider Physician Assistant Surgical
DX: F17.210 Nicotine dependence, cigarettes, uncomplicated (principal)
CPT/HCPCS: 71271

== ENCOUNTER → 2024-09-20 13:02 | Outpatient (BNVA) | payer OTHER, MEDICAID, SELFPAY | PROVIDERS: PCP Nurse Practitioner Family; Referring Provider Nurse Practitioner Family; Visit Provider Physician Assistant Surgical | DX: J44.9 Chronic obstructive pulmonary disease, unspecified (principal); Z99.81 Dependence on supplemental oxygen; G47.30 Sleep apnea, unspecified; I31.39 Other pericardial effusion (noninflammatory); F17.210 Nicotine dependence, cigarettes, uncomplicated | CPT/HCPCS: 99214 ==

== ENCOUNTER 2024-11-17 04:32 | Outpatient (CLI) | payer OTHER, MEDICAID, SELFPAY ==
[2024-11-17 13:59] LABS: HCT 36.3 % (36.0-46.0); HGB 11.8 g/dL (11.2-15.7); MCH 31.1 pg (27.0-33.0); MCHC 32.5 % (32.0-36.0); MCV 96 fL (80-95); MPV 8.8 fL (8.0-11.0); Platelet Count 101 10^3/uL (130-400); RDW 11.8 % (11.7-14.6); WBC 3.37 10^3/uL (4.4-10.8)
[2024-11-17 14:44] LABS: ALT 16 U/L (14-59); AST 17 U/L (15-37); Albumin 3.8 g/dL (3.4-5.0); Alkaline Phosphatase 110 U/L (46-116); Anion Gap 6.6 mmol/L (3-11); BUN 22 mg/dL (7-18); Bilirubin, Total 0.24 mg/dL (0.2-1.0); CO2 30.4 mmol/L (21.0-32.0); CREATININE 1.3 mg/dL (0.55-1.02); Calcium 10.2 mg/dL (8.5-10.1); Calculated LDL 75 mg/dL (<100); Chloride 104 mmol/L (98-107); Cholesterol 181 mg/dL (<200); Estimated GFR 44.51 (mL/min/1.73m2); Glucose 97 mg/dL (74-106); HDL Cholesterol 79 mg/dL (40-60); Potassium 4.6 mmol/L (3.5-5.1); Sodium 141 mmol/L (136-145); TSH (W/Ref FT4) 0.91 uIU/mL (0.36-3.74); Total Protein 7.8 g/dL (6.4-8.2); Triglyceride 137 mg/dL (<150)
== END 2024-11-17 04:33 | disposition home or self-care (01) ==
LOC: LBO 04:33
PROVIDERS: PCP Nurse Practitioner Family; Visit Provider Nurse Practitioner Family
DX: D64.9 Anemia, unspecified (principal); Z00.00 Encounter for general adult medical examination without abnormal findings; F41.9 Anxiety disorder, unspecified; I10 Essential (primary) hypertension; E78.5 Hyperlipidemia, unspecified; I48.0 Paroxysmal atrial fibrillation; E03.9 Hypothyroidism, unspecified; K21.9 Gastro-esophageal reflux disease without esophagitis; J44.9 Chronic obstructive pulmonary disease, unspecified; J96.91 Respiratory failure, unspecified with hypoxia; G47.30 Sleep apnea, unspecified; F17.210 Nicotine dependence, cigarettes, uncomplicated
CPT/HCPCS: 36415; 80053; 80061; 85027; 93280; 84443

== ENCOUNTER 2024-11-17 07:53 | Outpatient (CLI) | payer OTHER, MEDICAID, SELFPAY ==
--- NOTE | 2024-11-17 07:45 | RT.EKG_ITS ---
APPROVED REPORT Exam: Resting ECG Reason for Exam: afib Patient Location: O HR:75 bpm ECG Measurements Heart Rate 75 AXIS MO 164 P 57 QRSd 103 QRS 75 QT 367 T 28 QTc 410 Conclusion Sinus rhythm...normal P axis, V-rate 50- 99 Supraventricular bigeminy...bigeminy string>4 w/ SV complexes RSR' in V1 or V2, probably normal variant...small R' only
== END 2024-11-17 07:54 | disposition home or self-care (01) ==
LOC: DI.CARD 07:54
PROVIDERS: PCP Nurse Practitioner Family; Visit Provider Student in an Organized Health Care Education/Training Program
DX: R00.1 Bradycardia, unspecified (principal); Z95.0 Presence of cardiac pacemaker; I48.91 Unspecified atrial fibrillation
CPT/HCPCS: 93010

== ENCOUNTER 2025-02-04 09:36 | Outpatient (CLI) | payer MEDICARE, MEDICAID, SELFPAY ==
--- NOTE | 2025-02-04 09:30 | DI.RAD_ITS ---
Exam(s) XR CHEST 2V PA LATERAL EXAM: XR CHEST 2V PA LATERAL CLINICAL HISTORY: cough, chest congestion and tightness, COPD, atypical chest pain, J44.9. TECHNIQUE: 2D digital imaging was performed. COMPARISON: CR XR CHEST 2V PA LATERAL from 05/06/[address] CHEST LUNG CANCER SCREEN from 06/11/2024 FINDINGS: 2 views: Bipolar left subclavian pacemaker noted with lead tips in RA and RV Heart size is slightly prominent. The mediastinum is not widened. Left lung is clear. There is slightly increased markings in the right lung base seen on the frontal view; less evident on the lateral view. There are no pleural effusions. No pulmonary edema. IMPRESSION: Mild cardiomegaly. Bipolar pacemaker. No pulmonary edema. Mildly increased markings in the medial right lung base which may represent early infiltrate. There are no pleural effusions. DATA REPOSITORY: RADIATION DOSE DELIVERED:
== END 2025-02-04 09:56 ==
PROVIDERS: PCP Nurse Practitioner Family; Visit Provider Nurse Practitioner Family
DX: J44.9 Chronic obstructive pulmonary disease, unspecified (principal); R07.89 Other chest pain
CPT/HCPCS: 71046

== ENCOUNTER 2025-02-04 11:04 | Outpatient (CLI) | payer MEDICARE, MEDICAID, SELFPAY ==
[2025-02-04 12:16] LABS: HCT 33.1 % (36.0-46.0); HGB 10.7 g/dL (11.2-15.7); MCH 31.5 pg (27.0-33.0); MCHC 32.3 % (32.0-36.0); MCV 97 fL (80-95); MPV 8.7 fL (8.0-11.0); Platelet Count 104 10^3/uL (130-400); RDW 12.6 % (11.7-14.6); RDW-SD 44.9 fL; WBC 3.12 10^3/uL (4.4-10.8)
[2025-02-04 13:01] LABS: Anion Gap 9.5 mmol/L (3-11); BUN 17 mg/dL (7-18); CO2 33.5 mmol/L (21.0-32.0); CREATININE 1.2 mg/dL (0.55-1.02); Calcium 10.3 mg/dL (8.5-10.1); Chloride 104 mmol/L (98-107); Glucose 110 mg/dL (74-106); NT-proBNP 338 pg/mL (<300); Potassium 4.6 mmol/L (3.5-5.1); Sodium 147 mmol/L (136-145)
== END 2025-02-04 11:05 | disposition home or self-care (01) ==
LOC: LBO 11:07
PROVIDERS: PCP Nurse Practitioner Family; Visit Provider Nurse Practitioner Family
DX: J44.9 Chronic obstructive pulmonary disease, unspecified (principal); R60.0 Localized edema
CPT/HCPCS: 36415; 80048; 85027; 83880

== ENCOUNTER 2025-05-17 03:40 | Outpatient (CLI) | payer MEDICARE, MEDICAID, SELFPAY ==
[2025-05-17 15:04] LABS: BE 7 mmol/L (-2-3); FIO2L 3 L; HCO3 32 mmol/L (22-26); Site Right Radial; pCO2 53 mmHg (35-45); pH 7.39 (7.35-7.45); pO2 64 mmHg (80-105); sO2 93 % (95-98); tCO2 30 mmol/L (23-27)
[2025-05-17] MEDS: Inhaler, Assist Device 1 EACH MC (16:24)
[2025-05-17] MEDS: Levalbuterol HFA 15 GM INH 4 PUFF IH (16:24)
--- NOTE | 2025-06-05 09:24 | W.PFT ---
Date of service: 06/16/25 Time of Service: 15:09 Pulmonary Function Test Result Indications: COPD Interpretation Spirometry: There is very severe airflow limitation. Significant bronchodilator response. Lung Volumes: There is air trapping and hyperinflation Diffusion Capacity: Severely reduced diffusion Airway Pressure: Increased airways resistance Impression Very severe airflow limitation with air trapping and a severely reduced diffusion Clinical Correlation therefore is recommended.
== END 2025-05-17 03:41 | disposition home or self-care (01) ==
LOC: RT 03:40
PROVIDERS: Internal Medicine Pulmonary Disease; PCP Nurse Practitioner Family; Visit Provider Student in an Organized Health Care Education/Training Program
DX: J44.9 Chronic obstructive pulmonary disease, unspecified (principal); Z87.891 Personal history of nicotine dependence
CPT/HCPCS: 82805; 94060; 94726; 94729; 36600

== ENCOUNTER 2025-07-01 01:41 | Outpatient (CLI) | payer MEDICARE, MEDICAID, SELFPAY ==
--- NOTE | 2025-07-01 | DI.CTLCSR_ITS ---
Exam(s) CT CHEST LUNG CANCER SCREEN EXAM: CT CHEST LUNG CANCER SCREEN CLINICAL HISTORY: COPD WO EXACERBATION, J44.9 LUNG CANCER SCREENING, SMOKING HX Z87.907 TECHNIQUE: Imaging Protocol: Axial computed tomography images with coronal and sagittal reformatted images were created and reviewed. Low dose screening protocol. COMPARISON: CT CT CHEST LUNG CANCER SCREEN from 06/22/[address] CHEST LUNG CANCER SCREEN from 06/05/[address] CHEST LUNG CANCER SCREEN from 06/10/[address] CHEST LUNG CANCER SCREEN from 06/11/2024 FINDINGS: Tracheobronchial tree: No bronchiectasis or mucus plugging. Mediastinum and Adriana: No dominant adenopathy or fluid collection. Pulmonary parenchyma: No consolidation or dominant measurable mass. Moderate emphysematous changes in both upper and lower lobes.. Scarring left upper lobe. Lung Nodules: Increase in size of previously noted pleural based nodule at the posterior right upper lobe, now measuring 8 x 5 by 9 millimeters compared with 4 by 5 millimeters on prior exams. 3 millimeter right middle lobe nodule is stable. 3 millimeter nodule medial left upper lobe is also stable. Pleura: No effusion. No pneumothorax. Heart: The heart is mildly dilated. Mild coronary artery calcifications are seen. No pericardial effusion. Pacemaker leads noted right ventricle. Aorta: Thoracic aorta non-dilated. Stable mildly dilated pulmonary arteries. Upper abdomen: Cholecystectomy. Biliary air again noted. Bones: Unremarkable for age. Soft Tissues: Pacemaker over left pectoral muscle. IMPRESSION: Increase in size of posterior right upper lobe nodule, now measuring 8 x 5 x 9 millimeters. Lung RADS Cat 4A - Suspicious: Findings for which additional diagnostic testing and/or tissue sampling recommended Lung-RADS 1.0 CATEGORIES: Category 0 - Prior chest CT exam(s) being located for comparison. Category 1 - Annual screening in 12 months. No nodules or definitely benign nodules. Category 2 - Annual screening in 12 months. Benign appearance. Nodules with low likelihood of becoming active cancer. Category 3 - 6-month follow-up. Probably benign. Short-term follow-up suggested. Nodules with low likelihood of becoming active cancer. Category 4A - 3-month follow-up and CT/PET if >8 mm in size. Suspicious finding. Findings which require additional testing. Category 4B - Findings which require additional testing and tissue sampling. Category 4X - Category 3 or 4 nodules with additional features or imaging findings that increases the suspicion of malignancy. Modifier S- Potentially clinically significant findings (non lung cancer) RADIATION DOSE DELIVERED: Total DLP DATA REPOSITORY: All CT scans at this facility are submitted to the National Radiology Data Registry (NRDR) Dose Index Registry (DIR) with the [employer] (ACR). RADIATION OPTIMIZATION: All CT scans at this facility use at least one of these dose optimization techniques: automated exposure control; mA and/or kV adjustment per patient size (includes targeted exams where dose is matched to clinical indication); or iterative reconstruction.
== END 2025-07-01 02:01 ==
PROVIDERS: PCP Nurse Practitioner Family; Visit Provider Internal Medicine Pulmonary Disease
DX: Z12.2 Encounter for screening for malignant neoplasm of respiratory organs (principal); Z87.891 Personal history of nicotine dependence; R91.8 Other nonspecific abnormal finding of lung field
CPT/HCPCS: 71271

== ENCOUNTER 2025-10-18 13:50 | Outpatient (CLI) | payer MEDICARE, MEDICAID, SELFPAY ==
[2025-10-18 15:55] LABS: HCT 35.4 % (36.0-46.0); HGB 11.3 g/dL (11.2-15.7); MCH 30.9 pg (27.0-33.0); MCHC 31.9 % (32.0-36.0); MCV 97 fL (80-95); MPV 9.7 fL (8.0-11.0); Platelet Count 159 10^3/uL (130-400); RBC 3.66 10^6/uL (3.93-5.22); RDW 12.0 % (11.7-14.6); RDW-SD 42.7 fL; WBC 8.99 10^3/uL (4.4-10.8)
== END 2025-10-18 13:51 | disposition home or self-care (01) ==
LOC: LOS 13:51
PROVIDERS: PCP Nurse Practitioner Family; Visit Provider Nurse Practitioner Family
DX: R06.02 Shortness of breath (principal); R60.0 Localized edema; J44.9 Chronic obstructive pulmonary disease, unspecified
CPT/HCPCS: 36415; 80053; 85027; 83880

== ENCOUNTER 2025-11-09 10:47 | Outpatient (CLI) | payer MEDICARE, MEDICAID, SELFPAY ==
[2025-11-09 12:26] LABS: ALT 20 U/L (10-49); AST 20 U/L (<34); Albumin 4.1 g/dL (3.2-5.0); Alkaline Phosphatase 65 U/L (46-116); Anion Gap 7.5 mmol/L (3-11); BUN 22 mg/dL (9-23); Bilirubin, Total 0.2 mg/dL (0.2-1.2); CO2 29.5 mmol/L (20.0-31.0); Calcium 9.6 mg/dL (8.3-10.6); Chloride 102 mmol/L (98-107); Glucose 114 mg/dL (74-106); Potassium 4.9 mmol/L (3.5-5.1); Sodium 139 mmol/L (136-145); Total Protein 6.7 g/dL (5.7-8.2)
[2025-11-11 11:04] LABS: Alpha 1 Antitrypsin,Serum 183 mg/dL (90-200)
== END 2025-11-09 10:48 | disposition home or self-care (01) ==
LOC: LBO 10:47
PROVIDERS: PCP Nurse Practitioner Family; Visit Provider Family Medicine
DX: J44.9 Chronic obstructive pulmonary disease, unspecified (principal); R60.0 Localized edema; Z99.81 Dependence on supplemental oxygen
CPT/HCPCS: 36415; 80053; 81332; 82103

== ENCOUNTER 2025-11-16 00:49 | Outpatient (CLI) | payer MEDICARE, MEDICAID, SELFPAY ==
[2025-11-16 12:49] LABS: HCT 29.6 % (36.0-46.0); HGB 9.3 g/dL (11.2-15.7); MCH 31.0 pg (27.0-33.0); MCHC 31.4 % (32.0-36.0); MCV 99 fL (80-95); MPV 7.9 fL (8.0-11.0); Platelet Count 107 10^3/uL (130-400); RBC 3.00 10^6/uL (3.93-5.22); RDW 12.4 % (11.7-14.6); RDW-SD 44.7 fL; WBC 6.93 10^3/uL (4.4-10.8)
[2025-11-16 13:51] LABS: TSH (W/Ref FT4) 0.44 uIU/mL (0.55-4.78)
[2025-11-16 13:58] LABS: ALT 18 U/L (10-49); AST 21 U/L (<34); Albumin 4.0 g/dL (3.2-5.0); Alkaline Phosphatase 56 U/L (46-116); Anion Gap 4 mmol/L (3-11); BUN 27 mg/dL (9-23); Bilirubin, Total 0.4 mg/dL (0.2-1.2); CO2 33.0 mmol/L (20.0-31.0); Calcium 9.8 mg/dL (8.3-10.6); Chloride 104 mmol/L (98-107); Cholesterol 165 mg/dL (<200); Glucose 134 mg/dL (74-106); HDL Cholesterol 94 mg/dL (>or=50); Potassium 5.7 mmol/L (3.5-5.1); Sodium 141 mmol/L (136-145); Total Protein 6.6 g/dL (5.7-8.2)
== END 2025-11-16 00:50 | disposition home or self-care (01) ==
PROVIDERS: PCP Nurse Practitioner Family; Visit Provider Nurse Practitioner Family
DX: E78.5 Hyperlipidemia, unspecified (principal); E03.9 Hypothyroidism, unspecified; I10 Essential (primary) hypertension
CPT/HCPCS: 36415; 80053; 80061; 85027; 84439; 84443

== ENCOUNTER 2025-11-22 18:32 | Observation (INO) | payer MEDICARE, MEDICAID, SELFPAY ==
[2025-11-22] VITALS (19 sets, daily range): BP systolic 121–154; BP diastolic 54–61; PULSE 93–106; RESP 18–19; TEMP 37.4–38.2; O2SAT 72–99
--- NOTE | 2025-11-22 18:30 | RT.EKG_ITS ---
APPROVED REPORT Exam: Resting ECG Reason for Exam: SOB Patient Location: E HR:100 bpm ECG Measurements Heart Rate 100 AXIS OH 125 P 78 QRSd 89 QRS 85 QT 306 T 59 QTc 395 Conclusion Sinus tachycardia...rate> 99
--- NOTE | 2025-11-22 18:45 | DI.RAD_ITS ---
Exam(s) XR CHEST 2V PA LATERAL EXAM: XR CHEST 2V PA LATERAL CLINICAL HISTORY: cough, resp distress. TECHNIQUE: 2D digital imaging was performed. COMPARISON: CR XR CHEST 2V PA LATERAL from 02/04/2025 FINDINGS: 2 views: Bipolar left subclavian pacemaker is again noted. Mild cardiomegaly. Mediastinum is not widened. There infiltrates in both lower lobes. There also small bilateral pleural effusions. No pulmonary edema. IMPRESSION: Bilateral lower lobe infiltrates and small bilateral pleural effusions. DATA REPOSITORY: RADIATION DOSE DELIVERED:
--- NOTE | 2025-11-22 19:00 | ED.GENADUL_ITS ---
Discharge Plan Disposition Patient Disposition: Admit to [facility] Condition: Critical Discharge Details Clinical Impression: Acute exacerbation of chronic obstructive pulmonary disease Primary Care Provider: Marjorie Lucero ED Provider: Jesus Mak Home Meds and New Rx's Prescriptions: No Action furosemide [Lasix] 20 mg tablet 20 mg PO QAM Qty: 90 1RF (DME) Oxygen Tank See Rx Instructions .ROUTE .MEDSUPPLY Qty: 1 Rx Instructions: use 3L per minute continuously, including bled into her BiPAP. B-100 Complex 100 mg tablet extended release 1 tab PO DAILY Qty: 90 3RF morphine concentrate 100 mg/5 mL (20 mg/mL) solution See Rx Instructions sublingual Q1H PRN MDD 2ml PRN (Reason: shortness of breath) Qty: 30 0RF Rx Instructions: 0.25-0.5ml SL Q3H PRN PRN; lorazepam 1 mg tablet 1 mg PO DAILY MDD 1 tab PRN (Reason: anxiety, shortness of breath) Qty: 30 1RF prednisone 5 mg tablet 5 mg PO DIRECTED Qty: 49 0RF Rx Instructions: 40 mg x 2 days, 30 mg x 2 days, 20 mg x 2 days, 15 mg x 2 days, 10 mg x 2 days, 5 mg x 2 days, 2.5 mg x 2 days, then stop. Hospital Bed EACH Miscellaneous ONCE Qty: 1 0RF Rx Instructions: Maintain head elevation to breathing comfort, @ 40-45' as discussed aspirin 81 mg tablet,delayed release (DR/EC) 81 mg PO DAILY Rx Instructions: 05/11/21-[facility] hem onc; OK to continue ASA 81mg daily as long as platelet count is >25K. Channing Lopez MD albuterol sulfate 90 mcg/actuation HFA aerosol inhaler See Rx Instructions .ROUTE .COMPLEX Qty: 8.5 12RF Dose Instruction: INHALE 2 PUFFS BY MOUTH EVERY 4 HOURS Rx Instructions: INHALE 2 PUFFS BY MOUTH EVERY 4 HOURS ipratropium-albuterol 0.5 mg-3 mg(2.5 mg base)/3 mL solution for nebulization See Rx Instructions .ROUTE .COMPLEX Qty: 180 12RF Dose Instruction: INHALE THE CONTENTS OF ONE VIAL VIA NEBULIZER TWO TIMES A DAY Rx Instructions: INHALE THE CONTENTS OF ONE VIAL VIA NEBULIZER TWO TIMES A DAY roflumilast 500 mcg tablet See Rx Instructions .ROUTE .COMPLEX Qty: 90 3RF Dose Instruction: TAKE ONE TABLET BY MOUTH EVERY DAY Rx Instructions: TAKE ONE TABLET BY MOUTH EVERY DAY omeprazole 40 mg capsule,delayed release(DR/EC) 40 mg PO DAILY Qty: 90 3RF lisinopril 40 mg tablet See Rx Instructions .ROUTE .COMPLEX Qty: 90 3RF Dose Instruction: TAKE ONE TABLET BY MOUTH ONCE DAILY Rx Instructions: TAKE ONE TABLET BY MOUTH ONCE DAILY Breztri Aerosphere 160-9-4.8 mcg/actuation HFA aerosol inhaler 2 inh inhalation QAM AND QPM Qty: 10.7 3RF naloxone [Narcan] 4 mg/actuation spray,non-aerosol 4 mg intranasal Q2M PRN (Reason: opioid overdose) Qty: 2 2RF Rx Instructions: spray 1 dose into ONE nostril; alternate nostrils w each dose until help arrives pravastatin 20 mg tablet 20 mg PO HS Qty: 90 3RF trazodone 100 mg tablet 200 mg PO QHS PRN (Reason: sleep) Qty: 60 1RF levothyroxine [Synthroid] 25 mcg tablet 25 mcg PO Q OTHER DAY HPI General Mode of arrival: EMS . Date/Time Provider Initiated Documentation: 11/22/25 18:36 . Limitations to Documentation: no limitations . Information obtained by: patient . HPI Narrative: HISTORY OF PRESENT ILLNESS 75-year-old female with multiple medical problems including COPD presenting with respiratory distress. Patient has been experiencing dyspnea most of the day with intermittent relief. Fever of 103?F. Cough frequency unchanged. Oxygen saturation typically 92%. No current pain. No recent steroid therapy. Fully vaccinated against influenza, COVID-19, and RSV. Nebulizer treatment during ambulance transport was beneficial. Reports fatigue but improved breathing since ambulance transport. Uses nebulizer with albuterol and Breztri, and phenobarbital for lung relaxation. Compliant with nebulizer treatments and uses CPAP nightly. Home oxygen therapy set at 3 liters continuously. Patient denies associated chest pain. No leg swelling. No calf pain. Related Data Home Medications ?Medication ?Instructions ?Recorded ?Confirmed aspirin 81 mg tablet,delayed 81 mg PO DAILY Reported b y patient. 05/18/21 11/22/25 release Oxygen #1 ea 06/07/21 11/22/25 albuterol sulfate 90 mcg/actuation See Rx Instructions .Route 01/23/24 11/22/25 aerosol inhaler .COMPLEX #8.5 grams vit B complex 100 combo no.2 100 1 tab PO DAILY #90 ta bs 11/09/24 11/22/25 mg tablet,extended release (B-100 Complex ER) Held on 11/22/25. Instructions: Pt Stopped/Never Started ipratropium 0.5 mg-albuterol 3 mg See Rx Instructions .Route 12/06/24 11/22/25 (2.5 mg base)/3 mL nebulization .COMPLEX #180 mL soln roflumilast 500 mcg tablet See Rx Instructions .Route 05/16/25 11/22/25 .COMPLEX #90 tabs omeprazole 40 mg capsule,delayed 40 mg PO DAILY #90 ca ps 06/06/25 11/22/25 release lisinopril 40 mg tablet See Rx Instructions .Route 0 07/20/25 11/22/25 .COMPLEX #90 tabs furosemide 20 mg tablet (Lasix) 20 mg PO QAM #90 tabs 10/18/25 11/22/25 budesonide 160 mcg-glycopyr 9 2 inh inhalation QAM AND QPM #10.7 10/26/25 11/22/25 mcg-formot 4.8 mcg/actuation HFA grams inhaler (Breztri Aerosphere) prednisone 5 mg tablet 5 mg PO DIRECTED #49 tabs 11/03/25 11/22/25 naloxone 4 mg/actuation nasal 4 mg intranasal Q2M PRN opioid 11/09/25 11/22/25 spray (Narcan) overdose #2 ea pravastatin 20 mg tablet 20 mg PO HS #90 tab-caps 11/22/25 trazodone 100 mg tablet 200 mg (2 x 100 mg) PO QHS P RN 11/15/25 11/22/25 sleep #60 tabs lorazepam 1 mg tablet 1 mg PO DAILY PRN anxiety, 1 01/22/25 11/22/25 shortness of breath #30 tabs morphine concentrate 100 mg/5 mL See Rx Instructions s ublingual Q1H 11/21/25 11/22/25 (20 mg/mL) oral solution PRN PRN shortness of breath #30 mL levothyroxine 25 mcg tablet 25 mcg PO Q OTHER DAY 11/0111/22/25 (Synthroid) Previous Rx's ?Medication ?Instructions ?Recorded albuterol sulfate 90 mcg/actuation See Rx Instructions .Route 01/23/24 aerosol inhaler .COMPLEX #8.5 grams vit B complex 100 combo no.2 100 1 tab PO DAILY #90 ta bs 11/09/24 mg tablet,extended release (B-100 Complex ER) Held on 11/22/25. Instructions: Pt Stopped/Never Started ipratropium 0.5 mg-albuterol 3 mg See Rx Instructions .Route 12/06/24 (2.5 mg base)/3 mL nebulization .COMPLEX #180 mL soln roflumilast 500 mcg tablet See Rx Instructions .Route 05/16/25 .COMPLEX #90 tabs omeprazole 40 mg capsule,delayed 40 mg PO DAILY #90 ca ps 06/06/25 release lisinopril 40 mg tablet See Rx Instructions .Route 0 07/20/25 .COMPLEX #90 tabs furosemide 20 mg tablet (Lasix) 20 mg PO QAM #90 tabs 10/18/25 budesonide 160 mcg-glycopyr 9 2 inh inhalation QAM AND QPM #10.7 10/26/25 mcg-formot 4.8 mcg/actuation HFA grams inhaler (Breztri Aerosphere) prednisone 5 mg tablet 5 mg PO DIRECTED #49 tabs 11/03/25 naloxone 4 mg/actuation nasal 4 mg intranasal Q2M PRN opioid 11/09/25 spray (Narcan) overdose #2 ea pravastatin 20 mg tablet 20 mg PO HS #90 tab-caps trazodone 100 mg tablet 200 mg (2 x 100 mg) PO QHS P RN 11/15/25 sleep #60 tabs lorazepam 1 mg tablet 1 mg PO DAILY PRN anxiety, 1 01/22/25 shortness of breath #30 tabs morphine concentrate 100 mg/5 mL See Rx Instructions s ublingual Q1H 11/21/25 (20 mg/mL) oral solution PRN PRN shortness of breath #30 mL Allergies Allergy/AdvReac Type Severity Reaction Status Date / Time Sulfa (Sulfonamide Allergy Severe Pruritis, Verified 11/22/25 20:30 Antibiotics) rash citalopram Allergy Intermediate rash, H/A, Verified 11/22/25 20:30 stomach pain hydrochlorothiazide Allergy Intermediate itching, Verified 11/22/25 20:30 gas adhesive tape AdvReac Unknown some cause Verified 11/22/25 20:30 Rash mirtazapine AdvReac Diarrhea Verified 11/22/25 20:30 General Stated Complaint: RespSymp MARANDA: 2 Exam Const General: cooperative Nutritional Appearance: well nourished Orientation: alert and awake HENMT Mouth: moist mucous membranes Eyes Conjunctivae: normal conjunctivae Sclera: normal sclerae Neck Neck: trachea midline, supple and no JVD Resp Effort & Inspection: labored, no pursed lip breathing and tachypneic Auscultation: diminished lung sounds bilaterally and wheezes expiratory wheezes (mild) Cardio Rate: tachycardic Rhythm: regular rhythm Heart Sounds: no murmurs GI Palpation: soft, not firm, no guarding, no masses, not rigid and nontender Skin General skin exam: no rashes or lesions noted Neuro General: patient alert, patient awake, patient oriented x3 and tone normal Extrem General: no calf tenderness and no edema Psych Appearance: grossly normal Mental Status: mental status grossly normal Course Vital Signs Vital signs: Vital Signs Temperature 38.2 C H 11/22/25 18:39 Pulse 100 H 11/22/25 18:39 Respiratory Rate 18 11/22/25 18:39 Blood Pressure 154/61 H 11/22/25 18:39 Pulse Oximetry 72 L 11/22/25 18:39 Temperature 38.2 C H 11/22/25 18:39 Pulse 100 H 11/22/25 18:39 Respiratory Rate 18 11/22/25 18:39 Blood Pressure 154/61 H 11/22/25 18:39 Pulse Oximetry 93 11/22/25 18:49 Oxygen Delivery Method OxyMask 11/22/25 18:49 Oxygen Flow Rate 3 11/22/25 18:49 Lab/Test Results Lab/Test Results: 11/22/25 18:38 Blood Blood Culture - Pending 11/22/25 18:38 Blood Blood Culture - Pending Medical Decision Making ASSESSMENT AND PLAN Initial Assessment: 75-year-old female with multiple medical problems including COPD, smoker, presenting with respiratory distress, dyspnea and increased fatigue. EMS noted fever. Patient dyspnea improved after neb provided by EMS. Patient saturating in the low 70s, tachycardic and febrile on arrival. Oxygen saturations have improved with supplemental oxygen post neb by EMS. Patient currently saturating in the low 90s on Ventimask at 3 L. Respiratory therapy has been consulted and at bedside to assist in care. Differential Diagnosis: Acute exacerbation of COPD, concern for pneumonia versus bronchitis, consider COVID and influenza ED Course: - Screening EKG was reviewed interpreted by me: Please report, sinus tachycardia rate 100, normal axis, nondiagnostic, no STEMI. - Will treat COPD with Solu-Medrol IV and additional nebs as needed. RT consulted. - Will obtain blood cultures and lactate. Chest x-ray pending. 908 --chest x-ray reviewed and interpreted by radiology: Findings consistent with right lower lobe pneumonia. Small amount of right pleural fluid may be present. Cardiomegaly. Labs reviewed and no leukocytosis. Normal lactate. BNP is elevated at 1094. Given underlying lung disease, plan to hospitalize for IV antibiotics. Ceftriaxone and azithromycin IV ordered. Clinical Impression: - Acute exacerbation of COPD Dispo: This document was written with the assistance of GABE Gray. The patient con sented to its use. Quality:SDOH Health Related Social Needs: Health related social needs lonely/isolated Critical Care Time Critical Care Time Critical Care Time: Yes Total Critical Care Time: 40 Attestation: Due to a high probability of clinically significant, life threatening deterioration, the patient required my highest level of preparedness to i ntervene emergently and I personally spent this critical care time directly and personally managing the patient. This critical care time included obtaining a history; examining the patient; pulse oximetry; ordering and review of studies; arranging urgent treatment with development of a management plan; evaluation of patient's response to treatment; frequent reassessment; and, discussions with other providers. This critical care time was performed to assess and manage the high probability of imminent, life-threatening deterioration that could result in multi-organ failure. It was exclusive of separately billable procedures and treating other patients and teaching time. Please see MDM section and the rest of the note for further information on patient assessment and treatment. PFSH All Active Problems (Updated 11/22/25 @ 19:09 by Jesus Mak MD) Acute exacerbation of chronic obstructive pulmonary disease (Acute) Afib (Chronic) Traumatic closed displaced fracture of base of metacarpal bone of left thumb (Acute) Open fracture of base of distal phalanx of left thumb (Acute) Edema, lower extremity (Acute) Advanced care planning/counseling discussion (Acute) Patient cannot afford medications (Acute) Macular degeneration (Acute) Osteopenia (Acute) Pericardial effusion (Acute) Pacemaker (Acute ~01/10/23) 01/10/23 Dr Jaden Cox EPS for sinus node dysfxn Medtronic dual chamber Axure complications post pacer of hydropneumothorax and pleural effusion requiring tap and chest tube-all have resolved RH Otitis externa (Acute) Chronic pain (Chronic) shoulder/back Nicotine dependence, cigarettes, uncomplicated (Acute) Hyperkalemia (Acute) Bradycardia (Acute) 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- per [facility] neurosurgery progress note; nAnabelle Bagley APRN Left breast mass (Acute) Personal history of nicotine dependence (Acute) DNR (do not resuscitate) (Acute) Respiratory failure with hypoxia (Acute) Oxygen dependent Acute exacerbation of chronic obstructive pulmonary disease (Acute) Acute kidney injury superimposed on chronic kidney disease (Acute) Community acquired pneumonia (Acute) Anemia, macrocytic (Chronic) If hgb <9.5 consistently, discuss Erythropoietin stimulalting agents to avoid RBC tranfusions per note [facility] 10/19/22 03/05/23 Hem/Onc Cigarette nicotine dependence (Acute) Chronic obstructive pulmonary disease (Chronic 05/08/17) O2 Dependent, Emphysematous per CT Chest (2018). New development of nodules noted on CT (01/2018) Right wrist sprain (Acute) Vitamin D deficiency (Acute) Frequent falls (Acute) Memory changes (Acute) Leukopenia (Acute) mild with normal ANC per Dr. Lopez Bradycardia (Acute) 12/23 working with [facility] to get pacemaker Hypertension (Chronic) Cellulitis of toe of left foot (Acute) Cataract (Chronic) Otitis media (Acute) Pancytopenia (Acute) Thrombocytopenia (Chronic) 03/05/23 Hem Anemia (Chronic) Bone pain (Acute) Atypical chest pain (Acute 05/08/17) Idiopathic peripheral neuropathy (Acute) Thrombotic stroke (Acute) Cerebral aneurysm (Acute) Urinary incontinence (Acute 05/08/17) Sleep apnea (Chronic 05/08/17) Bi-PAP w/02 at 3L Situational depression (Acute 05/08/17) Positive CÉSAR (antinuclear antibody) (Acute 05/08/17) Supplemental oxygen dependent (Acute 05/30/17) Osteopenia (Acute 05/08/17) Insomnia (Acute 05/08/17) Idiopathic neuropathy (Acute 08/18/17) Hypothyroidism (Acute 05/08/17) Hyperlipidemia (Acute 05/08/17) Gastroesophageal reflux disease (Acute 05/08/17) Episodic atrial fibrillation (Acute 05/08/17) Adult BMI 45.0-49.9 kg/sq m (Acute 11/06/17) Arthralgia (Acute 05/08/17) Anxiety (Acute 05/08/17) Medical History Palliative care patient Palliative care encounter Cellulitis and abscess of trunk (05/08/17) History of rheumatic fever (05/08/17) BP (high blood pressure) (05/08/17) w/o Hypertension Surgical History S/P breast biopsy, left (02/19/22) [facility] History of bone marrow biopsy 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 CAD (coronary artery disease) COPD (chronic obstructive pulmonary disease) Alcohol use disorder Dementia Diabetes Hypertension Substance use disorder Father , Heart Attack at age 72. CAD (coronary artery disease) COPD (chronic obstructive pulmonary disease) Alcohol use disorder Cancer Heart disease Brother Neoplasm Cell Alcohol use disorder Cancer Diabetes Sister Neoplasm Ovarain Cancer Depression Substance use disorder Daughter Depression Son Alcohol use disorder Maternal Grandmother No problems noted. Maternal Grandfather No problems noted. Paternal Grandmother No problems noted. Paternal Grandfather No problems noted. Social History Smoking/Tobacco Use Status: Current every day Tobacco Type: cigarettes Smoking packs per day: 1 Smoking cigarettes per day: 20.0 Years smoked: 55 Smoking pack- years: 55.00 Tobacco: How many years used: 62 Quit status: not considering quitting Smoking risk assessment performed?: Yes Alcohol Intake: former Drug use: Never Substance use type: does not use Household members: family Communication Needs: Corrective Lenses Pets and animals: Yes (3 cats and 4 dogs) Seatbelt use: always Do you feel safe at home: Yes Do you feel safe in your relationship?: Yes
[2025-11-22 19:15] LABS: BE (Venous) 5 mmol/L (-2-3); HCO3 (Venous) 30 mmol/L (23-28); O2 Sat (Venous) 83 %; TCO2 (Venous) 28 mmol/L (24-29); pCO2 (Venous) 46 mmHg (41-51); pO2 (Venous) 44 mmHg
[2025-11-22 19:16] LABS: Abs Immature Grans 0.04 10^3/uL (0.0-0.06); HCT 31.7 % (36.0-46.0); HGB 9.9 g/dL (11.2-15.7); Immature Grans % 0.5 %; MCH 31.1 pg (27.0-33.0); MCHC 31.2 % (32.0-36.0); MCV 100 fL (80-95); MPV 8.8 fL (8.0-11.0); Platelet Count 126 10^3/uL (130-400); RBC 3.18 10^6/uL (3.93-5.22); RDW 13.1 % (11.7-14.6); RDW-SD 47.6 fL; WBC 7.83 10^3/uL (4.4-10.8)
[2025-11-22 19:32] LABS: Magnesium 1.6 mg/dL (1.6-2.6)
[2025-11-22 19:33] LABS: ALT 15 U/L (10-49); AST 21 U/L (<34); Albumin 4.1 g/dL (3.2-5.0); Alkaline Phosphatase 57 U/L (46-116); Anion Gap 4.4 mmol/L (3-11); BUN 16 mg/dL (9-23); Bilirubin, Total 0.4 mg/dL (0.2-1.2); CO2 29.6 mmol/L (20.0-31.0); Calcium 9.3 mg/dL (8.3-10.6); Chloride 101 mmol/L (98-107); Glucose 120 mg/dL (74-106); Potassium 4.7 mmol/L (3.5-5.1); Sodium 135 mmol/L (136-145); Total Protein 6.9 g/dL (5.7-8.2); Troponin I 17 ng/L (<35)
[2025-11-22 19:54] LABS: COVID-19 PCR Negative (Negative); RSV PCR Negative (Negative)
[2025-11-22] MEDS: methylPREDNISolone SUCC 125 MG VIAL 60 MG IVP (19:58)
[2025-11-22 20:22] LABS: Troponin I 19 ng/L (<35)
--- NOTE | 2025-11-22 20:57 | DI.VRAD_ITS ---
PROCEDURE INFORMATION: Exam: XR Chest Exam date and time: 11/22/2025 8:13 PM Age: 70 years old Clinical indication: Prior surgery; Surgery date: 6+ months; Surgery type: Pacemaker; Cough, resp distress TECHNIQUE: Imaging protocol: Radiologic exam of the chest. Views: 2 views. COMPARISON: 1. CT CHEST LUNG CANCER SCREEN 07/01/2025 3:11 PM 2. CR XR CHEST 2V PA LATERAL 02/04/2025 11:28 AM 3. CR XR CHEST 2V PA LATERAL 05/06/2024 12:10 PM FINDINGS: Tubes, catheters and devices: Oxygen tubing superimposed over the patient. Left-sided transvenous pacemaker with leads in right atrium and right ventricle again noted. Lungs: Adriana appear within normal limits. Right lower lobe pneumonia appears present. No consolidation noted in the remainder of the lungs. Pleural spaces: Small amount of right pleural fluid may be present. No left pleural effusion noted. No pneumothorax. Heart/Mediastinum: Heart appears enlarged with increased size compared to previous. Vasculature: Atherosclerotic calcification of the aortic arch. Mild tortuosity thoracic aorta. Some left carotid artery calcification suggested. Bones/joints: Some osteoarthrosis of shoulders. Bone mineralization appears unremarkable. Mild hypertrophic changes of the spine. IMPRESSION: 1. Findings consistent with right lower lobe pneumonia. 2. Small amount of right pleural fluid may be present. 3. Cardiomegaly. Dictated and Authenticated by: Tim Coleman MD. Orderin Obdulio Lee MD
--- NOTE | 2025-11-22 21:39 | HPE_ITS ---
Date of service: 11/22/25 Time of Service: 22:17 Assessment and Plan Assessment and plan (1) Community acquired pneumonia: Status: Acute Assessment and plan: Pneumonia in higher risk patient with respiratory failure and sepsis physiology. I agree with admission for IV antibiotics and observation. Started on ceftriaxone and azithro, will continue. Get sputum culture See below (2) Acute exacerbation of chronic obstructive pulmonary disease: Status: Acute Assessment and plan: Given solumedrol and nebs, continue nebs and prednione in the AM, will need another prolonged taper Continue Breztri equivalent. Should ah (3) Sepsis: Status: Resolved Assessment and plan: Met criteria with fever, HR, focal pneumonia Sent blood cx. Treating as above. holding off on fluids as CXR and BNaP suggest some overload. (4) Respiratory failure with hypoxia: Status: Acute Assessment and plan: secondary to above. Initially acutely worse than baseline, but improved to near baseline 3 liters after steroids/nebs. (5) Chronic pain: Status: Chronic Assessment and plan: Continue outpatient therapy, including prn morphine for dyspnea/pain (6) Anemia, macrocytic: Status: Chronic Assessment and plan: Near baseline. (7) Thrombocytopenia: Status: Chronic Assessment and plan: Chronic, followed at hematology. Has had some cirrrhosis work up. Has been stable. (8) Cigarette nicotine dependence: Status: Acute Assessment and plan: discussed cessation, she declines medication, but she has cut back and is considering quitting. (9) Episodic atrial fibrillation: Status: Acute Assessment and plan: Not anticoagulated, perhaps due to aneurysm. She is on aspirin, which we will continue (also for coiled cerebral aneurysm). (10) Stage 3b chronic kidney disease (CKD): Status: Acute Assessment and plan: at baseline History of Present Illness History of Present Illness Chief Complaint: SOB Narrative: 70 yo F with COPD, smoker, MARCIA, chronic hypoxic respiratory failure on 3 liters home oxygen who is presenting with worsening dyspnea and respiratory distress that started today. Started with cough and dyspnea with blood tinged sputum. She is taking her inhalers, which do help along with the nebs, but not enough. She has had some chest tightness and lightheadedness when she gets up. No fever/chills. She hasn't had runny nose or sore throat today. She has noted poor appetite, hasn't eating or drunk a lot today, but is thirsty now. No n/v/diarrhea or abdominal pain. She states she just finished a prolonged course of prednisone taper last week. No known sick contacts. Review of Systems All systems reviewed & are unremarkable except as noted in HPI and below PFSH All Active Problems (Updated 11/22/25 @ 22:32 by Darío Nichols) Stage 3b chronic kidney disease (CKD) (Acute) Acute exacerbation of chronic obstructive pulmonary disease (Acute) Afib (Chronic) Traumatic closed displaced fracture of base of metacarpal bone of left thumb (Acute) Open fracture of base of distal phalanx of left thumb (Acute) Edema, lower extremity (Acute) Advanced care planning/counseling discussion (Acute) Patient cannot afford medications (Acute) Macular degeneration (Acute) Osteopenia (Acute) Pericardial effusion (Acute) Pacemaker (Acute ~01/10/23) 01/10/23 Dr Jaden Cox EPS for sinus node dysfxn Medtronic dual chamber Axure complications post pacer of hydropneumothorax and pleural effusion requiring tap and chest tube-all have resolved RH Otitis externa (Acute) Chronic pain (Chronic) shoulder/back Nicotine dependence, cigarettes, uncomplicated (Acute) Hyperkalemia (Acute) Bradycardia (Acute) 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- per [facility] neurosurgery progress note; Annabelle Bagley APRN Left breast mass (Acute) Personal history of nicotine dependence (Acute) DNR (do not resuscitate) (Acute) Respiratory failure with hypoxia (Acute) Oxygen dependent Acute kidney injury superimposed on chronic kidney disease (Acute) Acute exacerbation of chronic obstructive pulmonary disease (Acute) Community acquired pneumonia (Acute) Anemia, macrocytic (Chronic) If hgb <9.5 consistently, discuss Erythropoietin stimulalting agents to avoid RBC tranfusions per note [facility] 10/19/22 03/05/23 Hem/Onc Cigarette nicotine dependence (Acute) Right wrist sprain (Acute) Vitamin D deficiency (Acute) Memory changes (Acute) Frequent falls (Acute) Leukopenia (Acute) mild with normal ANC per Dr. Lopez Bradycardia (Acute) 12/23 working with [facility] to get pacemaker Hypertension (Chronic) Cellulitis of toe of left foot (Acute) Cataract (Chronic) Otitis media (Acute) Pancytopenia (Acute) Thrombocytopenia (Chronic) 03/05/23 DH Hem Anemia (Chronic) Bone pain (Acute) Atypical chest pain (Acute 05/08/17) Idiopathic peripheral neuropathy (Acute) Thrombotic stroke (Acute) Cerebral aneurysm (Acute) Urinary incontinence (Acute 05/08/17) Sleep apnea (Chronic 05/08/17) Bi-PAP w/02 at 3L Situational depression (Acute 05/08/17) Positive CÉSAR (antinuclear antibody) (Acute 05/08/17) Supplemental oxygen dependent (Acute 05/30/17) Osteopenia (Acute 05/08/17) Insomnia (Acute 05/08/17) Idiopathic neuropathy (Acute 08/18/17) Hypothyroidism (Acute 05/08/17) Hyperlipidemia (Acute 05/08/17) Gastroesophageal reflux disease (Acute 05/08/17) Episodic atrial fibrillation (Acute 05/08/17) Chronic obstructive pulmonary disease (Chronic 05/08/17) O2 Dependent, Emphysematous per CT Chest (2018). 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 CAD (coronary artery disease) COPD (chronic obstructive pulmonary disease) Alcohol use disorder Dementia Diabetes Hypertension Substance use disorder Father , Heart Attack at age 72. CAD (coronary artery disease) COPD (chronic obstructive pulmonary disease) Alcohol use disorder Cancer Heart disease Brother Neoplasm Cell Alcohol use disorder Cancer Diabetes Sister Neoplasm Ovarain Cancer Depression Substance use disorder Daughter Depression Son Alcohol use disorder Maternal Grandmother No problems noted. Maternal Grandfather No problems noted. Paternal Grandmother No problems noted. Paternal Grandfather No problems noted. Social History (Updated 11/22/25 @ 22:23 by Darío Nichols) Smoking/Tobacco Use Status: Current every day Tobacco Type: cigarettes Smoking packs per day: 1 Smoking cigarettes per day: 20.0 Years smoked: 55 Smoking pack- years: 55.00 Tobacco: How many years used: 62 Quit status: considering quitting Counseling given: provider counseling Smoking risk assessment performed?: Yes Alcohol Intake: former Drug use: Never Substance use type: does not use Household members: family Communication Needs: Corrective Lenses Pets and animals: Yes (3 cats and 4 dogs) Seatbelt use: always Do you feel safe at home: Yes Do you feel safe in your relationship?: Yes Additional Social history: Lives with parent educator in [facility] Allergies and Home Medications Allergies Allergy/AdvReac Type Severity Reaction Status Date / Time Sulfa (Sulfonamide Allergy Severe Pruritis, Verified 11/22/25 20:30 Antibiotics) rash citalopram Allergy Intermediate rash, H/A, Verified 11/22/25 20:30 stomach pain hydrochlorothiazide Allergy Intermediate itching, Verified 11/22/25 20:30 gas adhesive tape AdvReac Unknown some cause Verified 11/22/25 20:30 Rash mirtazapine AdvReac Diarrhea Verified 11/22/25 20:30 Home Medications ?Medication ?Instructions ?Recorded ?Confirmed ?Type Hospital Bed ea miscellaneous ONCE ##1 07/27/19 Clinic Held on 11/22/25. Instructions: Pt Stopped/Never Started aspirin 81 mg tablet,delayed 81 mg PO DAILY Reported b y patient. 05/18/21 11/22/25 History release Oxygen #1 ea 06/07/21 11/22/25 Hist ory albuterol sulfate 90 mcg/actuation See Rx Instructions .Route 01/23/24 11/22/25 Rx aerosol inhaler .COMPLEX #8.5 grams vit B complex 100 combo no.2 100 1 tab PO DAILY #90 ta bs 11/09/24 11/22/25 Rx mg tablet,extended release (B-100 Complex ER) Held on 11/22/25. Instructions: Pt Stopped/Never Started ipratropium 0.5 mg-albuterol 3 mg See Rx Instructions .Route 12/06/24 11/22/25 Rx (2.5 mg base)/3 mL nebulization .COMPLEX #180 mL soln roflumilast 500 mcg tablet See Rx Instructions .Route 05/16/25 11/22/25 Rx .COMPLEX #90 tabs omeprazole 40 mg capsule,delayed 40 mg PO DAILY #90 ca ps 06/06/25 11/22/25 Rx release lisinopril 40 mg tablet See Rx Instructions .Route 0 07/20/25 11/22/25 Rx .COMPLEX #90 tabs furosemide 20 mg tablet (Lasix) 20 mg PO QAM #90 tabs 10/18/25 11/22/25 Rx budesonide 160 mcg-glycopyr 9 2 inh inhalation QAM AND QPM #10.7 10/26/25 11/22/25 Rx mcg-formot 4.8 mcg/actuation HFA grams inhaler (Breztri Aerosphere) prednisone 5 mg tablet 5 mg PO DIRECTED #49 tabs 11/03/25 11/22/25 Rx naloxone 4 mg/actuation nasal 4 mg intranasal Q2M PRN opioid 11/09/25 11/22/25 Rx spray (Narcan) overdose #2 ea pravastatin 20 mg tablet 20 mg PO HS #90 tab-caps 11/22/25 Rx trazodone 100 mg tablet 200 mg (2 x 100 mg) PO QHS P RN 11/15/25 11/22/25 Rx sleep #60 tabs lorazepam 1 mg tablet 1 mg PO DAILY PRN anxiety, 1 01/22/25 11/22/25 Rx shortness of breath #30 tabs morphine concentrate 100 mg/5 mL See Rx Instructions s ublingual Q1H 11/21/25 11/22/25 Rx (20 mg/mL) oral solution PRN PRN shortness of breath #30 mL levothyroxine 25 mcg tablet 25 mcg PO Q OTHER DAY 11/0111/22/25 History (Synthroid) Exam Narrative Exam Narrative: GEN: Alert and oriented x 4, pleasant and cooperative, gives linear history. Tired appearing, smells of cigarrettes, no distress at rest, mild respiratory distress with speaking, but able to speak in sentences. HEENT: Head atraumatic. Conjunctiva clear, no icterus. PEERL, EOMI. no rhinorrhea. MM dry, OP benign. Neck is supple with no masses or lymphadenopathy, trachea midline LUNGS: Diffuse expiratory wheeze, rales right mid lung field, mild increase respiratory effort CV: RRR with no murmurs, gallops, or rubs. ABD: active bowel sounds, soft, nontender and nondistended. No masses. EXT: no cyanosis, clubbing. Trace uriel LE edema MSK: No joint redness or swelling NEURO: CN 2-12 grossly intact. Normal movement of 4 extremities. Normal speech and coordination. No tremor SKIN: No rashes or open wounds. Bruises on arms and legs. PSYCH: normal mood and affect, nl thought process Results Imaging Chest x-ray: report reviewed (1. Findings consistent with right lower lobe pneumonia. 2. Small amount of right pleural fluid may be present. 3. Cardiomegaly. ) and image reviewed EKG: report reviewed and image reviewed (Sinus tachycardia rate 100, nl axis, intervals. No ischemic ST-T changes) L abs 11/22/25 18:53 11/22/25 18:53 Labs: Laboratory Results - last 24 hr 11/22/25 11/22/25 11/22/25 18:53 18:55 20:00 WBC 7.83 RBC 3.18 L Hgb 9.9 L Hct 31.7 L MCV 100 H MCH 31.1 MCHC 31.2 L RDW 13.1 Plt Count 126 L MPV 8.8 Immature Gran % 0.5 Neutrophils % 91.2 Lymphocytes % 3.8 Monocytes % 4.0 Eosinophils % 0.1 Basophils % 0.4 Nucleated RBC % 0.0 Absolute Neutrophils 7.14 H Absolute Lymphocytes 0.30 L Absolute Monocytes 0.31 Absolute Eosinophils 0.01 Absolute Basophils 0.03 VBG pH 7.42 H VBG pCO2 46 VBG pO2 44 VBG HCO3 30 H VBG Total CO2 28 VBG O2 Saturation 83 VBG Base Excess 5 H VBG Lactate 1.3 Sodium 135 L Potassium 4.7 Chloride 101 Carbon Dioxide 29.6 Anion Gap 4.4 BUN 16 Creatinine 1.56 H Est GFR (CKD-EPI 2020) 32.80 Glucose 120 H Calcium 9.3 Magnesium 1.6 Total Bilirubin 0.4 AST 21 ALT 15 Alkaline Phosphatase 57 Troponin I 17 19 NT-Pro-B Natriuret Pep 1094 H Total Protein 6.9 Albumin 4.1 COVID-19 Source Nasopharynx SARS-CoV-2 (PCR) Negative Influenza Type A (PCR) Negative Influenza Type B (PCR) Negative RSV (PCR) Negative Last Vital Signs Temp 38.2 C H 11/22/25 19:40 Pulse 103 H 11/22/25 20:23 Resp 18 11/22/25 19:40 BP 134/54 L 11/22/25 20:23 Pulse Ox 93 11/22/25 20:23 VTE Prohylaxis Risk Level: Moderate/High Risk Contraindications: None Prophylaxis: Pharmacologic Time Spent Time spent with Patient: 55-74 minutes Time was spent: preparing to see the patient(eg.review tests), obtaining and/or reviewing separately otained hiistory, ordering medications,tests, procedures, referring, communicating with other health medicare sales executive, indepentently interpreting results, counseling the patient and care coordination
[2025-11-22] MEDS: cefTRIAXone 2 GM/50 ML BAG IVPB (21:43)
[2025-11-22] MEDS: Normal Saline 500 ML 1000 ML IV (21:43)
--- NOTE | 2025-11-22 22:02 | W.PC.ACHO ---
Registration Status: REG ER Primary Language: Preferred Language: Mongolian ED Information & Data Chief Complaint RespSymp 11/22/25 20:19 Chief Complaint RespSymp 11/22/25 19:09 Triage Note increase diff breathing this 11/22/25 18:39 morning worsening throughout the day had had x3 DuoNeb's at home HX end stage COPD 72% RA on arrival - Medical / Surgical History (Last Reviewed 11/22/25 @ 19:06 by Jesus Mak MD) Palliative care patient Palliative care encounter Cellulitis and abscess of trunk (05/08/17) History of rheumatic fever (05/08/17) BP (high blood pressure) (05/08/17) (Last Reviewed 11/22/25 @ 19:06 by Jesus Mak MD) S/P breast biopsy, left (02/19/22) History of bone marrow biopsy 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) Cholecystectomy (~1979) Cerebral angiogram (11/03/17) Most Recent Vital Signs Temperature 38.2 C H 11/22/25 19:40 Pulse 103 H 11/22/25 20:23 Respiratory Rate 18 11/22/25 19:40 Respiratory Effort Short of Breath, Accessory Muscle Use 11/22/25 19:40 Respiratory Depth Shallow 11/22/25 19:40 Blood Pressure 134/54 L 11/22/25 20:23 Blood Pressure Mean 77 11/22/25 20:23 Pulse Oximetry 93 11/22/25 20:23 Respiratory End-tidal CO2 52 11/22/25 18:40 Oxygen Delivery Method OxyMask 11/22/25 19:40 Oxygen Flow Rate 4 11/22/25 19:40 Pain Level 4 11/22/25 19:40 Comment back pain 11/22/25 19:40 Comment on 4L oxymask 11/22/25 19:51 Allergies Sulfa (Sulfonamide Antibiotics) Allergy (Severe, Verified 11/22/25 20:30) Pruritis, rash [facility], GUILHERME Beyer citalopram Allergy (Intermediate, Verified 11/22/25 20:30) rash, H/A, stomach pain hydrochlorothiazide Allergy (Intermediate, Verified 11/22/25 20:30) itching, gas adhesive tape Adverse Reaction (Unknown, Verified 11/22/25 20:30) some cause Rash per [facility] [place] dated 07/27/19 cgc mirtazapine Adverse Reaction (Verified 11/22/25 20:30) Diarrhea Precautions Isolation Fall precaution 11/22/25 20:19 IV IV Catheter Type [Left Peripheral IV Antecubital] IV Catheter Gauge [Left 20 Antecubital] Diet Orders Category Date Time Status Regular/Normal [DIET] Nutrition 11/23/25 Breakfast Ordered Diagnostics 11/22/25 11/22/25 11/22/25 Range/Units 20:00 19:39 18:55 WBC (4.4-10.8) 10^3/uL RBC (3.93-5.22) 10^6/uL Hgb (11.2-15.7) g/dL Hct (36.0-46.0) % MCV (80-95) fL MCH (27.0-33.0) pg MCHC (32.0-36.0) % RDW (11.7-14.6) % Plt Count (130-400) 10^3/uL MPV (8.0-11.0) fL Immature Gran % % Neutrophils % % Lymphocytes % % Monocytes % % Eosinophils % % Basophils % % Nucleated RBC % (0.0-0.3) % Absolute Neutrophils (1.2-6.7) 10^3/uL Absolute Lymphocytes (1.2-3.4) 10^3/uL Absolute Monocytes (0.1-0.8) 10^3/uL Absolute Eosinophils (0.0-0.7) 10^3/uL Absolute Basophils (0.0-0.2) 10^3/uL VBG pH (7.31-7.41) VBG pCO2 (41-51) mmHg VBG pO2 mmHg VBG HCO3 (23-28) mmol/L VBG Total CO2 (24-29) mmol/L VBG O2 Saturation % VBG Base Excess (-2-3) mmol/L VBG Lactate (<or=2.0) mmol/L Sodium (136-145) mmol/L Potassium (3.5-5.1) mmol/L Chloride (98-107) mmol/L Carbon Dioxide (20.0-31.0) mmol/L Anion Gap (3-11) mmol/L BUN (9-23) mg/dL Creatinine (0.55-1.02) mg/dL Est GFR (CKD-EPI 2020) (mL/min/1.73m2) Glucose (74-106) mg/dL Calcium (8.3-10.6) mg/dL Magnesium (1.6-2.6) mg/dL Total Bilirubin (0.2-1.2) mg/dL AST (<34) U/L ALT (10-49) U/L Alkaline Phosphatase (46-116) U/L Troponin I 19 Pending (<35) ng/L NT-Pro-B Natriuret Pep (<300) pg/mL Total Protein (5.7-8.2) g/dL Albumin (3.2-5.0) g/dL COVID-19 Source Nasopharynx SARS-CoV-2 (PCR) Negative (Negative) Influenza Type A (PCR) Negative (Negative) Influenza Type B (PCR) Negative (Negative) RSV (PCR) Negative (Negative) 11/22/25 Range/Units 18:53 WBC 7.83 (4.4-10.8) 10^3/uL RBC 3.18 L (3.93-5.22) 10^6/uL Hgb 9.9 L (11.2-15.7) g/dL Hct 31.7 L (36.0-46.0) % MCV 100 H (80-95) fL MCH 31.1 (27.0-33.0) pg MCHC 31.2 L (32.0-36.0) % RDW 13.1 (11.7-14.6) % Plt Count 126 L (130-400) 10^3/uL MPV 8.8 (8.0-11.0) fL Immature Gran % 0.5 % Neutrophils % 91.2 % Lymphocytes % 3.8 % Monocytes % 4.0 % Eosinophils % 0.1 % Basophils % 0.4 % Nucleated RBC % 0.0 (0.0-0.3) % Absolute Neutrophils 7.14 H (1.2-6.7) 10^3/uL Absolute Lymphocytes 0.30 L (1.2-3.4) 10^3/uL Absolute Monocytes 0.31 (0.1-0.8) 10^3/uL Absolute Eosinophils 0.01 (0.0-0.7) 10^3/uL Absolute Basophils 0.03 (0.0-0.2) 10^3/uL VBG pH 7.42 H (7.31-7.41) VBG pCO2 46 (41-51) mmHg VBG pO2 44 mmHg VBG HCO3 30 H (23-28) mmol/L VBG Total CO2 28 (24-29) mmol/L VBG O2 Saturation 83 % VBG Base Excess 5 H (-2-3) mmol/L VBG Lactate 1.3 (<or=2.0) mmol/L Sodium 135 L (136-145) mmol/L Potassium 4.7 (3.5-5.1) mmol/L Chloride 101 (98-107) mmol/L Carbon Dioxide 29.6 (20.0-31.0) mmol/L Anion Gap 4.4 (3-11) mmol/L BUN 16 (9-23) mg/dL Creatinine 1.56 H (0.55-1.02) mg/dL Est GFR (CKD-EPI 2020) 32.80 (mL/min/1.73m2) Glucose 120 H (74-106) mg/dL Calcium 9.3 (8.3-10.6) mg/dL Magnesium 1.6 (1.6-2.6) mg/dL Total Bilirubin 0.4 (0.2-1.2) mg/dL AST 21 (<34) U/L ALT 15 (10-49) U/L Alkaline Phosphatase 57 (46-116) U/L Troponin I 17 (<35) ng/L NT-Pro-B Natriuret Pep 1094 H (<300) pg/mL Total Protein 6.9 (5.7-8.2) g/dL Albumin 4.1 (3.2-5.0) g/dL COVID-19 Source SARS-CoV-2 (PCR) (Negative) Influenza Type A (PCR) (Negative) Influenza Type B (PCR) (Negative) RSV (PCR) (Negative) 11/22/25 19:50 Blood Culture - Pending Blood 11/22/25 18:53 Blood Culture - Pending Blood Intake and Output - 24 Hour Total 11/22/25 18:25 thru 11/22/25 18:39 Weight 77.8 kg Falls Risk Assessment History of Falls Previous History 11/22/25 19:40 Contributing Factors Unstable 11/22/25 19:40 Tubes/Lines With any additional score 12/23/25 19:40 Gait Evaluation No gait disturbance 11/22/25 19:40 Cognition No cognitive impairment 11/22/25 19:40 Fall Total Score 38 11/22/25 19:40 Level of Risk Moderate Risk 11/22/25 19:40 Problems (Last Reviewed 11/22/25 @ 19:06 by Jesus Mak MD) Acute exacerbation of chronic obstructive pulmonary disease (Acute) Chronic pain (Chronic) Respiratory failure with hypoxia (Acute) Acute exacerbation of chronic obstructive pulmonary disease (Acute) Community acquired pneumonia (Acute) Anemia, macrocytic (Chronic) Cigarette nicotine dependence (Acute) Thrombocytopenia (Chronic) Episodic atrial fibrillation (Acute 05/08/17) Attestation Statement: By documenting the first initial, last name, and credentials of the reporting nurse below, both parties acknowledge that all relevant information regarding the patient handoff has been communicated, and that all questions have been addressed to ensure continuity and safety of care. Additional Patient Information/Comments: Pt admit through Ed to med/surg rm 215, for exacerbation of COPD. Positive for Pneumonia. Chronic back/sacrum pain. Pt on 3 L O2 @ baseline. US guided 20g LAC. Trop's pending, Abx Tx of Ceftriaxone. & rcieving bolus 500 mls NS. Report Received From: called at 8000, spoke w/ Kayy ENGLE.
[2025-11-22 22:33] LABS: Troponin I 20 ng/L (<35)
[2025-11-22] MEDS: Albuterol/Ipratropium 3 ML UPD VIAL UPD (22:45)
[2025-11-22] MEDS: AZITHROMYCIN 500 MG in Normal Saline 250 ML 250 MG IVPB (22:49)
[2025-11-22] MEDS: Normal Saline 250 ML (22:55)
[2025-11-22] MEDS: Azithromycin 500 MG VIAL (22:55)
[2025-11-22] MEDS: Normal Saline Flush 10 ML SYR IVP (23:59)
[2025-11-23 00:59] VITALS: O2SAT 90
[2025-11-23] MEDS: LORazepam 1 MG TAB PO (03:01)
[2025-11-23] MEDS: diphenhydrAMINE 25 MG CAP PO (03:01)
[2025-11-23] MEDS: MORPHine Oral Concentrate 20 MG/ML PO (03:02)
[2025-11-23 04:05] VITALS: PULSE 90; RESP 18; O2SAT 92
[2025-11-23] MEDS: Albuterol/Ipratropium 3 ML UPD VIAL UPD (04:05)
[2025-11-23] MEDS: Levothyroxine 25 MCG TAB PO (05:44)
[2025-11-23 06:53] LABS: HCT 29.8 % (36.0-46.0); HGB 9.5 g/dL (11.2-15.7); MCH 31.7 pg (27.0-33.0); MCHC 31.9 % (32.0-36.0); MCV 99 fL (80-95); MPV 8.9 fL (8.0-11.0); Platelet Count 124 10^3/uL (130-400); RBC 3.00 10^6/uL (3.93-5.22); RDW 13.1 % (11.7-14.6); RDW-SD 47.5 fL; WBC 12.02 10^3/uL (4.4-10.8)
[2025-11-23 07:09] LABS: Anion Gap 5.6 mmol/L (3-11); BUN 21 mg/dL (9-23); CO2 28.4 mmol/L (20.0-31.0); Calcium 8.9 mg/dL (8.3-10.6); Chloride 103 mmol/L (98-107); Glucose 118 mg/dL (74-106); Potassium 4.9 mmol/L (3.5-5.1); Sodium 137 mmol/L (136-145)
[2025-11-23 07:31] VITALS: BP 154/105; PULSE 75; RESP 16; TEMP 36.5; O2SAT 92
[2025-11-23] MEDS: predniSONE 20 MG TAB 60 MG PO (09:46)
[2025-11-23] MEDS: Enoxaparin 40 MG/0.4 ML SYR SC (09:46)
[2025-11-23] MEDS: Roflumilast 500 MCG TAB PO (09:47)
[2025-11-23] MEDS: Aspirin E.C. 81 MG TABEC PO (09:47)
[2025-11-23] MEDS: Furosemide 20 MG TAB PO (09:47)
[2025-11-23] MEDS: Azithromycin 250 MG TAB 500 MG PO (09:48)
[2025-11-23] MEDS: Lisinopril 20 MG TAB 40 MG PO (09:48)
[2025-11-23] MEDS: Omeprazole 20 MG CAPCR 40 MG PO (09:49)
[2025-11-23 11:25] VITALS: BP 96/61; PULSE 71; RESP 16; TEMP 35.9; O2SAT 89
--- NOTE | 2025-11-23 12:47 | DSE_ITS ---
Date of service: 11/23/25 Time of Service: 08:00 DS: Diagnosis Discharge Diagnosis (1) Community acquired pneumonia: Status: Acute (2) Acute exacerbation of chronic obstructive pulmonary disease: Status: Deleted (3) Sepsis: Status: Resolved (4) Respiratory failure with hypoxia: Status: Deleted (5) Chronic pain: Status: Chronic (6) Anemia, macrocytic: Status: Chronic (7) Thrombocytopenia: Status: Chronic (8) Cigarette nicotine dependence: Status: Acute (9) Episodic atrial fibrillation: Status: Acute (10) Stage 3b chronic kidney disease (CKD): Status: Acute Discharge Plan Disposition Patient Disposition: Home Condition: Poor Discharge Details Reason For Visit: Pneumonia, Respiratory Failure Admit Date/Time: 11/22/25 21:31 Admit Provider: Darío Nichols Attending Provider: Darío Nichols Primary Care Provider: [facility] Clinic Course Hospital Course: Marissa Ferrer is a 70 year old woman presenting November 22 with difficulty breathing. She was found to have likely community acquired pneumonia and was hospitalized overnight on IV antibiotics. Overnight she improved and is now back to her home level of O2. She has one positive blood culture and will follow up with her primary care provider. The patient has chosen to go home for Shushan, and has been given return precautions. Home Meds and New Rx's Prescriptions: New amoxicillin-pot clavulanate 875-125 mg tablet 1 tab PO Q12H Qty: 14 0RF Continued furosemide [Lasix] 20 mg tablet 20 mg PO QAM Qty: 90 1RF (DME) Oxygen Tank See Rx Instructions .ROUTE .MEDSUPPLY Qty: 1 Rx Instructions: use 3L per minute continuously, including bled into her BiPAP. morphine concentrate 100 mg/5 mL (20 mg/mL) solution See Rx Instructions sublingual Q1H PRN MDD 2ml PRN (Reason: shortness of breath) Qty: 30 0RF Rx Instructions: 0.25-0.5ml SL Q3H PRN PRN; lorazepam 1 mg tablet 1 mg PO DAILY MDD 1 tab PRN (Reason: anxiety, shortness of breath) Qty: 30 1RF prednisone 5 mg tablet 5 mg PO DIRECTED Qty: 49 0RF Rx Instructions: 40 mg x 2 days, 30 mg x 2 days, 20 mg x 2 days, 15 mg x 2 days, 10 mg x 2 days, 5 mg x 2 days, 2.5 mg x 2 days, then stop. Hospital Bed EACH Miscellaneous ONCE Qty: 1 0RF Rx Instructions: Maintain head elevation to breathing comfort, @ 40-45' as discussed aspirin 81 mg tablet,delayed release (DR/EC) 81 mg PO DAILY Rx Instructions: 05/11/21-[facility] hem onc; OK to continue ASA 81mg daily as long as platelet count is >25K. Channing Lopez MD albuterol sulfate 90 mcg/actuation HFA aerosol inhaler See Rx Instructions .ROUTE .COMPLEX Qty: 8.5 12RF Dose Instruction: INHALE 2 PUFFS BY MOUTH EVERY 4 HOURS Rx Instructions: INHALE 2 PUFFS BY MOUTH EVERY 4 HOURS ipratropium-albuterol 0.5 mg-3 mg(2.5 mg base)/3 mL solution for nebulization See Rx Instructions .ROUTE .COMPLEX Qty: 180 12RF Dose Instruction: INHALE THE CONTENTS OF ONE VIAL VIA NEBULIZER TWO TIMES A DAY Rx Instructions: INHALE THE CONTENTS OF ONE VIAL VIA NEBULIZER TWO TIMES A DAY roflumilast 500 mcg tablet See Rx Instructions .ROUTE .COMPLEX Qty: 90 3RF Dose Instruction: TAKE ONE TABLET BY MOUTH EVERY DAY Rx Instructions: TAKE ONE TABLET BY MOUTH EVERY DAY omeprazole 40 mg capsule,delayed release(DR/EC) 40 mg PO DAILY Qty: 90 3RF lisinopril 40 mg tablet See Rx Instructions .ROUTE .COMPLEX Qty: 90 3RF Dose Instruction: TAKE ONE TABLET BY MOUTH ONCE DAILY Rx Instructions: TAKE ONE TABLET BY MOUTH ONCE DAILY Breztri Aerosphere 160-9-4.8 mcg/actuation HFA aerosol inhaler 2 inh inhalation QAM AND QPM Qty: 10.7 3RF naloxone [Narcan] 4 mg/actuation spray,non-aerosol 4 mg intranasal Q2M PRN (Reason: opioid overdose) Qty: 2 2RF Rx Instructions: spray 1 dose into ONE nostril; alternate nostrils w each dose until help arrives pravastatin 20 mg tablet 20 mg PO HS Qty: 90 3RF trazodone 100 mg tablet 200 mg PO QHS PRN (Reason: sleep) Qty: 60 1RF levothyroxine [Synthroid] 25 mcg tablet 25 mcg PO Q OTHER DAY Discharge Instructions Stand Alone Forms: Portal Information, Nursing Discharge Form Referrals: Marjorie Lucero NP [Primary Care Provider, Medicine] Referral Note: Your PCP will reach out, if you do not hear from them please call. Activity:: Activity as Tolerated Equipment/Supplies:: Oxygen (L/min Below) Diet:: As Tolerated Discharge Orders Discharge Orders: Discharge Order (Routine); Ordered 11/23/25 Ordered By: Saul Melo Discharge Data Discharge Date/Time-TO BE ENTERED AT DEPARTURE: 11/23/25 13:31 DS: Summary Time Spent with Patient providing and/or coordinating discharge services: Less than 30 minutes Status at Discharge Functional status at discharge: independent ambulation Overall status at discharge: patient is progressing back to baseline Mental Status: mental status grossly normal Speech and Movement: speech and movement normal Mood: congruent mood Affect: normal affect Quality:SDOH Health Related Social Needs: Health related social needs lonely/isolated Exam Narrative Exam Narrative: GEN: Alert and oriented x 4, pleasant and cooperative, gives linear history. Tired appearing, smells of cigarrettes, no distress at rest, mild respiratory distress with speaking, but able to speak in sentences. HEENT: Head atraumatic. Conjunctiva clear, no icterus. PEERL, EOMI. no rhinorrhea. MM dry, OP benign. Neck is supple with no masses or lymphadenopathy, trachea midline LUNGS: Diffuse expiratory wheeze, rales right mid lung field, mild increase respiratory effort CV: RRR with no murmurs, gallops, or rubs. ABD: active bowel sounds, soft, nontender and nondistended. No masses. EXT: no cyanosis, clubbing. Trace uriel LE edema MSK: No joint redness or swelling NEURO: CN 2-12 grossly intact. Normal movement of 4 extremities. Normal speech and coordination. No tremor SKIN: No rashes or open wounds. Bruises on arms and legs. PSYCH: normal mood and affect, nl thought process Psych Mental Status: mental status grossly normal Speech and Movement: speech and movement normal Mood: congruent mood Affect: normal affect DS: Data Vitals/I&O Vitals and I&O: Vital Signs Temperature 35.9 C L 11/23/25 11:25 Temperature Source Temporal Artery Scan 11/23/25 11:25 Pulse 71 11/23/25 11:25 Pulse Rhythm Regular 11/22/25 22:21 Respiratory Rate 16 11/23/25 11:25 Respiratory Effort Short of Breath, Labored, Incrsd Work of Breathing 11/22/25 22:21 Respiratory Depth Shallow 11/22/25 22:21 Respiratory Pattern Normal 11/22/25 22:21 Blood Pressure 96/61 L 11/23/25 11:25 Blood Pressure Mean 72 11/23/25 11:25 Pulse Oximetry 89 L 11/23/25 11:25 Respiratory End-tidal CO2 52 11/22/25 18:40 Oxygen Delivery Method Nasal Cannula 11/23/25 11:25 Oxygen Flow Rate 0 11/23/25 07:31 Pain Level 0 11/22/25 22:21 Comment Vitals were not required as she get Q4 vitals when awake. 11/23/25 04:46 Comment on 4L oxymask 11/22/25 19:51 Intake & Output 11/22/25 11/23/25 11/23/25 23:59 11:59 23:59 Intake Total 550 / 800 620 / 620 Output Total 200 / 200 Balance 550 / 800 420 / 420 Weight 79.832 kg 79.8 kg Intake: IV 550 / 800 260 / 260 Oral 360 / 360 Output: Urine 200 / 200 Other: Urine Color Light Annabelle Urine Appearance Clear Urine Odor Normal Data Completed and Pending Pending Labs at Discharge: 11/22/25 11/22/25 11/22/25 18:53 18:55 20:00 WBC 7.83 RBC 3.18 L Hgb 9.9 L Hct 31.7 L MCV 100 H MCH 31.1 MCHC 31.2 L RDW 13.1 Plt Count 126 L MPV 8.8 Immature Gran % 0.5 Neutrophils % 91.2 Lymphocytes % 3.8 Monocytes % 4.0 Eosinophils % 0.1 Basophils % 0.4 Nucleated RBC % 0.0 Absolute Neutrophils 7.14 H Absolute Lymphocytes 0.30 L Absolute Monocytes 0.31 Absolute Eosinophils 0.01 Absolute Basophils 0.03 VBG pH 7.42 H VBG pCO2 46 VBG pO2 44 VBG HCO3 30 H VBG Total CO2 28 VBG O2 Saturation 83 VBG Base Excess 5 H VBG Lactate 1.3 Sodium 135 L Potassium 4.7 Chloride 101 Carbon Dioxide 29.6 Anion Gap 4.4 BUN 16 Creatinine 1.56 H Est GFR (CKD-EPI 2020) 32.80 Glucose 120 H Calcium 9.3 Magnesium 1.6 Total Bilirubin 0.4 AST 21 ALT 15 Alkaline Phosphatase 57 Troponin I 17 19 NT-Pro-B Natriuret Pep 1094 H Total Protein 6.9 Albumin 4.1 COVID-19 Source Nasopharynx SARS-CoV-2 (PCR) Negative Influenza Type A (PCR) Negative Influenza Type B (PCR) Negative RSV (PCR) Negative 11/22/25 11/23/25 22:08 06:01 WBC 12.02 H RBC 3.00 L Hgb 9.5 L Hct 29.8 L MCV 99 H MCH 31.7 MCHC 31.9 L RDW 13.1 Plt Count 124 L MPV 8.9 Immature Gran % Neutrophils % Lymphocytes % Monocytes % Eosinophils % Basophils % Nucleated RBC % Absolute Neutrophils Absolute Lymphocytes Absolute Monocytes Absolute Eosinophils Absolute Basophils VBG pH VBG pCO2 VBG pO2 VBG HCO3 VBG Total CO2 VBG O2 Saturation VBG Base Excess VBG Lactate Sodium 137 Potassium 4.9 Chloride 103 Carbon Dioxide 28.4 Anion Gap 5.6 BUN 21 Creatinine 1.53 H Est GFR (CKD-EPI 2020) 33.55 Glucose 118 H Calcium 8.9 Magnesium Total Bilirubin AST ALT Alkaline Phosphatase Troponin I 20 NT-Pro-B Natriuret Pep Total Protein Albumin COVID-19 Source SARS-CoV-2 (PCR) Influenza Type A (PCR) Influenza Type B (PCR) RSV (PCR) Preliminary micro results at discharge 11/22/25 19:50 Blood Blood Culture - Preliminary Gram positive cocci 11/23/25 03:05 Sputum Sputum Culture - Pending 11/22/25 18:53 Blood Blood Culture - Pending [facility] All Active Problems (Updated 11/24/25 @ 00:01 by LISSETTE HOGAN) Stage 3b chronic kidney disease (CKD) (Acute) Acute exacerbation of chronic obstructive pulmonary disease (Acute) Afib (Chronic) Traumatic closed displaced fracture of base of metacarpal bone of left thumb (Acute) Open fracture of base of distal phalanx of left thumb (Acute) Edema, lower extremity (Acute) Advanced care planning/counseling discussion (Acute) Patient cannot afford medications (Acute) Macular degeneration (Acute) Osteopenia (Acute) Pericardial effusion (Acute) Pacemaker (Acute ~01/10/23) 01/10/23 Dr Jaden Cox EPS for sinus node dysfxn Medtronic dual chamber Axure complications post pacer of hydropneumothorax and pleural effusion requiring tap and chest tube-all have resolved RH Otitis externa (Acute) Chronic pain (Chronic) shoulder/back Nicotine dependence, cigarettes, uncomplicated (Acute) Hyperkalemia (Acute) Bradycardia (Acute) 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- per [facility] neurosurgery progress note; Annabelle Bagley APRN Left breast mass (Acute) Personal history of nicotine dependence (Acute) DNR (do not resuscitate) (Acute) Acute kidney injury superimposed on chronic kidney disease (Acute) Community acquired pneumonia (Acute) Anemia, macrocytic (Chronic) If hgb <9.5 consistently, discuss Erythropoietin stimulalting agents to avoid RBC tranfusions per note [facility] 10/19/22 03/05/23 Hem/Onc Cigarette nicotine dependence (Acute) Chronic obstructive pulmonary disease (Chronic 05/08/17) O2 Dependent, Emphysematous per CT Chest (2018). New development of nodules noted on CT (01/2018) Right wrist sprain (Acute) Vitamin D deficiency (Acute) Frequent falls (Acute) Memory changes (Acute) Leukopenia (Acute) mild with normal ANC per Dr. Lopez Bradycardia (Acute) 12/23 working with [facility] to get pacemaker Hypertension (Chronic) Cellulitis of toe of left foot (Acute) Cataract (Chronic) Otitis media (Acute) Pancytopenia (Acute) Thrombocytopenia (Chronic) 03/05/23 Hem Anemia (Chronic) Bone pain (Acute) Atypical chest pain (Acute 05/08/17) Idiopathic peripheral neuropathy (Acute) Thrombotic stroke (Acute) Cerebral aneurysm (Acute) Urinary incontinence (Acute 05/08/17) Sleep apnea (Chronic 05/08/17) Bi-PAP w/02 at 3L Situational depression (Acute 05/08/17) Positive CÉSAR (antinuclear antibody) (Acute 05/08/17) Supplemental oxygen dependent (Acute 05/30/17) Osteopenia (Acute 05/08/17) Insomnia (Acute 05/08/17) Idiopathic neuropathy (Acute 08/18/17) Hypothyroidism (Acute 05/08/17) Hyperlipidemia (Acute 05/08/17) Gastroesophageal reflux disease (Acute 05/08/17) Episodic atrial fibrillation (Acute 05/08/17) Adult BMI 45.0-49.9 kg/sq m (Acute 11/06/17) Arthralgia (Acute 05/08/17) Anxiety (Acute 05/08/17) Medical History Palliative care patient Palliative care encounter Cellulitis and abscess of trunk (05/08/17) History of rheumatic fever (05/08/17) BP (high blood pressure) (05/08/17) w/o Hypertension Surgical History S/P breast biopsy, left (02/19/22) [facility] History of bone marrow biopsy Coiling R [employer] aneurysm (11/03/17) Cholecystectomy (~1979) Cerebral angiogram (11/03/17) Family History Mother , Heart Attack at age 83. CAD (coronary artery disease) COPD (chronic obstructive pulmonary disease) Alcohol use disorder Dementia Diabetes Hypertension Substance use disorder Father , Heart Attack at age 72. CAD (coronary artery disease) COPD (chronic obstructive pulmonary disease) Alcohol use disorder Cancer Heart disease Brother Neoplasm Cell Alcohol use disorder Cancer Diabetes Sister Neoplasm Ovarain Cancer Depression Substance use disorder Daughter Depression Son Alcohol use disorder Maternal Grandmother No problems noted. Maternal Grandfather No problems noted. Paternal Grandmother No problems noted. Paternal Grandfather No problems noted. Social History (Updated 11/22/25 @ 22:23 by Darío Nichols) Smoking/Tobacco Use Status: Current every day Tobacco Type: cigarettes Smoking packs per day: 1 Smoking cigarettes per day: 20.0 Years smoked: 55 Smoking pack-years: 55.00 Tobacco: How many years used: 62 Quit status: considering quitting Counseling given: provider counseling Smoking risk assessment performed?: Yes Alcohol Intake: former Drug use: Never Substance use type: does not use Household members: family Housing: house Communication Needs: Corrective Lenses Pets and animals: Yes (3 cats and 4 dogs) Seatbelt use: always Do you feel safe at home: Yes Do you feel safe in your relationship?: Yes Additional Social history: Lives with occupational therapy manager in [facility] Time Spent with Patient Time Spent with Patient: <45 minutes Time was spent: preparing to see the patient(eg.review tests), obtaining and/or reviewing separately otained hiistory, ordering medications,tests, procedures, referring, communicating with other health manager care, indepentently interpreting results, counseling the patient and care coordination
--- NOTE | 2025-11-23 12:50 | PDOC.CMDIS ---
Date of service: 11/23/25 Time of Service: 12:50 LACE Index Scoring Tool Questions: Length of Stay (in days): 1 Was the patient admitted via the E.D.?: Yes Comorbidities: Liver or Renal Disease E.D. Visits: 1 Answers: Total Score: 10 Risk of Readmission: High Risk Care Management Discharge Plan Reason for Hospitalization: PNA, respiratory failure Discharge Plan: Marissa will be discharged home today with no new services indicated. It is recommended she follow up with her community providers and discharge plan of care. She will transport home via private vehicle. Patient/Family Education Needs: Review of discharge instructions, activity, limitations, and plan of care. Discuss ask me three. SDOH Health Related Social Needs: Health related social needs lonely/isolated
== END 2025-11-23 13:31 | disposition home or self-care (01) ==
LOC: ER 20:07 → MS 11-23 07:21
PROVIDERS: Admitting Provider Family Medicine; Emergency Provider Student in an Organized Health Care Education/Training Program; PCP Nurse Practitioner Family; Responsible Provider Family Medicine; Visit Provider Family Medicine
DX: A41.9 Sepsis, unspecified organism (principal); J18.9 Pneumonia, unspecified organism; J44.0 Chronic obstructive pulmonary disease with (acute) lower respiratory infection; J44.1 Chronic obstructive pulmonary disease with (acute) exacerbation; J96.01 Acute respiratory failure with hypoxia; G89.29 Other chronic pain; D53.9 Nutritional anemia, unspecified; F17.210 Nicotine dependence, cigarettes, uncomplicated; D69.6 Thrombocytopenia, unspecified; I48.0 Paroxysmal atrial fibrillation; N18.32 Chronic kidney disease, stage 3b; Z95.0 Presence of cardiac pacemaker; Z66 Do not resuscitate; Z99.81 Dependence on supplemental oxygen; I12.9 Hypertensive chronic kidney disease with stage 1 through stage 4 chronic kidney disease, or unspecified chronic kidney disease; F41.9 Anxiety disorder, unspecified; K21.9 Gastro-esophageal reflux disease without esophagitis; E03.9 Hypothyroidism, unspecified; E78.5 Hyperlipidemia, unspecified; Z86.73 Personal history of transient ischemic attack (TIA), and cerebral infarction without residual deficits; G47.33 Obstructive sleep apnea (adult) (pediatric)
CPT/HCPCS: 00123; 36415; 80048; 80053; 82805; 85027; 87040; 87077; 87637; 93005; 96365; 96375; 99291; J1650; 71046; 83605; 83735; 83880; 84484; 85025; 87070; 87186; 87205; 93010; 94640; 94760; 99222; 99238; G0378; J0456; J0696; J2919; J7512; J7620